=== PATIENT | female | born 1960 | race American Indian/Alaskan Native ===

== ENCOUNTER 2021-04-29 19:48 | Inpatient (IN) | payer BC ==
--- NOTE | 2021-04-29 10:59 | Anesthesia Day of Surgery ---
Anesthesia Day of Surgery - Day of Surgery Patient Examined: Yes Patient H&P Reviewed: Yes Patient is NPO: Yes Beta Blockers: Yes
--- NOTE | 2021-04-29 11:01 | Anesthesia Consultation ---
Anesthesia Consult and Med Hx Date of service: 04/29/21 - Airway Anesthetic Teeth Evaluation: Chipped, Partials ROM Head & Neck: Adequate Mental/Hyoid Distance: Adequate Mallampati Class: Class II Intubation Access Assessment: Good - Pre-Operative Health Status ASA Pre-Surgery Classification: ASA3 Nerve Block: IS (GA if needed) - Pulmonary Hx Smoking: Yes Hx Respiratory Symptoms: No (+2FS) Hx Sleep Apnea: No - Cardiovascular System Hx Hypertension: Yes Hx Heart Murmur: Yes - Central Nervous System Hx Psychiatric Problems: Yes (Anxiety) - Gastrointestinal Hx Gastroesophageal Reflux Disease: No - Endocrine Hx Renal Disease: Yes (because of HTN) Hx End Stage Renal Disease: Yes (Not on HD yet) Hx Liver Disease: No Hx Non-Insulin Dependent Diabetes: No - Hematic Hx Anemia: Yes (IRON INFUSIONS) Hx Sickle Cell Disease: No - Other Systems Hx Alcohol Use: No Hx Substance Use: No Hx Cancer: No
[2021-04-29 11:50] LABS: Hematocrit 25.5 % (30.3-42.9); Hemoglobin 8.5 gm/dl (10.1-14.3); Mean Corpuscular HGB Conc 33 % (30-34); Mean Corpuscular Volume 91 fl (79-97); Platelet Count 184 K/mm3 (140-440); Red Cell Distribution Width 19.5 % (13.2-15.2)
[2021-04-29 11:55] LABS: Calcium 8.5 mg/dL (8.4-10.2)
--- NOTE | 2021-04-29 14:44 | Post Operative Note ---
Date of procedure: 04/29/21 Pre-op diagnosis: Stage V CKD Post-op diagnosis: same Procedure: Right arm brachiocephalic av fistula creation Anesthesia: GETA Surgeon: FILOMENA MCDUFFIE Estimated blood loss: other (25 ml) Pathology: none Condition: stable Disposition: PACU
--- NOTE | 2021-04-29 14:45 | Short Stay Summary ---
Short Stay Documentation Date of service: 04/29/21 - History H&P: obtained from office Past Medical History: diabetes, ESRD - Allergies and Medications Current Medications: Allergies No Known Allergies Allergy (Verified 04/26/21 11:49) Home Medications Medication Instructions Recorded Confirmed Last Taken Type ALPRAZolam [Xanax TAB] 1 mg PO PRN PRN 04/26/21 04/26/21 Unknown History Amlodipine Besylate [Norvasc] 10 mg PO DAILY 04/26/21 04/29/21 04/29/21 09:00 History Hydralazine HCl 50 mg PO TID 04/26/21 04/29/21 04/29/21 09:00 History Nebivolol HCl [Bystolic] 20 mg PO DAILY 04/26/21 04/29/21 04/29/21 09:00 History Torsemide [Demadex] 100 mg PO QDAY 04/26/21 04/29/21 04/28/21 09:00 History Zolpidem (Nf) [Ambien (Nf)] 10 mg PO QHS 04/26/21 04/29/21 04/27/21 20:00 History allopurinoL [Zyloprim] 100 mg PO QDAY 04/26/21 04/29/21 04/28/21 09:00 History calcitrioL [Rocaltrol] 0.25 mcg PO DAILY 04/26/21 04/29/21 04/26/21 09:00 History Active Medications Fentanyl (Fentanyl 100 Mcg/2 Ml Inj) 100 mcg IV ONCE NR Stop: 04/29/21 23:59 Hydromorphone HCl (Hydromorphone 1 Mg/1 Ml Inj) 0.25 mg IV Q10MIN PRN PRN Reason: Pain, Moderate (4-6) Stop: 04/29/21 23:59 Hydromorphone HCl (Hydromorphone 1 Mg/1 Ml Inj) 0.5 mg IV Q10MIN PRN PRN Reason: Pain , Severe (7-10) Stop: 04/29/21 23:59 Sodium Chloride (Nacl 0.9% 1000 Ml) 1,000 mls @ 42 mls/hr IV DIRECT LYLA Midazolam HCl (Midazolam 2 Mg/2 Ml Inj) 2 mg IV PREOP NR Stop: 04/29/21 23:59 Ondansetron HCl (Ondansetron 4 Mg/2 Ml Inj) 4 mg IV ONCE PRN PRN Reason: Nausea And Vomiting Stop: 04/29/21 23:59 - Physical exam General appearance: no acute distress Lungs: Normal air movement Heart: Regular rate Extremities: no ischemia - Hospital course Hospital course: the patient was taken to the operating room and had a right arm av fistula c reation. please refer to the operative note concerning details of the procedure. the patient tolerated the procedure well and was discharged home in stable condition. - Disposition Condition at discharge: Stable Disposition: DC-01 TO HOME OR SELFCARE Short Stay Discharge Plan Follow up with: JOSE STARKEY MD [Primary Care Provider] - 7 Days
--- NOTE | 2021-04-29 16:16 | Post Anesthesia Evaluation ---
- Post Anesthesia Evaluation Patient Participated: Yes Airway Patent: Yes Stable Respiratory Function: Yes Nausea/Vomiting: No Temp > 96.8F: Yes Pain Manageable: Yes Adequeate Hydration: Yes Anesthesia Complications: No Block Receding Appropriately: Yes Patient on Ventilator: No Other Comments: Pt misrepresented her health history preoperatively and overstated her activity tolerance.
--- NOTE | 2021-04-29 17:16 | XRay Report ---
CHEST 1 VIEW 04/29/2021 5:01 PM INDICATION / CLINICAL INFORMATION: POST OP. HYPOXIA. COMPARISON: None available. FINDINGS: SUPPORT DEVICES: None. HEART / MEDIASTINUM: Cardiomegaly LUNGS / PLEURA: Diffuse bilateral pulmonary opacities and edema with right effusion No pneumothorax. Signer Name: Mele Rodriguez MD Signed: 04/29/2021 5:12 PM Workstation Name: [id number]
--- NOTE | 2021-04-29 17:31 | Operative Report ---
DATE OF SURGERY: 04/29/2021 STAFF SURGEON: Dr. Xu Stout. PREOPERATIVE DIAGNOSIS: Stage V chronic kidney disease. POSTOPERATIVE DIAGNOSIS: Stage V chronic kidney disease. PROCEDURE PERFORMED: Right arm brachiocephalic AV fistula creation. COMPLICATIONS: None. ESTIMATED BLOOD LOSS: 25 mL ANESTHESIA: General. INDICATIONS FOR PROCEDURE: This is a 61-year-old female with stage V chronic kidney disease, in need of upper extremity accesses. The patient was found to have a marginal cephalic vein in the upper arm by bedside ultrasound, found to be suitable for potential for AV fistula creation. The patient was explained the risks, benefits and alternative procedure, expressed understanding and wished to proceed. DESCRIPTION OF PROCEDURE: The appropriate consent was obtained. The patient was brought back to the operating room and placed on the operating table in supine position with the right arm extended. The patient was given appropriate medication for general anesthesia, had LMA placed without difficulty. The right arm was prepped and draped in sterile fashion with ChloraPrep. Appropriate preoperative antibiotics were administered and appropriate timeout was performed indicating the correct patient, procedure, and site of procedure. We then began the operation by making a transverse incision just below the antecubital fossa. This was carried through subcutaneous tissue with combination of blunt dissection and electrocautery. Dissection was continued until the cephalic vein was identified, which was found to be suitable for a fistula creation. This mobilized for appropriate distance both proximally and distally. The branches of the cephalic vein were taken down with silk suture and transected. We then continued our dissection medially through the bicep aponeurosis, which allowed us to expose the brachial artery, which was found to be suitable for arterial inflow, mobilized for appropriate distance both proximally and distally. The patient was given 5000 units of unfractionated heparin. With appropriate timeout elapsed, vascular clamps were placed on the brachial artery, both proximally and distally. The cephalic vein was transected in the distal aspect of the incision, flushed with heparinized saline and spatulated. A longitudinal arteriotomy was made on the brachial artery and extended with Guzman scissors. Then end-to-side anastomosis was performed with a running 6-0 Prolene suture. Once complete, flow was established through the fistula had a nice palpable thrill. We then looked to obtain hemostasis along the suture line, was obtained with hemostatic agents. Once we were satisfied with hemostasis, we then proceeded to close the wound by approximating the deep subcutaneous layer with interrupted 3-0 PDS and then the skin was approximated with a running 4-0 Monocryl. Appropriate Dermabond dressing was placed. The patient tolerated the procedure well, emerged from the general anesthesia, had LMA removed and was sent to recovery in stable condition. All the sponge, instrument and needle counts were correct at completion of the operation. TID: [id number] RECEIPT: [id number] VCN/NOO
[~2021-04-29 19:48] MED LIST: ALBUTEROL 2.5 MG/3 ML NEBU IH ONE; ALPRAZolam 1 MG TAB PO PRN; BUPIVACAINE/PF (0.5%) 5 MG/1 ML 30 ML VIAL INFILTRATI ONE; GELATIN SPONGE SIZE 100 TP ONE; HEPARIN 10,000 UNITS/10 ML VIAL ONE; HEPARIN 2,000 UNIT in SODIUM CHLORIDE 0.9% 500 ML 500 ML IR ONE; HYDROmorphone 1 MG/1 ML INJ IV PRN; LIDOCAINE (1%) 10 MG/1 ML VIAL 20 ML MDV ONE; LIDOCAINE MPF (2%) 20 MG/1 ML VIAL 5 ML ONE; MIDAZOLAM 2 MG/2 ML INJ IV NR; NEBIVOLOL HCL 20 MG PO SCH; ONDANSETRON 4 MG/2 ML INJ IV PRN; PHENYLEPHRINE 10 MG/1 ML INJ SDV ONE; PHENYLEPHRINE/NS 1,000 MCG/10 ML SYRINGE (OR USE) IV ONE; PROTAMINE SULFATE 50 MG/5 ML INJ ONE; SODIUM CHLORIDE 0.9% 100 ML ONE; SODIUM CHLORIDE 0.9% 1000 ML 1,000 ML IV SCH; SODIUM CHLORIDE 0.9% 1000 ML 1,000 ML ONE; SODIUM CHLORIDE 0.9% 500 ML 500 ML ONE; SODIUM CHLORIDE 0.9% IRR 1,000 ML BOTTLE IR ONE; THROMBIN (RECOMBINANT) 5,000 UNIT VIAL TP ONE; ceFAZolin/STERILE WATER 2 GM/20 ML SYRINGE IV NR; ceFAZolin/Water 2 GM/20 ML 2 GM/20 ML SYRINGE IV ONE; fentaNYL 100 MCG/2 ML INJ IV NR; flumazeniL 0.5 MG/5 ML INJ IV ONE; oxyCODONE /ACETAMINOPHEN 5-325MG TAB PO PRN; propofoL 200 MG/20 ML VIAL IV ONE
[2021-04-29] MEDS ORDERED: TORSEMIDE 100 MG TAB PO SCH (20:00)
[2021-04-29] MEDS ORDERED: amLODIPine 5 MG TAB PO SCH (20:00)
[2021-04-29] MEDS ORDERED: NON-FORMULARY EACH (Hydralazine Hcl [Hydralazine Hcl] 50 MG Tablet) PO SCH (20:00)
[2021-04-29] MEDS: hydrALAZINE 25 MG TAB PO SCH (21:09)
[2021-04-29] MEDS ORDERED: FAMOTIDINE 10 MG TAB PO SCH (22:00)
[2021-04-29] MEDS ORDERED: NALOXONE 0.4 MG/1 ML INJ ONE (23:31)
[2021-04-29] MEDS ORDERED: NALOXONE 0.4 MG/1 ML INJ IV PRN (23:55)
--- NOTE | 2021-04-30 00:03 | Event Note ---
Date: 04/30/21 I was asked by the hospitalist, Dr. Angel, to come up to room 460 and intubate the patient. It appears that this patient was here for a brachiocephalic fistula creation and the patient's nurse says that she just arrived from the PACU. I do not know what the events were leading up to the patient's respiratory distress. When I arrived to the room respiratory therapy was at bedside attempting to intubate. There appears to be a lot of gastric secretions that the patient has in the oropharynx. I got to the head of the bed to intubate the patient. RT was assisting with suction. I used a glide scope with a MAC 4 blade and was able to visualize the vocal cords. I placed a 7.5 endotracheal tube through the vocal cords to about 24 cm at the lips. The bulb was inflated with about 7 cc of air. There was good color change capnography, bilateral breath sounds heard. The patient's oxygen saturation went up from 85% to 97%. At this point I left the room to return to the emergency department and Dr. Angel will continue with the rest of the patient's evaluation and transfer to the ICU.
--- NOTE | 2021-04-30 00:06 | Event Note ---
Date: 04/30/21 Code med was called. Patient was found unresponsive and not breathing. 027 around 57 and BP 78-80/50. Patient get Percocet and fentanyl. Patient was given 5 Narcan with improvement of O2 sat but patient was still not breathing. Patient was vomiting food material. Patient was intubated by the ER physician to protect airway. O2 sat is 96% BP 117/68. Patient is transferred to the ICU. Critical care is consulted. Case discussed with family
[2021-04-30] MEDS ORDERED: SODIUM CHLORIDE 0.9% 500 ML IVPB IV PRN (00:53)
[2021-04-30] MEDS ORDERED: LIP THERAPY VASELINE TP PRN (00:53)
[2021-04-30] MEDS ORDERED: MINERAL OIL/PETROLATUM, WHITE OPHTH OINT 3.5 GM OU PRN (00:53)
[2021-04-30] MEDS ORDERED: DOPamine/D5W 800 MG/250 ML 800 MG/250 ML BAG IV SCH (01:00)
[2021-04-30] MEDS ORDERED: PIPERACIL/TAZOBACTA 4.5/NS 100 4.5 GM/100 ML VIAL IV SCH (01:00)
[2021-04-30] MEDS ORDERED: MIDAZOLAM 100 MG in SODIUM CHLORIDE 0.9% 80 ML IV SCH (01:00)
--- NOTE | 2021-04-30 01:02 | XRay Report ---
XR chest 1V ap INDICATION / CLINICAL INFORMATION: ett placement. COMPARISON: 04/29/2021 FINDINGS: Right lung base is incompletely imaged. SUPPORT DEVICES: Endotracheal tube projects in the midtrachea. HEART /PULMONARY VASCULATURE: Unchanged. LUNGS / PLEURA: Lung parenchyma is not significantly changed. No pneumothorax. IMPRESSION: Satisfactory position of endotracheal tube. Otherwise stable appearance of the chest. Signer Name: Leon Foster MD Signed: 04/30/2021 12:57 AM Workstation Name: [id number]
[2021-04-30] MEDS: MIDAZOLAM 2 MG/2 ML INJ IV PRN ×2 (01:27→01:40)
[2021-04-30] MEDS: PIPERACIL-TAZO 2.25 GM/50 ML 2.25 GM/50 ML BAG IV SCH ×3 (03:36→19:11)
[2021-04-30 04:54] LABS: Hematocrit 27.9 % (30.3-42.9); Hemoglobin 8.9 gm/dl (10.1-14.3); Mean Corpuscular HGB Conc 32 % (30-34); Mean Corpuscular Volume 90 fl (79-97); Platelet Count 183 K/mm3 (140-440); Red Blood Count 3.09 M/mm3 (3.65-5.03); Red Cell Distribution Width 19.2 % (13.2-15.2)
[2021-04-30 05:15] LABS: Albumin 3.6 g/dL (3.9-5)
[2021-04-30 05:49] LABS: Anisocytosis 1+; Hypochromasia 1+; Platelet Estimate Consistent w Auto; Total Cells Counted 100
[2021-04-30] MEDS: hydrALAZINE 25 MG TAB PO SCH (05:51)
[2021-04-30] MEDS ORDERED: TORSEMIDE 100 MG TAB PO SCH (06:00)
--- NOTE | 2021-04-30 06:45 | History and Physical Report ---
History of Present Illness Date of examination: 04/29/21 Date of admission: 04/29/21 19:50 Chief complaint: Shortness of breath after surgery--Right arm brachiocephalic av fistula creation History of present illness: 61-year-old female with history of end-stage renal disease not on dialysis and hypertension was having some mild respiratory distress after surgery--Right arm brachiocephalic av fistula creation. Patient was in volume overload with pulmonary congestion. Was asked by anesthesia to admit the patient for postop observation. Patient being admitted for possible Vas-Cath insertion and hemodialysis in a.m. Patient mildly short of breath. No orthopnea. Patient being admitted for 23-hour observation and possible Vas-Cath insertion and emergent hemodialysis tomorrow. Patient being admitted to the floor. Past History Past Medical History: diabetes, ESRD, hypertension Past Surgical History: Other (Right arm AV fistula) Social history: lives with family, full code Family history: hypertension Medications and Allergies Allergies Allergy/AdvReac Type Severity Reaction Status Date / Time No Known Allergies Allergy Verified 04/26/21 11:49 Home Medications Medication Instructions Recorded Confirmed Last Taken Type ALPRAZolam [Xanax TAB] 1 mg PO PRN PRN 04/26/21 04/26/21 Unknown History Amlodipine Besylate [Norvasc] 10 mg PO DAILY 04/26/21 04/29/21 04/29/21 09:00 History Hydralazine HCl 50 mg PO TID 04/26/21 04/29/21 04/29/21 09:00 History Nebivolol HCl [Bystolic] 20 mg PO DAILY 04/26/21 04/29/21 04/29/21 09:00 History Torsemide [Demadex] 100 mg PO QDAY 04/26/21 04/29/21 04/28/21 09:00 History Zolpidem (Nf) [Ambien (Nf)] 10 mg PO QHS 04/26/21 04/29/21 04/27/21 20:00 History allopurinoL [Zyloprim] 100 mg PO QDAY 04/26/21 04/29/21 04/28/21 09:00 History calcitrioL [Rocaltrol] 0.25 mcg PO DAILY 04/26/21 04/29/21 04/26/21 09:00 History oxyCODONE /ACETAMINOPHEN [Percocet 1 tab PO Q6HR PRN #20 tablet 04/29/21 Unknown Rx 5/325 mg] Active Meds: Active Medications Acetaminophen (Acetaminophen 325 Mg Tab) 650 mg PO Q4H PRN PRN Reason: Pain MILD(1-3)/Fever >100.5/KLEIN Alprazolam (Alprazolam 1 Mg Tab) 1 mg PO Q12H PRN PRN Reason: Anxiety Last Admin: 04/29/21 20:34 Dose: 1 mg Documented by: Amlodipine Besylate (Amlodipine 10 Mg Tab) 10 mg PO DAILY [facility] Calcitriol (Calcitriol 0.25 Mcg Cap) 0.25 mcg PO DAILY [facility] Famotidine (Famotidine 10 Mg Tab) 10 mg PO BID LYLA Last Admin: 04/29/21 21:09 Dose: 10 mg Documented by: Famotidine (Famotidine 20 Mg/2 Ml Inj) 20 mg IV DAILY [facility] Heparin Sodium (Porcine) (Heparin 5,000 Unit/1 Ml Vial) 5,000 unit SUB-Q Q12HR [facility] Hydralazine HCl (Hydralazine 25 Mg Tab) 50 mg PO Q8HR [facility] Last Admin: 04/30/21 05:51 Dose: Not Given Documented by: Hydromorphone HCl (Hydromorphone 1 Mg/1 Ml Inj) 0.5 mg IV Q3H PRN PRN Reason: Pain , Severe (7-10) Hydrophilic Ointment (Lip Therapy Vaseline) 1 applic TP Q2HR PRN PRN Reason: Dry Lips Sodium Chloride (Nacl 0.9% 1000 Ml) 1,000 mls @ 42 mls/hr IV DIRECT LYLA Last Admin: 04/29/21 12:00 Dose: 42 mls/hr Documented by: Piperacillin Sod/Tazobactam Sod (Zosyn/Ns 2.25 Gm/50ml) 2.25 gm in 50 mls @ 100 mls/hr IV Q8H [facility]; Protocol Last Admin: 04/30/21 03:36 Dose: 100 mls/hr Documented by: Midazolam HCl 100 mg/ Sodium (Chloride) 100 mls @ 2 mls/hr IV TITR [facility]; Protocol Last Titration: 04/30/21 03:23 Dose: 0 mg/hr, 0 mls/hr Documented by: Dopamine HCl/Dextrose (Intropin Drip 800 Mg/D5w 250 Ml) 800 mg in 250 mls @ 33.169 mls/hr IV TITR [facility]; Protocol Last Titration: 04/30/21 06:34 Dose: 5 mcg/kg/min, 8.292 mls/hr Documented by: Propofol (Diprivan 10 Mg/Ml) 1,000 mg in 100 mls @ 2.654 mls/hr IV TITR [facility]; Protocol Last Titration: 04/30/21 03:12 Dose: 10 mcg/kg/min, 5.307 mls/hr Documented by: Metoprolol Succinate (Metoprolol Succinate Xl 100 Mg Tab) 100 mg PO QDAY [facility] Midazolam HCl (Midazolam 2 Mg/2 Ml Inj) 2 mg IV Q10MIN PRN PRN Reason: Sedation Last Admin: 04/30/21 01:40 Dose: 2 mg Documented by: Multi-Ingred Cream/Lotion/Oil/Oint (Mineral Oil/Petrolatum, White Ophth Oint 3.5 Gm) 1 applic OU Q4HR PRN PRN Reason: Dry Eye(s) Naloxone HCl (Naloxone 0.4 Mg/1 Ml Inj) 0.1 mg IV Q2MIN PRN PRN Reason: Res Rate </= 8 or 02 SAT < 92% Ondansetron HCl (Ondansetron 4 Mg/2 Ml Inj) 4 mg IV Q8H PRN PRN Reason: Nausea And Vomiting Oxycodone/Acetaminophen (Oxycodone /Acetaminophen 5-325mg Tab) 1 tab PO Q6H PRN PRN Reason: Pain, Moderate (4-6) Senna/Docusate Sodium (Sennosides/Docusate Sodium 8.6/50 Mg Tab) 1 tab FEEDTUBE BID [facility] Sodium Chloride (Sodium Chloride 0.9% 10 Ml Flush Syringe) 10 ml IV BID [facility] Last Admin: 04/29/21 21:55 Dose: 10 ml Documented by: Sodium Chloride (Sodium Chloride 0.9% 10 Ml Flush Syringe) 10 ml IV PRN PRN PRN Reason: LINE FLUSH Sodium Chloride (Sodium Chloride 0.9% 500 Ml Ivpb) 5 ml IV DIRECT PRN PRN Reason: ARTERIAL ASSISTANT DEAN Torsemide (Torsemide 100 Mg Tab) 100 mg PO DAILY@0600 [facility] Last Admin: 04/30/21 05:51 Dose: Not Given Documented by: Review of Systems All systems: negative Cardiovascular: shortness of breath Respiratory: shortness of breath Exam - Constitutional Vitals: Temp Pulse Resp BP Pulse Ox 97.6 F 67 20 84/42 97 04/30/21 04:00 04/30/21 06:15 04/30/21 06:00 04/30/21 06:15 04/30/21 06:15 General appearance: Present: no acute distress, well-nourished - EENT Eyes: Present: PERRL ENT: hearing intact, clear oral mucosa - Neck Neck: Present: supple, normal ROM - Respiratory Respiratory effort: normal Respiratory: bilateral: CTA - Cardiovascular Heart rate: 78 Rhythm: regular Heart Sounds: Present: S1 & S2. Absent: rub, click - Extremities Extremities: pulses symmetrical, No edema Peripheral Pulses: within normal limits - Abdominal General gastrointestinal: Present: soft, non-tender, non-distended, normal bowel sounds Female genitourinary: Present: normal - Integumentary Integumentary: Present: clear, warm, dry - Musculoskeletal Musculoskeletal: gait normal, strength equal bilaterally - Psychiatric Psychiatric: appropriate mood/affect, intact judgment & insight - Neurologic Neurologic: CNII-XII intact, moves all extremities - Allied Health Allied health notes reviewed: nursing, case management Results - Labs CBC & Chem 7: 04/30/21 04:23 04/30/21 04:23 Labs: Laboratory Last Values WBC 15.0 K/mm3 (4.5-11.0) H 04/30/21 04:23 RBC 3.09 M/mm3 (3.65-5.03) L 04/30/21 04:23 Hgb 8.9 gm/dl (10.1-14.3) L 04/30/21 04:23 Hct 27.9 % (30.3-42.9) L 04/30/21 04:23 MCV 90 fl (79-97) 04/30/21 04:23 MCH 29 pg (28-32) 04/30/21 04:23 MCHC 32 % (30-34) 04/30/21 04:23 RDW 19.2 % (13.2-15.2) H 04/30/21 04:23 Plt Count 183 K/mm3 (140-440) 04/30/21 04:23 Add Manual Diff Complete 04/30/21 04:23 Total Counted 100 04/30/21 04:23 Seg Neutrophils % Saw Boss 04/30/21 04:23 Seg Neuts % (Manual) 96.0 % (40.0-70.0) H 04/30/21 04:23 Lymphocytes % (Manual) 3.0 % (13.4-35.0) L 04/30/21 04:23 Monocytes % (Manual) 1.0 % (0.0-7.3) 04/30/21 04:23 Nucleated RBC % Not Reportable 04/30/21 04:23 Seg Neutrophils # Man 14.4 K/mm3 (1.8-7.7) H 04/30/21 04:23 Band Neutrophils # 0.0 K/mm3 04/30/21 04:23 Lymphocytes # (Manual) 0.5 K/mm3 (1.2-5.4) L 04/30/21 04:23 Abs React Lymphs (Man) 0.0 K/mm3 04/30/21 04:23 Monocytes # (Manual) 0.2 K/mm3 (0.0-0.8) 04/30/21 04:23 Eosinophils # (Manual) 0.0 K/mm3 (0.0-0.4) 04/30/21 04:23 Basophils # (Manual) 0.0 K/mm3 (0.0-0.1) 04/30/21 04:23 Metamyelocytes # 0.0 K/mm3 04/30/21 04:23 Myelocytes # 0.0 K/mm3 04/30/21 04:23 Promyelocytes # 0.0 K/mm3 04/30/21 04:23 Blast Cells # 0.0 K/mm3 04/30/21 04:23 WBC Morphology Not Reportable 04/30/21 04:23 Hypersegmented Neuts Not Reportable 04/30/21 04:23 Hyposegmented Neuts Not Reportable 04/30/21 04:23 Hypogranular Neuts Not Reportable 04/30/21 04:23 Smudge Cells Not Reportable 04/30/21 04:23 Toxic Granulation Not Reportable 04/30/21 04:23 Toxic Vacuolation Not Reportable 04/30/21 04:23 Dohle Bodies Not Reportable 04/30/21 04:23 Pelger-Huet Anomaly Not Reportable 04/30/21 04:23 Vik Rods Not Reportable 04/30/21 04:23 Platelet Estimate Consistent w auto 04/30/21 04:23 Clumped Platelets Not Reportable 04/30/21 04:23 Plt Clumps, EDTA Not Reportable 04/30/21 04:23 Large Platelets Not Reportable 04/30/21 04:23 Giant Platelets Not Reportable 04/30/21 04:23 Platelet Satelliting Not Reportable 04/30/21 04:23 Plt Morphology Comment Not Reportable 04/30/21 04:23 RBC Morphology Not Reportable 04/30/21 04:23 Dimorphic RBCs Not Reportable 04/30/21 04:23 Polychromasia Not Reportable 04/30/21 04:23 Hypochromasia 1+ 04/30/21 04:23 Poikilocytosis Not Reportable 04/30/21 04:23 Anisocytosis 1+ 04/30/21 04:23 Microcytosis Not Reportable 04/30/21 04:23 Macrocytosis Not Reportable 04/30/21 04:23 Spherocytes Not Reportable 04/30/21 04:23 Pappenheimer Bodies Not Reportable 04/30/21 04:23 Sickle Cells Not Reportable 04/30/21 04:23 Target Cells Not Reportable 04/30/21 04:23 Tear Drop Cells Not Reportable 04/30/21 04:23 Ovalocytes Not Reportable 04/30/21 04:23 Helmet Cells Not Reportable 04/30/21 04:23 Cast[place] Bodies Not Reportable 04/30/21 04:23 [place] Rings Not Reportable 04/30/21 04:23 [place] Cells Not Reportable 04/30/21 04:23 Bite Cells Not Reportable 04/30/21 04:23 Crenated Cell Not Reportable 04/30/21 04:23 Elliptocytes Not Reportable 04/30/21 04:23 Acanthocytes (Spur) Not Reportable 04/30/21 04:23 Rouleaux Not Reportable 04/30/21 04:23 Hemoglobin C Crystals Not Reportable 04/30/21 04:23 Schistocytes Not Reportable 04/30/21 04:23 Malaria parasites Not Reportable 04/30/21 04:23 [place] Bodies Not Reportable 04/30/21 04:23 Hem Pathologist Commnt No 04/30/21 04:23 ABG pH 7.208 (7.320-7.450) L 04/30/21 03:29 POC ABG pCO2 52.9 mmHg (32.0-48.0) H 04/30/21 03:29 POC ABG pO2 58.6 mmHg (83-108) L 04/30/21 03:29 POC ABG HCO3 20.6 04/30/21 03:29 ABG O2 Saturation 87.2 (0-100) 04/30/21 03:29 POC ABG Base Excess -7.1 04/30/21 03:29 ABG Hemoglobin 8.8 (12.0-17.5) L 04/30/21 03:29 ABG Oxyhemoglobin 85.9 (94-98) L 04/30/21 03:29 ABG Methemoglobin 0.3 (0.0-1.5) 04/30/21 03:29 ABG Sodium 140.1 mmol/L (136.0-145.0) 04/30/21 03:29 ABG Potassium 4.1 mmol/L (3.40-4.50) 04/30/21 03:29 ABG Chloride 108.0 mmol/L (98-107) H 04/30/21 03:29 ABG Glucose 138 mg/dL (65-95) H 04/30/21 03:29 Carboxyhemoglobin 1.2 (0.5-1.5) 04/30/21 03:29 FiO2 % 40.0 04/30/21 03:29 Sodium 145 mmol/L (137-145) 04/30/21 04:23 Potassium 4.6 mmol/L (3.6-5.0) 04/30/21 04:23 Chloride 105.5 mmol/L (98-107) 04/30/21 04:23 Carbon Dioxide 20 mmol/L (22-30) L 04/30/21 04:23 Anion Gap 24 mmol/L 04/30/21 04:23 BUN 90 mg/dL (7-17) H 04/30/21 04:23 Creatinine 9.5 mg/dL (0.6-1.2) H 04/30/21 04:23 Estimated GFR 5 ml/min 04/30/21 04:23 BUN/Creatinine Ratio 9 % 04/30/21 04:23 Glucose 145 mg/dL (65-100) H 04/30/21 04:23 POC Glucose 161 mg/dL (70-105) H 04/30/21 00:22 Hemoglobin A1c < 4.0 % (4-6) L 04/30/21 04:23 Calcium 8.0 mg/dL (8.4-10.2) L 04/30/21 04:23 Total Bilirubin 0.30 mg/dL (0.1-1.2) 04/30/21 04:23 AST 30 units/L (5-40) 04/30/21 04:23 ALT 26 units/L (7-56) 04/30/21 04:23 Alkaline Phosphatase 122 units/L (35-129) 04/30/21 04:23 Total Protein 6.7 g/dL (6.3-8.2) 04/30/21 04:23 Albumin 3.6 g/dL (3.9-5) L 04/30/21 04:23 Albumin/Globulin Ratio 1.2 % 04/30/21 04:23 Arterial Blood Glucose 138 mg/dL (65-95) H 04/30/21 03:29 Arterial Blood Ionized Calcium 4.2 mg/dL (4.6-5.3) L 04/30/21 03:29 Short CBC 04/29/21 04/30/21 Range/Units 11:00 04:23 WBC 7.1 15.0 H (4.5-11.0) K/mm3 Hgb 8.5 L 8.9 L (10.1-14.3) gm/dl Hct 25.5 L 27.9 L (30.3-42.9) % Plt Count 184 183 (140-440) K/mm3 BMP 04/29/21 04/30/21 11:00 04:23 Sodium 144 145 Potassium 3.9 4.6 Chloride 106.6 105.5 Carbon Dioxide 24 20 L BUN 81 H 90 H Creatinine 8.5 H 9.5 H Glucose 75 145 H Calcium 8.5 8.0 L Liver Function 04/30/21 Range/Units 04:23 Total Bilirubin 0.30 (0.1-1.2) mg/dL AST 30 (5-40) units/L ALT 26 (7-56) units/L Alkaline Phosphatase 122 (35-129) units/L Albumin 3.6 L (3.9-5) g/dL Ramos/IV: Voiding Method External Female Catheter Assessment and Plan Advance Directives: Yes (Full code) VTE prophylaxis?: Chemical Plan of care discussed with patient/family: Yes - Patient Problems (1) Volume overload Current Visit: Yes Status: Acute Plan to address problem: Patient in volume overload mild respiratory distress patient was stable before the surgery no shortness of breath before surgery postop developed shortness of breath and was asked to admit by the anesthesiologist. On evaluation patient in pulmonary vascular congestion May need emergent hemodialysis may need emergent Vas-Cath insertion and followed by hemodialysis (2) End-stage renal disease needing dialysis Current Visit: Yes Status: Chronic Plan to address problem: Not on hemodialysis till now needs hemodialysis in a.m. (3) Hypertension Current Visit: Yes Status: Chronic Qualifiers: Hypertension type: primary hypertension Qualified Code(s): I10 - Essential (primary) hypertension Plan to address problem: Continue antihypertensives (4) T2DM (type 2 diabetes mellitus) Current Visit: Yes Status: Chronic Qualifiers: Diabetes mellitus vessel scrapper insulin use: unspecified group home insulin use status Plan to address problem: Check hemoglobin A1c coverage for now (5) S/P arteriovenous (AV) fistula creation Current Visit: Yes Status: Acute Plan to address problem: consulted (6) DVT prophylaxis Current Visit: Yes Status: Acute Plan to address problem: On heparin and GI prophylaxis
--- NOTE | 2021-04-30 09:45 | Consultation ---
History of Present Illness - Reason for Consult chronic renal failure - History of Present Illness very pleasant 61-year-old -[place] female with past medical history of chronic kidney disease stage V in the setting of hypertension, well known to our office as she is seen by my colleague Dr. Bradford, who initially presented for a planned right brachiocephalic AV fistula creation. Postoperative course unfortunately was complicated by worsening respiratory distress and concerns for possible aspiration and patient had to be intubated emergently last night. She remains intubated at this time but she is awake she is alert and she is following commands. They have started CPAP trials this morning. Chest x-ray postoperatively initially was concerning for fluid overload. She did have a bladder scan done with about 600 cc of urine noted status post straight cath. She does not have a Ramos in at this time. She is on a low dose of dopamine as pressor support. She remains in the ICU. No other acute events overnight. She had the right upper extremity brachiocephalic AV fistula created yesterday with vascular surgery. Past History Past Medical History: diabetes, ESRD, hypertension Past Surgical History: Other (Right arm AV fistula) Social history: lives with family, full code Family history: hypertension Medications and Allergies Allergies Allergy/AdvReac Type Severity Reaction Status Date / Time No Known Allergies Allergy Verified 04/26/21 11:49 Home Medications Medication Instructions Recorded Confirmed Last Taken Type ALPRAZolam [Xanax TAB] 1 mg PO PRN PRN 04/26/21 04/26/21 Unknown History Amlodipine Besylate [Norvasc] 10 mg PO DAILY 04/26/21 04/29/21 04/29/21 09:00 History Hydralazine HCl 50 mg PO TID 04/26/21 04/29/21 04/29/21 09:00 History Nebivolol HCl [Bystolic] 20 mg PO DAILY 04/26/21 04/29/21 04/29/21 09:00 History Torsemide [Demadex] 100 mg PO QDAY 04/26/21 04/29/21 04/28/21 09:00 History Zolpidem (Nf) [Ambien (Nf)] 10 mg PO QHS 04/26/21 04/29/21 04/27/21 20:00 History allopurinoL [Zyloprim] 100 mg PO QDAY 04/26/21 04/29/21 04/28/21 09:00 History calcitrioL [Rocaltrol] 0.25 mcg PO DAILY 04/26/21 04/29/21 04/26/21 09:00 History oxyCODONE /ACETAMINOPHEN [Percocet 1 tab PO Q6HR PRN #20 tablet 04/29/21 Unknown Rx 5/325 mg] Active Meds: Active Medications Acetaminophen (Acetaminophen 325 Mg Tab) 650 mg PO Q4H PRN PRN Reason: Pain MILD(1-3)/Fever >100.5/KLEIN Alprazolam (Alprazolam 1 Mg Tab) 1 mg PO Q12H PRN PRN Reason: Anxiety Last Admin: 04/29/21 20:34 Dose: 1 mg Documented by: Calcitriol (Calcitriol 0.25 Mcg Cap) 0.25 mcg PO DAILY [facility] Famotidine (Famotidine 20 Mg/2 Ml Inj) 20 mg IV DAILY [facility] Furosemide (Furosemide 40 Mg/4 Ml Inj) 60 mg IV 0600,1800 [facility] Heparin Sodium (Porcine) (Heparin 5,000 Unit/1 Ml Vial) 5,000 unit SUB-Q Q12HR [facility] Hydromorphone HCl (Hydromorphone 1 Mg/1 Ml Inj) 0.5 mg IV Q3H PRN PRN Reason: Pain , Severe (7-10) Hydrophilic Ointment (Lip Therapy Vaseline) 1 applic TP Q2HR PRN PRN Reason: Dry Lips Sodium Chloride (Nacl 0.9% 1000 Ml) 1,000 mls @ 42 mls/hr IV DIRECT [facility] Last Admin: 04/29/21 12:00 Dose: 42 mls/hr Documented by: Piperacillin Sod/Tazobactam Sod (Zosyn/Ns 2.25 Gm/50ml) 2.25 gm in 50 mls @ 100 mls/hr IV Q8H [facility]; Protocol Last Admin: 04/30/21 03:36 Dose: 100 mls/hr Documented by: Midazolam HCl 100 mg/ Sodium (Chloride) 100 mls @ 2 mls/hr IV TITR [facility]; Protocol Last Titration: 04/30/21 03:23 Dose: 0 mg/hr, 0 mls/hr Documented by: Dopamine HCl/Dextrose (Intropin Drip 800 Mg/D5w 250 Ml) 800 mg in 250 mls @ 33.169 mls/hr IV TITR [facility]; Protocol Last Titration: 04/30/21 09:40 Dose: 2 mcg/kg/min, 3.317 mls/hr Documented by: Propofol (Diprivan 10 Mg/Ml) 1,000 mg in 100 mls @ 2.654 mls/hr IV TITR [facility]; Protocol Last Titration: 04/30/21 08:45 Dose: 0 mcg/kg/min, 0 mls/hr Documented by: Midazolam HCl (Midazolam 2 Mg/2 Ml Inj) 2 mg IV Q10MIN PRN PRN Reason: Sedation Last Admin: 04/30/21 01:40 Dose: 2 mg Documented by: Multi-Ingred Cream/Lotion/Oil/Oint (Mineral Oil/Petrolatum, White Ophth Oint 3.5 Gm) 1 applic OU Q4HR PRN PRN Reason: Dry Eye(s) Naloxone HCl (Naloxone 0.4 Mg/1 Ml Inj) 0.1 mg IV Q2MIN PRN PRN Reason: Res Rate </= 8 or 02 SAT < 92% Ondansetron HCl (Ondansetron 4 Mg/2 Ml Inj) 4 mg IV Q8H PRN PRN Reason: Nausea And Vomiting Oxycodone/Acetaminophen (Oxycodone /Acetaminophen 5-325mg Tab) 1 tab PO Q6H PRN PRN Reason: Pain, Moderate (4-6) Senna/Docusate Sodium (Sennosides/Docusate Sodium 8.6/50 Mg Tab) 1 tab FEEDTUBE BID [facility] Sodium Chloride (Sodium Chloride 0.9% 10 Ml Flush Syringe) 10 ml IV BID [facility] Last Admin: 04/29/21 21:55 Dose: 10 ml Documented by: Sodium Chloride (Sodium Chloride 0.9% 10 Ml Flush Syringe) 10 ml IV PRN PRN PRN Reason: LINE FLUSH Sodium Chloride (Sodium Chloride 0.9% 500 Ml Ivpb) 5 ml IV DIRECT PRN 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 Torsemide (Torsemide 100 Mg Tab) 100 mg PO DAILY@0600 [facility] Last Admin: 04/30/21 05:51 Dose: Not Given Documented by: Review of Systems ROS unobtainable: due to endotracheal tube Exam - Vital Signs Vital signs: Vital Signs Temp Pulse Resp BP Pulse Ox 99.4 F 74 24 138/79 92 04/29/21 10:35 04/29/21 10:35 04/29/21 10:35 04/29/21 10:35 04/29/21 10:35 - General Appearance General appearance: well-developed, intubated EENT: ATNC Neck: Present: neck supple Respiratory: Decreased Breath Sounds Heart: regular Gastrointestinal: Present: normal Integumentary: no rash Neurologic: no focal deficit Musculoskeletal: Present: deferred Psychiatric: cooperative Results - Lab Results 04/30/21 04:23 04/30/21 04:23 Most recent lab results ABG pH 7.208 (7.320-7.450) L 04/30/21 03:29 ABG O2 Saturation 87.2 (0-100) 04/30/21 03:29 Calcium 8.0 mg/dL (8.4-10.2) L 04/30/21 04:23 Assessment and Plan - Patient Problems (1) Acute respiratory failure with hypoxia Current Visit: Yes Status: Acute Plan to address problem: vent management per primary/ICU team. Will aggressively diurese at this time and have started patient on Lasix 60 mg IV twice a day which we will titrate up as appropriate. No acute indication for renal replacement therapy at this time. Will however monitor closely over the next 24-48 hours. (2) Volume overload Current Visit: Yes Status: Acute Plan to address problem: Will start patient on Lasix 60 mg IV twice a day and titrate appropriately. She is undergoing CPAP trials today and I am hopeful that she will be able to be extubated soon. Further vent management per pulmonary/ICU team recommendations. There is also question of possible aspiration pneumonia in the setting of vomiting yesterday. Please ensure that antibiotics are dosed appropriately for her decreased renal function. (3) Chronic kidney disease, stage V Current Visit: Yes Status: Chronic Plan to address problem: patient has had a successful arteriovenous fistula creation. Unfortunately it was complicated by respiratory distress requiring intubation in the setting of possible aspiration pneumonia and fluid overload. From a renal standpoint she does not have any acute indications for initiating renal replacement therapy. We will aggressively diurese with Lasix 60 mg IV twice a day and closely monitor her output. I do think she would benefit from Ramos placement in order for adequate measurement of intake and output. Discussed this at length with primary team. We will be monitoring her very closely over the weekend. No other acute electrolyte issues at this time. (4) S/P arteriovenous (AV) fistula creation Current Visit: Yes Status: Acute Plan to address problem: further recommendations and outpatient follow-up with vascular surgery. (5) Hypertension Current Visit: Yes Status: Chronic Qualifiers: Hypertension type: primary hypertension Qualified Code(s): I10 - Essential (primary) hypertension Plan to address problem: her current hemodynamics are indicating hypotension requiring pressor support and she is on a low dose of dopamine. please titrate to maintain her mean arterial pressures above 65 mmHg. We want to avoid significant issues withhypotension as we have just created this new AV fistula.
[2021-04-30] MEDS ORDERED: FAMOTIDINE 20 MG/2 ML INJ IV SCH (10:00)
[2021-04-30] MEDS ORDERED: amLODIPine 10 MG TAB PO SCH (10:00)
[2021-04-30] MEDS ORDERED: METOPROLOL SUCCINATE XL 100 MG TAB PO SCH (10:00)
[2021-04-30] MEDS: FUROSEMIDE 40 MG/4 ML INJ IV SCH ×2 (10:08→17:44)
[2021-04-30] MEDS: HEPARIN 5,000 UNIT/1 ML VIAL SUB-Q SCH ×2 (10:09→21:31)
[2021-04-30] MEDS: FAMOTIDINE 20 MG/2 ML INJ IV SCH (10:09)
[2021-04-30] MEDS: CALCITRIOL 0.25 MCG CAP PO SCH (10:10)
[2021-04-30] MEDS: SENNOSIDES/DOCUSATE SODIUM 8.6/50 MG TAB FEEDTUBE SCH ×2 (10:10→21:31)
[2021-04-30] MEDS ORDERED: DEXTROSE 50% IN WATER (25GM) 50 ML SYRINGE IV ONE (11:27)
--- NOTE | 2021-04-30 11:56 | Consultation ---
History of Present Illness Consult date: 04/30/21 Requesting physician: DIANA PERES Reason for consult: hypoxemia History of present illness: 61 y/o female with ESRD needing HD, who had a fistula created yesterday was admitted to the ICU overnight secondary to minimal responsiveness on the floor and hypoxemia. Patient required intubation but then was put on sedation. This has been turned off. The events of last night are not totally clear but patient spent a significant amount of time in PACU where she got several doses of flumazenil. ON the floor she then got several doses of narcan but was still very minimally responsive so she was electively intubated. No blood gasses drawn prior to intubation. PCO2 was 89 on initial ABG and pH of 7.0 Mixed meta bolic and respiratory acidosis that has improved this am from a pulm standpoint but still acidotic from metabolic reasons. She is awake but lethargic to obtunded on the vent. Remainder is negative. Past History Past Medical History: diabetes, ESRD, hypertension Past Surgical History: Other (Right arm AV fistula) Social history: lives with family, full code Family history: hypertension Medications and Allergies Allergies Allergy/AdvReac Type Severity Reaction Status Date / Time No Known Allergies Allergy Verified 04/26/21 11:49 Home Medications Medication Instructions Recorded Confirmed Last Taken Type ALPRAZolam [Xanax TAB] 1 mg PO PRN PRN 04/26/21 04/26/21 Unknown History Amlodipine Besylate [Norvasc] 10 mg PO DAILY 04/26/21 04/29/21 04/29/21 09:00 History Hydralazine HCl 50 mg PO TID 04/26/21 04/29/21 04/29/21 09:00 History Nebivolol HCl [Bystolic] 20 mg PO DAILY 04/26/21 04/29/21 04/29/21 09:00 History Torsemide [Demadex] 100 mg PO QDAY 04/26/21 04/29/21 04/28/21 09:00 History Zolpidem (Nf) [Ambien (Nf)] 10 mg PO QHS 04/26/21 04/29/21 04/27/21 20:00 History allopurinoL [Zyloprim] 100 mg PO QDAY 04/26/21 04/29/21 04/28/21 09:00 History calcitrioL [Rocaltrol] 0.25 mcg PO DAILY 04/26/21 04/29/21 04/26/21 09:00 History oxyCODONE /ACETAMINOPHEN [Percocet 1 tab PO Q6HR PRN #20 tablet 04/29/21 Unknown Rx 5/325 mg] Active Meds: Active Medications Acetaminophen (Acetaminophen 325 Mg Tab) 650 mg PO Q4H PRN PRN Reason: Pain MILD(1-3)/Fever >100.5/KLEIN Alprazolam (Alprazolam 1 Mg Tab) 1 mg PO Q12H PRN PRN Reason: Anxiety Last Admin: 04/29/21 20:34 Dose: 1 mg Documented by: Calcitriol (Calcitriol 0.25 Mcg Cap) 0.25 mcg PO DAILY [facility] Last Admin: 04/30/21 10:10 Dose: Not Given Documented by: Famotidine (Famotidine 20 Mg/2 Ml Inj) 20 mg IV DAILY [facility] Last Admin: 04/30/21 10:09 Dose: 20 mg Documented by: Furosemide (Furosemide 40 Mg/4 Ml Inj) 60 mg IV 0600,1800 [facility] Last Admin: 04/30/21 10:08 Dose: 60 mg Documented by: Heparin Sodium (Porcine) (Heparin 5,000 Unit/1 Ml Vial) 5,000 unit SUB-Q Q12HR [facility] Last Admin: 04/30/21 10:09 Dose: 5,000 unit Documented by: Hydromorphone HCl (Hydromorphone 1 Mg/1 Ml Inj) 0.5 mg IV Q3H PRN PRN Reason: Pain , Severe (7-10) Hydrophilic Ointment (Lip Therapy Vaseline) 1 applic TP Q2HR PRN PRN Reason: Dry Lips Sodium Chloride (Nacl 0.9% 1000 Ml) 1,000 mls @ 42 mls/hr IV DIRECT [facility] Last Admin: 04/29/21 12:00 Dose: 42 mls/hr Documented by: Piperacillin Sod/Tazobactam Sod (Zosyn/Ns 2.25 Gm/50ml) 2.25 gm in 50 mls @ 100 mls/hr IV Q8H [facility]; Protocol Last Admin: 04/30/21 10:09 Dose: 100 mls/hr Documented by: Midazolam HCl 100 mg/ Sodium (Chloride) 100 mls @ 2 mls/hr IV TITR [facility]; Protocol Last Titration: 04/30/21 03:23 Dose: 0 mg/hr, 0 mls/hr Documented by: Dopamine HCl/Dextrose (Intropin Drip 800 Mg/D5w 250 Ml) 800 mg in 250 mls @ 33.169 mls/hr IV TITR [facility]; Protocol Last Titration: 04/30/21 11:30 Dose: 0 mcg/kg/min, 0 mls/hr Documented by: Propofol (Diprivan 10 Mg/Ml) 1,000 mg in 100 mls @ 2.654 mls/hr IV TITR [facility]; Protocol Last Titration: 04/30/21 08:45 Dose: 0 mcg/kg/min, 0 mls/hr Documented by: Midazolam HCl (Midazolam 2 Mg/2 Ml Inj) 2 mg IV Q10MIN PRN PRN Reason: Sedation Last Admin: 04/30/21 01:40 Dose: 2 mg Documented by: Multi-Ingred Cream/Lotion/Oil/Oint (Mineral Oil/Petrolatum, White Ophth Oint 3.5 Gm) 1 applic OU Q4HR PRN PRN Reason: Dry Eye(s) Naloxone HCl (Naloxone 0.4 Mg/1 Ml Inj) 0.1 mg IV Q2MIN PRN PRN Reason: Res Rate </= 8 or 02 SAT < 92% Ondansetron HCl (Ondansetron 4 Mg/2 Ml Inj) 4 mg IV Q8H PRN PRN Reason: Nausea And Vomiting Oxycodone/Acetaminophen (Oxycodone /Acetaminophen 5-325mg Tab) 1 tab PO Q6H PRN PRN Reason: Pain, Moderate (4-6) Senna/Docusate Sodium (Sennosides/Docusate Sodium 8.6/50 Mg Tab) 1 tab FEEDTUBE BID [facility] Last Admin: 04/30/21 10:10 Dose: Not Given Documented by: Sodium Chloride (Sodium Chloride 0.9% 10 Ml Flush Syringe) 10 ml IV BID [facility] Last Admin: 04/30/21 10:09 Dose: 10 ml Documented by: Sodium Chloride (Sodium Chloride 0.9% 10 Ml Flush Syringe) 10 ml IV PRN PRN PRN Reason: LINE FLUSH Sodium Chloride (Sodium Chloride 0.9% 500 Ml Ivpb) 5 ml IV DIRECT 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 Torsemide (Torsemide 100 Mg Tab) 100 mg PO DAILY@0600 [facility] Last Admin: 04/30/21 05:51 Dose: Not Given Documented by: Review of Systems ROS unobtainable: due to endotracheal tube, due to mental status Physical Examination Vital signs: Vital Signs Temp Pulse Resp BP Pulse Ox 99.4 F 74 24 138/79 92 04/29/21 10:35 04/29/21 10:35 04/29/21 10:35 04/29/21 10:35 04/29/21 10:35 General appearance: no acute distress, alert (but very drowsy) Eyes: non-icteric ENT: other (orally intubated) Neck: supple Effort: normal Ascultation: Bilateral: diminished breath sounds, rales Percussion: Bilateral: not dull Cardiovascular: regular rate and rhythm Gastrointestinal: normoactive bowel sounds, soft Extremities: no edema Musculoskeletal: no deformities Results - Laboratory Findings CBC and BMP: 04/30/21 04:23 04/30/21 04:23 ABG ABG pH 7.208 (7.320-7.450) L 04/30/21 03:29 POC ABG pCO2 52.9 mmHg (32.0-48.0) H 04/30/21 03:29 POC ABG pO2 58.6 mmHg (83-108) L 04/30/21 03:29 POC ABG HCO3 20.6 04/30/21 03:29 ABG O2 Saturation 87.2 (0-100) 04/30/21 03:29 Abnormal lab findings: Abnormal Labs 04/29/21 04/29/21 04/29/21 11:00 11:00 18:25 WBC RBC 2.80 L Hgb 8.5 L Hct 25.5 L RDW 19.5 H Seg Neuts % (Manual) Lymphocytes % (Manual) Seg Neutrophils # Man Lymphocytes # (Manual) ABG pH POC ABG pCO2 POC ABG pO2 ABG Hemoglobin ABG Oxyhemoglobin ABG Potassium ABG Chloride ABG Glucose Carbon Dioxide BUN 81 H Creatinine 8.5 H Glucose POC Glucose 109 H Hemoglobin A1c Calcium Albumin Arterial Blood Glucose Arterial Blood Ionized Calcium 04/29/21 04/30/21 04/30/21 23:20 00:22 00:53 WBC RBC Hgb Hct RDW Seg Neuts % (Manual) Lymphocytes % (Manual) Seg Neutrophils # Man Lymphocytes # (Manual) ABG pH 7.047 L POC ABG pCO2 89.0 H POC ABG pO2 442.0 H ABG Hemoglobin 9.2 L ABG Oxyhemoglobin 98.3 H ABG Potassium 4.6 H ABG Chloride 109.0 H ABG Glucose 164 H Carbon Dioxide BUN Creatinine Glucose POC Glucose 180 H 161 H Hemoglobin A1c Calcium Albumin Arterial Blood Glucose 164 H Arterial Blood Ionized Calcium 4.3 L 04/30/21 04/30/21 04/30/21 03:29 04:23 04:23 WBC 15.0 H RBC 3.09 L Hgb 8.9 L Hct 27.9 L RDW 19.2 H Seg Neuts % (Manual) 96.0 H Lymphocytes % (Manual) 3.0 L Seg Neutrophils # Man 14.4 H Lymphocytes # (Manual) 0.5 L ABG pH 7.208 L POC ABG pCO2 52.9 H POC ABG pO2 58.6 L ABG Hemoglobin 8.8 L ABG Oxyhemoglobin 85.9 L ABG Potassium ABG Chloride 108.0 H ABG Glucose 138 H Carbon Dioxide 20 L BUN 90 H Creatinine 9.5 H Glucose 145 H POC Glucose Hemoglobin A1c Calcium 8.0 L Albumin 3.6 L Arterial Blood Glucose 138 H Arterial Blood Ionized Calcium 4.2 L 04/30/21 04/30/21 04:23 11:26 WBC RBC Hgb Hct RDW Seg Neuts % (Manual) Lymphocytes % (Manual) Seg Neutrophils # Man Lymphocytes # (Manual) ABG pH POC ABG pCO2 POC ABG pO2 ABG Hemoglobin ABG Oxyhemoglobin ABG Potassium ABG Chloride ABG Glucose Carbon Dioxide BUN Creatinine Glucose POC Glucose 52 L Hemoglobin A1c < 4.0 L Calcium Albumin Arterial Blood Glucose Arterial Blood Ionized Calcium - Diagnostic Findings Chest x-ray: image reviewed (pulmonary edema) Assessment and Plan 61 y/o female with ESRD now progressing to requiring HD, admitted with hypercapnic respiratory failure, possibly iatrogenic from surgery meds. 1. Renal-no HD today per nephro, will try high dose IV lasix BID. Rmaos for strict I/O 2. 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 Not quite ready for extubation yet based on mental state but is tolerating PSV well. Repeat ABG and CXR in am. 3. GI-hold on feeds for possible extubation tomorrow. Feed tomorrow if not e xtubated. 4. SCD's and H2 patricia Will continue to follow CCT 31 minutes.
--- NOTE | 2021-04-30 12:24 | Progress Note ---
<VINEET NG - Last Filed: 04/30/21 17:40> Assessment and Plan Assessment and plan: This is a 41-year-old female with HTN, heart murmur, anxiety, ESRD and anemia with acute hypoxic respiratory failure Neuro: h/o anxiety -reorientation as needed Cardio: Hypotension -noted to be hypotensive overnight with bradycardia -dopamine gtt, titrated off at 1100 -BP monitoring per protocol h/o HTN -Hold home antihtn meds at this time h/o ?heart murmur -not ausculated on PE -f/u with PCP Resp: Acute hypoxic respiratory failure -Overnight patient was noted to be hypoxic and was intubated on 04/30 -04/29 CXR shows diffuse bilateral pulmonary opacities with pulmonary edema and right effusion -VAP bundle -Wean high ventilation as tolerated -SPO2 monitoring -CCM consulted, appreciate recommendations -Daily SBT trials, CXR and ABGs -Extubated 04/30 FEN/GI ESRD -Nephrology consulted, appreciate recommendations -Patient was initially at hospital for AV fistula creation -Patient will be started on Lasix 60 mg IV twice daily per nephrology -Hold off placement of Vas-Cath per nephrology Metabolic acidosis -Trend BMP -Nephrology is on board Hypoglycemia -Hypoglycemic protocol -Accu-Cheks every 6hr while n.p.o. -Completed documentation about history of DM, 04/30 hemoglobin A1c less than 4 Urinary retention -Patient was bladder scanned and straight cathed for approximately 500 mL urine -Ramos catheter placed 04/30 accurate intake and output Heme H/O anemia -Per documentation patient has had iron infusions in the past -Presenting H/H 8.5/25.5 -Trend CBC -Transfuse to hemoglobin less than 7 Leukocytosis -WBC 15 -Trend CBC -ABX therapy Skin NAD -Turn every 2 per protocol Lines: Ramos (04/30), PIV GI/DVT prophylaxis: Heparin subcu, SCDs to bilateral lower extremities while in bed, PPI Disposition: ICU Full code The high probability of a clinically significant, sudden or life threatening deterioration of the [] system(s) required my full and direct attention, intervention and personal management. The aggregate critical care time was [45] minutes. This time is in addition to time spent performing reported procedures but includes the following: [x] Data Review and interpretation [x] Patient assessment and monitoring of vital signs [x] Documentation [x] Medication orders and management History Interval history: This is a 61-year-old female with HTN, heart murmur, anxiety, ESRD and anemia who presented to [facility] for a right arm brachiocephalic AV fistula creation on 04/29 however postop patient was noted to have pulmonary edema on CXR and was admitted for observation. Overnight patient was noted to be hypotensive, bradycardic and we decreased respirations and was given Narcan with no improvement in the patient was intubated for airway protection by ED staff. There was possible aspiration noted during the time of administration. Patient was transferred to ICU and CCM, nephrology were consulted. Past surgical history right arm AV fistula creation Social history: ?Smoker Per anesthesia documentation 04/30: Overnight patient was noted to be bradycardic, hypotensive and have altered mental status and the patient was emergently intubated. Patient had a bladder scan with 500 cc of urine received after straight cath. Patient was started on dopamine however this is being actively weaned off. Patient is a CPAP trial. Patient extubated around 1300. Hypotension noted, restarted dopamine gtt at low dose Hospitalist Physical - Constitutional Vitals: Temp Pulse Resp BP Pulse Ox 98.2 F 66 20 99/51 98 04/30/21 11:00 04/30/21 12:00 04/30/21 12:00 04/30/21 12:00 04/30/21 12:00 General appearance: Present: no acute distress, well-nourished - EENT Eyes: Present: PERRL, EOM intact ENT: clear oral mucosa, dentition normal - Neck Neck: Present: normal ROM - Respiratory Respiratory effort: normal Respiratory: left: wheezing, bilateral: diminished - Cardiovascular Rhythm: regular Heart Sounds: Present: S1 & S2. Absent: systolic murmur, diastolic murmur - Extremities Extremities: no ischemia, pulses intact, pulses symmetrical, normal temperature, normal color, Full ROM Peripheral Pulses: within normal limits - Abdominal General gastrointestinal: soft, non-tender, non-distended, normal bowel sounds - Integumentary Integumentary: Present: clear, warm, dry - Psychiatric Psychiatric: appropriate mood/affect, cooperative - Neurologic Neurologic: CNII-XII intact, no focal deficits, moves all extremities - Allied Health Allied health notes reviewed: nursing, RT, social work Results - Labs CBC & Chem 7: 04/30/21 04:23 04/30/21 04:23 Labs: Laboratory Last Values WBC 15.0 K/mm3 (4.5-11.0) H 04/30/21 04:23 RBC 3.09 M/mm3 (3.65-5.03) L 04/30/21 04:23 Hgb 8.9 gm/dl (10.1-14.3) L 04/30/21 04:23 Hct 27.9 % (30.3-42.9) L 04/30/21 04:23 MCV 90 fl (79-97) 04/30/21 04:23 MCH 29 pg (28-32) 04/30/21 04:23 MCHC 32 % (30-34) 04/30/21 04:23 RDW 19.2 % (13.2-15.2) H 04/30/21 04:23 Plt Count 183 K/mm3 (140-440) 04/30/21 04:23 Add Manual Diff Complete 04/30/21 04:23 Total Counted 100 04/30/21 04:23 Seg Neutrophils % Dental Surgery Doctor 04/30/21 04:23 Seg Neuts % (Manual) 96.0 % (40.0-70.0) H 04/30/21 04:23 Lymphocytes % (Manual) 3.0 % (13.4-35.0) L 04/30/21 04:23 Monocytes % (Manual) 1.0 % (0.0-7.3) 04/30/21 04:23 Nucleated RBC % Not Reportable 04/30/21 04:23 Seg Neutrophils # Man 14.4 K/mm3 (1.8-7.7) H 04/30/21 04:23 Band Neutrophils # 0.0 K/mm3 04/30/21 04:23 Lymphocytes # (Manual) 0.5 K/mm3 (1.2-5.4) L 04/30/21 04:23 Abs React Lymphs (Man) 0.0 K/mm3 04/30/21 04:23 Monocytes # (Manual) 0.2 K/mm3 (0.0-0.8) 04/30/21 04:23 Eosinophils # (Manual) 0.0 K/mm3 (0.0-0.4) 04/30/21 04:23 Basophils # (Manual) 0.0 K/mm3 (0.0-0.1) 04/30/21 04:23 Metamyelocytes # 0.0 K/mm3 04/30/21 04:23 Myelocytes # 0.0 K/mm3 04/30/21 04:23 Promyelocytes # 0.0 K/mm3 04/30/21 04:23 Blast Cells # 0.0 K/mm3 04/30/21 04:23 WBC Morphology Not Reportable 04/30/21 04:23 Hypersegmented Neuts Not Reportable 04/30/21 04:23 Hyposegmented Neuts Not Reportable 04/30/21 04:23 Hypogranular Neuts Not Reportable 04/30/21 04:23 Smudge Cells Not Reportable 04/30/21 04:23 Toxic Granulation Not Reportable 04/30/21 04:23 Toxic Vacuolation Not Reportable 04/30/21 04:23 Dohle Bodies Not Reportable 04/30/21 04:23 Pelger-Huet Anomaly Not Reportable 04/30/21 04:23 Vik Rods Not Reportable 04/30/21 04:23 Platelet Estimate Consistent w auto 04/30/21 04:23 Clumped Platelets Not Reportable 04/30/21 04:23 Plt Clumps, EDTA Not Reportable 04/30/21 04:23 Large Platelets Not Reportable 04/30/21 04:23 Giant Platelets Not Reportable 04/30/21 04:23 Platelet Satelliting Not Reportable 04/30/21 04:23 Plt Morphology Comment Not Reportable 04/30/21 04:23 RBC Morphology Not Reportable 04/30/21 04:23 Dimorphic RBCs Not Reportable 04/30/21 04:23 Polychromasia Not Reportable 04/30/21 04:23 Hypochromasia 1+ 04/30/21 04:23 Poikilocytosis Not Reportable 04/30/21 04:23 Anisocytosis 1+ 04/30/21 04:23 Microcytosis Not Reportable 04/30/21 04:23 Macrocytosis Not Reportable 04/30/21 04:23 Spherocytes Not Reportable 04/30/21 04:23 Pappenheimer Bodies Not Reportable 04/30/21 04:23 Sickle Cells Not Reportable 04/30/21 04:23 Target Cells Not Reportable 04/30/21 04:23 Tear Drop Cells Not Reportable 04/30/21 04:23 Ovalocytes Not Reportable 04/30/21 04:23 Helmet Cells Not Reportable 04/30/21 04:23 Castrejon-Tintah Bodies Not Reportable 04/30/21 04:23 Batchelor Rings Not Reportable 04/30/21 04:23 Rosendo Cells Not Reportable 04/30/21 04:23 Bite Cells Not Reportable 04/30/21 04:23 Crenated Cell Not Reportable 04/30/21 04:23 Elliptocytes Not Reportable 04/30/21 04:23 Acanthocytes (Spur) Not Reportable 04/30/21 04:23 Rouleaux Not Reportable 04/30/21 04:23 Hemoglobin C Crystals Not Reportable 04/30/21 04:23 Schistocytes Not Reportable 04/30/21 04:23 Malaria parasites Not Reportable 04/30/21 04:23 Desmond Bodies Not Reportable 04/30/21 04:23 Hem Pathologist Commnt No 04/30/21 04:23 ABG pH 7.208 (7.320-7.450) L 04/30/21 03:29 POC ABG pCO2 52.9 mmHg (32.0-48.0) H 04/30/21 03:29 POC ABG pO2 58.6 mmHg (83-108) L 04/30/21 03:29 POC ABG HCO3 20.6 04/30/21 03:29 ABG O2 Saturation 87.2 (0-100) 04/30/21 03:29 POC ABG Base Excess -7.1 04/30/21 03:29 ABG Hemoglobin 8.8 (12.0-17.5) L 04/30/21 03:29 ABG Oxyhemoglobin 85.9 (94-98) L 04/30/21 03:29 ABG Methemoglobin 0.3 (0.0-1.5) 04/30/21 03:29 ABG Sodium 140.1 mmol/L (136.0-145.0) 04/30/21 03:29 ABG Potassium 4.1 mmol/L (3.40-4.50) 04/30/21 03:29 ABG Chloride 108.0 mmol/L (98-107) H 04/30/21 03:29 ABG Glucose 138 mg/dL (65-95) H 04/30/21 03:29 Carboxyhemoglobin 1.2 (0.5-1.5) 04/30/21 03:29 FiO2 % 40.0 04/30/21 03:29 Sodium 145 mmol/L (137-145) 04/30/21 04:23 Potassium 4.6 mmol/L (3.6-5.0) 04/30/21 04:23 Chloride 105.5 mmol/L (98-107) 04/30/21 04:23 Carbon Dioxide 20 mmol/L (22-30) L 04/30/21 04:23 Anion Gap 24 mmol/L 04/30/21 04:23 BUN 90 mg/dL (7-17) H 04/30/21 04:23 Creatinine 9.5 mg/dL (0.6-1.2) H 04/30/21 04:23 Estimated GFR 5 ml/min 04/30/21 04:23 BUN/Creatinine Ratio 9 % 04/30/21 04:23 Glucose 145 mg/dL (65-100) H 04/30/21 04:23 POC Glucose 52 mg/dL (70-105) L 04/30/21 11:26 Hemoglobin A1c < 4.0 % (4-6) L 04/30/21 04:23 Calcium 8.0 mg/dL (8.4-10.2) L 04/30/21 04:23 Total Bilirubin 0.30 mg/dL (0.1-1.2) 04/30/21 04:23 AST 30 units/L (5-40) 04/30/21 04:23 ALT 26 units/L (7-56) 04/30/21 04:23 Alkaline Phosphatase 122 units/L (35-129) 04/30/21 04:23 Total Protein 6.7 g/dL (6.3-8.2) 04/30/21 04:23 Albumin 3.6 g/dL (3.9-5) L 04/30/21 04:23 Albumin/Globulin Ratio 1.2 % 04/30/21 04:23 Arterial Blood Glucose 138 mg/dL (65-95) H 04/30/21 03:29 Arterial Blood Ionized Calcium 4.2 mg/dL (4.6-5.3) L 04/30/21 03:29 Ramos/IV: Voiding Method External Female Catheter Active Medications - Current Medications Current Medications: Generic Name Dose Route Start Last Admin Trade Name Freq PRN Reason Stop Dose Admin Acetaminophen 650 mg 04/29/21 19:12 Acetaminophen 325 Mg Tab PO Q4H PRN Pain MILD(1-3)/Fever >100.5/KLEIN Alprazolam 1 mg 04/29/21 19:10 04/29/21 20:34 Alprazolam 1 Mg Tab PO 1 mg Q12H PRN Administration Anxiety Calcitriol 0.25 mcg 04/30/21 10:00 04/30/21 10:10 Calcitriol 0.25 Mcg Cap PO Not Given DAILY LYLA Famotidine 20 mg 04/30/21 10:00 04/30/21 10:09 Famotidine 20 Mg/2 Ml Inj IV 20 mg DAILY LYLA Administration Furosemide 60 mg 04/30/21 09:00 04/30/21 10:08 Furosemide 40 Mg/4 Ml Inj IV 60 mg 0600,1800 LYLA Administration Heparin Sodium (Porcine) 5,000 unit 04/30/21 10:00 04/30/21 10:09 Heparin 5,000 Unit/1 Ml Vial SUB-Q 5,000 unit Q12HR LYLA Administration Hydromorphone HCl 0.5 mg 04/29/21 19:12 Hydromorphone 1 Mg/1 Ml Inj IV Q3H PRN Pain , Severe (7-10) Hydrophilic Ointment 1 applic 04/30/21 00:53 Lip Therapy Vaseline TP Q2HR PRN Dry Lips Sodium Chloride 1,000 mls @ 42 mls/hr 04/29/21 11:00 04/29/21 12:00 Nacl 0.9% 1000 Ml IV 42 mls/hr DIRECT LYLA Administration Piperacillin Sod/Tazobactam Sod 2.25 gm in 50 mls @ 100 mls/hr 04/30/21 01:00 04/30/21 10:09 Zosyn/Ns 2.25 Gm/50ml IV 100 mls/hr Q8H LYLA Administration Protocol Midazolam HCl 100 mg/ Sodium 100 mls @ 2 mls/hr 04/30/21 01:00 04/30/21 03:23 Chloride IV 0 mg/hr TITR LYLA 0 mls/hr Titration Protocol 2 MG/HR Dopamine HCl/Dextrose 800 mg in 250 mls @ 33.169 mls/hr 04/30/21 01:00 04/30/21 11:30 Intropin Drip 800 Mg/D5w 250 Ml IV 0 mcg/kg/min TITR LYLA 0 mls/hr Titration Protocol 20 MCG/KG/MIN Propofol 1,000 mg in 100 mls @ 2.654 mls/hr 04/30/21 03:00 04/30/21 08:45 Diprivan 10 Mg/Ml IV 0 mcg/kg/min TITR LYLA 0 mls/hr Titration Protocol 5 MCG/KG/MIN Midazolam HCl 2 mg 04/30/21 00:53 04/30/21 01:40 Midazolam 2 Mg/2 Ml Inj IV 2 mg Q10MIN PRN Administration Sedation Multi-Ingred Cream/Lotion/Oil/Oint 1 applic 04/30/21 00:53 Mineral Oil/Petrolatum, White Ophth Oint 3.5 Gm OU Q4HR PRN Dry Eye(s) Naloxone HCl 0.1 mg 04/29/21 23:55 Naloxone 0.4 Mg/1 Ml Inj IV Q2MIN PRN Res Rate </= 8 or 02 SAT < 92% Ondansetron HCl 4 mg 04/29/21 19:12 Ondansetron 4 Mg/2 Ml Inj IV Q8H PRN Nausea And Vomiting Oxycodone/Acetaminophen 1 tab 04/29/21 19:12 Oxycodone /Acetaminophen 5-325mg Tab PO Q6H PRN Pain, Moderate (4-6) Senna/Docusate Sodium 1 tab 04/30/21 10:00 04/30/21 10:10 Sennosides/Docusate Sodium 8.6/50 Mg Tab FEEDTUBE Not Given BID LYLA Sodium Chloride 10 ml 04/29/21 22:00 04/30/21 10:09 Sodium Chloride 0.9% 10 Ml Flush Syringe IV 10 ml BID LLYA Administration Sodium Chloride 10 ml 04/29/21 19:12 Sodium Chloride 0.9% 10 Ml Flush Syringe IV PRN PRN LINE FLUSH Sodium Chloride 5 ml 04/30/21 00:53 Sodium Chloride 0.9% 500 Ml Ivpb IV DIRECT PRN [employer]ITY ANALYST Torsemide 100 mg 04/30/21 06:00 04/30/21 05:51 Torsemide 100 Mg Tab PO Not Given DAILY@0600 [facility] Nutrition/Malnutrition Assess - Dietary Evaluation Nutrition/Malnutrition Findings: Nutrition Notes Start: 04/30/21 07:58 Freq: Status: Active Protocol: Document 04/30/21 07:58 ESTER (Rec: 04/30/21 08:04 ESTER [id number]) Nutrition Notes Need for Assessment generated from: MD 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 RN screen for skin risk. Pt on vent after vas-cath surgery for HD and has surgical wound. [place] score 16. Burn Absent Trauma Absent GI Symptoms None Current % PO Negligible Minimum of two criteria No physical signs of malnutrition #2 Nutrition Diagnosis Inadequate oral intake Etiology ARF As Evidenced by Signs and Symptoms pt on vent and unable to consume PO Is patient on ventilator? Yes Is Patient Ambulatory and/or Out of Bed No REE-([facility]-confined to bed) 1785.636 Kcal/Kg value to use for calculation 16 Approximate Energy Requirements Using 1415 kcal/Kg Calculation Used for Recommendations Kcal/kg Additional Notes Protein: (>2g/kg IBW) >120g Fluid: 1 ml/kcal or per MD Nutrition Intervention Change Diet Order: Start TF when medically able Nutrition Support: Recommend: Vital HP at 60 ml/hr Flush 50 ml q4h Kcal 1,440 Protein (gm) 126 Fluid (mL) 1,204 Goal #1 Start TF or extubate Anticipated Discharge Needs: Unable to determine at this time Follow-Up By: 05/04/21 Additional Comments FU for TF consult or extubation and diet advancement <WYATT RAYGOZA - Last Filed: 05/01/21 11:04> Assessment and Plan Assessment and plan: Agree with assessment and plan as outlined by nurse practitioner. Patient has been extubated, using the bathroom, making urine. Nephrology will hold off on dialysis, will diurese patient with 60 mg of Lasix twice daily. Continue oxygen supplementation and monitor oxygen saturations. Family at the bedside, all questions answered. Hospitalist Physical - Constitutional Vitals: Temp Pulse Resp BP Pulse Ox 97.8 F 73 22 149/65 90 05/01/21 07:34 05/01/21 10:00 05/01/21 10:00 05/01/21 10:00 05/01/21 10:00 Results - Labs CBC & Chem 7: 05/01/21 04:44 05/01/21 04:44 Labs: Laboratory Last Values WBC 9.1 K/mm3 (4.5-11.0) 05/01/21 04:44 RBC 2.55 M/mm3 (3.65-5.03) L 05/01/21 04:44 Hgb 7.7 gm/dl (10.1-14.3) L 05/01/21 04:44 Hct 23.2 % (30.3-42.9) L 05/01/21 04:44 MCV 91 fl (79-97) 05/01/21 04:44 MCH 30 pg (28-32) 05/01/21 04:44 MCHC 33 % (30-34) 05/01/21 04:44 RDW 19.4 % (13.2-15.2) H 05/01/21 04:44 Plt Count 148 K/mm3 (140-440) 05/01/21 04:44 Add Manual Diff Complete 04/30/21 04:23 Total Counted 100 04/30/21 04:23 Seg Neutrophils % Dental Surgery Doctor 04/30/21 04:23 Seg Neuts % (Manual) 96.0 % (40.0-70.0) H 04/30/21 04:23 Lymphocytes % (Manual) 3.0 % (13.4-35.0) L 04/30/21 04:23 Monocytes % (Manual) 1.0 % (0.0-7.3) 04/30/21 04:23 Nucleated RBC % Not Reportable 04/30/21 04:23 Seg Neutrophils # Man 14.4 K/mm3 (1.8-7.7) H 04/30/21 04:23 Band Neutrophils # 0.0 K/mm3 04/30/21 04:23 Lymphocytes # (Manual) 0.5 K/mm3 (1.2-5.4) L 04/30/21 04:23 Abs React Lymphs (Man) 0.0 K/mm3 04/30/21 04:23 Monocytes # (Manual) 0.2 K/mm3 (0.0-0.8) 04/30/21 04:23 Eosinophils # (Manual) 0.0 K/mm3 (0.0-0.4) 04/30/21 04:23 Basophils # (Manual) 0.0 K/mm3 (0.0-0.1) 04/30/21 04:23 Metamyelocytes # 0.0 K/mm3 04/30/21 04:23 Myelocytes # 0.0 K/mm3 04/30/21 04:23 Promyelocytes # 0.0 K/mm3 04/30/21 04:23 Blast Cells # 0.0 K/mm3 04/30/21 04:23 WBC Morphology Not Reportable 04/30/21 04:23 Hypersegmented Neuts Not Reportable 04/30/21 04:23 Hyposegmented Neuts Not Reportable 04/30/21 04:23 Hypogranular Neuts Not Reportable 04/30/21 04:23 Smudge Cells Not Reportable 04/30/21 04:23 Toxic Granulation Not Reportable 04/30/21 04:23 Toxic Vacuolation Not Reportable 04/30/21 04:23 Dohle Bodies Not Reportable 04/30/21 04:23 Pelger-Huet Anomaly Not Reportable 04/30/21 04:23 Vik Rods Not Reportable 04/30/21 04:23 Platelet Estimate Consistent w auto 04/30/21 04:23 Clumped Platelets Not Reportable 04/30/21 04:23 Plt Clumps, EDTA Not Reportable 04/30/21 04:23 Large Platelets Not Reportable 04/30/21 04:23 Giant Platelets Not Reportable 04/30/21 04:23 Platelet Satelliting Not Reportable 04/30/21 04:23 Plt Morphology Comment Not Reportable 04/30/21 04:23 RBC Morphology Not Reportable 04/30/21 04:23 Dimorphic RBCs Not Reportable 04/30/21 04:23 Polychromasia Not Reportable 04/30/21 04:23 Hypochromasia 1+ 04/30/21 04:23 Poikilocytosis Not Reportable 04/30/21 04:23 Anisocytosis 1+ 04/30/21 04:23 Microcytosis Not Reportable 04/30/21 04:23 Macrocytosis Not Reportable 04/30/21 04:23 Spherocytes Not Reportable 04/30/21 04:23 Pappenheimer Bodies Not Reportable 04/30/21 04:23 Sickle Cells Not Reportable 04/30/21 04:23 Target Cells Not Reportable 04/30/21 04:23 Tear Drop Cells Not Reportable 04/30/21 04:23 Ovalocytes Not Reportable 04/30/21 04:23 Helmet Cells Not Reportable 04/30/21 04:23 Castrejon-Tintah Bodies Not Reportable 04/30/21 04:23 Batchelor Rings Not Reportable 04/30/21 04:23 Gwynn Cells Not Reportable 04/30/21 04:23 Bite Cells Not Reportable 04/30/21 04:23 Crenated Cell Not Reportable 04/30/21 04:23 Elliptocytes Not Reportable 04/30/21 04:23 Acanthocytes (Spur) Not Reportable 04/30/21 04:23 Rouleaux Not Reportable 04/30/21 04:23 Hemoglobin C Crystals Not Reportable 04/30/21 04:23 Schistocytes Not Reportable 04/30/21 04:23 Malaria parasites Not Reportable 04/30/21 04:23 Desmond Bodies Not Reportable 04/30/21 04:23 Hem Pathologist Commnt No 04/30/21 04:23 ABG pH 7.254 (7.320-7.450) L 05/01/21 10:11 POC ABG pCO2 47.1 mmHg (32.0-48.0) 05/01/21 10:11 POC ABG pO2 54.7 mmHg (83-108) L 05/01/21 10:11 POC ABG HCO3 20.4 05/01/21 10:11 ABG O2 Saturation 84.6 (0-100) 05/01/21 10:11 POC ABG Base Excess -6.4 05/01/21 10:11 ABG Hemoglobin 7.5 (12.0-17.5) L 05/01/21 10:11 ABG Oxyhemoglobin 82.9 (94-98) L 05/01/21 10:11 ABG Methemoglobin 0.3 (0.0-1.5) 05/01/21 10:11 ABG Sodium 138.2 mmol/L (136.0-145.0) 05/01/21 10:11 ABG Potassium 3.9 mmol/L (3.40-4.50) 05/01/21 10:11 ABG Chloride 108.0 mmol/L (98-107) H 05/01/21 10:11 ABG Glucose 122 mg/dL (65-95) H 05/01/21 10:11 Carboxyhemoglobin 1.7 (0.5-1.5) H 05/01/21 10:11 FiO2 % 32.0 05/01/21 10:11 Sodium 146 mmol/L (137-145) H 05/01/21 04:44 Potassium 4.3 mmol/L (3.6-5.0) 05/01/21 04:44 Chloride 103.4 mmol/L (98-107) 05/01/21 04:44 Carbon Dioxide 25 mmol/L (22-30) 05/01/21 04:44 Anion Gap 22 mmol/L 05/01/21 04:44 BUN 93 mg/dL (7-17) H 05/01/21 04:44 Creatinine 10.0 mg/dL (0.6-1.2) H 05/01/21 04:44 Estimated GFR 5 ml/min 05/01/21 04:44 BUN/Creatinine Ratio 9 % 05/01/21 04:44 Glucose 82 mg/dL (65-100) 05/01/21 04:44 POC Glucose 92 mg/dL (70-105) 05/01/21 05:09 Hemoglobin A1c < 4.0 % (4-6) L 04/30/21 04:23 Calcium 8.3 mg/dL (8.4-10.2) L 05/01/21 04:44 Total Bilirubin 0.30 mg/dL (0.1-1.2) 04/30/21 04:23 AST 30 units/L (5-40) 04/30/21 04:23 ALT 26 units/L (7-56) 04/30/21 04:23 Alkaline Phosphatase 122 units/L (35-129) 04/30/21 04:23 Total Protein 6.7 g/dL (6.3-8.2) 04/30/21 04:23 Albumin 3.6 g/dL (3.9-5) L 04/30/21 04:23 Albumin/Globulin Ratio 1.2 % 04/30/21 04:23 Arterial Blood Glucose 122 mg/dL (65-95) H 05/01/21 10:11 Arterial Blood Ionized Calcium 4.1 mg/dL (4.6-5.3) L 05/01/21 10:11 Microbiology: Microbiology 04/30/21 Unknown Tracheal Aspirate Sputum Culture - Preliminary Ramos/IV: Voiding Method Indwelling Catheter Active Medications - Current Medications Current Medications: Generic Name Dose Route Start Last Admin Trade Name Freq PRN Reason Stop Dose Admin Acetaminophen 650 mg 04/29/21 19:12 05/01/21 07:37 Acetaminophen 325 Mg Tab PO 650 mg Q4H PRN Administration Pain MILD(1-3)/Fever >100.5/KLEIN Calcitriol 0.25 mcg 04/30/21 10:00 05/01/21 09:36 Calcitriol 0.25 Mcg Cap PO 0.25 mcg DAILY LYLA Administration Famotidine 20 mg 04/30/21 10:00 05/01/21 09:37 Famotidine 20 Mg/2 Ml Inj IV 20 mg DAILY LYLA Administration Furosemide 60 mg 04/30/21 09:00 05/01/21 09:37 Furosemide 40 Mg/4 Ml Inj IV 60 mg 0600,1800 LYLA Administration Heparin Sodium (Porcine) 5,000 unit 04/30/21 10:00 04/30/21 21:31 Heparin 5,000 Unit/1 Ml Vial SUB-Q 5,000 unit Q12HR LYLA Administration Hydrophilic Ointment 1 applic 04/30/21 00:53 Lip Therapy Vaseline TP Q2HR PRN Dry Lips Piperacillin Sod/Tazobactam Sod 2.25 gm in 50 mls @ 100 mls/hr 04/30/21 01:00 05/01/21 09:42 Zosyn/Ns 2.25 Gm/50ml IV 100 mls/hr Q8H LYLA Administration Protocol Dopamine HCl/Dextrose 800 mg in 250 mls @ 33.169 mls/hr 04/30/21 01:00 04/30/21 19:18 Intropin Drip 800 Mg/D5w 250 Ml IV 0 mcg/kg/min TITR LYLA 0 mls/hr Titration Protocol 20 MCG/KG/MIN Propofol 1,000 mg in 100 mls @ 2.654 mls/hr 04/30/21 03:00 04/30/21 14:52 Diprivan 10 Mg/Ml IV 0 mcg/kg/min TITR LYLA 0 mls/hr Titration Protocol 5 MCG/KG/MIN Norepinephrine 4 mg in 250 mls @ 7.5 mls/hr 04/30/21 19:00 05/01/21 10:54 Levophed Drip 4 Mg/Ns 250 Ml IV 0 mcg/min TITR LYLA 0 mls/hr Titration Protocol 2 MCG/MIN Midodrine 10 mg 05/01/21 09:16 05/01/21 09:42 Midodrine 5 Mg Tab PO 10 mg TID@0800,1200,1600 LYLA Administration Multi-Ingred Cream/Lotion/Oil/Oint 1 applic 04/30/21 00:53 Mineral Oil/Petrolatum, White Ophth Oint 3.5 Gm OU Q4HR PRN Dry Eye(s) Naloxone HCl 0.1 mg 04/29/21 23:55 Naloxone 0.4 Mg/1 Ml Inj IV Q2MIN PRN Res Rate </= 8 or 02 SAT < 92% Ondansetron HCl 4 mg 04/29/21 19:12 Ondansetron 4 Mg/2 Ml Inj IV Q8H PRN Nausea And Vomiting Oxycodone/Acetaminophen 1 tab 04/29/21 19:12 Oxycodone /Acetaminophen 5-325mg Tab PO Q6H PRN Pain, Moderate (4-6) Senna/Docusate Sodium 1 tab 04/30/21 10:00 05/01/21 09:37 Sennosides/Docusate Sodium 8.6/50 Mg Tab FEEDTUBE 1 tab BID LYLA Administration Sodium Chloride 10 ml 04/29/21 22:00 04/30/21 21:31 Sodium Chloride 0.9% 10 Ml Flush Syringe IV 10 ml BID LYLA Administration Sodium Chloride 10 ml 04/29/21 19:12 04/30/21 19:40 Sodium Chloride 0.9% 10 Ml Flush Syringe IV 10 ml PRN PRN Administration LINE FLUSH Sodium Chloride 5 ml 04/30/21 00:53 Sodium Chloride 0.9% 500 Ml Ivpb IV DIRECT PRN [employer] Nutrition/Malnutrition Assess - Dietary Evaluation Nutrition/Malnutrition Findings: Nutrition Notes Start: 04/30/21 07:58 Freq: Status: Active Protocol: Document 04/30/21 07:58 ESTER (Rec: 04/30/21 08:04 [id number]) Nutrition Notes Need for Assessment generated from: MD 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 RN screen for skin risk. Pt on vent after vas-cath surgery for HD and has surgical wound. [place] score 16. Burn Absent Trauma Absent GI Symptoms None Current % PO Negligible Minimum of two criteria No physical signs of malnutrition #2 Nutrition Diagnosis Inadequate oral intake Etiology ARF As Evidenced by Signs and Symptoms pt on vent and unable to consume PO Is patient on ventilator? Yes Is Patient Ambulatory and/or Out of Bed No REE-([facility]-confined to bed) 1785.636 Kcal/Kg value to use for calculation 16 Approximate Energy Requirements Using 1415 kcal/Kg Calculation Used for Recommendations Kcal/kg Additional Notes Protein: (>2g/kg IBW) >120g Fluid: 1 ml/kcal or per MD Nutrition Intervention Change Diet Order: Start TF when medically able Nutrition Support: Recommend: Vital HP at 60 ml/hr Flush 50 ml q4h Kcal 1,440 Protein (gm) 126 Fluid (mL) 1,204 Goal #1 Start TF or extubate Anticipated Discharge Needs: Unable to determine at this time Follow-Up By: 05/04/21 Additional Comments FU for TF consult or extubation and diet advancement
[2021-04-30] MEDS ORDERED: SODIUM CHLORIDE 0.9% 1000 ML IV SOLN ONE (14:49)
[2021-04-30] MEDS ORDERED: LIDOCAINE VISCOUS 2% 15 ML ORAL LIQD ONE (14:49)
--- NOTE | 2021-04-30 18:24 | Event Note ---
<VINEET NG - Last Filed: 04/30/21 18:42> Date: 04/30/21 Patient noted to be hypotensive with maps in the 50s-60s , dopamine gtt restarted. Remained hypotensive with maps in the upper 50s-60s, levophed gtt started after speaking with Dr. Hastings who stated that we can give IVF if patient remains hypotensive despite levophed until hypotension resolves. Dr. Caldera at bedside and talked with Darling. patel placed by nursing staff 643 pm <WYATT CALDERA - Last Filed: 05/01/21 10:58> Agree with plan as outlined above. Maps are increasing, continue patient on Levophed, assess in the morning.
[2021-04-30] MEDS: NORepinephrine/NS 4 MG-250 ML 4 MG/250 ML BAG IV SCH (18:30)
[2021-04-30] MEDS ORDERED: SODIUM CHLORIDE 0.9% 250ML 250 ML IV ONE (18:55)
[2021-04-30] MEDS ORDERED: SODIUM BICARB 8.4% 50 MEQ/50 ML SYRINGE IV ONE (20:27)
[2021-05-01] MEDS: PIPERACIL-TAZO 2.25 GM/50 ML 2.25 GM/50 ML BAG IV SCH ×2 (02:19→09:42)
[2021-05-01 05:29] LABS: Hematocrit 23.2 % (30.3-42.9); Hemoglobin 7.7 gm/dl (10.1-14.3); Mean Corpuscular HGB Conc 33 % (30-34); Mean Corpuscular Volume 91 fl (79-97); Platelet Count 148 K/mm3 (140-440); Red Blood Count 2.55 M/mm3 (3.65-5.03); Red Cell Distribution Width 19.4 % (13.2-15.2)
[2021-05-01 05:50] LABS: Calcium 8.3 mg/dL (8.4-10.2)
[2021-05-01] MEDS: ACETAMINOPHEN 325 MG TAB PO PRN (07:37)
[2021-05-01] MEDS: NORepinephrine/NS 4 MG-250 ML 4 MG/250 ML BAG IV SCH (07:38)
--- NOTE | 2021-05-01 09:17 | XRay Report ---
CHEST 1 VIEW INDICATION / CLINICAL INFORMATION: hypoxia. FINDINGS: SUPPORT DEVICES: Interval removal of endotracheal tube. HEART / MEDIASTINUM: The cardiomediastinal silhouette has not significantly changed in the interim. LUNGS / PLEURA: Small pleural effusions and trace interstitial edema persists. Signer Name: Frankie Ring MD Signed: 05/01/2021 9:12 AM Workstation Name: [id number]
[2021-05-01] MEDS: CALCITRIOL 0.25 MCG CAP PO SCH (09:36)
[2021-05-01] MEDS: SENNOSIDES/DOCUSATE SODIUM 8.6/50 MG TAB FEEDTUBE SCH ×2 (09:37→21:27)
[2021-05-01] MEDS: FAMOTIDINE 20 MG/2 ML INJ IV SCH (09:37)
[2021-05-01] MEDS: FUROSEMIDE 40 MG/4 ML INJ IV SCH ×2 (09:37→17:38)
[2021-05-01] MEDS: MIDODRINE 5 MG TAB PO SCH ×3 (09:42→17:38)
--- NOTE | 2021-05-01 10:04 | Progress Note ---
Assessment and Plan 61 y/o female with ESRD now progressing to requiring HD, admitted with hypercapnic respiratory failure, possibly iatrogenic from surgery meds. 05/01/21: Will start on Midodrine 10 TID today. Wean Levophed to OFF. Patient wants to sit in chair and have no objections to this. CXR appears to be more consistent with pulmonary edema. Would continue lasix therapy despite need for vasopressor at this time. Will order Incentive spirometry to bedside. Continue ICU monitoring until BP stablizes. 1. Renal-no HD today per nephro, will try high dose IV lasix BID. Ramos for strict I/O 2. 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 Not quite ready for extubation y et based on mental state but is tolerating PSV well. Repeat ABG and CXR in am. 3. GI-hold on feeds for possible extubation tomorrow. Feed tomorrow if not extubated. 4. SCD's and H2 patricia Will continue to follow CCT 31 minutes. Subjective Date of service: 05/01/21 Interval history: patient woke up later in the afternoon on yesterday. Extubated successfully but BP's were low, good mentation. Started on levophed which has made her pressure better. I gave some bicarb yesterday afternoon as well. Objective Vital Signs - 12hr 04/30/21 04/30/21 04/30/21 22:15 22:30 22:45 Temperature Pulse Rate 70 65 67 Pulse Rate [ From Monitor] Respiratory 13 12 13 Rate Blood Pressure 103/49 107/38 117/40 O2 Sat by Pulse 93 92 95 Oximetry 04/30/21 04/30/21 04/30/21 23:00 23:15 23:30 Temperature Pulse Rate 68 70 70 Pulse Rate [ From Monitor] Respiratory 15 14 13 Rate Blood Pressure 108/41 107/45 100/41 O2 Sat by Pulse 93 93 92 Oximetry 04/30/21 04/30/21 05/01/21 23:45 23:52 00:00 Temperature 99 F Pulse Rate 71 68 Pulse Rate [ From Monitor] Respiratory 16 13 Rate Blood Pressure 117/54 114/51 O2 Sat by Pulse 93 92 Oximetry 05/01/21 05/01/21 05/01/21 00:05 00:16 00:30 Temperature Pulse Rate 68 68 71 Pulse Rate [ 70 From Monitor] Respiratory 20 14 13 Rate Blood Pressure 93/32 102/43 O2 Sat by Pulse 94 92 92 Oximetry 05/01/21 05/01/21 05/01/21 00:45 01:00 01:15 Temperature Pulse Rate 75 69 72 Pulse Rate [ From Monitor] Respiratory 13 14 14 Rate Blood Pressure 105/51 102/39 105/45 O2 Sat by Pulse 93 94 94 Oximetry 05/01/21 05/01/21 05/01/21 01:30 01:46 02:00 Temperature Pulse Rate 69 74 70 Pulse Rate [ 70 From Monitor] Respiratory 16 17 14 Rate Blood Pressure 107/53 107/53 108/52 O2 Sat by Pulse 94 79 L Oximetry 05/01/21 05/01/21 05/01/21 02:16 02:30 02:46 Temperature Pulse Rate 71 68 68 Pulse Rate [ From Monitor] Respiratory 22 20 13 Rate Blood Pressure 120/45 122/52 107/44 O2 Sat by Pulse 93 93 93 Oximetry 05/01/21 05/01/21 05/01/21 03:00 03:15 03:29 Temperature 99.2 F Pulse Rate 70 69 Pulse Rate [ From Monitor] Respiratory 12 21 Rate Blood Pressure 107/43 122/51 O2 Sat by Pulse 94 93 Oximetry 05/01/21 05/01/21 05/01/21 03:30 03:45 04:00 Temperature Pulse Rate 69 69 68 Pulse Rate [ From Monitor] Respiratory 20 20 17 Rate Blood Pressure 118/57 118/42 120/46 O2 Sat by Pulse 95 95 95 Oximetry 05/01/21 05/01/21 05/01/21 04:15 04:30 04:46 Temperature Pulse Rate 69 71 71 Pulse Rate [ From Monitor] Respiratory 28 H 13 20 Rate Blood Pressure 117/48 128/53 139/72 O2 Sat by Pulse 93 95 93 Oximetry 05/01/21 05/01/21 05/01/21 05:00 05:15 05:30 Temperature Pulse Rate 69 70 70 Pulse Rate [ From Monitor] Respiratory 14 14 15 Rate Blood Pressure 121/53 126/60 130/61 O2 Sat by Pulse 93 93 93 Oximetry 05/01/21 05/01/21 05/01/21 05:45 06:00 06:15 Temperature Pulse Rate 72 73 69 Pulse Rate [ From Monitor] Respiratory 16 13 14 Rate Blood Pressure 128/58 128/52 110/42 O2 Sat by Pulse 94 95 94 Oximetry 05/01/21 05/01/21 05/01/21 06:30 06:45 07:00 Temperature Pulse Rate 71 71 71 Pulse Rate [ From Monitor] Respiratory 15 13 15 Rate Blood Pressure 116/48 115/63 110/56 O2 Sat by Pulse 93 92 95 Oximetry 05/01/21 05/01/21 05/01/21 07:15 07:30 07:34 Temperature 97.8 F Pulse Rate 74 75 Pulse Rate [ From Monitor] Respiratory 22 17 Rate Blood Pressure 115/66 117/63 O2 Sat by Pulse 93 92 Oximetry 05/01/21 05/01/21 05/01/21 07:37 07:46 08:00 Temperature Pulse Rate 72 73 Pulse Rate [ From Monitor] Respiratory 18 20 18 Rate Blood Pressure 135/57 135/57 O2 Sat by Pulse 92 92 Oximetry 05/01/21 05/01/21 05/01/21 08:05 08:16 08:30 Temperature Pulse Rate 73 71 Pulse Rate [ From Monitor] Respiratory 17 16 Rate Blood Pressure 132/55 133/56 O2 Sat by Pulse 97 89 93 Oximetry 05/01/21 05/01/21 05/01/21 08:45 09:00 09:15 Temperature Pulse Rate 69 70 74 Pulse Rate [ From Monitor] Respiratory 16 15 24 Rate Blood Pressure 118/49 124/55 138/60 O2 Sat by Pulse 92 93 91 Oximetry 05/01/21 05/01/21 09:30 09:46 Temperature Pulse Rate 73 71 Pulse Rate [ From Monitor] Respiratory 17 15 Rate Blood Pressure 138/60 133/56 O2 Sat by Pulse 90 93 Oximetry Constitutional: no acute distress, alert (but very drowsy) Eyes: non-icteric ENT: other (orally intubated) Neck: supple Effort: normal Ascultation: Bilateral: diminished breath sounds, rales Percussion: Bilateral: not dull Cardiovascular: regular rate and rhythm Gastrointestinal: normoactive bowel sounds, soft Extremities: no edema CBC and BMP: 05/01/21 04:44 05/01/21 04:44 ABG, PT/INR, D-dimer: ABG ABG pH 7.256 (7.320-7.450) L 04/30/21 03:29 POC ABG pCO2 49.4 mmHg (32.0-48.0) H 04/30/21 03:29 POC ABG pO2 58.6 mmHg (83-108) L 04/30/21 03:29 POC ABG HCO3 21.5 04/30/21 03:29 ABG O2 Saturation 94.2 (0-100) 04/30/21 03:29 Abnormal lab findings: Abnormal Labs 04/29/21 04/29/21 04/29/21 11:00 11:00 18:25 WBC RBC 2.80 L Hgb 8.5 L Hct 25.5 L RDW 19.5 H Seg Neuts % (Manual) Lymphocytes % (Manual) Seg Neutrophils # Man Lymphocytes # (Manual) ABG pH POC ABG pCO2 POC ABG pO2 ABG Hemoglobin ABG Oxyhemoglobin ABG Potassium ABG Chloride ABG Glucose Sodium Carbon Dioxide BUN 81 H Creatinine 8.5 H Glucose POC Glucose 109 H Hemoglobin A1c Calcium Albumin Arterial Blood Glucose Arterial Blood Ionized Calcium 04/29/21 04/30/21 04/30/21 23:20 00:22 00:53 WBC RBC Hgb Hct RDW Seg Neuts % (Manual) Lymphocytes % (Manual) Seg Neutrophils # Man Lymphocytes # (Manual) ABG pH 7.047 L POC ABG pCO2 89.0 H POC ABG pO2 442.0 H ABG Hemoglobin 9.2 L ABG Oxyhemoglobin 98.3 H ABG Potassium 4.6 H ABG Chloride 109.0 H ABG Glucose 164 H Sodium Carbon Dioxide BUN Creatinine Glucose POC Glucose 180 H 161 H Hemoglobin A1c Calcium Albumin Arterial Blood Glucose 164 H Arterial Blood Ionized Calcium 4.3 L 04/30/21 04/30/21 04/30/21 03:29 04:23 04:23 WBC 15.0 H RBC 3.09 L Hgb 8.9 L Hct 27.9 L RDW 19.2 H Seg Neuts % (Manual) 96.0 H Lymphocytes % (Manual) 3.0 L Seg Neutrophils # Man 14.4 H Lymphocytes # (Manual) 0.5 L ABG pH 7.256 L POC ABG pCO2 49.4 H POC ABG pO2 58.6 L ABG Hemoglobin 8.6 L ABG Oxyhemoglobin 93.0 L ABG Potassium ABG Chloride 109.0 H ABG Glucose 122 H Sodium Carbon Dioxide 20 L BUN 90 H Creatinine 9.5 H Glucose 145 H POC Glucose Hemoglobin A1c Calcium 8.0 L Albumin 3.6 L Arterial Blood Glucose 122 H Arterial Blood Ionized Calcium 4.1 L 04/30/21 04/30/21 04/30/21 04:23 11:26 17:20 WBC RBC Hgb Hct RDW Seg Neuts % (Manual) Lymphocytes % (Manual) Seg Neutrophils # Man Lymphocytes # (Manual) ABG pH POC ABG pCO2 POC ABG pO2 ABG Hemoglobin ABG Oxyhemoglobin ABG Potassium ABG Chloride ABG Glucose Sodium Carbon Dioxide BUN Creatinine Glucose POC Glucose 52 L 127 H Hemoglobin A1c < 4.0 L Calcium Albumin Arterial Blood Glucose Arterial Blood Ionized Calcium 05/01/21 05/01/21 04:44 04:44 WBC RBC 2.55 L Hgb 7.7 L Hct 23.2 L RDW 19.4 H Seg Neuts % (Manual) Lymphocytes % (Manual) Seg Neutrophils # Man Lymphocytes # (Manual) ABG pH POC ABG pCO2 POC ABG pO2 ABG Hemoglobin ABG Oxyhemoglobin ABG Potassium ABG Chloride ABG Glucose Sodium 146 H Carbon Dioxide BUN 93 H Creatinine 10.0 H Glucose POC Glucose Hemoglobin A1c Calcium 8.3 L Albumin Arterial Blood Glucose Arterial Blood Ionized Calcium
[2021-05-01] MEDS: HEPARIN 5,000 UNIT/1 ML VIAL SUB-Q SCH ×2 (10:55→21:26)
--- NOTE | 2021-05-01 12:17 | Progress Note ---
<VINEET NG - Last Filed: 05/01/21 13:06> Assessment and Plan Assessment and plan: This is a 41-year-old female with HTN, heart murmur, anxiety, ESRD, current tobacco abuse, and anemia with acute hypoxic respiratory failure Neuro: h/o anxiety -reorientation as needed -Patient states she uses PRN anxiety medications Cardio: Hypotension -noted to be hypotensive overnight with bradycardia -s/p dopamine and levophed gtt -Midodrine PO TID, wean as tolerated -BP monitoring per protocol h/o HTN -Hold home antihtn meds at this time h/o heart murmur, confirmed by patient -not auscultated on PE -f/u with PCP Resp: Acute hypoxic respiratory failure -Overnight patient was noted to be hypoxic and was intubated on 04/30, extubated 04/30 -04/29 CXR shows diffuse bilateral pulmonary opacities with pulmonary edema and right effusion -Pulmanory hygenie -SPO2 monitoring -CCM consulted, appreciate recommendations Nicotine abuse -Smoking cessation counseling -States she is "cutting down on smoking" FEN/GI ESRD -Nephrology consulted, appreciate recommendations -Patient was initially at hospital for AV fistula creation -Lasix 60 mg IV twice daily per nephrology -Hold off placement of Vas-Cath per nephrology -Renally dose medications -Strict intake and output -Daily weights -Avoid nephrotoxic medication Metabolic acidosis -Trend BMP -Nephrology is on board Hypoglycemia -Hypoglycemic protocol -Accu-Cheks every 6hr while n.p.o. -04/30 hemoglobin A1c less than 4 Urinary retention -Patient was bladder scanned and straight cathed for approximately 500 mL urine -Ramos catheter placed 04/30 accurate intake and output Heme H/O anemia -Per documentation patient has had iron infusions in the past -Presenting H/H 8.5/25.5 -Trend CBC -Transfuse to hemoglobin less than 7 Leukocytosis, resolved -WBC 15m 05/01 WBC 9 -Trend CBC -dc ABX therapy Skin NAD -Turn every 2 per protocol Lines: Ramos (04/30), PIV GI/DVT prophylaxis: Heparin subcu, SCDs to bilateral lower extremities while in bed, PPI Disposition: ICU Full code The high probability of a clinically significant, sudden or life threatening deterioration of the [] system(s) required my full and direct attention, intervention and personal management. The aggregate critical care time was [45] minutes. This time is in addition to time spent performing reported procedures but includes the following: [x] Data Review and interpretation [x] Patient assessment and monitoring of vital signs [x] Documentation [x] Medication orders and management History Interval history: This is a 61-year-old female with HTN, heart murmur, anxiety, ESRD and anemia who presented to [facility] for a right arm brachiocephalic AV fistula creation on 04/29 however postop patient was noted to have pulmonary edema on CXR and was admitted for observation. Overnight patient was noted to be hypotensive, bradycardic and we decreased respirations and was given Narcan with no improvement in the patient was intubated for airway protection by ED staff. There was possible aspiration noted during the time of administration. Patient was transferred to ICU and CCM, nephrology were consulted. Past surgical history right arm AV fistula creation Social history: ?Smoker Per anesthesia documentation 04/30: Overnight patient was noted to be bradycardic, hypotensive and have altered mental status and the patient was emergently intubated. Patient had a bladder scan with 500 cc of urine received after straight cath. Patient was started on dopamine however this is being actively weaned off. Patient is a CPAP trial. Patient extubated around 1300. Hypotension noted, restarted dopamine gtt at low dose then started on levophed gtt. 05/01: Overnight she remained on the levophed, per RN if weaned to 2mcg from 4 mcg then thrill/bruit was lost from AVF. This morning we started the pt on midodrine and weaned levo off. Ramos remains. CXR shows pulm edema Hospitalist Physical - Constitutional Vitals: Temp Pulse Resp BP Pulse Ox 97.8 F 69 13 120/57 99 05/01/21 07:34 05/01/21 11:00 05/01/21 11:00 05/01/21 11:00 05/01/21 11:00 General appearance: Present: no acute distress, well-nourished, obese - EENT Eyes: Present: PERRL, EOM intact ENT: hearing intact, clear oral mucosa, dentition normal - Neck Neck: Present: normal ROM - Respiratory Respiratory effort: normal Respiratory: bilateral: diminished - Cardiovascular Rhythm: regular Heart Sounds: Present: S1 & S2. Absent: systolic murmur, diastolic murmur - Extremities Extremities: no ischemia, pulses intact, pulses symmetrical, No edema, normal temperature, normal color, Full ROM Peripheral Pulses: within normal limits - Abdominal General gastrointestinal: soft, non-tender, non-distended, normal bowel sounds - Integumentary Integumentary: Present: warm, dry - Psychiatric Psychiatric: cooperative - Neurologic Neurologic: CNII-XII intact, no focal deficits, moves all extremities - Allied Health Allied health notes reviewed: nursing, RT Results - Labs CBC & Chem 7: 05/01/21 04:44 05/01/21 04:44 Labs: Laboratory Last Values WBC 9.1 K/mm3 (4.5-11.0) 05/01/21 04:44 RBC 2.55 M/mm3 (3.65-5.03) L 05/01/21 04:44 Hgb 7.7 gm/dl (10.1-14.3) L 05/01/21 04:44 Hct 23.2 % (30.3-42.9) L 05/01/21 04:44 MCV 91 fl (79-97) 05/01/21 04:44 MCH 30 pg (28-32) 05/01/21 04:44 MCHC 33 % (30-34) 05/01/21 04:44 RDW 19.4 % (13.2-15.2) H 05/01/21 04:44 Plt Count 148 K/mm3 (140-440) 05/01/21 04:44 Add Manual Diff Complete 04/30/21 04:23 Total Counted 100 04/30/21 04:23 Seg Neutrophils % Pack Changer 04/30/21 04:23 Seg Neuts % (Manual) 96.0 % (40.0-70.0) H 04/30/21 04:23 Lymphocytes % (Manual) 3.0 % (13.4-35.0) L 04/30/21 04:23 Monocytes % (Manual) 1.0 % (0.0-7.3) 04/30/21 04:23 Nucleated RBC % Not Reportable 04/30/21 04:23 Seg Neutrophils # Man 14.4 K/mm3 (1.8-7.7) H 04/30/21 04:23 Band Neutrophils # 0.0 K/mm3 04/30/21 04:23 Lymphocytes # (Manual) 0.5 K/mm3 (1.2-5.4) L 04/30/21 04:23 Abs React Lymphs (Man) 0.0 K/mm3 04/30/21 04:23 Monocytes # (Manual) 0.2 K/mm3 (0.0-0.8) 04/30/21 04:23 Eosinophils # (Manual) 0.0 K/mm3 (0.0-0.4) 04/30/21 04:23 Basophils # (Manual) 0.0 K/mm3 (0.0-0.1) 04/30/21 04:23 Metamyelocytes # 0.0 K/mm3 04/30/21 04:23 Myelocytes # 0.0 K/mm3 04/30/21 04:23 Promyelocytes # 0.0 K/mm3 04/30/21 04:23 Blast Cells # 0.0 K/mm3 04/30/21 04:23 WBC Morphology Not Reportable 04/30/21 04:23 Hypersegmented Neuts Not Reportable 04/30/21 04:23 Hyposegmented Neuts Not Reportable 04/30/21 04:23 Hypogranular Neuts Not Reportable 04/30/21 04:23 Smudge Cells Not Reportable 04/30/21 04:23 Toxic Granulation Not Reportable 04/30/21 04:23 Toxic Vacuolation Not Reportable 04/30/21 04:23 Dohle Bodies Not Reportable 04/30/21 04:23 Pelger-Huet Anomaly Not Reportable 04/30/21 04:23 Vik Rods Not Reportable 04/30/21 04:23 Platelet Estimate Consistent w auto 04/30/21 04:23 Clumped Platelets Not Reportable 04/30/21 04:23 Plt Clumps, EDTA Not Reportable 04/30/21 04:23 Large Platelets Not Reportable 04/30/21 04:23 Giant Platelets Not Reportable 04/30/21 04:23 Platelet Satelliting Not Reportable 04/30/21 04:23 Plt Morphology Comment Not Reportable 04/30/21 04:23 RBC Morphology Not Reportable 04/30/21 04:23 Dimorphic RBCs Not Reportable 04/30/21 04:23 Polychromasia Not Reportable 04/30/21 04:23 Hypochromasia 1+ 04/30/21 04:23 Poikilocytosis Not Reportable 04/30/21 04:23 Anisocytosis 1+ 04/30/21 04:23 Microcytosis Not Reportable 04/30/21 04:23 Macrocytosis Not Reportable 04/30/21 04:23 Spherocytes Not Reportable 04/30/21 04:23 Pappenheimer Bodies Not Reportable 04/30/21 04:23 Sickle Cells Not Reportable 04/30/21 04:23 Target Cells Not Reportable 04/30/21 04:23 Tear Drop Cells Not Reportable 04/30/21 04:23 Ovalocytes Not Reportable 04/30/21 04:23 Helmet Cells Not Reportable 04/30/21 04:23 Castrejon-Pence Bodies Not Reportable 04/30/21 04:23 [place] Rings Not Reportable 04/30/21 04:23 Rosendo Cells Not Reportable 04/30/21 04:23 Bite Cells Not Reportable 04/30/21 04:23 Crenated Cell Not Reportable 04/30/21 04:23 Elliptocytes Not Reportable 04/30/21 04:23 Acanthocytes (Spur) Not Reportable 04/30/21 04:23 Rouleaux Not Reportable 04/30/21 04:23 Hemoglobin C Crystals Not Reportable 04/30/21 04:23 Schistocytes Not Reportable 04/30/21 04:23 Malaria parasites Not Reportable 04/30/21 04:23 Desmond Bodies Not Reportable 04/30/21 04:23 Hem Pathologist Commnt No 04/30/21 04:23 ABG pH 7.254 (7.320-7.450) L 05/01/21 10:11 POC ABG pCO2 47.1 mmHg (32.0-48.0) 05/01/21 10:11 POC ABG pO2 54.7 mmHg (83-108) L 05/01/21 10:11 POC ABG HCO3 20.4 05/01/21 10:11 ABG O2 Saturation 84.6 (0-100) 05/01/21 10:11 POC ABG Base Excess -6.4 05/01/21 10:11 ABG Hemoglobin 7.5 (12.0-17.5) L 05/01/21 10:11 ABG Oxyhemoglobin 82.9 (94-98) L 05/01/21 10:11 ABG Methemoglobin 0.3 (0.0-1.5) 05/01/21 10:11 ABG Sodium 138.2 mmol/L (136.0-145.0) 05/01/21 10:11 ABG Potassium 3.9 mmol/L (3.40-4.50) 05/01/21 10:11 ABG Chloride 108.0 mmol/L (98-107) H 05/01/21 10:11 ABG Glucose 122 mg/dL (65-95) H 05/01/21 10:11 Carboxyhemoglobin 1.7 (0.5-1.5) H 05/01/21 10:11 FiO2 % 32.0 05/01/21 10:11 Sodium 146 mmol/L (137-145) H 05/01/21 04:44 Potassium 4.3 mmol/L (3.6-5.0) 05/01/21 04:44 Chloride 103.4 mmol/L (98-107) 05/01/21 04:44 Carbon Dioxide 25 mmol/L (22-30) 05/01/21 04:44 Anion Gap 22 mmol/L 05/01/21 04:44 BUN 93 mg/dL (7-17) H 05/01/21 04:44 Creatinine 10.0 mg/dL (0.6-1.2) H 05/01/21 04:44 Estimated GFR 5 ml/min 05/01/21 04:44 BUN/Creatinine Ratio 9 % 05/01/21 04:44 Glucose 82 mg/dL (65-100) 05/01/21 04:44 POC Glucose 91 mg/dL (70-105) 05/01/21 11:41 Hemoglobin A1c < 4.0 % (4-6) L 04/30/21 04:23 Calcium 8.3 mg/dL (8.4-10.2) L 05/01/21 04:44 Total Bilirubin 0.30 mg/dL (0.1-1.2) 04/30/21 04:23 AST 30 units/L (5-40) 04/30/21 04:23 ALT 26 units/L (7-56) 04/30/21 04:23 Alkaline Phosphatase 122 units/L (35-129) 04/30/21 04:23 Total Protein 6.7 g/dL (6.3-8.2) 04/30/21 04:23 Albumin 3.6 g/dL (3.9-5) L 04/30/21 04:23 Albumin/Globulin Ratio 1.2 % 04/30/21 04:23 Arterial Blood Glucose 122 mg/dL (65-95) H 05/01/21 10:11 Arterial Blood Ionized Calcium 4.1 mg/dL (4.6-5.3) L 05/01/21 10:11 Microbiology: Microbiology 04/30/21 Unknown Tracheal Aspirate Sputum Culture - Preliminary Ramos/IV: Voiding Method Indwelling Catheter Active Medications - Current Medications Current Medications: Generic Name Dose Route Start Last Admin Trade Name Freq PRN Reason Stop Dose Admin Acetaminophen 650 mg 04/29/21 19:12 05/01/21 07:37 Acetaminophen 325 Mg Tab PO 650 mg Q4H PRN Administration Pain MILD(1-3)/Fever >100.5/KLEIN Calcitriol 0.25 mcg 04/30/21 10:00 05/01/21 09:36 Calcitriol 0.25 Mcg Cap PO 0.25 mcg DAILY LYLA Administration Famotidine 20 mg 04/30/21 10:00 05/01/21 09:37 Famotidine 20 Mg/2 Ml Inj IV 20 mg DAILY LYLA Administration Furosemide 60 mg 04/30/21 09:00 05/01/21 09:37 Furosemide 40 Mg/4 Ml Inj IV 60 mg 0600,1800 LYLA Administration Heparin Sodium (Porcine) 5,000 unit 04/30/21 10:00 05/01/21 10:55 Heparin 5,000 Unit/1 Ml Vial SUB-Q 5,000 unit Q12HR LYLA Administration Hydrophilic Ointment 1 applic 04/30/21 00:53 Lip Therapy Vaseline TP Q2HR PRN Dry Lips Piperacillin Sod/Tazobactam Sod 2.25 gm in 50 mls @ 100 mls/hr 04/30/21 01:00 05/01/21 09:42 Zosyn/Ns 2.25 Gm/50ml IV 100 mls/hr Q8H LYLA Administration Protocol Dopamine HCl/Dextrose 800 mg in 250 mls @ 33.169 mls/hr 04/30/21 01:00 04/30/21 19:18 Intropin Drip 800 Mg/D5w 250 Ml IV 0 mcg/kg/min TITR LYLA 0 mls/hr Titration Protocol 20 MCG/KG/MIN Propofol 1,000 mg in 100 mls @ 2.654 mls/hr 04/30/21 03:00 04/30/21 14:52 Diprivan 10 Mg/Ml IV 0 mcg/kg/min TITR LYLA 0 mls/hr Titration Protocol 5 MCG/KG/MIN Norepinephrine 4 mg in 250 mls @ 7.5 mls/hr 04/30/21 19:00 05/01/21 10:54 Levophed Drip 4 Mg/Ns 250 Ml IV 0 mcg/min TITR LYLA 0 mls/hr Titration Protocol 2 MCG/MIN Midodrine 10 mg 05/01/21 09:16 05/01/21 09:42 Midodrine 5 Mg Tab PO 10 mg TID@0800,1200,1600 LYLA Administration Multi-Ingred Cream/Lotion/Oil/Oint 1 applic 04/30/21 00:53 Mineral Oil/Petrolatum, White Ophth Oint 3.5 Gm OU Q4HR PRN Dry Eye(s) Naloxone HCl 0.1 mg 04/29/21 23:55 Naloxone 0.4 Mg/1 Ml Inj IV Q2MIN PRN Res Rate </= 8 or 02 SAT < 92% Ondansetron HCl 4 mg 04/29/21 19:12 Ondansetron 4 Mg/2 Ml Inj IV Q8H PRN Nausea And Vomiting Oxycodone/Acetaminophen 1 tab 04/29/21 19:12 Oxycodone /Acetaminophen 5-325mg Tab PO Q6H PRN Pain, Moderate (4-6) Senna/Docusate Sodium 1 tab 04/30/21 10:00 05/01/21 09:37 Sennosides/Docusate Sodium 8.6/50 Mg Tab FEEDTUBE 1 tab BID LYLA Administration Sodium Chloride 10 ml 04/29/21 22:00 05/01/21 10:55 Sodium Chloride 0.9% 10 Ml Flush Syringe IV 10 ml BID LYLA Administration Sodium Chloride 10 ml 04/29/21 19:12 04/30/21 19:40 Sodium Chloride 0.9% 10 Ml Flush Syringe IV 10 ml PRN PRN Administration LINE FLUSH Sodium Chloride 5 ml 04/30/21 00:53 Sodium Chloride 0.9% 500 Ml 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 Nutrition/Malnutrition Assess - Dietary Evaluation Nutrition/Malnutrition Findings: Nutrition Notes Start: 04/30/21 07:58 Freq: Status: Active Protocol: Document 04/30/21 07:58 ESTER (Rec: 04/30/21 08:04 [email or web address]) Nutrition Notes Need for 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 RN screen for skin risk. Pt on vent after vas-cath surgery for HD and has surgical wound. Francisco score 16. Burn Absent Trauma Absent GI Symptoms None Current % PO Negligible Minimum of two criteria No physical signs of malnutrition #2 Nutrition Diagnosis Inadequate oral intake Etiology ARF As Evidenced by Signs and Symptoms pt on vent and unable to consume PO Is patient on ventilator? Yes Is Patient Ambulatory and/or Out of Bed No REE-([facility]-confined to bed) 1785.636 Kcal/Kg value to use for calculation 16 Approximate Energy Requirements Using 1415 kcal/Kg Calculation Used for Recommendations Kcal/kg Additional Notes Protein: (>2g/kg IBW) >120g Fluid: 1 ml/kcal or per MD Nutrition Intervention Change Diet Order: Start TF when medically able Nutrition Support: Recommend: Vital HP at 60 ml/hr Flush 50 ml q4h Kcal 1,440 Protein (gm) 126 Fluid (mL) 1,204 Goal #1 Start TF or extubate Anticipated Discharge Needs: Unable to determine at this time Follow-Up By: 05/04/21 Additional Comments FU for TF consult or extubation and diet advancement <WYATT RAYGOZA - Last Filed: 05/02/21 11:47> Assessment and Plan Assessment and plan: Agree with assessment and plan as outlined by nurse practitioner as above, I personally examined the patient, blood pressure remains stable on low-dose Levophed, will attempt to wean today. Patient will be started on midodrine. Patient sounds less congested and has improved. Continue Lasix diuresis. Hospitalist Physical - Constitutional Vitals: Temp Pulse Resp BP Pulse Ox 98.8 F 69 14 120/58 96 05/02/21 03:27 05/02/21 11:30 05/02/21 11:30 05/02/21 11:30 05/02/21 11:30 Results - Labs CBC & Chem 7: 05/01/21 04:44 05/01/21 04:44 Labs: Laboratory Last Values WBC 9.1 K/mm3 (4.5-11.0) 05/01/21 04:44 RBC 2.55 M/mm3 (3.65-5.03) L 05/01/21 04:44 Hgb 7.7 gm/dl (10.1-14.3) L 05/01/21 04:44 Hct 23.2 % (30.3-42.9) L 05/01/21 04:44 MCV 91 fl (79-97) 05/01/21 04:44 MCH 30 pg (28-32) 05/01/21 04:44 MCHC 33 % (30-34) 05/01/21 04:44 RDW 19.4 % (13.2-15.2) H 05/01/21 04:44 Plt Count 148 K/mm3 (140-440) 05/01/21 04:44 Add Manual Diff Complete 04/30/21 04:23 Total Counted 100 04/30/21 04:23 Seg Neutrophils % Pack Changer 04/30/21 04:23 Seg Neuts % (Manual) 96.0 % (40.0-70.0) H 04/30/21 04:23 Lymphocytes % (Manual) 3.0 % (13.4-35.0) L 04/30/21 04:23 Monocytes % (Manual) 1.0 % (0.0-7.3) 04/30/21 04:23 Nucleated RBC % Not Reportable 04/30/21 04:23 Seg Neutrophils # Man 14.4 K/mm3 (1.8-7.7) H 04/30/21 04:23 Band Neutrophils # 0.0 K/mm3 04/30/21 04:23 Lymphocytes # (Manual) 0.5 K/mm3 (1.2-5.4) L 04/30/21 04:23 Abs React Lymphs (Man) 0.0 K/mm3 04/30/21 04:23 Monocytes # (Manual) 0.2 K/mm3 (0.0-0.8) 04/30/21 04:23 Eosinophils # (Manual) 0.0 K/mm3 (0.0-0.4) 04/30/21 04:23 Basophils # (Manual) 0.0 K/mm3 (0.0-0.1) 04/30/21 04:23 Metamyelocytes # 0.0 K/mm3 04/30/21 04:23 Myelocytes # 0.0 K/mm3 04/30/21 04:23 Promyelocytes # 0.0 K/mm3 04/30/21 04:23 Blast Cells # 0.0 K/mm3 04/30/21 04:23 WBC Morphology Not Reportable 04/30/21 04:23 Hypersegmented Neuts Not Reportable 04/30/21 04:23 Hyposegmented Neuts Not Reportable 04/30/21 04:23 Hypogranular Neuts Not Reportable 04/30/21 04:23 Smudge Cells Not Reportable 04/30/21 04:23 Toxic Granulation Not Reportable 04/30/21 04:23 Toxic Vacuolation Not Reportable 04/30/21 04:23 Dohle Bodies Not Reportable 04/30/21 04:23 Pelger-Huet Anomaly Not Reportable 04/30/21 04:23 Vik Rods Not Reportable 04/30/21 04:23 Platelet Estimate Consistent w auto 04/30/21 04:23 Clumped Platelets Not Reportable 04/30/21 04:23 Plt Clumps, EDTA Not Reportable 04/30/21 04:23 Large Platelets Not Reportable 04/30/21 04:23 Giant Platelets Not Reportable 04/30/21 04:23 Platelet Satelliting Not Reportable 04/30/21 04:23 Plt Morphology Comment Not Reportable 04/30/21 04:23 RBC Morphology Not Reportable 04/30/21 04:23 Dimorphic RBCs Not Reportable 04/30/21 04:23 Polychromasia Not Reportable 04/30/21 04:23 Hypochromasia 1+ 04/30/21 04:23 Poikilocytosis Not Reportable 04/30/21 04:23 Anisocytosis 1+ 04/30/21 04:23 Microcytosis Not Reportable 04/30/21 04:23 Macrocytosis Not Reportable 04/30/21 04:23 Spherocytes Not Reportable 04/30/21 04:23 Pappenheimer Bodies Not Reportable 04/30/21 04:23 Sickle Cells Not Reportable 04/30/21 04:23 Target Cells Not Reportable 04/30/21 04:23 Tear Drop Cells Not Reportable 04/30/21 04:23 Ovalocytes Not Reportable 04/30/21 04:23 Helmet Cells Not Reportable 04/30/21 04:23 Castrejon-Pence Bodies Not Reportable 04/30/21 04:23 [place] Rings Not Reportable 04/30/21 04:23 Vera Cells Not Reportable 04/30/21 04:23 Bite Cells Not Reportable 04/30/21 04:23 Crenated Cell Not Reportable 04/30/21 04:23 Elliptocytes Not Reportable 04/30/21 04:23 Acanthocytes (Spur) Not Reportable 04/30/21 04:23 Rouleaux Not Reportable 04/30/21 04:23 Hemoglobin C Crystals Not Reportable 04/30/21 04:23 Schistocytes Not Reportable 04/30/21 04:23 Malaria parasites Not Reportable 04/30/21 04:23 Desmond Bodies Not Reportable 04/30/21 04:23 Hem Pathologist Commnt No 04/30/21 04:23 ABG pH 7.254 (7.320-7.450) L 05/01/21 10:11 POC ABG pCO2 47.1 mmHg (32.0-48.0) 05/01/21 10:11 POC ABG pO2 54.7 mmHg (83-108) L 05/01/21 10:11 POC ABG HCO3 20.4 05/01/21 10:11 ABG O2 Saturation 84.6 (0-100) 05/01/21 10:11 POC ABG Base Excess -6.4 05/01/21 10:11 ABG Hemoglobin 7.5 (12.0-17.5) L 05/01/21 10:11 ABG Oxyhemoglobin 82.9 (94-98) L 05/01/21 10:11 ABG Methemoglobin 0.3 (0.0-1.5) 05/01/21 10:11 ABG Sodium 138.2 mmol/L (136.0-145.0) 05/01/21 10:11 ABG Potassium 3.9 mmol/L (3.40-4.50) 05/01/21 10:11 ABG Chloride 108.0 mmol/L (98-107) H 05/01/21 10:11 ABG Glucose 122 mg/dL (65-95) H 05/01/21 10:11 Carboxyhemoglobin 1.7 (0.5-1.5) H 05/01/21 10:11 FiO2 % 32.0 05/01/21 10:11 Sodium 146 mmol/L (137-145) H 05/01/21 04:44 Potassium 4.3 mmol/L (3.6-5.0) 05/01/21 04:44 Chloride 103.4 mmol/L (98-107) 05/01/21 04:44 Carbon Dioxide 25 mmol/L (22-30) 05/01/21 04:44 Anion Gap 22 mmol/L 05/01/21 04:44 BUN 93 mg/dL (7-17) H 05/01/21 04:44 Creatinine 10.0 mg/dL (0.6-1.2) H 05/01/21 04:44 Estimated GFR 5 ml/min 05/01/21 04:44 BUN/Creatinine Ratio 9 % 05/01/21 04:44 Glucose 82 mg/dL (65-100) 05/01/21 04:44 POC Glucose 94 mg/dL (70-105) 05/02/21 05:29 Hemoglobin A1c < 4.0 % (4-6) L 04/30/21 04:23 Calcium 8.3 mg/dL (8.4-10.2) L 05/01/21 04:44 Total Bilirubin 0.30 mg/dL (0.1-1.2) 04/30/21 04:23 AST 30 units/L (5-40) 04/30/21 04:23 ALT 26 units/L (7-56) 04/30/21 04:23 Alkaline Phosphatase 122 units/L (35-129) 04/30/21 04:23 Total Protein 6.7 g/dL (6.3-8.2) 04/30/21 04:23 Albumin 3.6 g/dL (3.9-5) L 04/30/21 04:23 Albumin/Globulin Ratio 1.2 % 04/30/21 04:23 Arterial Blood Glucose 122 mg/dL (65-95) H 05/01/21 10:11 Arterial Blood Ionized Calcium 4.1 mg/dL (4.6-5.3) L 05/01/21 10:11 Microbiology: Microbiology 04/30/21 Unknown Tracheal Aspirate Sputum Culture - Preliminary Ramos/IV: Voiding Method Indwelling Catheter Active Medications - Current Medications Current Medications: Generic Name Dose Route Start Last Admin Trade Name Freq PRN Reason Stop Dose Admin Acetaminophen 650 mg 04/29/21 19:12 05/01/21 07:37 Acetaminophen 325 Mg Tab PO 650 mg Q4H PRN Administration Pain MILD(1-3)/Fever >100.5/KLEIN Calcitriol 0.25 mcg 04/30/21 10:00 05/02/21 09:06 Calcitriol 0.25 Mcg Cap PO 0.25 mcg DAILY LYLA Administration Famotidine 20 mg 04/30/21 10:00 05/02/21 09:05 Famotidine 20 Mg/2 Ml Inj IV 20 mg DAILY LYLA Administration Furosemide 60 mg 04/30/21 09:00 05/02/21 06:36 Furosemide 40 Mg/4 Ml Inj IV 60 mg 0600,1800 LYLA Administration Heparin Sodium (Porcine) 5,000 unit 04/30/21 10:00 05/02/21 09:06 Heparin 5,000 Unit/1 Ml Vial SUB-Q 5,000 unit Q12HR LYLA Administration Hydrophilic Ointment 1 applic 04/30/21 00:53 Lip Therapy Vaseline TP Q2HR PRN Dry Lips Dopamine HCl/Dextrose 800 mg in 250 mls @ 33.169 mls/hr 04/30/21 01:00 04/30/21 19:18 Intropin Drip 800 Mg/D5w 250 Ml IV 0 mcg/kg/min TITR LYLA 0 mls/hr Titration Protocol 20 MCG/KG/MIN Propofol 1,000 mg in 100 mls @ 2.654 mls/hr 04/30/21 03:00 04/30/21 14:52 Diprivan 10 Mg/Ml IV 0 mcg/kg/min TITR LYLA 0 mls/hr Titration Protocol 5 MCG/KG/MIN Norepinephrine 4 mg in 250 mls @ 7.5 mls/hr 04/30/21 19:00 05/01/21 10:54 Levophed Drip 4 Mg/Ns 250 Ml IV 0 mcg/min TITR LYLA 0 mls/hr Titration Protocol 2 MCG/MIN Midodrine 10 mg 05/01/21 09:16 05/02/21 11:44 Midodrine 5 Mg Tab PO 10 mg TID@0800,1200,1600 LYLA Administration Multi-Ingred Cream/Lotion/Oil/Oint 1 applic 04/30/21 00:53 Mineral Oil/Petrolatum, White Ophth Oint 3.5 Gm OU Q4HR PRN Dry Eye(s) Naloxone HCl 0.1 mg 04/29/21 23:55 Naloxone 0.4 Mg/1 Ml Inj IV Q2MIN PRN Res Rate </= 8 or 02 SAT < 92% Ondansetron HCl 4 mg 04/29/21 19:12 Ondansetron 4 Mg/2 Ml Inj IV Q8H PRN Nausea And Vomiting Oxycodone/Acetaminophen 1 tab 04/29/21 19:12 Oxycodone /Acetaminophen 5-325mg Tab PO Q6H PRN Pain, Moderate (4-6) Senna/Docusate Sodium 1 tab 04/30/21 10:00 05/02/21 09:07 Sennosides/Docusate Sodium 8.6/50 Mg Tab FEEDTUBE Not Given BID LYLA Sodium Chloride 10 ml 04/29/21 22:00 05/02/21 09:07 Sodium Chloride 0.9% 10 Ml Flush Syringe IV 10 ml BID LYLA Administration Sodium Chloride 10 ml 04/29/21 19:12 04/30/21 19:40 Sodium Chloride 0.9% 10 Ml Flush Syringe IV 10 ml PRN PRN Administration LINE FLUSH Sodium Chloride 5 ml 04/30/21 00:53 Sodium Chloride 0.9% 500 Ml 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 Nutrition/Malnutrition Assess - Dietary Evaluation Nutrition/Malnutrition Findings: Nutrition Notes Start: 04/30/21 07:58 Freq: Status: Active Protocol: Document 04/30/21 07:58 ESTER (Rec: 04/30/21 08:04 ESTER [id number]) Nutrition Notes Need for 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 RN screen for skin risk. Pt on vent after vas-cath surgery for HD and has surgical wound. Francisco score 16. Burn Absent Trauma Absent GI Symptoms None Current % PO Negligible Minimum of two criteria No physical signs of malnutrition #2 Nutrition Diagnosis Inadequate oral intake Etiology ARF As Evidenced by Signs and Symptoms pt on vent and unable to consume PO Is patient on ventilator? Yes Is Patient Ambulatory and/or Out of Bed No REE-([facility]-confined to bed) [phone] Kcal/Kg value to use for calculation 16 Approximate Energy Requirements Using 1415 kcal/Kg Calculation Used for Recommendations Kcal/kg Additional Notes Protein: (>2g/kg IBW) >120g Fluid: 1 ml/kcal or per MD Nutrition Intervention Change Diet Order: Start TF when medically able Nutrition Support: Recommend: Vital HP at 60 ml/hr Flush 50 ml q4h Kcal 1,440 Protein (gm) 126 Fluid (mL) 1,204 Goal #1 Start TF or extubate Anticipated Discharge Needs: Unable to determine at this time Follow-Up By: 05/04/21 Additional Comments FU for TF consult or extubation and diet advancement
--- NOTE | 2021-05-01 15:11 | Progress Note ---
Assessment and Plan - Patient Problems (1) S/P arteriovenous (AV) fistula creation Current Visit: Yes Status: Acute Plan to address problem: Good thrill and bruit over AV fistula. Continue collections (2) Chronic kidney disease, stage V Current Visit: Yes Plan to address problem: Suspect baseline chronic kidney disease presumably secondary to diabetic kidney disease versus hypertensive nephrosclerosis. Kidney function is stable. Hopefully patient responds to IV diuretics and renal indices stay stable so we can hold off on starting dialysis now. Will be great to be able to wait till AV fistula is mature and avoid tunneled dialysis catheter and its complications. I discussed with the patient and Son at bedside (3) End-stage renal disease needing dialysis Current Visit: Yes Status: Chronic (4) Benign hypertension with chronic kidney disease, stage V Current Visit: Yes Status: Acute Plan to address problem: Follow-up blood pressure on current medications. (5) Type 2 diabetes mellitus with diabetic nephropathy Current Visit: Yes Status: Acute Plan to address problem: Blood sugar management by primary attending (6) Volume overload Current Visit: Yes Status: Acute Plan to address problem: Continue IV Lasix. Hopefully patient continues to respond with brisk diuresis Subjective Date of service: 05/01/21 Principal diagnosis: End-stage renal disease Interval history: Patient seen lying in bed. She has no complaints. Her Son is at the bedside. Objective - Exam Narrative Exam: Middle-aged -[place] female lying in bed in no acute distress HEENT: NCAT, pink oral mucous membrane Neck: Supple, no venous distention CVS: S1S2 RRR with no murmur, rub or gallop Chest: Clear to auscultation Abdomen: Protuberant, soft, nontender, no organomegaly, bowel sounds are present Extremities: No edema Neuro: Awake, alert no focal deficits - Vital Signs Vital signs: Vital Signs - 12hr 05/01/21 05/01/21 05/01/21 03:15 03:29 03:30 Temperature 99.2 F Pulse Rate 69 69 Pulse Rate [ From Monitor] Respiratory 21 20 Rate Blood Pressure 122/51 118/57 O2 Sat by Pulse 93 95 Oximetry 05/01/21 05/01/21 05/01/21 03:45 04:00 04:15 Temperature Pulse Rate 69 68 69 Pulse Rate [ From Monitor] Respiratory 20 17 28 H Rate Blood Pressure 118/42 120/46 117/48 O2 Sat by Pulse 95 95 93 Oximetry 05/01/21 05/01/21 05/01/21 04:30 04:46 05:00 Temperature Pulse Rate 71 71 69 Pulse Rate [ From Monitor] Respiratory 13 20 14 Rate Blood Pressure 128/53 139/72 121/53 O2 Sat by Pulse 95 93 93 Oximetry 05/01/21 05/01/21 05/01/21 05:15 05:30 05:45 Temperature Pulse Rate 70 70 72 Pulse Rate [ From Monitor] Respiratory 14 15 16 Rate Blood Pressure 126/60 130/61 128/58 O2 Sat by Pulse 93 93 94 Oximetry 05/01/21 05/01/21 05/01/21 06:00 06:15 06:30 Temperature Pulse Rate 73 69 71 Pulse Rate [ From Monitor] Respiratory 13 14 15 Rate Blood Pressure 128/52 110/42 116/48 O2 Sat by Pulse 95 94 93 Oximetry 05/01/21 05/01/21 05/01/21 06:45 07:00 07:15 Temperature Pulse Rate 71 71 74 Pulse Rate [ From Monitor] Respiratory 13 15 22 Rate Blood Pressure 115/63 110/56 115/66 O2 Sat by Pulse 92 95 93 Oximetry 05/01/21 05/01/21 05/01/21 07:30 07:34 07:37 Temperature 97.8 F Pulse Rate 75 Pulse Rate [ From Monitor] Respiratory 17 18 Rate Blood Pressure 117/63 O2 Sat by Pulse 92 Oximetry 05/01/21 05/01/21 05/01/21 07:46 08:00 08:05 Temperature Pulse Rate 72 73 Pulse Rate [ 73 From Monitor] Respiratory 20 18 Rate Blood Pressure 135/57 135/57 O2 Sat by Pulse 92 92 97 Oximetry 05/01/21 05/01/21 05/01/21 08:16 08:30 08:45 Temperature Pulse Rate 73 71 69 Pulse Rate [ From Monitor] Respiratory 17 16 16 Rate Blood Pressure 132/55 133/56 118/49 O2 Sat by Pulse 89 93 92 Oximetry 05/01/21 05/01/21 05/01/21 09:00 09:15 09:30 Temperature Pulse Rate 70 74 73 Pulse Rate [ From Monitor] Respiratory 15 24 17 Rate Blood Pressure 124/55 138/60 138/60 O2 Sat by Pulse 93 91 90 Oximetry 05/01/21 05/01/21 05/01/21 09:46 10:00 10:16 Temperature Pulse Rate 71 73 71 Pulse Rate [ From Monitor] Respiratory 15 22 18 Rate Blood Pressure 133/56 149/65 124/60 O2 Sat by Pulse 93 90 90 Oximetry 05/01/21 05/01/21 05/01/21 10:30 10:35 10:46 Temperature Pulse Rate 68 72 Pulse Rate [ From Monitor] Respiratory 14 17 Rate Blood Pressure 117/55 122/60 O2 Sat by Pulse 91 94 91 Oximetry 05/01/21 05/01/21 05/01/21 11:00 11:15 11:30 Temperature Pulse Rate 69 67 71 Pulse Rate [ From Monitor] Respiratory 13 14 18 Rate Blood Pressure 120/57 113/49 111/43 O2 Sat by Pulse 99 99 97 Oximetry 05/01/21 05/01/21 05/01/21 11:46 12:00 12:16 Temperature 97.8 F Pulse Rate 71 73 71 Pulse Rate [ 71 From Monitor] Respiratory 12 25 H 15 Rate Blood Pressure 141/75 141/75 124/69 O2 Sat by Pulse 89 98 91 Oximetry 05/01/21 05/01/21 05/01/21 12:30 12:45 13:00 Temperature Pulse Rate 70 72 73 Pulse Rate [ From Monitor] Respiratory 20 20 20 Rate Blood Pressure 109/62 120/61 124/52 O2 Sat by Pulse 98 81 L 90 Oximetry - Lab 05/01/21 04:44 05/01/21 04:44 Most recent lab results ABG pH 7.254 (7.320-7.450) L 05/01/21 10:11 ABG O2 Saturation 84.6 (0-100) 05/01/21 10:11 Calcium 8.3 mg/dL (8.4-10.2) L 05/01/21 04:44 Medications & Allergies - Medications Allergies/Adverse Reactions: Allergies No Known Allergies Allergy (Verified 04/26/21 11:49) Home Medications: Home Medications Medication Instructions Recorded Confirmed Last Taken Type ALPRAZolam [Xanax TAB] 1 mg PO PRN PRN 04/26/21 04/26/21 Unknown History Amlodipine Besylate [Norvasc] 10 mg PO DAILY 04/26/21 04/29/21 04/29/21 09:00 History Hydralazine HCl 50 mg PO TID 04/26/21 04/29/2121 09:00 History Nebivolol HCl [Bystolic] 20 mg PO DAILY 04/26/21 04/29/21 04/29/21 09:00 History Torsemide [Demadex] 100 mg PO QDAY 04/26/21 04/29/21 04/28/21 09:00 History Zolpidem (Nf) [Ambien (Nf)] 10 mg PO QHS 04/26/21 04/29/21 04/27/21 20:00 History allopurinoL [Zyloprim] 100 mg PO QDAY 04/26/21 04/29/21 04/28/21 09:00 History calcitrioL [Rocaltrol] 0.25 mcg PO DAILY 04/26/21 04/29/21 04/26/21 09:00 History oxyCODONE /ACETAMINOPHEN [Percocet 1 tab PO Q6HR PRN #20 tablet 04/29/21 Unknown Rx 5/325 mg] Active Medications: Generic Name Dose Route Start Last Admin Trade Name Freq PRN Reason Stop Dose Admin Acetaminophen 650 mg 04/29/21 19:12 05/01/21 07:37 Acetaminophen 325 Mg Tab PO 650 mg Q4H PRN Administration Pain MILD(1-3)/Fever >100.5/KLEIN Calcitriol 0.25 mcg 04/30/21 10:00 05/01/21 09:36 Calcitriol 0.25 Mcg Cap PO 0.25 mcg DAILY LYLA Administration Famotidine 20 mg 04/30/21 10:00 05/01/21 09:37 Famotidine 20 Mg/2 Ml Inj IV 20 mg DAILY LYLA Administration Furosemide 60 mg 04/30/21 09:00 05/01/21 09:37 Furosemide 40 Mg/4 Ml Inj IV 60 mg 0600,1800 LYLA Administration Heparin Sodium (Porcine) 5,000 unit 04/30/21 10:00 05/01/21 10:55 Heparin 5,000 Unit/1 Ml Vial SUB-Q 5,000 unit Q12HR LYLA Administration Hydrophilic Ointment 1 applic 04/30/21 00:53 Lip Therapy Vaseline TP Q2HR PRN Dry Lips Dopamine HCl/Dextrose 800 mg in 250 mls @ 33.169 mls/hr 04/30/21 01:00 19:18 Intropin Drip 800 Mg/D5w 250 Ml IV 0 mcg/kg/min TITR LYLA 0 mls/hr Titration Protocol 20 MCG/KG/MIN Propofol 1,000 mg in 100 mls @ 2.654 mls/hr 04/30/21 03:00 04/30/21 14:52 Diprivan 10 Mg/Ml IV 0 mcg/kg/min TITR LYLA 0 mls/hr Titration Protocol 5 MCG/KG/MIN Norepinephrine 4 mg in 250 mls @ 7.5 mls/hr 04/30/21 19:00 05/01/21 10:54 Levophed Drip 4 Mg/Ns 250 Ml IV 0 mcg/min TITR LYLA 0 mls/hr Titration Protocol 2 MCG/MIN Midodrine 10 mg 05/01/21 09:16 05/01/21 13:46 Midodrine 5 Mg Tab PO 10 mg TID@0800,1200,1600 LYLA Administration Multi-Ingred Cream/Lotion/Oil/Oint 1 applic 04/30/21 00:53 Mineral Oil/Petrolatum, White Ophth Oint 3.5 Gm OU Q4HR PRN Dry Eye(s) Naloxone HCl 0.1 mg 04/29/21 23:55 Naloxone 0.4 Mg/1 Ml Inj IV Q2MIN PRN Res Rate </= 8 or 02 SAT < 92% Ondansetron HCl 4 mg 04/29/21 19:12 Ondansetron 4 Mg/2 Ml Inj IV Q8H PRN Nausea And Vomiting Oxycodone/Acetaminophen 1 tab 04/29/21 19:12 Oxycodone /Acetaminophen 5-325mg Tab PO Q6H PRN Pain, Moderate (4-6) Senna/Docusate Sodium 1 tab 04/30/21 10:00 05/01/21 09:37 Sennosides/Docusate Sodium 8.6/50 Mg Tab FEEDTUBE 1 tab BID LYLA Administration Sodium Chloride 10 ml 04/29/21 22:00 05/01/21 10:55 Sodium Chloride 0.9% 10 Ml Flush Syringe IV 10 ml BID LYLA Administration Sodium Chloride 10 ml 04/29/21 19:12 04/30/21 19:40 Sodium Chloride 0.9% 10 Ml Flush Syringe IV 10 ml PRN PRN Administration LINE FLUSH Sodium Chloride 5 ml 04/30/21 00:53 Sodium Chloride 0.9% 500 Ml Ivpb IV DIRECT PRN ARTERIAL HARD CANDY BATCH MIXER
[2021-05-02] MEDS ORDERED: HALOPERIDOL LACTATE 5 MG/1 ML INJ IM ONE (04:43)
[2021-05-02] MEDS: FUROSEMIDE 40 MG/4 ML INJ IV SCH ×2 (06:36→18:47)
[2021-05-02] MEDS: MIDODRINE 5 MG TAB PO SCH ×3 (08:35→17:30)
[2021-05-02] MEDS: FAMOTIDINE 20 MG/2 ML INJ IV SCH (09:05)
[2021-05-02] MEDS: HEPARIN 5,000 UNIT/1 ML VIAL SUB-Q SCH ×2 (09:06→21:36)
[2021-05-02] MEDS: CALCITRIOL 0.25 MCG CAP PO SCH (09:06)
[2021-05-02] MEDS: SENNOSIDES/DOCUSATE SODIUM 8.6/50 MG TAB FEEDTUBE SCH ×2 (09:07→21:38)
--- NOTE | 2021-05-02 10:28 | Progress Note ---
Assessment and Plan 61 y/o female with ESRD now progressing to requiring HD, admitted with hypercapnic respiratory failure, possibly iatrogenic from surgery meds. 05/02/21: Continue TID Midodrine. Lasix therapy per renal. Wean FiO2 for sats>88%. No objection to transfer out of unit. 05/01/21: Will start on Midodrine 10 TID today. Wean Levophed to OFF. Patient wants to sit in chair and have no objections to this. CXR appears to be more consistent with pulmonary edema. Would continue lasix therapy despite need for vasopressor at this time. Will order Incentive spirometry to bedside. Continue ICU monitoring until BP stablizes. 1. Renal-no HD today per nephro, will try high dose IV lasix BID. Ramos for strict I/O 2. Pulm- respiratory mechanical artist are good and volume removal will be very beneficial as she has significant secretions. Not quite ready for extubation yet based on mental state but is tolerating PSV well. Repeat ABG and CXR in am. 3. GI-hold on feeds for possible extubation tomorrow. Feed tomorrow if not extubated. 4. SCD's and H2 patricia Will continue to follow CCT 31 minutes. Subjective Date of service: 05/02/21 Principal diagnosis: End-stage renal disease Interval history: BP better with midodrine. Off all pressors for several hours now. Asleep now with oxygen on and good sats. Objective Vital Signs - 12hr 05/01/21 05/01/21 05/01/21 22:30 22:46 23:00 Temperature Pulse Rate 76 74 77 Pulse Rate [ From Monitor] Respiratory 18 17 20 Rate Blood Pressure 127/52 127/52 114/50 O2 Sat by Pulse 91 97 96 Oximetry 05/01/21 05/01/21 05/01/21 23:15 23:30 23:41 Temperature Pulse Rate 75 70 68 Pulse Rate [ From Monitor] Respiratory 21 26 H 24 Rate Blood Pressure 139/64 139/64 134/56 O2 Sat by Pulse 99 96 98 Oximetry 05/01/21 05/01/21 05/01/21 23:45 23:54 23:56 Temperature 98.6 F Pulse Rate 68 70 Pulse Rate [ From Monitor] Respiratory 24 22 Rate Blood Pressure 120/51 120/51 O2 Sat by Pulse 97 36 L Oximetry 05/02/21 05/02/21 05/02/21 00:00 00:15 00:30 Temperature Pulse Rate 71 69 64 Pulse Rate [ 65 From Monitor] Respiratory 20 15 25 H Rate Blood Pressure 132/57 127/50 131/50 O2 Sat by Pulse 94 97 96 Oximetry 05/02/21 05/02/21 05/02/21 00:45 01:00 01:15 Temperature Pulse Rate 72 69 68 Pulse Rate [ From Monitor] Respiratory 27 H 20 19 Rate Blood Pressure 141/61 135/55 131/51 O2 Sat by Pulse 95 95 96 Oximetry 05/02/21 05/02/21 05/02/21 01:30 01:46 02:00 Temperature Pulse Rate 66 80 74 Pulse Rate [ From Monitor] Respiratory 23 17 29 H Rate Blood Pressure 123/49 105/44 135/60 O2 Sat by Pulse 95 82 L Oximetry 05/02/21 05/02/21 05/02/21 02:16 02:30 02:45 Temperature Pulse Rate 66 67 73 Pulse Rate [ From Monitor] Respiratory 19 19 14 Rate Blood Pressure 120/41 120/49 128/54 O2 Sat by Pulse 96 97 96 Oximetry 05/02/21 05/02/21 05/02/21 02:51 03:00 03:15 Temperature Pulse Rate 71 73 Pulse Rate [ From Monitor] Respiratory 13 16 Rate Blood Pressure 129/51 133/60 O2 Sat by Pulse 99 97 95 Oximetry 05/02/21 05/02/21 05/02/21 03:27 03:30 03:45 Temperature 98.8 F Pulse Rate 70 72 Pulse Rate [ From Monitor] Respiratory 15 15 Rate Blood Pressure 119/47 115/45 O2 Sat by Pulse 97 95 Oximetry 05/02/21 05/02/21 05/02/21 04:00 04:15 04:30 Temperature Pulse Rate 77 75 68 Pulse Rate [ 77 From Monitor] Respiratory 18 24 18 Rate Blood Pressure 115/45 122/54 131/53 O2 Sat by Pulse 87 91 94 Oximetry 05/02/21 05/02/21 05/02/21 04:45 05:00 05:16 Temperature Pulse Rate 68 68 70 Pulse Rate [ From Monitor] Respiratory 17 21 10 L Rate Blood Pressure 126/51 138/52 142/59 O2 Sat by Pulse 96 96 96 Oximetry 05/02/21 05/02/21 05/02/21 05:30 05:46 06:00 Temperature Pulse Rate 72 70 69 Pulse Rate [ From Monitor] Respiratory 22 16 15 Rate Blood Pressure 147/50 158/50 158/50 O2 Sat by Pulse 96 96 98 Oximetry 05/02/21 05/02/21 05/02/21 06:16 06:30 06:46 Temperature Pulse Rate 73 74 75 Pulse Rate [ From Monitor] Respiratory 13 16 15 Rate Blood Pressure 127/40 127/40 75/48 O2 Sat by Pulse 97 93 92 Oximetry 05/02/21 05/02/21 05/02/21 07:00 07:15 07:30 Temperature Pulse Rate 77 70 67 Pulse Rate [ From Monitor] Respiratory 16 21 19 Rate Blood Pressure 66/42 100/49 102/45 O2 Sat by Pulse 93 96 97 Oximetry 05/02/21 05/02/21 05/02/21 07:45 08:00 08:15 Temperature Pulse Rate 66 91 H 82 Pulse Rate [ 73 From Monitor] Respiratory 14 19 24 Rate Blood Pressure 96/39 100/49 102/48 O2 Sat by Pulse 96 97 94 Oximetry 05/02/21 05/02/21 05/02/21 08:30 08:45 09:00 Temperature Pulse Rate 71 68 72 Pulse Rate [ From Monitor] Respiratory 15 16 12 Rate Blood Pressure 109/45 113/43 114/46 O2 Sat by Pulse 100 94 94 Oximetry 05/02/21 05/02/21 09:16 09:30 Temperature Pulse Rate 70 69 Pulse Rate [ From Monitor] Respiratory 18 14 Rate Blood Pressure 129/57 123/52 O2 Sat by Pulse Oximetry Constitutional: no acute distress, alert (but very drowsy) Eyes: non-icteric ENT: other (orally intubated) Neck: supple Effort: normal Ascultation: Bilateral: diminished breath sounds, rales Percussion: Bilateral: not dull Cardiovascular: regular rate and rhythm Gastrointestinal: normoactive bowel sounds, soft Extremities: no edema CBC and BMP: 05/01/21 04:44 05/01/21 04:44 ABG, PT/INR, D-dimer: ABG ABG pH 7.254 (7.320-7.450) L 05/01/21 10:11 POC ABG pCO2 47.1 mmHg (32.0-48.0) 05/01/21 10:11 POC ABG pO2 54.7 mmHg (83-108) L 05/01/21 10:11 POC ABG HCO3 20.4 05/01/21 10:11 ABG O2 Saturation 84.6 (0-100) 05/01/21 10:11 Abnormal lab findings: Abnormal Labs 04/29/21 04/29/21 04/29/21 11:00 11:00 18:25 WBC RBC 2.80 L Hgb 8.5 L Hct 25.5 L RDW 19.5 H Seg Neuts % (Manual) Lymphocytes % (Manual) Seg Neutrophils # Man Lymphocytes # (Manual) ABG pH POC ABG pCO2 POC ABG pO2 ABG Hemoglobin ABG Oxyhemoglobin ABG Potassium ABG Chloride ABG Glucose Carboxyhemoglobin Sodium Carbon Dioxide BUN 81 H Creatinine 8.5 H Glucose POC Glucose 109 H Hemoglobin A1c Calcium Albumin Arterial Blood Glucose Arterial Blood Ionized Calcium 04/29/21 04/30/21 04/30/21 23:20 00:22 00:53 WBC RBC Hgb Hct RDW Seg Neuts % (Manual) Lymphocytes % (Manual) Seg Neutrophils # Man Lymphocytes # (Manual) ABG pH 7.047 L POC ABG pCO2 89.0 H POC ABG pO2 442.0 H ABG Hemoglobin 9.2 L ABG Oxyhemoglobin 98.3 H ABG Potassium 4.6 H ABG Chloride 109.0 H ABG Glucose 164 H Carboxyhemoglobin Sodium Carbon Dioxide BUN Creatinine Glucose POC Glucose 180 H 161 H Hemoglobin A1c Calcium Albumin Arterial Blood Glucose 164 H Arterial Blood Ionized Calcium 4.3 L 04/30/21 04/30/21 04/30/21 03:29 04:23 04:23 WBC 15.0 H RBC 3.09 L Hgb 8.9 L Hct 27.9 L RDW 19.2 H Seg Neuts % (Manual) 96.0 H Lymphocytes % (Manual) 3.0 L Seg Neutrophils # Man 14.4 H Lymphocytes # (Manual) 0.5 L ABG pH 7.256 L POC ABG pCO2 49.4 H POC ABG pO2 58.6 L ABG Hemoglobin 8.6 L ABG Oxyhemoglobin 93.0 L ABG Potassium ABG Chloride 109.0 H ABG Glucose 122 H Carboxyhemoglobin Sodium Carbon Dioxide 20 L BUN 90 H Creatinine 9.5 H Glucose 145 H POC Glucose Hemoglobin A1c Calcium 8.0 L Albumin 3.6 L Arterial Blood Glucose 122 H Arterial Blood Ionized Calcium 4.1 L 04/30/21 04/30/21 04/30/21 04:23 11:26 17:20 WBC RBC Hgb Hct RDW Seg Neuts % (Manual) Lymphocytes % (Manual) Seg Neutrophils # Man Lymphocytes # (Manual) ABG pH POC ABG pCO2 POC ABG pO2 ABG Hemoglobin ABG Oxyhemoglobin ABG Potassium ABG Chloride ABG Glucose Carboxyhemoglobin Sodium Carbon Dioxide BUN Creatinine Glucose POC Glucose 52 L 127 H Hemoglobin A1c < 4.0 L Calcium Albumin Arterial Blood Glucose Arterial Blood Ionized Calcium 05/01/21 05/01/21 05/01/21 04:44 04:44 10:11 WBC RBC 2.55 L Hgb 7.7 L Hct 23.2 L RDW 19.4 H Seg Neuts % (Manual) Lymphocytes % (Manual) Seg Neutrophils # Man Lymphocytes # (Manual) ABG pH 7.254 L POC ABG pCO2 POC ABG pO2 54.7 L ABG Hemoglobin 7.5 L ABG Oxyhemoglobin 82.9 L ABG Potassium ABG Chloride 108.0 H ABG Glucose 122 H Carboxyhemoglobin 1.7 H Sodium 146 H Carbon Dioxide BUN 93 H Creatinine 10.0 H Glucose POC Glucose Hemoglobin A1c Calcium 8.3 L Albumin Arterial Blood Glucose 122 H Arterial Blood Ionized Calcium 4.1 L 05/01/21 18:00 WBC RBC Hgb Hct RDW Seg Neuts % (Manual) Lymphocytes % (Manual) Seg Neutrophils # Man Lymphocytes # (Manual) ABG pH POC ABG pCO2 POC ABG pO2 ABG Hemoglobin ABG Oxyhemoglobin ABG Potassium ABG Chloride ABG Glucose Carboxyhemoglobin Sodium Carbon Dioxide BUN Creatinine Glucose POC Glucose 125 H Hemoglobin A1c Calcium Albumin Arterial Blood Glucose Arterial Blood Ionized Calcium
--- NOTE | 2021-05-02 11:45 | Progress Note ---
<STEVENoaVINEETNica - Last Filed: 05/02/21 11:39> Assessment and Plan Assessment and plan: This is a 41-year-old female with HTN, heart murmur, anxiety, ESRD, current tobacco abuse, and anemia with acute hypoxic respiratory failure Neuro: h/o anxiety -reorientation as needed -Patient states she uses PRN anxiety medications Cardio: Hypotension, resolved -noted to be hypotensive overnight with bradycardia -s/p dopamine and levophed gtt -Midodrine PO TID, wean as tolerated -BP monitoring per protocol 05/01 echocardiogram shows moderate concentric LVH, LVEF 55 to 60%, posterior leaflet calcified with 1 cm mass noted, calcified nodule versus old vegetation, LA and RA mildly dilated, mild h/o HTN -Hold home antihtn meds at this time h/o heart murmur, confirmed by patient -not auscultated on PE -f/u with PCP Resp: Acute hypoxic respiratory failure -Overnight patient was noted to be hypoxic and was intubated on 04/30, extubated 04/30 -04/29 CXR shows diffuse bilateral pulmonary opacities with pulmonary edema and right effusion -Pulmonary hygiene -SPO2 monitoring -CCM consulted, appreciate recommendations Nicotine abuse -Smoking cessation counseling -States she is "cutting down on smoking" FEN/GI ESRD -Nephrology consulted, appreciate recommendations -Patient was initially at hospital for AV fistula creation -Lasix 60 mg IV twice daily per nephrology -Hold off placement of temp Vas-Cath per nephrology -Renally dose medications -Strict intake and output -Daily weights -Avoid nephrotoxic medication Metabolic acidosis -Trend BMP -Nephrology is on board Hypoglycemia -Hypoglycemic protocol -Accu-Cheks every 6hr while n.p.o. -04/30 hemoglobin A1c less than 4 Urinary retention -Patient was bladder scanned and straight cathed for approximately 500 mL urine -Ramos catheter placed 04/30 accurate intake and output Heme H/O anemia -Per documentation patient has had iron infusions in the past -Presenting H/H 8.5/25.5 -Trend CBC -Transfuse to hemoglobin less than 7 Skin NAD -Turn every 2 per protocol Lines: Ramos (04/30), PIV GI/DVT prophylaxis: Heparin subcu, SCDs to bilateral lower extremities while in bed, PPI Disposition: Transfer to floor Full code The high probability of a clinically significant, sudden or life threatening deterioration of the [cardio/pulm] system(s) required my full and direct attention, intervention and personal management. The aggregate critical care time was [35] minutes. This time is in addition to time spent performing reported procedures but includes the following: [x] Data Review and interpretation [x] Patient assessment and monitoring of vital signs [x] Documentation [x] Medication orders and management History Interval history: This is a 61-year-old female with HTN, heart murmur, anxiety, current tobacco abuse, ESRD and anemia who presented to [facility] for a right arm brachiocephalic AV fistula creation on 04/29 however postop patient was noted to have pulmonary edema on CXR and was admitted for observation. Overnight patient was noted to be hypotensive, bradycardic and we decreased respirations and was given Narcan wit h no improvement in the patient was intubated for airway protection by ED staff. There was possible aspiration noted during the time of administration. Patient was transferred to ICU and CCM, nephrology were consulted. Past surgical history right arm AV fistula creation Social history: Smoker 04/30: Overnight patient was noted to be bradycardic, hypotensive and have altered mental status and the patient was emergently intubated. Patient had a bladder scan with 500 cc of urine received after straight cath. Patient was started on dopamine however this is being actively weaned off. Patient is a CPAP trial. Patient extubated around 1300. Hypotension noted, restarted dopamine gtt at low dose then started on levophed gtt. 05/01: Overnight she remained on the levophed, per RN if weaned to 2mcg from 4 mcg then thrill/bruit was lost from AVF. This morning we started the pt on midodrine and weaned levo off. Ramos remains. CXR shows pulm edema 05/02: Overnight the patient was given Haldol wiht transient resultant hypotension which has resolved. BP has remained stable. Stable for transfer to the floor. Hospitalist Physical - Constitutional Vitals: Temp Pulse Resp BP Pulse Ox 98.8 F 69 14 123/52 94 05/02/21 03:27 05/02/21 09:30 05/02/21 09:30 05/02/21 09:30 05/02/21 09:00 General appearance: Present: no acute distress, well-nourished, obese - EENT Eyes: Present: PERRL, EOM intact ENT: hearing intact, clear oral mucosa, dentition normal - Neck Neck: Present: normal ROM - Respiratory Respiratory effort: normal Respiratory: bilateral: diminished (crackles) - Cardiovascular Rhythm: regular Heart Sounds: Present: S1 & S2. Absent: systolic murmur, diastolic murmur - Extremities Extremities: no ischemia, pulses intact, pulses symmetrical, normal temperature, normal color, Full ROM Peripheral Pulses: within normal limits - Abdominal General gastrointestinal: soft, non-tender, non-distended, normal bowel sounds - Integumentary Integumentary: Present: warm, dry - Psychiatric Psychiatric: appropriate mood/affect, cooperative - Neurologic Neurologic: CNII-XII intact, no focal deficits, moves all extremities - Allied Health Allied health notes reviewed: nursing, RT Results - Labs CBC & Chem 7: 05/01/21 04:44 05/01/21 04:44 Labs: Laboratory Last Values WBC 9.1 K/mm3 (4.5-11.0) 05/01/21 04:44 RBC 2.55 M/mm3 (3.65-5.03) L 05/01/21 04:44 Hgb 7.7 gm/dl (10.1-14.3) L 05/01/21 04:44 Hct 23.2 % (30.3-42.9) L 05/01/21 04:44 MCV 91 fl (79-97) 05/01/21 04:44 MCH 30 pg (28-32) 05/01/21 04:44 MCHC 33 % (30-34) 05/01/21 04:44 RDW 19.4 % (13.2-15.2) H 05/01/21 04:44 Plt Count 148 K/mm3 (140-440) 05/01/21 04:44 Add Manual Diff Complete 04/30/21 04:23 Total Counted 100 04/30/21 04:23 Seg Neutrophils % Rail Flaw Detector Operator 04/30/21 04:23 Seg Neuts % (Manual) 96.0 % (40.0-70.0) H 04/30/21 04:23 Lymphocytes % (Manual) 3.0 % (13.4-35.0) L 04/30/21 04:23 Monocytes % (Manual) 1.0 % (0.0-7.3) 04/30/21 04:23 Nucleated RBC % Not Reportable 04/30/21 04:23 Seg Neutrophils # Man 14.4 K/mm3 (1.8-7.7) H 04/30/21 04:23 Band Neutrophils # 0.0 K/mm3 04/30/21 04:23 Lymphocytes # (Manual) 0.5 K/mm3 (1.2-5.4) L 04/30/21 04:23 Abs React Lymphs (Man) 0.0 K/mm3 04/30/21 04:23 Monocytes # (Manual) 0.2 K/mm3 (0.0-0.8) 04/30/21 04:23 Eosinophils # (Manual) 0.0 K/mm3 (0.0-0.4) 04/30/21 04:23 Basophils # (Manual) 0.0 K/mm3 (0.0-0.1) 04/30/21 04:23 Metamyelocytes # 0.0 K/mm3 04/30/21 04:23 Myelocytes # 0.0 K/mm3 04/30/21 04:23 Promyelocytes # 0.0 K/mm3 04/30/21 04:23 Blast Cells # 0.0 K/mm3 04/30/21 04:23 WBC Morphology Not Reportable 04/30/21 04:23 Hypersegmented Neuts Not Reportable 04/30/21 04:23 Hyposegmented Neuts Not Reportable 04/30/21 04:23 Hypogranular Neuts Not Reportable 04/30/21 04:23 Smudge Cells Not Reportable 04/30/21 04:23 Toxic Granulation Not Reportable 04/30/21 04:23 Toxic Vacuolation Not Reportable 04/30/21 04:23 Dohle Bodies Not Reportable 04/30/21 04:23 Pelger-Huet Anomaly Not Reportable 04/30/21 04:23 Vik Rods Not Reportable 04/30/21 04:23 Platelet Estimate Consistent w auto 04/30/21 04:23 Clumped Platelets Not Reportable 04/30/21 04:23 Plt Clumps, EDTA Not Reportable 04/30/21 04:23 Large Platelets Not Reportable 04/30/21 04:23 Giant Platelets Not Reportable 04/30/21 04:23 Platelet Satelliting Not Reportable 04/30/21 04:23 Plt Morphology Comment Not Reportable 04/30/21 04:23 RBC Morphology Not Reportable 04/30/21 04:23 Dimorphic RBCs Not Reportable 04/30/21 04:23 Polychromasia Not Reportable 04/30/21 04:23 Hypochromasia 1+ 04/30/21 04:23 Poikilocytosis Not Reportable 04/30/21 04:23 Anisocytosis 1+ 04/30/21 04:23 Microcytosis Not Reportable 04/30/21 04:23 Macrocytosis Not Reportable 04/30/21 04:23 Spherocytes Not Reportable 04/30/21 04:23 Pappenheimer Bodies Not Reportable 04/30/21 04:23 Sickle Cells Not Reportable 04/30/21 04:23 Target Cells Not Reportable 04/30/21 04:23 Tear Drop Cells Not Reportable 04/30/21 04:23 Ovalocytes Not Reportable 04/30/21 04:23 Helmet Cells Not Reportable 04/30/21 04:23 Castrejon-Scott Bodies Not Reportable 04/30/21 04:23 [place] Rings Not Reportable 04/30/21 04:23 Rosendo Cells Not Reportable 04/30/21 04:23 Bite Cells Not Reportable 04/30/21 04:23 Crenated Cell Not Reportable 04/30/21 04:23 Elliptocytes Not Reportable 04/30/21 04:23 Acanthocytes (Spur) Not Reportable 04/30/21 04:23 Rouleaux Not Reportable 04/30/21 04:23 Hemoglobin C Crystals Not Reportable 04/30/21 04:23 Schistocytes Not Reportable 04/30/21 04:23 Malaria parasites Not Reportable 04/30/21 04:23 Desmond Bodies Not Reportable 04/30/21 04:23 Hem Pathologist Commnt No 04/30/21 04:23 ABG pH 7.254 (7.320-7.450) L 05/01/21 10:11 POC ABG pCO2 47.1 mmHg (32.0-48.0) 05/01/21 10:11 POC ABG pO2 54.7 mmHg (83-108) L 05/01/21 10:11 POC ABG HCO3 20.4 05/01/21 10:11 ABG O2 Saturation 84.6 (0-100) 05/01/21 10:11 POC ABG Base Excess -6.4 05/01/21 10:11 ABG Hemoglobin 7.5 (12.0-17.5) L 05/01/21 10:11 ABG Oxyhemoglobin 82.9 (94-98) L 05/01/21 10:11 ABG Methemoglobin 0.3 (0.0-1.5) 05/01/21 10:11 ABG Sodium 138.2 mmol/L (136.0-145.0) 05/01/21 10:11 ABG Potassium 3.9 mmol/L (3.40-4.50) 05/01/21 10:11 ABG Chloride 108.0 mmol/L (98-107) H 05/01/21 10:11 ABG Glucose 122 mg/dL (65-95) H 05/01/21 10:11 Carboxyhemoglobin 1.7 (0.5-1.5) H 05/01/21 10:11 FiO2 % 32.0 05/01/21 10:11 Sodium 146 mmol/L (137-145) H 05/01/21 04:44 Potassium 4.3 mmol/L (3.6-5.0) 05/01/21 04:44 Chloride 103.4 mmol/L (98-107) 05/01/21 04:44 Carbon Dioxide 25 mmol/L (22-30) 05/01/21 04:44 Anion Gap 22 mmol/L 05/01/21 04:44 BUN 93 mg/dL (7-17) H 05/01/21 04:44 Creatinine 10.0 mg/dL (0.6-1.2) H 05/01/21 04:44 Estimated GFR 5 ml/min 05/01/21 04:44 BUN/Creatinine Ratio 9 % 05/01/21 04:44 Glucose 82 mg/dL (65-100) 05/01/21 04:44 POC Glucose 94 mg/dL (70-105) 05/02/21 05:29 Hemoglobin A1c < 4.0 % (4-6) L 04/30/21 04:23 Calcium 8.3 mg/dL (8.4-10.2) L 05/01/21 04:44 Total Bilirubin 0.30 mg/dL (0.1-1.2) 04/30/21 04:23 AST 30 units/L (5-40) 04/30/21 04:23 ALT 26 units/L (7-56) 04/30/21 04:23 Alkaline Phosphatase 122 units/L (35-129) 04/30/21 04:23 Total Protein 6.7 g/dL (6.3-8.2) 04/30/21 04:23 Albumin 3.6 g/dL (3.9-5) L 04/30/21 04:23 Albumin/Globulin Ratio 1.2 % 04/30/21 04:23 Arterial Blood Glucose 122 mg/dL (65-95) H 05/01/21 10:11 Arterial Blood Ionized Calcium 4.1 mg/dL (4.6-5.3) L 05/01/21 10:11 Microbiology: Microbiology 04/30/21 Unknown Tracheal Aspirate Sputum Culture - Preliminary Ramos/IV: Voiding Method Indwelling Catheter Active Medications - Current Medications Current Medications: Generic Name Dose Route Start Last Admin Trade Name Freq PRN Reason Stop Dose Admin Acetaminophen 650 mg 04/29/21 19:12 05/01/21 07:37 Acetaminophen 325 Mg Tab PO 650 mg Q4H PRN Administration Pain MILD(1-3)/Fever >100.5/KLEIN Calcitriol 0.25 mcg 04/30/21 10:00 05/02/21 09:06 Calcitriol 0.25 Mcg Cap PO 0.25 mcg DAILY LYLA Administration Famotidine 20 mg 04/30/21 10:00 05/02/21 09:05 Famotidine 20 Mg/2 Ml Inj IV 20 mg DAILY LYLA Administration Furosemide 60 mg 04/30/21 09:00 05/02/21 06:36 Furosemide 40 Mg/4 Ml Inj IV 60 mg 0600,1800 LYLA Administration Heparin Sodium (Porcine) 5,000 unit 04/30/21 10:00 05/02/21 09:06 Heparin 5,000 Unit/1 Ml Vial SUB-Q 5,000 unit Q12HR LYLA Administration Hydrophilic Ointment 1 applic 04/30/21 00:53 Lip Therapy Vaseline TP Q2HR PRN Dry Lips Dopamine HCl/Dextrose 800 mg in 250 mls @ 33.169 mls/hr 04/30/21 01:00 04/30/21 19:18 Intropin Drip 800 Mg/D5w 250 Ml IV 0 mcg/kg/min TITR LYLA 0 mls/hr Titration Protocol 20 MCG/KG/MIN Propofol 1,000 mg in 100 mls @ 2.654 mls/hr 04/30/21 03:00 04/30/21 14:52 Diprivan 10 Mg/Ml IV 0 mcg/kg/min TITR LYLA 0 mls/hr Titration Protocol 5 MCG/KG/MIN Norepinephrine 4 mg in 250 mls @ 7.5 mls/hr 04/30/21 19:00 05/01/21 10:54 Levophed Drip 4 Mg/Ns 250 Ml IV 0 mcg/min TITR LYLA 0 mls/hr Titration Protocol 2 MCG/MIN Midodrine 10 mg 05/01/21 09:16 05/02/21 08:35 Midodrine 5 Mg Tab PO 10 mg TID@0800,1200,1600 YLLA Administration Multi-Ingred Cream/Lotion/Oil/Oint 1 applic 04/30/21 00:53 Mineral Oil/Petrolatum, White Ophth Oint 3.5 Gm OU Q4HR PRN Dry Eye(s) Naloxone HCl 0.1 mg 04/29/21 23:55 Naloxone 0.4 Mg/1 Ml Inj IV Q2MIN PRN Res Rate </= 8 or 02 SAT < 92% Ondansetron HCl 4 mg 04/29/21 19:12 Ondansetron 4 Mg/2 Ml Inj IV Q8H PRN Nausea And Vomiting Oxycodone/Acetaminophen 1 tab 04/29/21 19:12 Oxycodone /Acetaminophen 5-325mg Tab PO Q6H PRN Pain, Moderate (4-6) Senna/Docusate Sodium 1 tab 04/30/21 10:00 05/02/21 09:07 Sennosides/Docusate Sodium 8.6/50 Mg Tab FEEDTUBE Not Given BID LYLA Sodium Chloride 10 ml 04/29/21 22:00 05/02/21 09:07 Sodium Chloride 0.9% 10 Ml Flush Syringe IV 10 ml BID LYLA Administration Sodium Chloride 10 ml 04/29/21 19:12 04/30/21 19:40 Sodium Chloride 0.9% 10 Ml Flush Syringe IV 10 ml PRN PRN Administration LINE FLUSH Sodium Chloride 5 ml 04/30/21 00:53 Sodium Chloride 0.9% 500 Ml Ivpb IV DIRECT PRN ARTERIAL ELEVATOR ERECTOR Nutrition/Malnutrition Assess - Dietary Evaluation Nutrition/Malnutrition Findings: Nutrition Notes Start: 04/30/21 07:58 Freq: Status: Active Protocol: Document 04/30/21 07:58 ESTER (Rec: 04/30/21 08:04 [email or web address]) Nutrition Notes Need for Assessment generated from: MD Order,electroencephalograph technologist Initial or Follow up Assessment Current Diagnosis CKD (stage V CKD),Diabetes, Hypertension Other Pertinent Diagnosis volume overload Current Diet No diet Labs/Tests BUN 90 Cr 9.5 BG 145 Pertinent Medications Dopamine Versed Propofol Height 5 ft 6.5 in Weight 88.451 kg Thor Body Weight (kg) 60.22 BMI 30.9 Weight Status Obese Subjective/Other Information MD order to eval intakes. RN screen for skin risk. Pt on vent after vas-cath surgery for HD and has surgical wound. Francisco score 16. Burn Absent Trauma Absent GI Symptoms None Current % PO Negligible Minimum of two criteria No physical signs of malnutrition #2 Nutrition Diagnosis Inadequate oral intake Etiology ARF As Evidenced by Signs and Symptoms pt on vent and unable to consume PO Is patient on ventilator? Yes Is Patient Ambulatory and/or Out of Bed No REE-([facility]-confined to bed) 1785.636 Kcal/Kg value to use for calculation 16 Approximate Energy Requirements Using 1415 kcal/Kg Calculation Used for Recommendations Kcal/kg Additional Notes Protein: (>2g/kg IBW) >120g Fluid: 1 ml/kcal or per MD Nutrition Intervention Change Diet Order: Start TF when medically able Nutrition Support: Recommend: Vital HP at 60 ml/hr Flush 50 ml q4h Kcal 1,440 Protein (gm) 126 Fluid (mL) 1,204 Goal #1 Start TF or extubate Anticipated Discharge Needs: Unable to determine at this time Follow-Up By: 05/04/21 Additional Comments FU for TF consult or extubation and diet advancement <WYATT RAYGOZA - Last Filed: 05/02/21 14:15> Assessment and Plan Assessment and plan: Agree with assessment and plan as outlined by nurse practitioner as above. I personally examined the patient, she is improved with her breathing, less congestion. Blood pressure is holding with midodrine. Updated family, transferred to the floor. Continue diuresing with furosemide. Hospitalist Physical - Constitutional Vitals: Temp Pulse Resp BP Pulse Ox 98.6 F 64 15 125/54 91 05/02/21 12:00 05/02/21 13:00 05/02/21 13:00 05/02/21 13:00 05/02/21 13:00 Results - Labs CBC & Chem 7: 05/01/21 04:44 05/01/21 04:44 Labs: Laboratory Last Values WBC 9.1 K/mm3 (4.5-11.0) 05/01/21 04:44 RBC 2.55 M/mm3 (3.65-5.03) L 05/01/21 04:44 Hgb 7.7 gm/dl (10.1-14.3) L 05/01/21 04:44 Hct 23.2 % (30.3-42.9) L 05/01/21 04:44 MCV 91 fl (79-97) 05/01/21 04:44 MCH 30 pg (28-32) 05/01/21 04:44 MCHC 33 % (30-34) 05/01/21 04:44 RDW 19.4 % (13.2-15.2) H 05/01/21 04:44 Plt Count 148 K/mm3 (140-440) 05/01/21 04:44 Add Manual Diff Complete 04/30/21 04:23 Total Counted 100 04/30/21 04:23 Seg Neutrophils % Rail Flaw Detector Operator 04/30/21 04:23 Seg Neuts % (Manual) 96.0 % (40.0-70.0) H 04/30/21 04:23 Lymphocytes % (Manual) 3.0 % (13.4-35.0) L 04/30/21 04:23 Monocytes % (Manual) 1.0 % (0.0-7.3) 04/30/21 04:23 Nucleated RBC % Not Reportable 04/30/21 04:23 Seg Neutrophils # Man 14.4 K/mm3 (1.8-7.7) H 04/30/21 04:23 Band Neutrophils # 0.0 K/mm3 04/30/21 04:23 Lymphocytes # (Manual) 0.5 K/mm3 (1.2-5.4) L 04/30/21 04:23 Abs React Lymphs (Man) 0.0 K/mm3 04/30/21 04:23 Monocytes # (Manual) 0.2 K/mm3 (0.0-0.8) 04/30/21 04:23 Eosinophils # (Manual) 0.0 K/mm3 (0.0-0.4) 04/30/21 04:23 Basophils # (Manual) 0.0 K/mm3 (0.0-0.1) 04/30/21 04:23 Metamyelocytes # 0.0 K/mm3 04/30/21 04:23 Myelocytes # 0.0 K/mm3 04/30/21 04:23 Promyelocytes # 0.0 K/mm3 04/30/21 04:23 Blast Cells # 0.0 K/mm3 04/30/21 04:23 WBC Morphology Not Reportable 04/30/21 04:23 Hypersegmented Neuts Not Reportable 04/30/21 04:23 Hyposegmented Neuts Not Reportable 04/30/21 04:23 Hypogranular Neuts Not Reportable 04/30/21 04:23 Smudge Cells Not Reportable 04/30/21 04:23 Toxic Granulation Not Reportable 04/30/21 04:23 Toxic Vacuolation Not Reportable 04/30/21 04:23 Dohle Bodies Not Reportable 04/30/21 04:23 Pelger-Huet Anomaly Not Reportable 04/30/21 04:23 Vik Rods Not Reportable 04/30/21 04:23 Platelet Estimate Consistent w auto 04/30/21 04:23 Clumped Platelets Not Reportable 04/30/21 04:23 Plt Clumps, EDTA Not Reportable 04/30/21 04:23 Large Platelets Not Reportable 04/30/21 04:23 Giant Platelets Not Reportable 04/30/21 04:23 Platelet Satelliting Not Reportable 04/30/21 04:23 Plt Morphology Comment Not Reportable 04/30/21 04:23 RBC Morphology Not Reportable 04/30/21 04:23 Dimorphic RBCs Not Reportable 04/30/21 04:23 Polychromasia Not Reportable 04/30/21 04:23 Hypochromasia 1+ 04/30/21 04:23 Poikilocytosis Not Reportable 04/30/21 04:23 Anisocytosis 1+ 04/30/21 04:23 Microcytosis Not Reportable 04/30/21 04:23 Macrocytosis Not Reportable 04/30/21 04:23 Spherocytes Not Reportable 04/30/21 04:23 Pappenheimer Bodies Not Reportable 04/30/21 04:23 Sickle Cells Not Reportable 04/30/21 04:23 Target Cells Not Reportable 04/30/21 04:23 Tear Drop Cells Not Reportable 04/30/21 04:23 Ovalocytes Not Reportable 04/30/21 04:23 Helmet Cells Not Reportable 04/30/21 04:23 Castrejon-Scott Bodies Not Reportable 04/30/21 04:23 Mick[place] Rings Not Reportable 04/30/21 04:23 Rosendo Cells Not Reportable 04/30/21 04:23 Bite Cells Not Reportable 04/30/21 04:23 Crenated Cell Not Reportable 04/30/21 04:23 Elliptocytes Not Reportable 04/30/21 04:23 Acanthocytes (Spur) Not Reportable 04/30/21 04:23 Rouleaux Not Reportable 04/30/21 04:23 Hemoglobin C Crystals Not Reportable 04/30/21 04:23 Schistocytes Not Reportable 04/30/21 04:23 Malaria parasites Not Reportable 04/30/21 04:23 Desmond Bodies Not Reportable 04/30/21 04:23 Hem Pathologist Commnt No 04/30/21 04:23 ABG pH 7.254 (7.320-7.450) L 05/01/21 10:11 POC ABG pCO2 47.1 mmHg (32.0-48.0) 05/01/21 10:11 POC ABG pO2 54.7 mmHg (83-108) L 05/01/21 10:11 POC ABG HCO3 20.4 05/01/21 10:11 ABG O2 Saturation 84.6 (0-100) 05/01/21 10:11 POC ABG Base Excess -6.4 05/01/21 10:11 ABG Hemoglobin 7.5 (12.0-17.5) L 05/01/21 10:11 ABG Oxyhemoglobin 82.9 (94-98) L 05/01/21 10:11 ABG Methemoglobin 0.3 (0.0-1.5) 05/01/21 10:11 ABG Sodium 138.2 mmol/L (136.0-145.0) 05/01/21 10:11 ABG Potassium 3.9 mmol/L (3.40-4.50) 05/01/21 10:11 ABG Chloride 108.0 mmol/L (98-107) H 05/01/21 10:11 ABG Glucose 122 mg/dL (65-95) H 05/01/21 10:11 Carboxyhemoglobin 1.7 (0.5-1.5) H 05/01/21 10:11 FiO2 % 32.0 05/01/21 10:11 Sodium 146 mmol/L (137-145) H 05/01/21 04:44 Potassium 4.3 mmol/L (3.6-5.0) 05/01/21 04:44 Chloride 103.4 mmol/L (98-107) 05/01/21 04:44 Carbon Dioxide 25 mmol/L (22-30) 05/01/21 04:44 Anion Gap 22 mmol/L 05/01/21 04:44 BUN 93 mg/dL (7-17) H 05/01/21 04:44 Creatinine 10.0 mg/dL (0.6-1.2) H 05/01/21 04:44 Estimated GFR 5 ml/min 05/01/21 04:44 BUN/Creatinine Ratio 9 % 05/01/21 04:44 Glucose 82 mg/dL (65-100) 05/01/21 04:44 POC Glucose 120 mg/dL (70-105) H 05/02/21 13:17 Hemoglobin A1c < 4.0 % (4-6) L 04/30/21 04:23 Calcium 8.3 mg/dL (8.4-10.2) L 05/01/21 04:44 Total Bilirubin 0.30 mg/dL (0.1-1.2) 04/30/21 04:23 AST 30 units/L (5-40) 04/30/21 04:23 ALT 26 units/L (7-56) 04/30/21 04:23 Alkaline Phosphatase 122 units/L (35-129) 04/30/21 04:23 Total Protein 6.7 g/dL (6.3-8.2) 04/30/21 04:23 Albumin 3.6 g/dL (3.9-5) L 04/30/21 04:23 Albumin/Globulin Ratio 1.2 % 04/30/21 04:23 Arterial Blood Glucose 122 mg/dL (65-95) H 05/01/21 10:11 Arterial Blood Ionized Calcium 4.1 mg/dL (4.6-5.3) L 05/01/21 10:11 Microbiology: Microbiology 04/30/21 Unknown Tracheal Aspirate Sputum Culture - Preliminary Ramos/IV: Voiding Method Indwelling Catheter Active Medications - Current Medications Current Medications: Generic Name Dose Route Start Last Admin Trade Name Freq PRN Reason Stop Dose Admin Acetaminophen 650 mg 04/29/21 19:12 05/01/21 07:37 Acetaminophen 325 Mg Tab PO 650 mg Q4H PRN Administration Pain MILD(1-3)/Fever >100.5/KLEIN Calcitriol 0.25 mcg 04/30/21 10:00 05/02/21 09:06 Calcitriol 0.25 Mcg Cap PO 0.25 mcg DAILY LYLA Administration Famotidine 20 mg 04/30/21 10:00 05/02/21 09:05 Famotidine 20 Mg/2 Ml Inj IV 20 mg DAILY LYLA Administration Furosemide 60 mg 04/30/21 09:00 05/02/21 06:36 Furosemide 40 Mg/4 Ml Inj IV 60 mg 0600,1800 LYLA Administration Heparin Sodium (Porcine) 5,000 unit 04/30/21 10:00 05/02/21 09:06 Heparin 5,000 Unit/1 Ml Vial SUB-Q 5,000 unit Q12HR LYLA Administration Hydrophilic Ointment 1 applic 04/30/21 00:53 Lip Therapy Vaseline TP Q2HR PRN Dry Lips Dopamine HCl/Dextrose 800 mg in 250 mls @ 33.169 mls/hr 04/30/21 01:00 04/30/21 19:18 Intropin Drip 800 Mg/D5w 250 Ml IV 0 mcg/kg/min TITR LYLA 0 mls/hr Titration Protocol 20 MCG/KG/MIN Propofol 1,000 mg in 100 mls @ 2.654 mls/hr 04/30/21 03:00 04/30/21 14:52 Diprivan 10 Mg/Ml IV 0 mcg/kg/min TITR LYLA 0 mls/hr Titration Protocol 5 MCG/KG/MIN Norepinephrine 4 mg in 250 mls @ 7.5 mls/hr 04/30/21 19:00 05/01/21 10:54 Levophed Drip 4 Mg/Ns 250 Ml IV 0 mcg/min TITR LYLA 0 mls/hr Titration Protocol 2 MCG/MIN Midodrine 10 mg 05/01/21 09:16 05/02/21 11:44 Midodrine 5 Mg Tab PO 10 mg TID@0800,1200,1600 LYLA Administration Multi-Ingred Cream/Lotion/Oil/Oint 1 applic 04/30/21 00:53 Mineral Oil/Petrolatum, White Ophth Oint 3.5 Gm OU Q4HR PRN Dry Eye(s) Naloxone HCl 0.1 mg 04/29/21 23:55 Naloxone 0.4 Mg/1 Ml Inj IV Q2MIN PRN Res Rate </= 8 or 02 SAT < 92% Ondansetron HCl 4 mg 04/29/21 19:12 Ondansetron 4 Mg/2 Ml Inj IV Q8H PRN Nausea And Vomiting Oxycodone/Acetaminophen 1 tab 04/29/21 19:12 Oxycodone /Acetaminophen 5-325mg Tab PO Q6H PRN Pain, Moderate (4-6) Senna/Docusate Sodium 1 tab 04/30/21 10:00 05/02/21 09:07 Sennosides/Docusate Sodium 8.6/50 Mg Tab FEEDTUBE Not Given BID LYLA Sodium Chloride 10 ml 04/29/21 22:00 05/02/21 09:07 Sodium Chloride 0.9% 10 Ml Flush Syringe IV 10 ml BID LYLA Administration Sodium Chloride 10 ml 04/29/21 19:12 04/30/21 19:40 Sodium Chloride 0.9% 10 Ml Flush Syringe IV 10 ml PRN PRN Administration LINE FLUSH Sodium Chloride 5 ml 04/30/21 00:53 Sodium Chloride 0.9% 500 Ml Ivpb IV DIRECT PRN ARTERIAL ELEVATOR ERECTOR Nutrition/Malnutrition Assess - Dietary Evaluation Nutrition/Malnutrition Findings: Nutrition Notes Start: 04/30/21 07:58 Freq: Status: Active Protocol: Document 04/30/21 07:58 ESTER (Rec: 04/30/21 08:04 ESTER [id number]) Nutrition Notes Need for Assessment generated from: MD Order,electroencephalograph technologist Initial or Follow up Assessment Current Diagnosis CKD (stage V CKD),Diabetes, Hypertension Other Pertinent Diagnosis volume overload Current Diet No diet Labs/Tests BUN 90 Cr 9.5 BG 145 Pertinent Medications Dopamine Versed Propofol Height 5 ft 6.5 in Weight 88.451 kg Thor Body Weight (kg) 60.22 BMI 30.9 Weight Status Obese Subjective/Other Information MD order to eval intakes. RN screen for skin risk. Pt on vent after vas-cath surgery for HD and has surgical wound. Francisco score 16. Burn Absent Trauma Absent GI Symptoms None Current % PO Negligible Minimum of two criteria No physical signs of malnutrition #2 Nutrition Diagnosis Inadequate oral intake Etiology ARF As Evidenced by Signs and Symptoms pt on vent and unable to consume PO Is patient on ventilator? Yes Is Patient Ambulatory and/or Out of Bed No REE-([place] [facility]-confined to bed) 1785.636 Kcal/Kg value to use for calculation 16 Approximate Energy Requirements Using 1415 kcal/Kg Calculation Used for Recommendations Kcal/kg Additional Notes Protein: (>2g/kg IBW) >120g Fluid: 1 ml/kcal or per MD Nutrition Intervention Change Diet Order: Start TF when medically able Nutrition Support: Recommend: Vital HP at 60 ml/hr Flush 50 ml q4h Kcal 1,440 Protein (gm) 126 Fluid (mL) 1,204 Goal #1 Start TF or extubate Anticipated Discharge Needs: Unable to determine at this time Follow-Up By: 05/04/21 Additional Comments FU for TF consult or extubation and diet advancement
--- NOTE | 2021-05-02 15:11 | Progress Note ---
Assessment and Plan - Patient Problems (1) S/P arteriovenous (AV) fistula creation Current Visit: Yes Status: Acute Plan to address problem: Good thrill and bruit over AV fistula. Continue monitoring (2) Chronic kidney disease, stage V Current Visit: Yes Plan to address problem: Suspect baseline chronic kidney disease presumably secondary to diabetic kidney disease versus hypertensive nephrosclerosis. Kidney function is stable. Hopefully patient responds to IV diuretics and renal indices stay stable so we can hold off on starting dialysis now. Will be great to be able to wait till AV fistula is mature and avoid tunneled dialysis catheter and its complications. I discussed with the patient and family member at bedside. Follow-up renal indices in the morning and reevaluate volume status (3) Benign hypertension with chronic kidney disease, stage V Current Visit: Yes Status: Acute Plan to address problem: Follow-up blood pressure on current medications. (4) Type 2 diabetes mellitus with diabetic nephropathy Current Visit: Yes Status: Acute Plan to address problem: Blood sugar management by primary attending (5) Volume overload Current Visit: Yes Status: Acute Plan to address problem: Continue IV Lasix. May need to initiate dialysis through permacath if not better in the morning. Discussed with the patient and family member at the bedside. She was upset but expressed understanding Subjective Date of service: 05/02/21 Principal diagnosis: End-stage renal disease Interval history: Patient seen lying in bed. She has no complaints. Her family friend is at the bedside. Still appears to be dyspneic at rest. Objective - Exam Narrative Exam: Middle-aged -Maltese female lying in bed in no acute distress HEENT: NCAT, pink oral mucous membrane Neck: Supple, no venous distention CVS: S1S2 RRR with no murmur, rub or gallop Chest: Faint rhonchi with diminished breath sounds Abdomen: Protuberant, soft, nontender, no organomegaly, bowel sounds are present Extremities: Mild edema which is resolving Neuro: Awake, alert no focal deficits - Vital Signs Vital signs: Vital Signs - 12hr 05/02/21 05/02/21 05/02/21 03:15 03:27 03:30 Temperature 98.8 F Pulse Rate 73 70 Pulse Rate [ From Monitor] Respiratory 16 15 Rate Blood Pressure 133/60 119/47 O2 Sat by Pulse 95 97 Oximetry 05/02/21 05/02/21 05/02/21 03:45 04:00 04:15 Temperature Pulse Rate 72 77 75 Pulse Rate [ 77 From Monitor] Respiratory 15 18 24 Rate Blood Pressure 115/45 115/45 122/54 O2 Sat by Pulse 95 87 91 Oximetry 05/02/21 05/02/21 05/02/21 04:30 04:45 05:00 Temperature Pulse Rate 68 68 68 Pulse Rate [ From Monitor] Respiratory 18 17 21 Rate Blood Pressure 131/53 126/51 138/52 O2 Sat by Pulse 94 96 96 Oximetry 05/02/21 05/02/21 05/02/21 05:16 05:30 05:46 Temperature Pulse Rate 70 72 70 Pulse Rate [ From Monitor] Respiratory 10 L 22 16 Rate Blood Pressure 142/59 147/50 158/50 O2 Sat by Pulse 96 96 96 Oximetry 05/02/21 05/02/21 05/02/21 06:00 06:16 06:30 Temperature Pulse Rate 69 73 74 Pulse Rate [ From Monitor] Respiratory 15 13 16 Rate Blood Pressure 158/50 127/40 127/40 O2 Sat by Pulse 98 97 93 Oximetry 05/02/21 05/02/21 05/02/21 06:46 07:00 07:15 Temperature Pulse Rate 75 77 70 Pulse Rate [ From Monitor] Respiratory 15 16 21 Rate Blood Pressure 75/48 66/42 100/49 O2 Sat by Pulse 92 93 96 Oximetry 05/02/21 05/02/21 05/02/21 07:30 07:45 08:00 Temperature 98.2 F Pulse Rate 67 66 91 H Pulse Rate [ 73 From Monitor] Respiratory 19 14 19 Rate Blood Pressure 102/45 96/39 100/49 O2 Sat by Pulse 97 96 97 Oximetry 05/02/21 05/02/21 05/02/21 08:15 08:30 08:45 Temperature Pulse Rate 82 71 68 Pulse Rate [ From Monitor] Respiratory 24 15 16 Rate Blood Pressure 102/48 109/45 113/43 O2 Sat by Pulse 94 100 94 Oximetry 05/02/21 05/02/21 05/02/21 09:00 09:16 09:30 Temperature Pulse Rate 72 70 69 Pulse Rate [ From Monitor] Respiratory 12 18 14 Rate Blood Pressure 114/46 129/57 123/52 O2 Sat by Pulse 94 Oximetry 05/02/21 05/02/21 05/02/21 09:46 10:00 10:15 Temperature Pulse Rate 68 67 85 Pulse Rate [ From Monitor] Respiratory 15 12 13 Rate Blood Pressure 125/57 130/62 113/51 O2 Sat by Pulse 96 99 99 Oximetry 05/02/21 05/02/21 05/02/21 10:30 10:46 11:00 Temperature Pulse Rate 64 71 68 Pulse Rate [ From Monitor] Respiratory 15 13 14 Rate Blood Pressure 113/51 118/53 118/53 O2 Sat by Pulse 99 98 98 Oximetry 05/02/21 05/02/21 05/02/21 11:15 11:30 11:45 Temperature Pulse Rate 67 69 72 Pulse Rate [ From Monitor] Respiratory 13 14 18 Rate Blood Pressure 117/52 120/58 129/59 O2 Sat by Pulse 95 96 95 Oximetry 05/02/21 05/02/21 05/02/21 12:00 12:16 12:30 Temperature 98.6 F Pulse Rate 74 72 69 Pulse Rate [ 72 From Monitor] Respiratory 13 27 H 14 Rate Blood Pressure 117/52 128/63 123/51 O2 Sat by Pulse 92 94 96 Oximetry 05/02/21 05/02/21 12:45 13:00 Temperature Pulse Rate 66 64 Pulse Rate [ From Monitor] Respiratory 13 15 Rate Blood Pressure 125/54 125/54 O2 Sat by Pulse 96 91 Oximetry - Lab 05/01/21 04:44 05/01/21 04:44 Most recent lab results ABG pH 7.254 (7.320-7.450) L 05/01/21 10:11 ABG O2 Saturation 84.6 (0-100) 05/01/21 10:11 Calcium 8.3 mg/dL (8.4-10.2) L 05/01/21 04:44 Medications & Allergies - Medications Allergies/Adverse Reactions: Allergies No Known Allergies Allergy (Verified 04/26/21 11:49) Home Medications: Home Medications Medication Instructions Recorded Confirmed Last Taken Type RX: ALPRAZolam [Xanax TAB] 1 mg PO PRN PRN 04/26/21 04/26/21 Unknown History RX: Amlodipine Besylate [Norvasc] 10 mg PO DAILY 04/26/21 04/29/21 04/29/21 09:00 History RX: Hydralazine HCl 50 mg PO TID 04/26/21 04/29/21 04/29/21 09:00 History RX: Nebivolol HCl [Bystolic] 20 mg PO DAILY 04/26/21 04/29/21 04/29/21 09:00 History RX: Torsemide [Demadex] 100 mg PO QDAY 04/26/21 04/29/21 04/28/21 09:00 History RX: Zolpidem (Nf) [Ambien (Nf)] 10 mg PO QHS 04/26/21 04/29/21 04/27/21 20:00 History RX: allopurinoL [Zyloprim] 100 mg PO QDAY 04/26/21 04/29/21 04/28/21 09:00 History RX: calcitrioL [Rocaltrol] 0.25 mcg PO DAILY 04/26/21 04/29/21 04/26/21 09:00 History RX: oxyCODONE /ACETAMINOPHEN 1 tab PO Q6HR PRN #20 tablet 04/29/21 Unknown Rx [Percocet 5/325 mg] Active Medications: Generic Name Dose Route Start Last Admin Trade Name Kaleq PRN Reason Stop Dose Admin Acetaminophen 650 mg 04/29/21 19:12 05/01/21 07:37 Acetaminophen 325 Mg Tab PO 650 mg Q4H PRN Administration Pain MILD(1-3)/Fever >100.5/KLEIN Calcitriol 0.25 mcg 04/30/21 10:00 05/02/21 09:06 Calcitriol 0.25 Mcg Cap PO 0.25 mcg DAILY LYLA Administration Famotidine 20 mg 04/30/21 10:00 05/02/21 09:05 Famotidine 20 Mg/2 Ml Inj IV 20 mg DAILY LYLA Administration Furosemide 80 mg 05/02/21 18:00 Furosemide 40 Mg/4 Ml Inj IV 0600,1800 LYLA Heparin Sodium (Porcine) 5,000 unit 04/30/21 10:00 05/02/21 09:06 Heparin 5,000 Unit/1 Ml Vial SUB-Q 5,000 unit Q12HR LYLA Administration Hydrophilic Ointment 1 applic 04/30/21 00:53 Lip Therapy Vaseline TP Q2HR PRN Dry Lips Dopamine HCl/Dextrose 800 mg in 250 mls @ 33.169 mls/hr 04/30/21 01:00 04/30/21 19:18 Intropin Drip 800 Mg/D5w 250 Ml IV 0 mcg/kg/min TITR LYLA 0 mls/hr Titration Protocol 20 MCG/KG/MIN Propofol 1,000 mg in 100 mls @ 2.654 mls/hr 04/30/21 03:00 04/30/21 14:52 Diprivan 10 Mg/Ml IV 0 mcg/kg/min TITR LYLA 0 mls/hr Titration Protocol 5 MCG/KG/MIN Norepinephrine 4 mg in 250 mls @ 7.5 mls/hr 04/30/21 19:00 05/01/21 10:54 Levophed Drip 4 Mg/Ns 250 Ml IV 0 mcg/min TITR LYLA 0 mls/hr Titration Protocol 2 MCG/MIN Midodrine 10 mg 05/01/21 09:16 05/02/21 11:44 Midodrine 5 Mg Tab PO 10 mg TID@0800,1200,1600 LYLA Administration Multi-Ingred Cream/Lotion/Oil/Oint 1 applic 04/30/21 00:53 Mineral Oil/Petrolatum, White Ophth Oint 3.5 Gm OU Q4HR PRN Dry Eye(s) Naloxone HCl 0.1 mg 04/29/21 23:55 Naloxone 0.4 Mg/1 Ml Inj IV Q2MIN PRN Res Rate </= 8 or 02 SAT < 92% Ondansetron HCl 4 mg 04/29/21 19:12 Ondansetron 4 Mg/2 Ml Inj IV Q8H PRN Nausea And Vomiting Oxycodone/Acetaminophen 1 tab 04/29/21 19:12 Oxycodone /Acetaminophen 5-325mg Tab PO Q6H PRN Pain, Moderate (4-6) Senna/Docusate Sodium 1 tab 04/30/21 10:00 05/02/21 09:07 Sennosides/Docusate Sodium 8.6/50 Mg Tab FEEDTUBE Not Given BID LYLA Sodium Chloride 10 ml 04/29/21 22:00 05/02/21 09:07 Sodium Chloride 0.9% 10 Ml Flush Syringe IV 10 ml BID LYLA Administration Sodium Chloride 10 ml 04/29/21 19:12 04/30/21 19:40 Sodium Chloride 0.9% 10 Ml Flush Syringe IV 10 ml PRN PRN Administration LINE FLUSH Sodium Chloride 5 ml 04/30/21 00:53 Sodium Chloride 0.9% 500 Ml 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
[2021-05-02 15:38] LABS: Hematocrit 22.2 % (30.3-42.9); Hemoglobin 7.4 gm/dl (10.1-14.3); Mean Corpuscular HGB Conc 33 % (30-34); Mean Corpuscular Volume 90 fl (79-97); Platelet Count 133 K/mm3 (140-440); Red Blood Count 2.46 M/mm3 (3.65-5.03); Red Cell Distribution Width 19.1 % (13.2-15.2)
[2021-05-02 15:47] LABS: Calcium 7.8 mg/dL (8.4-10.2)
[2021-05-02] MEDS ORDERED: FUROSEMIDE 40 MG TAB PO SCH (18:00)
[2021-05-02] MEDS: ALBUTEROL 2.5 MG/3 ML NEBU IH SCH (19:55)
[2021-05-03] MEDS: ALBUTEROL 2.5 MG/3 ML NEBU IH SCH ×4 (02:09→20:44)
[2021-05-03 05:42] LABS: Hematocrit 22.2 % (30.3-42.9); Hemoglobin 7.3 gm/dl (10.1-14.3); Mean Corpuscular HGB Conc 33 % (30-34); Mean Corpuscular Volume 91 fl (79-97); Platelet Count 133 K/mm3 (140-440); Red Blood Count 2.43 M/mm3 (3.65-5.03); Red Cell Distribution Width 19.6 % (13.2-15.2)
[2021-05-03 06:03] LABS: Calcium 7.9 mg/dL (8.4-10.2)
[2021-05-03] MEDS: FUROSEMIDE 40 MG/4 ML INJ IV SCH ×2 (06:08→17:15)
[2021-05-03] MEDS: MIDODRINE 5 MG TAB PO SCH ×3 (08:46→15:05)
[2021-05-03] MEDS: FAMOTIDINE 20 MG/2 ML INJ IV SCH (09:01)
[2021-05-03] MEDS: HEPARIN 5,000 UNIT/1 ML VIAL SUB-Q SCH ×2 (09:01→23:49)
[2021-05-03] MEDS: SENNOSIDES/DOCUSATE SODIUM 8.6/50 MG TAB FEEDTUBE SCH ×2 (09:01→23:49)
[2021-05-03] MEDS: CALCITRIOL 0.25 MCG CAP PO SCH (09:01)
[2021-05-03] MEDS ORDERED: TUBERCULIN PPD 5 TUB UNIT/0.1 ML INJ ID NR (09:30)
[2021-05-03] MEDS ORDERED: SODIUM CHLORIDE 0.9% 100 ML IV PRN (09:30)
--- NOTE | 2021-05-03 09:36 | Progress Note ---
Assessment and Plan 61 y/o female with ESRD now progressing to requiring HD, admitted with hypercapnic respiratory failure, possibly iatrogenic from surgery meds. 05/03/21: Continue to wean FiO2 as tolerated. HD per renal if and when needed. Vascular would place vascath now that patient is out of ICU. Will continue to follow. 05/02/21: Continue TID Midodrine. Lasix therapy per renal. Wean FiO2 for sats>88%. No objection to transfer out of unit. 05/01/21: Will start on Midodrine 10 TID today. Wean Levophed to OFF. Patient wants to sit in chair and have no objections to this. CXR appears to be more consistent with pulmonary edema. Would continue lasix therapy despite need for vasopressor at this time. Will order Incentive spirometry to bedside. Continue ICU monitoring until BP stablizes. 1. Renal-no HD today per nephro, will try high dose IV lasix BID. Ramos for strict I/O 2. 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 Not quite ready for extubation yet based on mental state but is tolerating PSV well. Repeat ABG and CXR in am. 3. GI-hold on feeds for possible extubation tomorrow. Feed tomorrow if not extubated. 4. SCD's and H2 patricia Will continue to follow CCT 31 minutes. Subjective Date of service: 05/03/21 Principal diagnosis: End-stage renal disease Interval history: no acute events. Successful transfer to floor. BP stable. Down to 5 liters NC with good sats. Objective Vital Signs - 12hr 05/02/21 05/02/21 05/03/21 22:00 23:17 02:12 Temperature 98.7 F Pulse Rate 74 Pulse Rate [ 76 Anterior Bilateral Throughout] Pulse Rate [ 75 From Monitor] Respiratory 15 18 Rate Respiratory 16 Rate [Anterior Bilateral Throughout] Blood Pressure 143/65 O2 Sat by Pulse 93 Oximetry 05/03/21 05/03/21 05/03/21 02:13 03:41 07:28 Temperature 98.2 F 97.8 F Pulse Rate 79 73 Pulse Rate [ Anterior Bilateral Throughout] Pulse Rate [ From Monitor] Respiratory 20 19 Rate Respiratory Rate [Anterior Bilateral Throughout] Blood Pressure 122/44 125/59 O2 Sat by Pulse 94 90 91 Oximetry 05/03/21 05/03/21 05/03/21 07:36 07:37 08:06 Temperature Pulse Rate 80 Pulse Rate [ 74 Anterior Bilateral Throughout] Pulse Rate [ From Monitor] Respiratory 35 H Rate Respiratory 19 Rate [Anterior Bilateral Throughout] Blood Pressure O2 Sat by Pulse 94 Oximetry Constitutional: no acute distress, alert (but very drowsy) Eyes: non-icteric ENT: other (orally intubated) Neck: supple Effort: normal Ascultation: Bilateral: diminished breath sounds, rales Percussion: Bilateral: not dull Cardiovascular: regular rate and rhythm Gastrointestinal: normoactive bowel sounds, soft Extremities: no edema CBC and BMP: 05/03/21 04:28 05/03/21 04:28 ABG, PT/INR, D-dimer: ABG ABG pH 7.254 (7.320-7.450) L 05/01/21 10:11 POC ABG pCO2 47.1 mmHg (32.0-48.0) 05/01/21 10:11 POC ABG pO2 54.7 mmHg (83-108) L 05/01/21 10:11 POC ABG HCO3 20.4 05/01/21 10:11 ABG O2 Saturation 84.6 (0-100) 05/01/21 10:11 Abnormal lab findings: Abnormal Labs 04/29/21 04/29/21 04/29/21 11:00 11:00 18:25 WBC RBC 2.80 L Hgb 8.5 L Hct 25.5 L RDW 19.5 H Plt Count Seg Neuts % (Manual) Lymphocytes % (Manual) Seg Neutrophils # Man Lymphocytes # (Manual) ABG pH POC ABG pCO2 POC ABG pO2 ABG Hemoglobin ABG Oxyhemoglobin ABG Potassium ABG Chloride ABG Glucose Carboxyhemoglobin Sodium Carbon Dioxide BUN 81 H Creatinine 8.5 H Glucose POC Glucose 109 H Hemoglobin A1c Calcium Albumin Arterial Blood Glucose Arterial Blood Ionized Calcium 04/29/21 04/30/21 04/30/21 23:20 00:22 00:53 WBC RBC Hgb Hct RDW Plt Count Seg Neuts % (Manual) Lymphocytes % (Manual) Seg Neutrophils # Man Lymphocytes # (Manual) ABG pH 7.047 L POC ABG pCO2 89.0 H POC ABG pO2 442.0 H ABG Hemoglobin 9.2 L ABG Oxyhemoglobin 98.3 H ABG Potassium 4.6 H ABG Chloride 109.0 H ABG Glucose 164 H Carboxyhemoglobin Sodium Carbon Dioxide BUN Creatinine Glucose POC Glucose 180 H 161 H Hemoglobin A1c Calcium Albumin Arterial Blood Glucose 164 H Arterial Blood Ionized Calcium 4.3 L 04/30/21 04/30/21 04/30/21 03:29 04:23 04:23 WBC 15.0 H RBC 3.09 L Hgb 8.9 L Hct 27.9 L RDW 19.2 H Plt Count Seg Neuts % (Manual) 96.0 H Lymphocytes % (Manual) 3.0 L Seg Neutrophils # Man 14.4 H Lymphocytes # (Manual) 0.5 L ABG pH 7.256 L POC ABG pCO2 49.4 H POC ABG pO2 58.6 L ABG Hemoglobin 8.6 L ABG Oxyhemoglobin 93.0 L ABG Potassium ABG Chloride 109.0 H ABG Glucose 122 H Carboxyhemoglobin Sodium Carbon Dioxide 20 L BUN 90 H Creatinine 9.5 H Glucose 145 H POC Glucose Hemoglobin A1c Calcium 8.0 L Albumin 3.6 L Arterial Blood Glucose 122 H Arterial Blood Ionized Calcium 4.1 L 04/30/21 04/30/21 04/30/21 04:23 11:26 17:20 WBC RBC Hgb Hct RDW Plt Count Seg Neuts % (Manual) Lymphocytes % (Manual) Seg Neutrophils # Man Lymphocytes # (Manual) ABG pH POC ABG pCO2 POC ABG pO2 ABG Hemoglobin ABG Oxyhemoglobin ABG Potassium ABG Chloride ABG Glucose Carboxyhemoglobin Sodium Carbon Dioxide BUN Creatinine Glucose POC Glucose 52 L 127 H Hemoglobin A1c < 4.0 L Calcium Albumin Arterial Blood Glucose Arterial Blood Ionized Calcium 05/01/21 05/01/21 05/01/21 04:44 04:44 10:11 WBC RBC 2.55 L Hgb 7.7 L Hct 23.2 L RDW 19.4 H Plt Count Seg Neuts % (Manual) Lymphocytes % (Manual) Seg Neutrophils # Man Lymphocytes # (Manual) ABG pH 7.254 L POC ABG pCO2 POC ABG pO2 54.7 L ABG Hemoglobin 7.5 L ABG Oxyhemoglobin 82.9 L ABG Potassium ABG Chloride 108.0 H ABG Glucose 122 H Carboxyhemoglobin 1.7 H Sodium 146 H Carbon Dioxide BUN 93 H Creatinine 10.0 H Glucose POC Glucose Hemoglobin A1c Calcium 8.3 L Albumin Arterial Blood Glucose 122 H Arterial Blood Ionized Calcium 4.1 L 05/01/21 05/02/21 05/02/21 18:00 13:17 14:55 WBC RBC Hgb Hct RDW Plt Count Seg Neuts % (Manual) Lymphocytes % (Manual) Seg Neutrophils # Man Lymphocytes # (Manual) ABG pH POC ABG pCO2 POC ABG pO2 ABG Hemoglobin ABG Oxyhemoglobin ABG Potassium ABG Chloride ABG Glucose Carboxyhemoglobin Sodium Carbon Dioxide 19 L BUN 99 H Creatinine 11.2 H Glucose POC Glucose 125 H 120 H Hemoglobin A1c Calcium 7.8 L Albumin Arterial Blood Glucose Arterial Blood Ionized Calcium 05/02/21 05/03/21 05/03/21 14:55 04:28 04:28 WBC RBC 2.46 L 2.43 L Hgb 7.4 L 7.3 L Hct 22.2 L 22.2 L RDW 19.1 H 19.6 H Plt Count 133 L 133 L Seg Neuts % (Manual) Lymphocytes % (Manual) Seg Neutrophils # Man Lymphocytes # (Manual) ABG pH POC ABG pCO2 POC ABG pO2 ABG Hemoglobin ABG Oxyhemoglobin ABG Potassium ABG Chloride ABG Glucose Carboxyhemoglobin Sodium 146 H Carbon Dioxide 20 L BUN 107 H Creatinine 12.1 H Glucose POC Glucose Hemoglobin A1c Calcium 7.9 L Albumin Arterial Blood Glucose Arterial Blood Ionized Calcium
[2021-05-03] MEDS ORDERED: HEPARIN 10,000 UNIT/1 ML VIAL IV PRN (10:00)
--- NOTE | 2021-05-03 10:16 | Progress Note ---
Assessment and Plan - Patient Problems (1) Chronic kidney disease, stage V Current Visit: Yes Plan to address problem: Suspect baseline chronic kidney disease presumably secondary to diabetic kidney disease versus hypertensive nephrosclerosis. Kidney function is stable. Unfort unately, patient's renal indices significantly worse with BUN 100. Still has evidence of volume overload with Mild dyspnea at rest. Will need to initiate dialysis for solute clearance of fluid removal. Discussed benefits and risks the patient. She agrees to proceed with the treatment. Consult vascular for permacath placement. We will arrange outpatient dialysis at [facility]. (2) Volume overload Current Visit: Yes Status: Acute Plan to address problem: Continue IV Lasix. We need to initiate dialysis through permacath. Discussed with the patient at the bedside. She was upset but expressed understanding (3) S/P arteriovenous (AV) fistula creation Current Visit: Yes Status: Acute Plan to address problem: Good thrill and bruit over AV fistula. Continue monitoring (4) Benign hypertension with chronic kidney disease, stage V Current Visit: Yes Status: Acute Plan to address problem: Follow-up blood pressure on current medications. (5) Type 2 diabetes mellitus with diabetic nephropathy Current Visit: Yes Status: Acute Plan to address problem: Blood sugar management by primary attending Subjective Date of service: 05/03/21 Principal diagnosis: End-stage renal disease Interval history: Patient seen lying in bed. She has no complaints. No family at the bedside. She states she feels better today. She is still on oxygen. Still appears to be Mildly dyspneic at rest. Objective - Exam Narrative Exam: Middle-aged -[place] female lying in bed in no acute distress HEENT: NCAT, Neck: Supple, no venous distention CVS: S1S2 RRR with no murmur, rub or gallop Chest: Faint rhonchi with diminished breath sounds Lower zones bilaterally Abdomen: Protuberant, soft, nontender, no organomegaly, bowel sounds are present Extremities: Mild edema Genitourinary deferred Skin warm and dry Neuro: Awake, alert no focal deficits - Vital Signs Vital signs: Vital Signs - 12hr 05/02/21 05/03/21 05/03/21 23:17 02:12 02:13 Temperature 98.7 F Pulse Rate 74 Pulse Rate [ 76 Anterior Bilateral Throughout] Respiratory 18 Rate Respiratory 16 Rate [Anterior Bilateral Throughout] Blood Pressure 143/65 O2 Sat by Pulse 93 94 Oximetry 07/19/21 07/19/21 07/19/21 03:41 07:28 07:36 Temperature 98.2 F 97.8 F Pulse Rate 79 73 Pulse Rate [ 74 Anterior Bilateral Throughout] Respiratory 20 19 Rate Respiratory 19 Rate [Anterior Bilateral Throughout] Blood Pressure 122/44 125/59 O2 Sat by Pulse 90 91 Oximetry 05/03/21 05/03/21 07:37 08:06 Temperature Pulse Rate 80 Pulse Rate [ Anterior Bilateral Throughout] Respiratory 35 H Rate Respiratory Rate [Anterior Bilateral Throughout] Blood Pressure O2 Sat by Pulse 94 Oximetry - Lab 05/03/21 04:28 05/03/21 04:28 Most recent lab results ABG pH 7.254 (7.320-7.450) L 05/01/21 10:11 ABG O2 Saturation 84.6 (0-100) 05/01/21 10:11 Calcium 7.9 mg/dL (8.4-10.2) L 05/03/21 04:28 Medications & Allergies - Medications Allergies/Adverse Reactions: Allergies No Known Allergies Allergy (Verified 04/26/21 11:49) Home Medications: Home Medications Medication Instructions Recorded Confirmed Last Taken Type ALPRAZolam [Xanax TAB] 1 mg PO PRN PRN 04/26/21 04/26/21 Unknown History Amlodipine Besylate [Norvasc] 10 mg PO DAILY 04/26/21 04/29/21 04/29/21 09:00 History Hydralazine HCl 50 mg PO TID 04/26/21 04/29/21 04/29/21 09:00 History Nebivolol HCl [Bystolic] 20 mg PO DAILY 04/26/21 04/29/21 04/29/21 09:00 History Torsemide [Demadex] 100 mg PO QDAY 04/26/21 04/29/21 04/28/21 09:00 History Zolpidem (Nf) [Ambien (Nf)] 10 mg PO QHS 04/26/21 04/29/21 04/27/21 20:00 History allopurinoL [Zyloprim] 100 mg PO QDAY 04/26/21 04/29/21 04/28/21 09:00 History calcitrioL [Rocaltrol] 0.25 mcg PO DAILY 04/26/21 04/29/21 04/26/21 09:00 History oxyCODONE /ACETAMINOPHEN [Percocet 1 tab PO Q6HR PRN #20 tablet 04/29/21 Unknown Rx 5/325 mg] Active Medications: Generic Name Dose Route Start Last Admin Trade Name Freq PRN Reason Stop Dose Admin Acetaminophen 650 mg 04/29/21 19:12 05/01/21 07:37 Acetaminophen 325 Mg Tab PO 650 mg Q4H PRN Administration Pain MILD(1-3)/Fever >100.5/KLEIN Albuterol 2.5 mg 05/02/21 20:00 05/03/21 07:36 Albuterol 2.5 Mg/3 Ml Nebu IH 2.5 mg Q6HRT LYLA Administration Calcitriol 0.25 mcg 04/30/21 10:00 05/03/21 09:01 Calcitriol 0.25 Mcg Cap PO 0.25 mcg DAILY LYLA Administration Famotidine 20 mg 04/30/21 10:00 05/03/21 09:01 Famotidine 20 Mg/2 Ml Inj IV 20 mg DAILY LYLA Administration Furosemide 80 mg 05/02/21 18:00 05/03/21 06:08 Furosemide 40 Mg/4 Ml Inj IV 80 mg 0600,1800 LYLA Administration Heparin Sodium (Porcine) 5,000 unit 04/30/21 10:00 05/03/21 09:01 Heparin 5,000 Unit/1 Ml Vial SUB-Q 5,000 unit Q12HR LYLA Administration Heparin Sodium (Porcine) 5,000 unit 05/03/21 10:00 Heparin 10,000 Unit/1 Ml Vial IV CARLTON PRN hemodialysis Hydrophilic Ointment 1 applic 04/30/21 00:53 Lip Therapy Vaseline TP Q2HR PRN Dry Lips Sodium Chloride 100 mls @ 999 mls/hr 05/03/21 09:30 Nacl 0.9% IV [place] PRN Hypotension Midodrine 10 mg 05/01/21 09:16 05/03/21 08:46 Midodrine 5 Mg Tab PO 10 mg TID@0800,1200,1600 LYLA Administration Naloxone HCl 0.1 mg 04/29/21 23:55 Naloxone 0.4 Mg/1 Ml Inj IV Q2MIN PRN Res Rate </= 8 or 02 SAT < 92% Ondansetron HCl 4 mg 04/29/21 19:12 Ondansetron 4 Mg/2 Ml Inj IV Q8H PRN Nausea And Vomiting Oxycodone/Acetaminophen 1 tab 04/29/21 19:12 Oxycodone /Acetaminophen 5-325mg Tab PO Q6H PRN Pain, Moderate (4-6) Senna/Docusate Sodium 1 tab 04/30/21 10:00 05/03/21 09:01 Sennosides/Docusate Sodium 8.6/50 Mg Tab FEEDTUBE 1 tab BID LYLA Administration Sodium Chloride 10 ml 04/29/21 22:00 05/03/21 09:02 Sodium Chloride 0.9% 10 Ml Flush Syringe IV 10 ml BID LYLA Administration Sodium Chloride 10 ml 04/29/21 19:12 04/30/21 19:40 Sodium Chloride 0.9% 10 Ml Flush Syringe IV 10 ml PRN PRN Administration LINE FLUSH Tuberculin PPD 5 unit 05/03/21 09:30 Tuberculin Ppd 5 Tub Unit/0.1 Ml Inj ID 05/03/21 12:00 ONCE NR
--- NOTE | 2021-05-03 12:13 | Progress Note ---
Assessment and Plan Assessment and plan: This is a 41-year-old female with HTN, heart murmur, anxiety, ESRD, current tobacco abuse, and anemia with acute hypoxic respiratory failure ESRD -Nephrology consulted, appreciate recommendations -Patient was initially at hospital for AV fistula creation -Lasix 60 mg IV twice daily per nephrology -Spoke with nephrology, will determine if patient needs a permacath at this time to start dialysis -Renally dose medications -Strict intake and output -Daily weights -Avoid nephrotoxic medication Hypotension, resolved -noted to be hypotensive overnight with bradycardia -s/p dopamine and levophed gtt -Midodrine PO TID, wean as tolerated -BP monitoring per protocol 05/01 echocardiogram shows moderate concentric LVH, LVEF 55 to 60%, posterior leaflet calcified with 1 cm mass noted, calcified nodule versus old vegetation, LA and RA mildly dilated, mild h/o HTN -Hold home hypertensive medications meds at this time, patient is on midodrine and has intermittently low blood pressures h/o heart murmur, confirmed by patient -not auscultated on PE -f/u with PCP Acute hypoxic respiratory failure -patient was noted to be hypoxic and was intubated on 04/30, extubated 04/30 -04/29 CXR shows diffuse bilateral pulmonary opacities with pulmonary edema and right effusion -Pulmonary hygiene -SPO2 monitoring -CCM consulted, appreciate recommendations Nicotine abuse -Smoking cessation counseling -States she is "cutting down on smoking" Metabolic acidosis -Trend BMP -Nephrology is on board Hypoglycemia -Hypoglycemic protocol -Accu-Cheks every 6hr while n.p.o. -04/30 hemoglobin A1c less than 4 Urinary retention -Patient was bladder scanned and straight cathed for approximately 500 mL urine -Ramos catheter placed 04/30 accurate intake and output H/O anemia -Per documentation patient has had iron infusions in the past -Presenting H/H 8.5/25.5 -Trend CBC -Transfuse to hemoglobin less than 7 h/o anxiety -reorientation as needed -Patient states she uses PRN anxiety medications GI/DVT prophylaxis: Heparin subcu, SCDs to bilateral lower extremities while in bed, PPI Disposition: Continue diuresis, nephrology to determine volume status and if patient needs a permacath placed to start dialysis. AV fistula is not mature so cannot be used at this time. Full code History Interval history: 04/30: Overnight patient was noted to be bradycardic, hypotensive and have altered mental status and the patient was emergently intubated. Patient had a bladder scan with 500 cc of urine received after straight cath. Patient was started on dopamine however this is being actively weaned off. Patient is a CPAP trial. Patient extubated around 1300. Hypotension noted, restarted dopamine gtt at low dose then started on levophed gtt. 05/01: Overnight she remained on the levophed, per RN if weaned to 2mcg from 4 mcg then thrill/bruit was lost from AVF. This morning we started the pt on midodrine and weaned levo off. Ramos remains. CXR shows pulm edema 05/02: Overnight the patient was given Haldol with transient resultant hypotension which has resolved. BP has remained stable. Stable for transfer to the floor. 05/03/2021: Patient seen this morning, signs somewhat fluid overloaded in her lungs without cough. She continues on diuresis, does not want to get a permacath but I spoke to her that it is probably the best thing for her at this time. Urine output is intermittently low. Patient has high risk for being readmitted to the hospital for fluid overload without starting dialysis. Hospitalist Physical - Physical exam Narrative exam: General appearance: no acute distress, well-nourished EENT: PERRL, EOM intact, hearing intact, clear oral mucosa Neck: Present: supple, normal ROM Respiratory: Bilateral wheezing and minimal crackles heard in lung caputo, no rales, on nasal cannula oxygen Cardiovascular: Regular rate/rhythm, Normal S1 & S2. No gallop, rub AV fistula in right arm, immature Extremities: no ischemia, No edema, normal temperature, normal color, Full ROM Abdominal: soft, no tenderness, non-distended, normal bowel sounds Integumentary: Present: clear, warm, dry no wounds, no erythema noted Psychiatric: appropriate mood/affect, intact judgment & insight Neurologic: CNII-XII intact, moves all extremities, no sensory or motor abnormalities - Constitutional Vitals: Temp Pulse Resp BP Pulse Ox 97.8 F 71 16 125/59 96 05/03/21 07:28 05/03/21 10:00 05/03/21 10:00 05/03/21 07:28 05/03/21 10:00 Results - Labs CBC & Chem 7: 05/03/21 04:28 05/03/21 04:28 Labs: Laboratory Last Values WBC 9.9 K/mm3 (4.5-11.0) 05/03/21 04:28 RBC 2.43 M/mm3 (3.65-5.03) L 05/03/21 04:28 Hgb 7.3 gm/dl (10.1-14.3) L 05/03/21 04:28 Hct 22.2 % (30.3-42.9) L 05/03/21 04:28 MCV 91 fl (79-97) 05/03/21 04:28 MCH 30 pg (28-32) 05/03/21 04:28 MCHC 33 % (30-34) 05/03/21 04:28 RDW 19.6 % (13.2-15.2) H 05/03/21 04:28 Plt Count 133 K/mm3 (140-440) L 05/03/21 04:28 Add Manual Diff Complete 04/30/21 04:23 Total Counted 100 04/30/21 04:23 Seg Neutrophils % Banquet Chef 04/30/21 04:23 Seg Neuts % (Manual) 96.0 % (40.0-70.0) H 04/30/21 04:23 Lymphocytes % (Manual) 3.0 % (13.4-35.0) L 04/30/21 04:23 Monocytes % (Manual) 1.0 % (0.0-7.3) 04/30/21 04:23 Nucleated RBC % Not Reportable 04/30/21 04:23 Seg Neutrophils # Man 14.4 K/mm3 (1.8-7.7) H 04/30/21 04:23 Band Neutrophils # 0.0 K/mm3 04/30/21 04:23 Lymphocytes # (Manual) 0.5 K/mm3 (1.2-5.4) L 04/30/21 04:23 Abs React Lymphs (Man) 0.0 K/mm3 04/30/21 04:23 Monocytes # (Manual) 0.2 K/mm3 (0.0-0.8) 04/30/21 04:23 Eosinophils # (Manual) 0.0 K/mm3 (0.0-0.4) 04/30/21 04:23 Basophils # (Manual) 0.0 K/mm3 (0.0-0.1) 04/30/21 04:23 Metamyelocytes # 0.0 K/mm3 04/30/21 04:23 Myelocytes # 0.0 K/mm3 04/30/21 04:23 Promyelocytes # 0.0 K/mm3 04/30/21 04:23 Blast Cells # 0.0 K/mm3 04/30/21 04:23 WBC Morphology Not Reportable 04/30/21 04:23 Hypersegmented Neuts Not Reportable 04/30/21 04:23 Hyposegmented Neuts Not Reportable 04/30/21 04:23 Hypogranular Neuts Not Reportable 04/30/21 04:23 Smudge Cells Not Reportable 04/30/21 04:23 Toxic Granulation Not Reportable 04/30/21 04:23 Toxic Vacuolation Not Reportable 04/30/21 04:23 Dohle Bodies Not Reportable 04/30/21 04:23 Pelger-Huet Anomaly Not Reportable 04/30/21 04:23 Vik Rods Not Reportable 04/30/21 04:23 Platelet Estimate Consistent w auto 04/30/21 04:23 Clumped Platelets Not Reportable 04/30/21 04:23 Plt Clumps, EDTA Not Reportable 04/30/21 04:23 Large Platelets Not Reportable 04/30/21 04:23 Giant Platelets Not Reportable 04/30/21 04:23 Platelet Satelliting Not Reportable 04/30/21 04:23 Plt Morphology Comment Not Reportable 04/30/21 04:23 RBC Morphology Not Reportable 04/30/21 04:23 Dimorphic RBCs Not Reportable 04/30/21 04:23 Polychromasia Not Reportable 04/30/21 04:23 Hypochromasia 1+ 04/30/21 04:23 Poikilocytosis Not Reportable 04/30/21 04:23 Anisocytosis 1+ 04/30/21 04:23 Microcytosis Not Reportable 04/30/21 04:23 Macrocytosis Not Reportable 04/30/21 04:23 Spherocytes Not Reportable 04/30/21 04:23 Pappenheimer Bodies Not Reportable 04/30/21 04:23 Sickle Cells Not Reportable 04/30/21 04:23 Target Cells Not Reportable 04/30/21 04:23 Tear Drop Cells Not Reportable 04/30/21 04:23 Ovalocytes Not Reportable 04/30/21 04:23 Helmet Cells Not Reportable 04/30/21 04:23 [place] Bodies Not Reportable 04/30/21 04:23 [place] Rings Not Reportable 04/30/21 04:23 [place] Cells Not Reportable 04/30/21 04:23 Bite Cells Not Reportable 04/30/21 04:23 Crenated Cell Not Reportable 04/30/21 04:23 Elliptocytes Not Reportable 04/30/21 04:23 Acanthocytes (Spur) Not Reportable 04/30/21 04:23 Rouleaux Not Reportable 04/30/21 04:23 Hemoglobin C Crystals Not Reportable 04/30/21 04:23 Schistocytes Not Reportable 04/30/21 04:23 Malaria parasites Not Reportable 04/30/21 04:23 [place] Bodies Not Reportable 04/30/21 04:23 Hem Pathologist Commnt No 04/30/21 04:23 ABG pH 7.254 (7.320-7.450) L 05/01/21 10:11 POC ABG pCO2 47.1 mmHg (32.0-48.0) 05/01/21 10:11 POC ABG pO2 54.7 mmHg (83-108) L 05/01/21 10:11 POC ABG HCO3 20.4 05/01/21 10:11 ABG O2 Saturation 84.6 (0-100) 05/01/21 10:11 POC ABG Base Excess -6.4 05/01/21 10:11 ABG Hemoglobin 7.5 (12.0-17.5) L 05/01/21 10:11 ABG Oxyhemoglobin 82.9 (94-98) L 05/01/21 10:11 ABG Methemoglobin 0.3 (0.0-1.5) 05/01/21 10:11 ABG Sodium 138.2 mmol/L (136.0-145.0) 05/01/21 10:11 ABG Potassium 3.9 mmol/L (3.40-4.50) 05/01/21 10:11 ABG Chloride 108.0 mmol/L (98-107) H 05/01/21 10:11 ABG Glucose 122 mg/dL (65-95) H 05/01/21 10:11 Carboxyhemoglobin 1.7 (0.5-1.5) H 05/01/21 10:11 FiO2 % 32.0 05/01/21 10:11 Sodium 146 mmol/L (137-145) H 05/03/21 04:28 Potassium 4.1 mmol/L (3.6-5.0) 05/03/21 04:28 Chloride 105.1 mmol/L (98-107) 05/03/21 04:28 Carbon Dioxide 20 mmol/L (22-30) L 05/03/21 04:28 Anion Gap 25 mmol/L 05/03/21 04:28 BUN 107 mg/dL (7-17) H 05/03/21 04:28 Creatinine 12.1 mg/dL (0.6-1.2) H 05/03/21 04:28 Estimated GFR 4 ml/min 05/03/21 04:28 BUN/Creatinine Ratio 9 % 05/03/21 04:28 Glucose 78 mg/dL (65-100) 05/03/21 04:28 POC Glucose 103 mg/dL (70-105) 05/03/21 11:14 Hemoglobin A1c < 4.0 % (4-6) L 04/30/21 04:23 Calcium 7.9 mg/dL (8.4-10.2) L 05/03/21 04:28 Total Bilirubin 0.30 mg/dL (0.1-1.2) 04/30/21 04:23 AST 30 units/L (5-40) 04/30/21 04:23 ALT 26 units/L (7-56) 04/30/21 04:23 Alkaline Phosphatase 122 units/L (35-129) 04/30/21 04:23 Total Protein 6.7 g/dL (6.3-8.2) 04/30/21 04:23 Albumin 3.6 g/dL (3.9-5) L 04/30/21 04:23 Albumin/Globulin Ratio 1.2 % 04/30/21 04:23 Arterial Blood Glucose 122 mg/dL (65-95) H 05/01/21 10:11 Arterial Blood Ionized Calcium 4.1 mg/dL (4.6-5.3) L 05/01/21 10:11 Microbiology: Microbiology 04/30/21 Unknown Tracheal Aspirate Sputum Culture - Preliminary Ramos/IV: Voiding Method Indwelling Catheter Active Medications - Current Medications Current Medications: Generic Name Dose Route Start Last Admin Trade Name Freq PRN Reason Stop Dose Admin Acetaminophen 650 mg 04/29/21 19:12 05/01/21 07:37 Acetaminophen 325 Mg Tab PO 650 mg Q4H PRN Administration Pain MILD(1-3)/Fever >100.5/KLEIN Albuterol 2.5 mg 05/02/21 20:00 05/03/21 07:36 Albuterol 2.5 Mg/3 Ml Nebu IH 2.5 mg Q6HRT LYLA Administration Calcitriol 0.25 mcg 04/30/21 10:00 05/03/21 09:01 Calcitriol 0.25 Mcg Cap PO 0.25 mcg DAILY LYLA Administration Famotidine 20 mg 04/30/21 10:00 05/03/21 09:01 Famotidine 20 Mg/2 Ml Inj IV 20 mg DAILY LYLA Administration Furosemide 80 mg 05/02/21 18:00 05/03/21 06:08 Furosemide 40 Mg/4 Ml Inj IV 80 mg 0600,1800 LYLA Administration Heparin Sodium (Porcine) 5,000 unit 04/30/21 10:00 05/03/21 09:01 Heparin 5,000 Unit/1 Ml Vial SUB-Q 5,000 unit Q12HR LYLA Administration Heparin Sodium (Porcine) 5,000 unit 05/03/21 10:00 Heparin 10,000 Unit/1 Ml Vial IV CARLTON PRN hemodialysis Hydrophilic Ointment 1 applic 04/30/21 00:53 Lip Therapy Vaseline TP Q2HR PRN Dry Lips Sodium Chloride 100 mls @ 999 mls/hr 05/03/21 09:30 Nacl 0.9% IV [place] PRN Hypotension Midodrine 10 mg 05/01/21 09:16 05/03/21 08:46 Midodrine 5 Mg Tab PO 10 mg TID@0800,1200,1600 LYLA Administration Naloxone HCl 0.1 mg 04/29/21 23:55 Naloxone 0.4 Mg/1 Ml Inj IV Q2MIN PRN Res Rate </= 8 or 02 SAT < 92% Ondansetron HCl 4 mg 04/29/21 19:12 Ondansetron 4 Mg/2 Ml Inj IV Q8H PRN Nausea And Vomiting Oxycodone/Acetaminophen 1 tab 04/29/21 19:12 Oxycodone /Acetaminophen 5-325mg Tab PO Q6H PRN Pain, Moderate (4-6) Senna/Docusate Sodium 1 tab 04/30/21 10:00 05/03/21 09:01 Sennosides/Docusate Sodium 8.6/50 Mg Tab FEEDTUBE 1 tab BID LYLA Administration Sodium Chloride 10 ml 04/29/21 22:00 05/03/21 09:02 Sodium Chloride 0.9% 10 Ml Flush Syringe IV 10 ml BID LYLA Administration Sodium Chloride 10 ml 04/29/21 19:12 04/30/21 19:40 Sodium Chloride 0.9% 10 Ml Flush Syringe IV 10 ml PRN PRN Administration LINE FLUSH Nutrition/Malnutrition Assess - Dietary Evaluation Nutrition/Malnutrition Findings: Nutrition Notes Start: 04/30/21 07:58 Freq: Status: Active Protocol: Document 04/30/21 07:58 ESTER (Rec: 04/30/21 08:04 ESTER [id number]) Nutrition Notes Need for Assessment generated from: MD Order,cooler tender Initial or Follow up Assessment Current Diagnosis CKD (stage V CKD),Diabetes, Hypertension Other Pertinent Diagnosis volume overload Current Diet No diet Labs/Tests BUN 90 Cr 9.5 BG 145 Pertinent Medications Dopamine Versed Propofol Height 5 ft 6.5 in Weight 88.451 kg [place] Body Weight (kg) 60.22 BMI 30.9 Weight Status Obese Subjective/Other Information MD order to eval intakes. RN screen for skin risk. Pt on vent after vas-cath surgery for HD and has surgical wound. Francisco score 16. Burn Absent Trauma Absent GI Symptoms None Current % PO Negligible Minimum of two criteria No physical signs of malnutrition #2 Nutrition Diagnosis Inadequate oral intake Etiology ARF As Evidenced by Signs and Symptoms pt on vent and unable to consume PO Is patient on ventilator? Yes Is Patient Ambulatory and/or Out of Bed No REE-([facility]-confined to bed) 1785.636 Kcal/Kg value to use for calculation 16 Approximate Energy Requirements Using 1415 kcal/Kg Calculation Used for Recommendations Kcal/kg Additional Notes Protein: (>2g/kg IBW) >120g Fluid: 1 ml/kcal or per MD Nutrition Intervention Change Diet Order: Start TF when medically able Nutrition Support: Recommend: Vital HP at 60 ml/hr Flush 50 ml q4h Kcal 1,440 Protein (gm) 126 Fluid (mL) 1,204 Goal #1 Start TF or extubate Anticipated Discharge Needs: Unable to determine at this time Follow-Up By: 05/04/21 Additional Comments FU for TF consult or extubation and diet advancement
[2021-05-03 14:38] LABS: Hepatitis B Surface Antigen Non-Reactive (Negative); Hepatitis C Virus Antibody Non-Reactive (NonReactive)
[2021-05-04] MEDS: ALBUTEROL 2.5 MG/3 ML NEBU IH SCH ×4 (02:14→20:38)
[2021-05-04] MEDS: oxyCODONE /ACETAMINOPHEN 5-325MG TAB PO PRN ×2 (03:26→22:15)
[2021-05-04] MEDS ORDERED: MORPHINE 2 MG/1 ML INJ IV ONE (04:09)
[2021-05-04 05:26] LABS: Hematocrit 23.4 % (30.3-42.9); Hemoglobin 7.9 gm/dl (10.1-14.3); Mean Corpuscular HGB Conc 34 % (30-34); Mean Corpuscular Volume 90 fl (79-97); Platelet Count 138 K/mm3 (140-440); Red Cell Distribution Width 19.3 % (13.2-15.2)
[2021-05-04] MEDS: FUROSEMIDE 40 MG/4 ML INJ IV SCH ×2 (05:33→18:33)
[2021-05-04 05:45] LABS: Calcium 8.5 mg/dL (8.4-10.2)
[2021-05-04] MEDS ORDERED: HEPARIN/NS 5000 UNIT/500ML 500 ML IR ONE (07:09)
[2021-05-04] MEDS ORDERED: SODIUM CHLORIDE 0.9% 250ML 250 ML ONE (07:10)
[2021-05-04] MEDS ORDERED: LIDOCAINE 1%/EPINEPHRINE 1:100,000 VIAL (20 ML) INFILTRATI ONE (07:11)
[2021-05-04] MEDS: MIDAZOLAM 2 MG/2 ML INJ ONE ×2 (08:20→08:31)
[2021-05-04] MEDS: fentaNYL 100 MCG/2 ML INJ ONE ×3 (08:20→08:31)
[2021-05-04] MEDS: HEPARIN 10,000 UNITS/10 ML VIAL ONE ×2 (08:41→08:42)
--- NOTE | 2021-05-04 08:50 | Progress Note ---
Assessment and Plan 61 y/o female with ESRD now progressing to requiring HD, admitted with hypercapnic respiratory failure, possibly iatrogenic from surgery meds. 05/04/21: continue to wean FiO2 as tolerated. Patient will need walk test prior to discharge. Pulm status improving. Will continue to follow. 05/03/21: Continue to wean FiO2 as tolerated. HD per renal if and when needed. Vascular would place vascath now that patient is out of ICU. Will continue to follow. 05/02/21: Continue TID Midodrine. Lasix therapy per renal. Wean FiO2 for sats> 88%. No objection to transfer out of unit. 05/01/21: Will start on Midodrine 10 TID today. Wean Levophed to OFF. Patient wants to sit in chair and have no objections to this. CXR appears to be more consistent with pulmonary edema. Would continue lasix therapy despite need for vasopressor at this time. Will order Incentive spirometry to bedside. Continue ICU monitoring until BP stablizes. 1. Renal-no HD today per nephro, will try high dose IV lasix BID. Ramos for strict I/O 2. 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 Not quite ready for extubation yet based on mental state but is tolerating PSV well. Repeat ABG and CXR in am. 3. GI-hold on feeds for possible extubation tomorrow. Feed tomorrow if not ext ubated. 4. SCD's and H2 patricia Will continue to follow CCT 31 minutes. Subjective Date of service: 05/04/21 Principal diagnosis: End-stage renal disease Interval history: No acute events. Down to 5 liters now. Objective Vital Signs - 12hr 05/03/21 05/03/21 05/03/21 22:00 23:05 23:06 Temperature 98.8 F Pulse Rate 78 Pulse Rate [ Anterior Bilateral Throughout] Respiratory 18 18 Rate Respiratory Rate [Anterior Bilateral Throughout] Blood Pressure 185/83 O2 Sat by Pulse 96 88 95 Oximetry 05/04/21 05/04/21 05/04/21 02:00 02:15 03:23 Temperature 98.2 F Pulse Rate 85 Pulse Rate [ 81 Anterior Bilateral Throughout] Respiratory 22 Rate Respiratory 16 Rate [Anterior Bilateral Throughout] Blood Pressure 180/77 O2 Sat by Pulse 97 87 Oximetry 05/04/21 03:25 Temperature Pulse Rate Pulse Rate [ Anterior Bilateral Throughout] Respiratory Rate Respiratory Rate [Anterior Bilateral Throughout] Blood Pressure O2 Sat by Pulse 93 Oximetry Constitutional: no acute distress, alert (but very drowsy) Eyes: non-icteric ENT: other (orally intubated) Neck: supple Effort: normal Ascultation: Bilateral: diminished breath sounds, rales Percussion: Bilateral: not dull Cardiovascular: regular rate and rhythm Gastrointestinal: normoactive bowel sounds, soft Extremities: no edema CBC and BMP: 05/04/21 04:25 05/04/21 04:25 ABG, PT/INR, D-dimer: ABG ABG pH 7.254 (7.320-7.450) L 05/01/21 10:11 POC ABG pCO2 47.1 mmHg (32.0-48.0) 05/01/21 10:11 POC ABG pO2 54.7 mmHg (83-108) L 05/01/21 10:11 POC ABG HCO3 20.4 05/01/21 10:11 ABG O2 Saturation 84.6 (0-100) 05/01/21 10:11 Abnormal lab findings: Abnormal Labs 04/29/21 04/29/21 04/29/21 11:00 11:00 18:25 WBC RBC 2.80 L Hgb 8.5 L Hct 25.5 L RDW 19.5 H Plt Count Seg Neuts % (Manual) Lymphocytes % (Manual) Seg Neutrophils # Man Lymphocytes # (Manual) ABG pH POC ABG pCO2 POC ABG pO2 ABG Hemoglobin ABG Oxyhemoglobin ABG Potassium ABG Chloride ABG Glucose Carboxyhemoglobin Sodium Carbon Dioxide BUN 81 H Creatinine 8.5 H Glucose POC Glucose 109 H Hemoglobin A1c Calcium Albumin Arterial Blood Glucose Arterial Blood Ionized Calcium 04/29/21 04/30/21 04/30/21 23:20 00:22 00:53 WBC RBC Hgb Hct RDW Plt Count Seg Neuts % (Manual) Lymphocytes % (Manual) Seg Neutrophils # Man Lymphocytes # (Manual) ABG pH 7.047 L POC ABG pCO2 89.0 H POC ABG pO2 442.0 H ABG Hemoglobin 9.2 L ABG Oxyhemoglobin 98.3 H ABG Potassium 4.6 H ABG Chloride 109.0 H ABG Glucose 164 H Carboxyhemoglobin Sodium Carbon Dioxide BUN Creatinine Glucose POC Glucose 180 H 161 H Hemoglobin A1c Calcium Albumin Arterial Blood Glucose 164 H Arterial Blood Ionized Calcium 4.3 L 04/30/21 04/30/21 04/30/21 03:29 04:23 04:23 WBC 15.0 H RBC 3.09 L Hgb 8.9 L Hct 27.9 L RDW 19.2 H Plt Count Seg Neuts % (Manual) 96.0 H Lymphocytes % (Manual) 3.0 L Seg Neutrophils # Man 14.4 H Lymphocytes # (Manual) 0.5 L ABG pH 7.256 L POC ABG pCO2 49.4 H POC ABG pO2 58.6 L ABG Hemoglobin 8.6 L ABG Oxyhemoglobin 93.0 L ABG Potassium ABG Chloride 109.0 H ABG Glucose 122 H Carboxyhemoglobin Sodium Carbon Dioxide 20 L BUN 90 H Creatinine 9.5 H Glucose 145 H POC Glucose Hemoglobin A1c Calcium 8.0 L Albumin 3.6 L Arterial Blood Glucose 122 H Arterial Blood Ionized Calcium 4.1 L 04/30/21 04/30/21 04/30/21 04:23 11:26 17:20 WBC RBC Hgb Hct RDW Plt Count Seg Neuts % (Manual) Lymphocytes % (Manual) Seg Neutrophils # Man Lymphocytes # (Manual) ABG pH POC ABG pCO2 POC ABG pO2 ABG Hemoglobin ABG Oxyhemoglobin ABG Potassium ABG Chloride ABG Glucose Carboxyhemoglobin Sodium Carbon Dioxide BUN Creatinine Glucose POC Glucose 52 L 127 H Hemoglobin A1c < 4.0 L Calcium Albumin Arterial Blood Glucose Arterial Blood Ionized Calcium 05/01/21 05/01/21 05/01/21 04:44 04:44 10:11 WBC RBC 2.55 L Hgb 7.7 L Hct 23.2 L RDW 19.4 H Plt Count Seg Neuts % (Manual) Lymphocytes % (Manual) Seg Neutrophils # Man Lymphocytes # (Manual) ABG pH 7.254 L POC ABG pCO2 POC ABG pO2 54.7 L ABG Hemoglobin 7.5 L ABG Oxyhemoglobin 82.9 L ABG Potassium ABG Chloride 108.0 H ABG Glucose 122 H Carboxyhemoglobin 1.7 H Sodium 146 H Carbon Dioxide BUN 93 H Creatinine 10.0 H Glucose POC Glucose Hemoglobin A1c Calcium 8.3 L Albumin Arterial Blood Glucose 122 H Arterial Blood Ionized Calcium 4.1 L 07/05/02/21 05/02/21 18:00 13:17 14:55 WBC RBC Hgb Hct RDW Plt Count Seg Neuts % (Manual) Lymphocytes % (Manual) Seg Neutrophils # Man Lymphocytes # (Manual) ABG pH POC ABG pCO2 POC ABG pO2 ABG Hemoglobin ABG Oxyhemoglobin ABG Potassium ABG Chloride ABG Glucose Carboxyhemoglobin Sodium Carbon Dioxide 19 L BUN 99 H Creatinine 11.2 H Glucose POC Glucose 125 H 120 H Hemoglobin A1c Calcium 7.8 L Albumin Arterial Blood Glucose Arterial Blood Ionized Calcium 05/02/21 05/03/21 05/03/21 14:55 04:28 04:28 WBC RBC 2.46 L 2.43 L Hgb 7.4 L 7.3 L Hct 22.2 L 22.2 L RDW 19.1 H 19.6 H Plt Count 133 L 133 L Seg Neuts % (Manual) Lymphocytes % (Manual) Seg Neutrophils # Man Lymphocytes # (Manual) ABG pH POC ABG pCO2 POC ABG pO2 ABG Hemoglobin ABG Oxyhemoglobin ABG Potassium ABG Chloride ABG Glucose Carboxyhemoglobin Sodium 146 H Carbon Dioxide 20 L BUN 107 H Creatinine 12.1 H Glucose POC Glucose Hemoglobin A1c Calcium 7.9 L Albumin Arterial Blood Glucose Arterial Blood Ionized Calcium 05/04/21 05/04/21 04:25 04:25 WBC RBC 2.60 L Hgb 7.9 L Hct 23.4 L RDW 19.3 H Plt Count 138 L Seg Neuts % (Manual) Lymphocytes % (Manual) Seg Neutrophils # Man Lymphocytes # (Manual) ABG pH POC ABG pCO2 POC ABG pO2 ABG Hemoglobin ABG Oxyhemoglobin ABG Potassium ABG Chloride ABG Glucose Carboxyhemoglobin Sodium Carbon Dioxide 17 L BUN 108 H Creatinine 12.7 H Glucose POC Glucose Hemoglobin A1c Calcium Albumin Arterial Blood Glucose Arterial Blood Ionized Calcium
--- NOTE | 2021-05-04 08:55 | Post Operative Note ---
Date of procedure: 05/04/21 Pre-op diagnosis: ESRD Post-op diagnosis: same Procedure: Right IJ Permcath Insertion Anesthesia: MAC, local Surgeon: FILOMENA MCDUFFIE Estimated blood loss: none Pathology: none Condition: stable Disposition: PACU
--- NOTE | 2021-05-04 09:33 | Operative Report ---
DATE OF SURGERY: 05/04/2021 STAFF SURGEON: Xu Stout MD PREOPERATIVE DIAGNOSIS: End-stage renal disease. POSTOPERATIVE DIAGNOSIS: End-stage renal disease. PROCEDURE PERFORMED: Right IJ PermCath insertion. COMPLICATIONS: None. ESTIMATED BLOOD LOSS: Less than 10 mL ANESTHESIA: Local MAC. INDICATIONS FOR PROCEDURE: This is a 61-year-old female who recently underwent AV fistula creation in the right arm. However, postoperatively, the patient had a persistent altered mental status and increasing respiratory requirements, it was felt that the patient was progressing to end-stage renal disease and required initiation of dialysis access. Therefore, vascular consultation was obtained for PermCath insertion. The patient was explained the risks, benefits and alternative procedure, expressed understanding and wished to proceed. DESCRIPTION OF PROCEDURE: After appropriate consent was obtained, the patient was brought to the coreroom foundry laborer and placed on the table in supine position. The right neck and chest were prepped and draped in sterile fashion with ChloraPrep. Appropriate timeout was performed indicating correct patient, procedure, and site of procedure. We then began the intervention by obtaining percutaneous access of the right internal jugular vein using micropuncture technique, we obtained access, needle was exchanged for micropuncture sheath using Seldinger technique. A stiff J wire was then placed into the inferior vena cava. Stab incision was made on the anterior chest wall below the clavicle, we then proceeded to make a subcutaneous tunnel bringing through a 23 cm straight PermCath. Access site was then sterilely dilated appropriately. Then, the sheath and dilator was placed over the wire into the SVC. Dilator and wire were removed. The catheter was placed through the peel-away sheath with the tip of the catheter at the SVC right atrial junction. Both lumens santosh blood appropriately, were flushed with heparinized saline. Appropriate amount of heparin was placed in each port. We then closed the access site with a deep subcutaneous layer with a 3-0 Vicryl and the skin was approximated with a 3-0 nylon, catheter exit site was sutured in place with a 3-0 nylon. Appropriate dressing was placed. The patient tolerated the procedure well, emerged from the conscious sedation, was sent to recovery in stable condition. TID: [id number] RECEIPT: [id number] VCN/[id number]
--- NOTE | 2021-05-04 10:00 | Progress Note ---
Assessment and Plan Assessment and plan: ESRD Chronic hypotension. History of hypertension Acute hypoxic respiratory failure Urinary retention. Anemia. Anxiety disorder 04/30: Overnight patient was noted to be bradycardic, hypotensive and have altered mental status and the patient was emergently intubated. Patient had a bladder scan with 500 cc of urine received after straight cath. Patient was started on dopamine however this is being actively weaned off. Patient is a CPAP trial. Patient extubated around 1300. Hypotension noted, restarted dopamine gtt at low dose then started on levophed gtt. 05/01: Overnight she remained on the levophed, per RN if weaned to 2mcg from 4 mcg then thrill/bruit was lost from AVF. This morning we started the pt on midodrine and weaned levo off. Ramos remains. CXR shows pulm edema 05/02: Overnight the patient was given Haldol with transient resultant hypotension which has resolved. BP has remained stable. Stable for transfer to the floor. 05/03/2021: Patient seen this morning, signs somewhat fluid overloaded in her lungs without cough. She continues on diuresis, does not want to get a per macadom but I spoke to her that it is probably the best thing for her at this time. Urine output is intermittently low. Patient has high risk for being readmitted to the hospital for fluid overload without starting dialysis. 05/04. Patient is s/p right IJ PermCath insertion today. Patient still r equiring high flow nasal cannula of 5 L/min and satting 97%. Continue to wean FiO2 as tolerated. Patient will need walk test prior to discharge. With regards to kidney function, nephrology suspects baseline chronic kidney disease, stage V presumably secondary to diabetic kidney disease versus hypertensive nephrosclerosis. We will arrange outpatient dialysis at [facility]. Case management consultation for outpatient hemodialysis. Patient appears to be actually hypertensive this morning after undergoing procedure of Vas-Cath placement. Patient noted to be hypertensive in hemodialysis. We will resume her home medication of hydralazine 50 mg every 8 hours. Also, add Procardia 60 mg twice daily. Discontinue midodrine History Interval history: No new issues overnight. Patient seen in the Interpretative [facility]cer during Vas-Cath procedure. Hospitalist Physical - Constitutional Vitals: Temp Pulse Resp BP Pulse Ox 97.9 F 85 20 179/86 100 05/04/21 09:30 05/04/21 09:34 05/04/21 09:30 05/04/21 09:34 05/04/21 09:30 General appearance: Present: no acute distress, well-nourished, obese - EENT Eyes: Present: PERRL, EOM intact ENT: hearing intact, clear oral mucosa, dentition normal - Neck Neck: Present: supple, normal ROM - Respiratory Respiratory effort: normal Respiratory: bilateral: CTA - Cardiovascular Rhythm: regular Heart Sounds: Present: S1 & S2. Absent: gallop, rub - Extremities Extremities: no ischemia, No edema, Full ROM - Abdominal General gastrointestinal: soft, non-tender, non-distended, normal bowel sounds - Integumentary Integumentary: Present: clear, warm, dry - Neurologic Neurologic: CNII-XII intact, moves all extremities Results - Labs CBC & Chem 7: 05/04/21 04:25 05/04/21 04:25 Labs: Laboratory Last Values WBC 10.7 K/mm3 (4.5-11.0) 05/04/21 04:25 RBC 2.60 M/mm3 (3.65-5.03) L 05/04/21 04:25 Hgb 7.9 gm/dl (10.1-14.3) L 05/04/21 04:25 Hct 23.4 % (30.3-42.9) L 05/04/21 04:25 MCV 90 fl (79-97) 05/04/21 04:25 MCH 30 pg (28-32) 05/04/21 04:25 MCHC 34 % (30-34) 05/04/21 04:25 RDW 19.3 % (13.2-15.2) H 05/04/21 04:25 Plt Count 138 K/mm3 (140-440) L 05/04/21 04:25 Add Manual Diff Complete 04/30/21 04:23 Total Counted 100 04/30/21 04:23 Seg Neutrophils % Lightning Rod Erector 04/30/21 04:23 Seg Neuts % (Manual) 96.0 % (40.0-70.0) H 04/30/21 04:23 Lymphocytes % (Manual) 3.0 % (13.4-35.0) L 04/30/21 04:23 Monocytes % (Manual) 1.0 % (0.0-7.3) 04/30/21 04:23 Nucleated RBC % Not Reportable 04/30/21 04:23 Seg Neutrophils # Man 14.4 K/mm3 (1.8-7.7) H 04/30/21 04:23 Band Neutrophils # 0.0 K/mm3 04/30/21 04:23 Lymphocytes # (Manual) 0.5 K/mm3 (1.2-5.4) L 04/30/21 04:23 Abs React Lymphs (Man) 0.0 K/mm3 04/30/21 04:23 Monocytes # (Manual) 0.2 K/mm3 (0.0-0.8) 04/30/21 04:23 Eosinophils # (Manual) 0.0 K/mm3 (0.0-0.4) 04/30/21 04:23 Basophils # (Manual) 0.0 K/mm3 (0.0-0.1) 04/30/21 04:23 Metamyelocytes # 0.0 K/mm3 04/30/21 04:23 Myelocytes # 0.0 K/mm3 04/30/21 04:23 Promyelocytes # 0.0 K/mm3 04/30/21 04:23 Blast Cells # 0.0 K/mm3 04/30/21 04:23 WBC Morphology Not Reportable 04/30/21 04:23 Hypersegmented Neuts Not Reportable 04/30/21 04:23 Hyposegmented Neuts Not Reportable 04/30/21 04:23 Hypogranular Neuts Not Reportable 04/30/21 04:23 Smudge Cells Not Reportable 04/30/21 04:23 Toxic Granulation Not Reportable 04/30/21 04:23 Toxic Vacuolation Not Reportable 04/30/21 04:23 Dohle Bodies Not Reportable 04/30/21 04:23 Pelger-Huet Anomaly Not Reportable 04/30/21 04:23 Vik Rods Not Reportable 04/30/21 04:23 Platelet Estimate Consistent w auto 04/30/21 04:23 Clumped Platelets Not Reportable 04/30/21 04:23 Plt Clumps, EDTA Not Reportable 04/30/21 04:23 Large Platelets Not Reportable 04/30/21 04:23 Giant Platelets Not Reportable 04/30/21 04:23 Platelet Satelliting Not Reportable 04/30/21 04:23 Plt Morphology Comment Not Reportable 04/30/21 04:23 RBC Morphology Not Reportable 04/30/21 04:23 Dimorphic RBCs Not Reportable 04/30/21 04:23 Polychromasia Not Reportable 04/30/21 04:23 Hypochromasia 1+ 04/30/21 04:23 Poikilocytosis Not Reportable 04/30/21 04:23 Anisocytosis 1+ 04/30/21 04:23 Microcytosis Not Reportable 04/30/21 04:23 Macrocytosis Not Reportable 04/30/21 04:23 Spherocytes Not Reportable 04/30/21 04:23 Pappenheimer Bodies Not Reportable 04/30/21 04:23 Sickle Cells Not Reportable 04/30/21 04:23 Target Cells Not Reportable 04/30/21 04:23 Tear Drop Cells Not Reportable 04/30/21 04:23 Ovalocytes Not Reportable 04/30/21 04:23 Helmet Cells Not Reportable 04/30/21 04:23 Castrejon-Lavonia Bodies Not Reportable 04/30/21 04:23 [place]han Rings Not Reportable 04/30/21 04:23 Rosendo Cells Not Reportable 04/30/21 04:23 Bite Cells Not Reportable 04/30/21 04:23 Crenated Cell Not Reportable 04/30/21 04:23 Elliptocytes Not Reportable 04/30/21 04:23 Acanthocytes (Spur) Not Reportable 04/30/21 04:23 Rouleaux Not Reportable 04/30/21 04:23 Hemoglobin C Crystals Not Reportable 04/30/21 04:23 Schistocytes Not Reportable 04/30/21 04:23 Malaria parasites Not Reportable 04/30/21 04:23 Desmond Bodies Not Reportable 04/30/21 04:23 Hem Pathologist Commnt No 04/30/21 04:23 ABG pH 7.254 (7.320-7.450) L 05/01/21 10:11 POC ABG pCO2 47.1 mmHg (32.0-48.0) 05/01/21 10:11 POC ABG pO2 54.7 mmHg (83-108) L 05/01/21 10:11 POC ABG HCO3 20.4 05/01/21 10:11 ABG O2 Saturation 84.6 (0-100) 05/01/21 10:11 POC ABG Base Excess -6.4 05/01/21 10:11 ABG Hemoglobin 7.5 (12.0-17.5) L 05/01/21 10:11 ABG Oxyhemoglobin 82.9 (94-98) L 05/01/21 10:11 ABG Methemoglobin 0.3 (0.0-1.5) 05/01/21 10:11 ABG Sodium 138.2 mmol/L (136.0-145.0) 05/01/21 10:11 ABG Potassium 3.9 mmol/L (3.40-4.50) 05/01/21 10:11 ABG Chloride 108.0 mmol/L (98-107) H 05/01/21 10:11 ABG Glucose 122 mg/dL (65-95) H 05/01/21 10:11 Carboxyhemoglobin 1.7 (0.5-1.5) H 05/01/21 10:11 FiO2 % 32.0 05/01/21 10:11 Sodium 143 mmol/L (137-145) 05/04/21 04:25 Potassium 4.0 mmol/L (3.6-5.0) 05/04/21 04:25 Chloride 102.1 mmol/L (98-107) 05/04/21 04:25 Carbon Dioxide 17 mmol/L (22-30) L 05/04/21 04:25 Anion Gap 28 mmol/L 05/04/21 04:25 BUN 108 mg/dL (7-17) H 05/04/21 04:25 Creatinine 12.7 mg/dL (0.6-1.2) H 05/04/21 04:25 Estimated GFR 4 ml/min 05/04/21 04:25 BUN/Creatinine Ratio 9 % 05/04/21 04:25 Glucose 89 mg/dL (65-100) 05/04/21 04:25 POC Glucose 105 mg/dL (70-105) 05/04/21 07:42 Hemoglobin A1c < 4.0 % (4-6) L 04/30/21 04:23 Calcium 8.5 mg/dL (8.4-10.2) 05/04/21 04:25 Total Bilirubin 0.30 mg/dL (0.1-1.2) 04/30/21 04:23 AST 30 units/L (5-40) 04/30/21 04:23 ALT 26 units/L (7-56) 04/30/21 04:23 Alkaline Phosphatase 122 units/L (35-129) 04/30/21 04:23 Total Protein 6.7 g/dL (6.3-8.2) 04/30/21 04:23 Albumin 3.6 g/dL (3.9-5) L 04/30/21 04:23 Albumin/Globulin Ratio 1.2 % 04/30/21 04:23 Arterial Blood Glucose 122 mg/dL (65-95) H 05/01/21 10:11 Arterial Blood Ionized Calcium 4.1 mg/dL (4.6-5.3) L 05/01/21 10:11 Hepatitis A IgM Ab Non-reactive (NonReactive) 05/03/21 13:41 Hep Bs Antigen Non-reactive (Negative) 05/03/21 13:41 Hep B Core IgM Ab Non-reactive (NonReactive) 05/03/21 13:41 Hepatitis C Antibody Non-reactive (NonReactive) 05/03/21 13:41 Microbiology: Microbiology 04/30/21 Unknown Tracheal Aspirate Sputum Culture - Preliminary Ramos/IV: Voiding Method Indwelling Catheter Active Medications - Current Medications Current Medications: Generic Name Dose Route Start Last Admin Trade Name Freq PRN Reason Stop Dose Admin Acetaminophen 650 mg 04/29/21 19:12 05/01/21 07:37 Acetaminophen 325 Mg Tab PO 650 mg Q4H PRN Administration Pain MILD(1-3)/Fever >100.5/KLEIN Albuterol 2.5 mg 05/02/21 20:00 05/04/21 02:14 Albuterol 2.5 Mg/3 Ml Nebu IH 2.5 mg Q6HRT LYLA Administration Calcitriol 0.25 mcg 04/30/21 10:00 05/03/21 09:01 Calcitriol 0.25 Mcg Cap PO 0.25 mcg DAILY LYLA Administration Famotidine 20 mg 05/04/21 10:00 Famotidine 20 Mg Tab PO DAILY LYLA Furosemide 80 mg 05/02/21 18:00 05/04/21 05:33 Furosemide 40 Mg/4 Ml Inj IV 80 mg 0600,1800 LYLA Administration Heparin Sodium (Porcine) 5,000 unit 04/30/21 10:00 05/03/21 23:49 Heparin 5,000 Unit/1 Ml Vial SUB-Q 5,000 unit Q12HR LYLA Administration Heparin Sodium (Porcine) 5,000 unit 05/03/21 10:00 Heparin 10,000 Unit/1 Ml Vial IV CARLTON PRN hemodialysis Hydrophilic Ointment 1 applic 04/30/21 00:53 Lip Therapy Vaseline TP Q2HR PRN Dry Lips Sodium Chloride 100 mls @ 999 mls/hr 05/03/21 09:30 Nacl 0.9% IV CARLTON PRN Hypotension Midodrine 10 mg 05/01/21 09:16 05/03/21 15:05 Midodrine 5 Mg Tab PO 10 mg TID@0800,1200,1600 LYLA Administration Naloxone HCl 0.1 mg 04/29/21 23:55 Naloxone 0.4 Mg/1 Ml Inj IV Q2MIN PRN Res Rate </= 8 or 02 SAT < 92% Ondansetron HCl 4 mg 04/29/21 19:12 Ondansetron 4 Mg/2 Ml Inj IV Q8H PRN Nausea And Vomiting Oxycodone/Acetaminophen 1 tab 04/29/21 19:12 05/04/21 03:26 Oxycodone /Acetaminophen 5-325mg Tab PO 1 tab Q6H PRN Administration Pain, Moderate (4-6) Senna/Docusate Sodium 1 tab 04/30/21 10:00 05/03/21 23:49 Sennosides/Docusate Sodium 8.6/50 Mg Tab FEEDTUBE 1 tab BID LYLA Administration Sodium Chloride 10 ml 04/29/21 22:00 05/03/21 23:49 Sodium Chloride 0.9% 10 Ml Flush Syringe IV 10 ml BID LYLA Administration Sodium Chloride 10 ml 04/29/21 19:12 04/30/21 19:40 Sodium Chloride 0.9% 10 Ml Flush Syringe IV 10 ml PRN PRN Administration LINE FLUSH Nutrition/Malnutrition Assess - Dietary Evaluation Nutrition/Malnutrition Findings: Nutrition Notes Start: 04/30/21 07:58 Freq: Status: Active Protocol: Document 04/30/21 07:58 ESTER (Rec: 04/30/21 08:04 ESTER [email or web address]) Nutrition Notes Need for Assessment generated from: MD Order,section gang Initial or Follow up Assessment Current Diagnosis CKD (stage V CKD),Diabetes, Hypertension Other Pertinent Diagnosis volume overload Current Diet No diet Labs/Tests BUN 90 Cr 9.5 BG 145 Pertinent Medications Dopamine Versed Propofol Height 5 ft 6.5 in Weight 88.451 kg [place] Body Weight (kg) 60.22 BMI 30.9 Weight Status Obese Subjective/Other Information MD order to eval intakes. RN screen for skin risk. Pt on vent after vas-cath surgery for HD and has surgical wound. Francisco score 16. Burn Absent Trauma Absent GI Symptoms None Current % PO Negligible Minimum of two criteria No physical signs of malnutrition #2 Nutrition Diagnosis Inadequate oral intake Etiology ARF As Evidenced by Signs and Symptoms pt on vent and unable to consume PO Is patient on ventilator? Yes Is Patient Ambulatory and/or Out of Bed No REE-([facility]-confined to bed) 1785.636 Kcal/Kg value to use for calculation 16 Approximate Energy Requirements Using 1415 kcal/Kg Calculation Used for Recommendations Kcal/kg Additional Notes Protein: (>2g/kg IBW) >120g Fluid: 1 ml/kcal or per MD Nutrition Intervention Change Diet Order: Start TF when medically able Nutrition Support: Recommend: Vital HP at 60 ml/hr Flush 50 ml q4h Kcal 1,440 Protein (gm) 126 Fluid (mL) 1,204 Goal #1 Start TF or extubate Anticipated Discharge Needs: Unable to determine at this time Follow-Up By: 05/04/21 Additional Comments FU for TF consult or extubation and diet advancement
--- NOTE | 2021-05-04 11:16 | Progress Note ---
Assessment and Plan - Patient Problems (1) Chronic kidney disease, stage V Current Visit: Yes Plan to address problem: Suspect baseline chronic kidney disease presumably secondary to diabetic kidney disease versus hypertensive nephrosclerosis. Kidney function is stable. Unfort unately, patient's renal indices significantly worse with >BUN 100. Still has evidence of volume overload with Mild dyspnea at rest. Hemodialysis initiated for solute clearance of fluid removal. We will arrange outpatient dialysis at [facility]. (2) Volume overload Current Visit: Yes Status: Acute Plan to address problem: Continue IV Lasix. Tolerating hemodialysis so far. Attempt 1.5 L ult rafiltration. (3) S/P arteriovenous (AV) fistula creation Current Visit: Yes Status: Acute Plan to address problem: Good thrill and bruit over AV fistula. Continue monitoring (4) Benign hypertension with chronic kidney disease, stage V Current Visit: Yes Status: Acute Plan to address problem: Follow-up blood pressure on current medications. (5) Type 2 diabetes mellitus with diabetic nephropathy Current Visit: Yes Status: Acute Plan to address problem: Blood sugar management by primary attending Subjective Date of service: 05/04/21 Principal diagnosis: End-stage renal disease Interval history: Patient seen lying in bed on dialysis. She has no complaints. No family at the bedside. She had permacath placed this morning. Tolerating treatment so far. Still a bit drowsy. Still appears to be Mildly dyspneic at rest. Objective - Exam Narrative Exam: Middle-aged -[place] female lying in bed in no acute distress HEENT: NCAT, Neck: Supple, no venous distention CVS: S1S2 RRR with no murmur, rub or gallop Chest: Faint rhonchi with diminished breath sounds Lower zones bilaterally Abdomen: Protuberant, soft, nontender, no organomegaly, bowel sounds are present Extremities: Mild edema Genitourinary deferred Skin warm and dry Neuro: Awake, alert no focal deficits - Vital Signs Vital signs: Vital Signs - 12hr 05/04/21 05/04/21 05/04/21 02:00 02:15 03:23 Temperature 98.2 F Pulse Rate 85 Pulse Rate [ 81 Anterior Bilateral Throughout] Respiratory 22 Rate Respiratory 16 Rate [Anterior Bilateral Throughout] Blood Pressure 180/77 O2 Sat by Pulse 97 87 Oximetry O2 Sat by Pulse Oximetry [ Anterior Bilateral Throughout] 05/04/21 05/04/2121 03:25 08:00 09:30 Temperature 97.9 F Pulse Rate 87 89 Pulse Rate [ Anterior Bilateral Throughout] Respiratory 20 Rate Respiratory Rate [Anterior Bilateral Throughout] Blood Pressure 185/91 O2 Sat by Pulse 93 Oximetry O2 Sat by Pulse 100 Oximetry [ Anterior Bilateral Throughout] 05/04/21 05/04/21 05/04/21 09:34 09:45 10:00 Temperature Pulse Rate 85 82 82 Pulse Rate [ Anterior Bilateral Throughout] Respiratory Rate Respiratory Rate [Anterior Bilateral Throughout] Blood Pressure 179/86 171/85 174/89 O2 Sat by Pulse Oximetry O2 Sat by Pulse Oximetry [ Anterior Bilateral Throughout] 05/04/21 05/04/21 05/04/21 10:15 10:30 10:45 Temperature Pulse Rate 82 86 82 Pulse Rate [ Anterior Bilateral Throughout] Respiratory Rate Respiratory Rate [Anterior Bilateral Throughout] Blood Pressure 181/95 193/84 189/98 O2 Sat by Pulse Oximetry O2 Sat by Pulse Oximetry [ Anterior Bilateral Throughout] 05/04/21 11:00 Temperature Pulse Rate 80 Pulse Rate [ Anterior Bilateral Throughout] Respiratory Rate Respiratory Rate [Anterior Bilateral Throughout] Blood Pressure 191/95 O2 Sat by Pulse Oximetry O2 Sat by Pulse Oximetry [ Anterior Bilateral Throughout] - Lab 05/04/21 04:25 05/04/21 04:25 Most recent lab results ABG pH 7.254 (7.320-7.450) L 05/01/21 10:11 ABG O2 Saturation 84.6 (0-100) 05/01/21 10:11 Calcium 8.5 mg/dL (8.4-10.2) 05/04/21 04:25 Medications & Allergies - Medications Allergies/Adverse Reactions: Allergies No Known Allergies Allergy (Verified 04/26/21 11:49) Home Medications: Home Medications Medication Instructions Recorded Confirmed Last Taken Type ALPRAZolam [Xanax TAB] 1 mg PO PRN PRN 04/26/21 04/26/21 Unknown History Amlodipine Besylate [Norvasc] 10 mg PO DAILY 04/26/21 04/29/21 04/29/21 09:00 History Hydralazine HCl 50 mg PO TID 04/26/21 04/29/21 04/29/21 09:00 History Nebivolol HCl [Bystolic] 20 mg PO DAILY 07/10/0504/29/21 04/29/21 09:00 History Torsemide [Demadex] 100 mg PO QDAY 04/26/21 04/29/21 04/28/21 09:00 History Zolpidem (Nf) [Ambien (Nf)] 10 mg PO QHS 04/26/21 04/29/21 04/27/21 20:00 History allopurinoL [Zyloprim] 100 mg PO QDAY 04/26/21 04/29/21 04/28/21 09:00 History calcitrioL [Rocaltrol] 0.25 mcg PO DAILY 04/26/21 04/29/21 04/26/21 09:00 History oxyCODONE /ACETAMINOPHEN [Percocet 1 tab PO Q6HR PRN #20 tablet 04/29/21 Unknown Rx 5/325 mg] Active Medications: Generic Name Dose Route Start Last Admin Trade Name Freq PRN Reason Stop Dose Admin Acetaminophen 650 mg 04/29/21 19:12 05/01/21 07:37 Acetaminophen 325 Mg Tab PO 650 mg Q4H PRN Administration Pain MILD(1-3)/Fever >100.5/KLEIN Albuterol 2.5 mg 05/02/21 20:00 05/04/21 02:14 Albuterol 2.5 Mg/3 Ml Nebu IH 2.5 mg Q6HRT LYLA Administration Calcitriol 0.25 mcg 04/30/21 10:00 05/03/21 09:01 Calcitriol 0.25 Mcg Cap PO 0.25 mcg DAILY LYLA Administration Famotidine 20 mg 05/04/21 10:00 Famotidine 20 Mg Tab PO DAILY LYLA Furosemide 80 mg 05/02/21 18:00 05/04/21 05:33 Furosemide 40 Mg/4 Ml Inj IV 80 mg 0600,1800 LYLA Administration Heparin Sodium (Porcine) 5,000 unit 04/30/21 10:00 05/03/21 23:49 Heparin 5,000 Unit/1 Ml Vial SUB-Q 5,000 unit Q12HR LYLA Administration Heparin Sodium (Porcine) 5,000 unit 05/03/21 10:00 Heparin 10,000 Unit/1 Ml Vial IV CARLTON PRN hemodialysis Hydrophilic Ointment 1 applic 04/30/21 00:53 Lip Therapy Vaseline TP Q2HR PRN Dry Lips Sodium Chloride 100 mls @ 999 mls/hr 05/03/21 09:30 Nacl 0.9% IV CARLTON PRN Hypotension Midodrine 10 mg 05/01/21 09:16 05/03/21 15:05 Midodrine 5 Mg Tab PO 10 mg TID@0800,1200,1600 LYLA Administration Naloxone HCl 0.1 mg 04/29/21 23:55 Naloxone 0.4 Mg/1 Ml Inj IV Q2MIN PRN Res Rate </= 8 or 02 SAT < 92% Ondansetron HCl 4 mg 04/29/21 19:12 Ondansetron 4 Mg/2 Ml Inj IV Q8H PRN Nausea And Vomiting Oxycodone/Acetaminophen 1 tab 04/29/21 19:12 05/04/21 03:26 Oxycodone /Acetaminophen 5-325mg Tab PO 1 tab Q6H PRN Administration Pain, Moderate (4-6) Senna/Docusate Sodium 1 tab 04/30/21 10:00 05/03/21 23:49 Sennosides/Docusate Sodium 8.6/50 Mg Tab FEEDTUBE 1 tab BID LYLA Administration Sodium Chloride 10 ml 04/29/21 22:00 05/03/21 23:49 Sodium Chloride 0.9% 10 Ml Flush Syringe IV 10 ml BID LYLA Administration Sodium Chloride 10 ml 04/29/21 19:12 04/30/21 19:40 Sodium Chloride 0.9% 10 Ml Flush Syringe IV 10 ml PRN PRN Administration LINE FLUSH
[2021-05-04] MEDS: EPOETIN ALFA-EPBX 20,000 UNIT/1 ML VIAL IV PRN (11:20)
[2021-05-04] MEDS: FAMOTIDINE 20 MG TAB PO SCH (11:37)
[2021-05-04] MEDS: MIDODRINE 5 MG TAB PO SCH ×2 (11:37→11:38)
[2021-05-04] MEDS: HEPARIN 5,000 UNIT/1 ML VIAL SUB-Q SCH ×2 (11:37→22:16)
[2021-05-04] MEDS: SENNOSIDES/DOCUSATE SODIUM 8.6/50 MG TAB FEEDTUBE SCH ×2 (11:38→22:14)
[2021-05-04] MEDS: CALCITRIOL 0.25 MCG CAP PO SCH (11:38)
[2021-05-04] MEDS: hydrALAZINE 25 MG TAB PO SCH ×2 (13:16→22:13)
[2021-05-04] MEDS ORDERED: hydrALAZINE 20 MG/1 ML INJ IV PRN (14:56)
[2021-05-04] MEDS: NIFEdipine XL 60 MG TAB PO SCH ×2 (15:04→22:14)
[2021-05-05] MEDS: ALBUTEROL 2.5 MG/3 ML NEBU IH SCH ×4 (01:02→19:45)
[2021-05-05] MEDS: FUROSEMIDE 40 MG/4 ML INJ IV SCH (05:41)
[2021-05-05] MEDS: hydrALAZINE 25 MG TAB PO SCH ×3 (05:41→21:51)
--- NOTE | 2021-05-05 08:04 | Progress Note ---
Assessment and Plan Assessment and plan: ESRD Chronic hypotension. History of hypertension/accelerated hypertension Acute hypoxic respiratory failure Urinary retention. Anemia. Anxiety disorder 04/30: Overnight patient was noted to be bradycardic, hypotensive and have altered mental status and the patient was emergently intubated. Patient had a bladder scan with 500 cc of urine received after straight cath. Patient was started on dopamine however this is being actively weaned off. Patient is a CPAP trial. Patient extubated around 1300. Hypotension noted, restarted dopamine gtt at low dose then started on levophed gtt. 05/01: Overnight she remained on the levophed, per RN if weaned to 2mcg from 4 mcg then thrill/bruit was lost from AVF. This morning we started the pt on midodrine and weaned levo off. Ramos remains. CXR shows pulm edema 05/02: Overnight the patient was given Haldol with transient resultant hypotension which has resolved. BP has remained stable. Stable for transfer to the floor. 05/03/2021: Patient seen this morning, signs somewhat fluid overloaded in her lungs without cough. She continues on diuresis, does not want to get a permacath but I spoke to her that it is probably the best thing for her at this time. Urine output is intermittently low. Patient has high risk for being readmitted to the hospital for fluid overload without starting dialysis. 05/04. Patient is s/p right IJ PermCath insertion today. Patient still requiring high flow nasal cannula of 5 L/min and satting 97%. Continue to wean FiO2 as tolerated. Patient will need walk test prior to discharge. With regards to kidney function, nephrology suspects baseline chronic kidney disease, stage V presumably secondary to diabetic kidney disease versus hypertensive nephrosclerosis. We will arrange outpatient dialysis at [facility]. Case management consultation for outpatient hemodialysis. Patient appears to be actually hypertensive this morning after undergoing procedure of Vas-Cath placement. Patient noted to be hypertensive in hemodialysis. We will resume her home medication of hydralazine 50 mg every 8 hours. Also, add Procardia 60 mg twice daily. Discontinue midodrine 05/05. Patient is status post PermCath insertion and received hemodialysis yesterday without complications. Accelerated hypertension improved with initiation of antihypertensive of Procardia and hydralazine. Discontinued midodrine. Await arrangements by case management for outpatient hemodialysis. History Interval history: No new issues overnight. Hospitalist Physical - Constitutional Vitals: Temp Pulse Resp BP Pulse Ox 97.8 F 98 H 20 141/78 95 05/05/21 04:47 05/05/21 05:41 05/05/21 04:47 05/05/21 05:41 05/05/21 04:47 General appearance: Present: no acute distress, well-nourished, obese - EENT Eyes: Present: PERRL, EOM intact ENT: hearing intact, clear oral mucosa, dentition normal - Neck Neck: Present: supple, normal ROM - Respiratory Respiratory effort: normal Respiratory: bilateral: CTA - Cardiovascular Rhythm: regular Heart Sounds: Present: S1 & S2. Absent: gallop, rub - Extremities Extremities: no ischemia, No edema, Full ROM - Abdominal General gastrointestinal: soft, non-tender, non-distended, normal bowel sounds - Integumentary Integumentary: Present: clear, warm, dry - Neurologic Neurologic: CNII-XII intact, moves all extremities Results - Labs CBC & Chem 7: 05/04/21 04:25 05/04/21 04:25 Labs: Laboratory Last Values WBC 10.7 K/mm3 (4.5-11.0) 05/04/21 04:25 RBC 2.60 M/mm3 (3.65-5.03) L 05/04/21 04:25 Hgb 7.9 gm/dl (10.1-14.3) L 05/04/21 04:25 Hct 23.4 % (30.3-42.9) L 05/04/21 04:25 MCV 90 fl (79-97) 05/04/21 04:25 MCH 30 pg (28-32) 05/04/21 04:25 MCHC 34 % (30-34) 05/04/21 04:25 RDW 19.3 % (13.2-15.2) H 05/04/21 04:25 Plt Count 138 K/mm3 (140-440) L 05/04/21 04:25 Add Manual Diff Complete 04/30/21 04:23 Total Counted 100 04/30/21 04:23 Seg Neutrophils % Procurement Representative 04/30/21 04:23 Seg Neuts % (Manual) 96.0 % (40.0-70.0) H 04/30/21 04:23 Lymphocytes % (Manual) 3.0 % (13.4-35.0) L 04/30/21 04:23 Monocytes % (Manual) 1.0 % (0.0-7.3) 04/30/21 04:23 Nucleated RBC % Not Reportable 04/30/21 04:23 Seg Neutrophils # Man 14.4 K/mm3 (1.8-7.7) H 04/30/21 04:23 Band Neutrophils # 0.0 K/mm3 04/30/21 04:23 Lymphocytes # (Manual) 0.5 K/mm3 (1.2-5.4) L 04/30/21 04:23 Abs React Lymphs (Man) 0.0 K/mm3 04/30/21 04:23 Monocytes # (Manual) 0.2 K/mm3 (0.0-0.8) 04/30/21 04:23 Eosinophils # (Manual) 0.0 K/mm3 (0.0-0.4) 04/30/21 04:23 Basophils # (Manual) 0.0 K/mm3 (0.0-0.1) 04/30/21 04:23 Metamyelocytes # 0.0 K/mm3 04/30/21 04:23 Myelocytes # 0.0 K/mm3 04/30/21 04:23 Promyelocytes # 0.0 K/mm3 04/30/21 04:23 Blast Cells # 0.0 K/mm3 04/30/21 04:23 WBC Morphology Not Reportable 04/30/21 04:23 Hypersegmented Neuts Not Reportable 04/30/21 04:23 Hyposegmented Neuts Not Reportable 04/30/21 04:23 Hypogranular Neuts Not Reportable 04/30/21 04:23 Smudge Cells Not Reportable 04/30/21 04:23 Toxic Granulation Not Reportable 04/30/21 04:23 Toxic Vacuolation Not Reportable 04/30/21 04:23 Dohle Bodies Not Reportable 04/30/21 04:23 Pelger-Huet Anomaly Not Reportable 04/30/21 04:23 Vik Rods Not Reportable 04/30/21 04:23 Platelet Estimate Consistent w auto 04/30/21 04:23 Clumped Platelets Not Reportable 04/30/21 04:23 Plt Clumps, EDTA Not Reportable 04/30/21 04:23 Large Platelets Not Reportable 04/30/21 04:23 Giant Platelets Not Reportable 04/30/21 04:23 Platelet Satelliting Not Reportable 04/30/21 04:23 Plt Morphology Comment Not Reportable 04/30/21 04:23 RBC Morphology Not Reportable 04/30/21 04:23 Dimorphic RBCs Not Reportable 04/30/21 04:23 Polychromasia Not Reportable 04/30/21 04:23 Hypochromasia 1+ 04/30/21 04:23 Poikilocytosis Not Reportable 04/30/21 04:23 Anisocytosis 1+ 04/30/21 04:23 Microcytosis Not Reportable 04/30/21 04:23 Macrocytosis Not Reportable 04/30/21 04:23 Spherocytes Not Reportable 04/30/21 04:23 Pappenheimer Bodies Not Reportable 04/30/21 04:23 Sickle Cells Not Reportable 04/30/21 04:23 Target Cells Not Reportable 04/30/21 04:23 Tear Drop Cells Not Reportable 04/30/21 04:23 Ovalocytes Not Reportable 04/30/21 04:23 Helmet Cells Not Reportable 04/30/21 04:23 [place] Bodies Not Reportable 04/30/21 04:23 [place] Rings Not Reportable 04/30/21 04:23 [place] Cells Not Reportable 04/30/21 04:23 Bite Cells Not Reportable 04/30/21 04:23 Crenated Cell Not Reportable 04/30/21 04:23 Elliptocytes Not Reportable 04/30/21 04:23 Acanthocytes (Spur) Not Reportable 04/30/21 04:23 Rouleaux Not Reportable 04/30/21 04:23 Hemoglobin C Crystals Not Reportable 04/30/21 04:23 Schistocytes Not Reportable 04/30/21 04:23 Malaria parasites Not Reportable 04/30/21 04:23 [place] Bodies Not Reportable 04/30/21 04:23 Hem Pathologist Commnt No 04/30/21 04:23 ABG pH 7.254 (7.320-7.450) L 05/01/21 10:11 POC ABG pCO2 47.1 mmHg (32.0-48.0) 05/01/21 10:11 POC ABG pO2 54.7 mmHg (83-108) L 05/01/21 10:11 POC ABG HCO3 20.4 05/01/21 10:11 ABG O2 Saturation 84.6 (0-100) 05/01/21 10:11 POC ABG Base Excess -6.4 05/01/21 10:11 ABG Hemoglobin 7.5 (12.0-17.5) L 05/01/21 10:11 ABG Oxyhemoglobin 82.9 (94-98) L 05/01/21 10:11 ABG Methemoglobin 0.3 (0.0-1.5) 05/01/21 10:11 ABG Sodium 138.2 mmol/L (136.0-145.0) 05/01/21 10:11 ABG Potassium 3.9 mmol/L (3.40-4.50) 05/01/21 10:11 ABG Chloride 108.0 mmol/L (98-107) H 05/01/21 10:11 ABG Glucose 122 mg/dL (65-95) H 05/01/21 10:11 Carboxyhemoglobin 1.7 (0.5-1.5) H 05/01/21 10:11 FiO2 % 32.0 05/01/21 10:11 Sodium 143 mmol/L (137-145) 05/04/21 04:25 Potassium 4.0 mmol/L (3.6-5.0) 05/04/21 04:25 Chloride 102.1 mmol/L (98-107) 05/04/21 04:25 Carbon Dioxide 17 mmol/L (22-30) L 05/04/21 04:25 Anion Gap 28 mmol/L 05/04/21 04:25 BUN 108 mg/dL (7-17) H 05/04/21 04:25 Creatinine 12.7 mg/dL (0.6-1.2) H 05/04/21 04:25 Estimated GFR 4 ml/min 05/04/21 04:25 BUN/Creatinine Ratio 9 % 05/04/21 04:25 Glucose 89 mg/dL (65-100) 05/04/21 04:25 POC Glucose 105 mg/dL (70-105) 05/04/21 07:42 Hemoglobin A1c < 4.0 % (4-6) L 04/30/21 04:23 Calcium 8.5 mg/dL (8.4-10.2) 05/04/21 04:25 Total Bilirubin 0.30 mg/dL (0.1-1.2) 04/30/21 04:23 AST 30 units/L (5-40) 04/30/21 04:23 ALT 26 units/L (7-56) 04/30/21 04:23 Alkaline Phosphatase 122 units/L (35-129) 04/30/21 04:23 Total Protein 6.7 g/dL (6.3-8.2) 04/30/21 04:23 Albumin 3.6 g/dL (3.9-5) L 04/30/21 04:23 Albumin/Globulin Ratio 1.2 % 04/30/21 04:23 Arterial Blood Glucose 122 mg/dL (65-95) H 05/01/21 10:11 Arterial Blood Ionized Calcium 4.1 mg/dL (4.6-5.3) L 05/01/21 10:11 Hepatitis A IgM Ab Non-reactive (NonReactive) 05/03/21 13:41 Hep Bs Antigen Non-reactive (Negative) 05/03/21 13:41 Hep B Core IgM Ab Non-reactive (NonReactive) 05/03/21 13:41 Hepatitis C Antibody Non-reactive (NonReactive) 05/03/21 13:41 Ramos/IV: Voiding Method Indwelling Catheter Active Medications - Current Medications Current Medications: Generic Name Dose Route Start Last Admin Trade Name Freq PRN Reason Stop Dose Admin Acetaminophen 650 mg 04/29/21 19:12 05/01/21 07:37 Acetaminophen 325 Mg Tab PO 650 mg Q4H PRN Administration Pain MILD(1-3)/Fever >100.5/KLEIN Albuterol 2.5 mg 05/02/21 20:00 05/05/21 01:02 Albuterol 2.5 Mg/3 Ml Nebu IH 2.5 mg Q6HRT LYLA Administration Calcitriol 0.25 mcg 04/30/21 10:00 05/04/21 11:38 Calcitriol 0.25 Mcg Cap PO Not Given DAILY LYLA Famotidine 20 mg 05/04/21 10:00 05/04/21 11:37 Famotidine 20 Mg Tab PO Not Given DAILY LYLA Furosemide 80 mg 05/02/21 18:00 05/05/21 05:41 Furosemide 40 Mg/4 Ml Inj IV 80 mg 0600,1800 LYLA Administration Heparin Sodium (Porcine) 5,000 unit 04/30/21 10:00 05/04/21 22:16 Heparin 5,000 Unit/1 Ml Vial SUB-Q 5,000 unit Q12HR LYLA Administration Heparin Sodium (Porcine) 5,000 unit 05/03/21 10:00 Heparin 10,000 Unit/1 Ml Vial IV CARLTON PRN hemodialysis Hydralazine HCl 50 mg 05/04/21 14:00 05/05/21 05:41 Hydralazine 25 Mg Tab PO 50 mg Q8HR LYLA Administration Hydralazine HCl 20 mg 05/04/21 14:56 Hydralazine 20 Mg/1 Ml Inj IV Q6HR PRN Hypertension Hydrophilic Ointment 1 applic 04/30/21 00:53 Lip Therapy Vaseline TP Q2HR PRN Dry Lips Sodium Chloride 100 mls @ 999 mls/hr 05/03/21 09:30 Nacl 0.9% IV CARLTON PRN Hypotension Naloxone HCl 0.1 mg 04/29/21 23:55 Naloxone 0.4 Mg/1 Ml Inj IV Q2MIN PRN Res Rate </= 8 or 02 SAT < 92% Nifedipine 60 mg 05/04/21 15:15 05/04/21 22:14 Nifedipine Xl 60 Mg Tab PO 60 mg Q12HR LYLA Administration Ondansetron HCl 4 mg 04/29/21 19:12 Ondansetron 4 Mg/2 Ml Inj IV Q8H PRN Nausea And Vomiting Oxycodone/Acetaminophen 1 tab 04/29/21 19:12 05/04/21 22:15 Oxycodone /Acetaminophen 5-325mg Tab PO 1 tab Q6H PRN Administration Pain, Moderate (4-6) Senna/Docusate Sodium 1 tab 04/30/21 10:00 05/04/21 22:14 Sennosides/Docusate Sodium 8.6/50 Mg Tab FEEDTUBE Not Given BID LYLA Sodium Chloride 10 ml 04/29/21 22:00 05/04/21 22:15 Sodium Chloride 0.9% 10 Ml Flush Syringe IV 10 ml BID LYLA Administration Sodium Chloride 10 ml 04/29/21 19:12 07/16/21 19:40 Sodium Chloride 0.9% 10 Ml Flush Syringe IV 10 ml PRN PRN Administration LINE FLUSH Nutrition/Malnutrition Assess - Dietary Evaluation Nutrition/Malnutrition Findings: Nutrition Notes Start: 04/30/21 07:58 Freq: Status: Active Protocol: Document 05/04/21 14:52 CARMEL (Rec: 05/04/21 15:00 CHIDIBETSY [id number]) Nutrition Notes Initial or Follow up Reassessment Current Diagnosis CKD (stage V CKD),Hypertension Current Diet Regular Labs/Tests BUN 108 Cr 12.7 Pertinent Medications Lasix Height 5 ft 6.5 in Weight 90.8 kg [place] Body Weight (kg) 60.22 BMI 31.8 Weight change and time frame Wt change likely r/t fluid overload Weight Status Obese Subjective/Other Information No PO intakes documented. Pt s/p procedure today and is groggy. Her sister is at bedside. Pt consumed 75% of lunch today (her sister fed her). Pt with fair appetite recently; does not eat a lot. Burn Absent Trauma Absent #2 Nutrition Diagnosis Inadequate oral intake As Evidenced by Signs and Symptoms pt tolerating PO Diagnosis Progress(for reassessment Improved documentation) Is patient on ventilator? No Is Patient Ambulatory and/or Out of Bed No REE-([facility]-confined to bed) 1813.800 Kcal/Kg value to use for calculation 14 Approximate Energy Requirements Using 1271 kcal/Kg Calculation Used for Recommendations Kcal/kg Additional Notes Pro needs >1.2g/kg adjBW: >91g /day Fluid needs 1-1.5L/day Nutrition Intervention Change Diet Order: Change to low sodium diet Goal #1 PO intake to meet at least 75% energy and pro needs Anticipated Discharge Needs: Low sodium diet Follow-Up By: 05/07/21 Additional Comments F/U: intakes
--- NOTE | 2021-05-05 08:05 | Progress Note ---
Assessment and Plan 61 y/o female with ESRD now progressing to requiring HD, admitted with hypercapnic respiratory failure, possibly iatrogenic from surgery meds. 05/05/21: Wean FiO2 as tolerated. Follow up any new renal recs. Patient will need walk test prior to discharge to assess oxygen needs, if any. 05/04/21: continue to wean FiO2 as tolerated. Patient will need walk test prior to discharge. Pulm status improving. Will continue to follow. 05/03/21: Continue to wean FiO2 as tolerated. HD per renal if and when needed. Vascular would place vascath now that patient is out of ICU. Will continue to follow. 05/02/21: Continue TID Midodrine. Lasix therapy per renal. Wean FiO2 for sats>88%. No objection to transfer out of unit. 05/01/21: Will start on Midodrine 10 TID today. Wean Levophed to OFF. Patient wants to sit in chair and have no objections to this. CXR appears to be more consistent with pulmonary edema. Would continue lasix therapy despite need for vasopressor at this time. Will order Incentive spirometry to bedside. Continue ICU monitoring until BP stablizes. 1. Renal-no HD today per nephro, will try high dose IV lasix BID. Ramos for strict I/O 2. 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 Not quite ready for extubation yet based on mental state but is tolerating PSV well. Repeat ABG and CXR in am. 3. GI-hold on feeds for possible extubation tomorrow. Feed tomorrow if not extubated. 4. SCD's and H2 patricia Will continue to follow CCT 31 minutes. Subjective Date of service: 05/05/21 Principal diagnosis: End-stage renal disease Interval history: Down to 4 liters. No labs this am or not back yet. Objective Vital Signs - 12hr 05/04/21 05/04/21 05/04/21 20:38 22:00 22:13 Temperature Pulse Rate 84 Pulse Rate [ 68 Anterior Bilateral Throughout] Pulse Rate [ 84 From Monitor] Respiratory 20 Rate Respiratory 18 Rate [Anterior Bilateral Throughout] Blood Pressure 155/70 O2 Sat by Pulse 95 92 Oximetry 05/05/21 05/05/21 05/05/21 00:00 00:46 01:07 Temperature 98.2 F Pulse Rate 81 78 Pulse Rate [ 77 Anterior Bilateral Throughout] Pulse Rate [ From Monitor] Respiratory 20 Rate Respiratory 20 Rate [Anterior Bilateral Throughout] Blood Pressure 144/69 O2 Sat by Pulse 90 Oximetry 05/05/21 05/05/21 05/05/21 01:08 04:00 04:47 Temperature 97.8 F Pulse Rate 78 74 Pulse Rate [ Anterior Bilateral Throughout] Pulse Rate [ From Monitor] Respiratory 20 Rate Respiratory Rate [Anterior Bilateral Throughout] Blood Pressure 143/61 O2 Sat by Pulse 92 95 Oximetry 05/05/21 05:41 Temperature Pulse Rate 98 H Pulse Rate [ Anterior Bilateral Throughout] Pulse Rate [ From Monitor] Respiratory Rate Respiratory Rate [Anterior Bilateral Throughout] Blood Pressure 141/78 O2 Sat by Pulse Oximetry Constitutional: no acute distress, alert (but very drowsy) Eyes: non-icteric ENT: other (orally intubated) Neck: supple Effort: normal Ascultation: Bilateral: diminished breath sounds, rales Percussion: Bilateral: not dull Cardiovascular: regular rate and rhythm Gastrointestinal: normoactive bowel sounds, soft Extremities: no edema CBC and BMP: 05/04/21 04:25 05/04/21 04:25 ABG, PT/INR, D-dimer: ABG ABG pH 7.254 (7.320-7.450) L 05/01/21 10:11 POC ABG pCO2 47.1 mmHg (32.0-48.0) 05/01/21 10:11 POC ABG pO2 54.7 mmHg (83-108) L 05/01/21 10:11 POC ABG HCO3 20.4 05/01/21 10:11 ABG O2 Saturation 84.6 (0-100) 05/01/21 10:11 Abnormal lab findings: Abnormal Labs 04/29/21 04/29/21 04/29/21 11:00 11:00 18:25 WBC RBC 2.80 L Hgb 8.5 L Hct 25.5 L RDW 19.5 H Plt Count Seg Neuts % (Manual) Lymphocytes % (Manual) Seg Neutrophils # Man Lymphocytes # (Manual) ABG pH POC ABG pCO2 POC ABG pO2 ABG Hemoglobin ABG Oxyhemoglobin ABG Potassium ABG Chloride ABG Glucose Carboxyhemoglobin Sodium Carbon Dioxide BUN 81 H Creatinine 8.5 H Glucose POC Glucose 109 H Hemoglobin A1c Calcium Albumin Arterial Blood Glucose Arterial Blood Ionized Calcium 04/29/21 04/30/21 04/30/21 23:20 00:22 00:53 WBC RBC Hgb Hct RDW Plt Count Seg Neuts % (Manual) Lymphocytes % (Manual) Seg Neutrophils # Man Lymphocytes # (Manual) ABG pH 7.047 L POC ABG pCO2 89.0 H POC ABG pO2 442.0 H ABG Hemoglobin 9.2 L ABG Oxyhemoglobin 98.3 H ABG Potassium 4.6 H ABG Chloride 109.0 H ABG Glucose 164 H Carboxyhemoglobin Sodium Carbon Dioxide BUN Creatinine Glucose POC Glucose 180 H 161 H Hemoglobin A1c Calcium Albumin Arterial Blood Glucose 164 H Arterial Blood Ionized Calcium 4.3 L 04/30/21 04/30/21 04/30/21 03:29 04:23 04:23 WBC 15.0 H RBC 3.09 L Hgb 8.9 L Hct 27.9 L RDW 19.2 H Plt Count Seg Neuts % (Manual) 96.0 H Lymphocytes % (Manual) 3.0 L Seg Neutrophils # Man 14.4 H Lymphocytes # (Manual) 0.5 L ABG pH 7.256 L POC ABG pCO2 49.4 H POC ABG pO2 58.6 L ABG Hemoglobin 8.6 L ABG Oxyhemoglobin 93.0 L ABG Potassium ABG Chloride 109.0 H ABG Glucose 122 H Carboxyhemoglobin Sodium Carbon Dioxide 20 L BUN 90 H Creatinine 9.5 H Glucose 145 H POC Glucose Hemoglobin A1c Calcium 8.0 L Albumin 3.6 L Arterial Blood Glucose 122 H Arterial Blood Ionized Calcium 4.1 L 04/30/21 04/30/21 04/30/21 04:23 11:26 17:20 WBC RBC Hgb Hct RDW Plt Count Seg Neuts % (Manual) Lymphocytes % (Manual) Seg Neutrophils # Man Lymphocytes # (Manual) ABG pH POC ABG pCO2 POC ABG pO2 ABG Hemoglobin ABG Oxyhemoglobin ABG Potassium ABG Chloride ABG Glucose Carboxyhemoglobin Sodium Carbon Dioxide BUN Creatinine Glucose POC Glucose 52 L 127 H Hemoglobin A1c < 4.0 L Calcium Albumin Arterial Blood Glucose Arterial Blood Ionized Calcium 05/01/21 05/01/21 05/01/21 04:44 04:44 10:11 WBC RBC 2.55 L Hgb 7.7 L Hct 23.2 L RDW 19.4 H Plt Count Seg Neuts % (Manual) Lymphocytes % (Manual) Seg Neutrophils # Man Lymphocytes # (Manual) ABG pH 7.254 L POC ABG pCO2 POC ABG pO2 54.7 L ABG Hemoglobin 7.5 L ABG Oxyhemoglobin 82.9 L ABG Potassium ABG Chloride 108.0 H ABG Glucose 122 H Carboxyhemoglobin 1.7 H Sodium 146 H Carbon Dioxide BUN 93 H Creatinine 10.0 H Glucose POC Glucose Hemoglobin A1c Calcium 8.3 L Albumin Arterial Blood Glucose 122 H Arterial Blood Ionized Calcium 4.1 L 05/01/21 05/02/21 05/02/21 18:00 13:17 14:55 WBC RBC Hgb Hct RDW Plt Count Seg Neuts % (Manual) Lymphocytes % (Manual) Seg Neutrophils # Man Lymphocytes # (Manual) ABG pH POC ABG pCO2 POC ABG pO2 ABG Hemoglobin ABG Oxyhemoglobin ABG Potassium ABG Chloride ABG Glucose Carboxyhemoglobin Sodium Carbon Dioxide 19 L BUN 99 H Creatinine 11.2 H Glucose POC Glucose 125 H 120 H Hemoglobin A1c Calcium 7.8 L Albumin Arterial Blood Glucose Arterial Blood Ionized Calcium 05/02/21 05/03/21 05/03/21 14:55 04:28 04:28 WBC RBC 2.46 L 2.43 L Hgb 7.4 L 7.3 L Hct 22.2 L 22.2 L RDW 19.1 H 19.6 H Plt Count 133 L 133 L Seg Neuts % (Manual) Lymphocytes % (Manual) Seg Neutrophils # Man Lymphocytes # (Manual) ABG pH POC ABG pCO2 POC ABG pO2 ABG Hemoglobin ABG Oxyhemoglobin ABG Potassium ABG Chloride ABG Glucose Carboxyhemoglobin Sodium 146 H Carbon Dioxide 20 L BUN 107 H Creatinine 12.1 H Glucose POC Glucose Hemoglobin A1c Calcium 7.9 L Albumin Arterial Blood Glucose Arterial Blood Ionized Calcium 05/04/21 05/04/21 04:25 04:25 WBC RBC 2.60 L Hgb 7.9 L Hct 23.4 L RDW 19.3 H Plt Count 138 L Seg Neuts % (Manual) Lymphocytes % (Manual) Seg Neutrophils # Man Lymphocytes # (Manual) ABG pH POC ABG pCO2 POC ABG pO2 ABG Hemoglobin ABG Oxyhemoglobin ABG Potassium ABG Chloride ABG Glucose Carboxyhemoglobin Sodium Carbon Dioxide 17 L BUN 108 H Creatinine 12.7 H Glucose POC Glucose Hemoglobin A1c Calcium Albumin Arterial Blood Glucose Arterial Blood Ionized Calcium
[2021-05-05] MEDS: oxyCODONE /ACETAMINOPHEN 5-325MG TAB PO PRN ×2 (08:54→17:14)
[2021-05-05] MEDS: SENNOSIDES/DOCUSATE SODIUM 8.6/50 MG TAB FEEDTUBE SCH ×2 (09:22→21:50)
[2021-05-05] MEDS: CALCITRIOL 0.25 MCG CAP PO SCH (09:22)
[2021-05-05] MEDS: HEPARIN 5,000 UNIT/1 ML VIAL SUB-Q SCH ×2 (09:22→21:52)
[2021-05-05] MEDS: FAMOTIDINE 20 MG TAB PO SCH (09:22)
[2021-05-05] MEDS: NIFEdipine XL 60 MG TAB PO SCH ×2 (09:22→21:52)
--- NOTE | 2021-05-05 11:16 | Progress Note ---
Assessment and Plan - Patient Problems (1) Chronic kidney disease, stage V Current Visit: Yes Plan to address problem: Suspect baseline chronic kidney disease presumably secondary to diabetic kidney disease versus hypertensive nephrosclerosis. Kidney function is stable. Unfort unately, patient's renal indices significantly worse with >BUN 100 with volume overload with mild dyspnea at rest and so Hemodialysis initiated for solute clearance of fluid removal on 05/04. We will arrange outpatient dialysis at [facility]. Discussed permacath care with patient and her son at the bedside. Need to avoid tunneled dialysis catheter infections which could be potentially life-threatening or disabling. She will start exercising her arm once pain and swelling resolves from the AV fistula placement. Hopefully patient should be ready for discharge by Monday (2) Volume overload Current Visit: Yes Status: Acute Plan to address problem: Continue IV Lasix. Tolerating hemodialysis so far. Attempt 1.5 L ultrafiltration. (3) S/P arteriovenous (AV) fistula creation Current Visit: Yes Status: Acute Plan to address problem: Good thrill and bruit over AV fistula. Continue monitoring (4) Benign hypertension with chronic kidney disease, stage V Current Visit: Yes Status: Acute Plan to address problem: Follow-up blood pressure on current medications. (5) Type 2 diabetes mellitus with diabetic nephropathy Current Visit: Yes Status: Acute Plan to address problem: Blood sugar management by primary attending Subjective Date of service: 05/05/21 Principal diagnosis: End-stage renal disease Interval history: Patient seen sitting up in bed. She has no complaints. Son at the bedside. She tolerated dialysis yesterday. Feels much better today. Sounds and looks better also. Objective - Exam Narrative Exam: Middle-aged -Finnish female lying in bed in no acute distress HEENT: NCAT, Neck: Supple, no venous distention CVS: S1S2 RRR with no murmur, rub or gallop Chest: Faint rhonchi with diminished breath sounds and rales in lower zones bilaterally Abdomen: Protuberant, soft, nontender, no organomegaly, bowel sounds are present Extremities: Mild edema Genitourinary deferred Skin warm and dry Neuro: Awake, alert no focal deficits - Vital Signs Vital signs: Vital Signs - 12hr 05/05/21 05/05/21 05/05/21 00:00 00:46 01:07 Temperature 98.2 F Pulse Rate 81 78 Pulse Rate [ 77 Anterior Bilateral Throughout] Respiratory 20 Rate Respiratory 20 Rate [Anterior Bilateral Throughout] Blood Pressure 144/69 O2 Sat by Pulse 90 Oximetry 05/05/21 05/05/21 05/05/21 01:08 04:00 04:47 Temperature 97.8 F Pulse Rate 78 74 Pulse Rate [ Anterior Bilateral Throughout] Respiratory 20 Rate Respiratory Rate [Anterior Bilateral Throughout] Blood Pressure 143/61 O2 Sat by Pulse 92 95 Oximetry 05/05/21 05/05/21 05/05/21 05:41 07:22 08:18 Temperature 98.2 F Pulse Rate 98 H 74 Pulse Rate [ 80 Anterior Bilateral Throughout] Respiratory 16 Rate Respiratory 20 Rate [Anterior Bilateral Throughout] Blood Pressure 141/78 152/74 O2 Sat by Pulse 94 97 Oximetry - Lab 05/04/21 04:25 05/04/21 04:25 Most recent lab results ABG pH 7.254 (7.320-7.450) L 05/01/21 10:11 ABG O2 Saturation 84.6 (0-100) 05/01/21 10:11 Calcium 8.5 mg/dL (8.4-10.2) 05/04/21 04:25 Medications & Allergies - Medications Allergies/Adverse Reactions: Allergies No Known Allergies Allergy (Verified 04/26/21 11:49) Home Medications: Home Medications Medication Instructions Recorded Confirmed Last Taken Type ALPRAZolam [Xanax TAB] 1 mg PO PRN PRN 04/26/21 04/26/21 Unknown History Amlodipine Besylate [Norvasc] 10 mg PO DAILY 04/26/21 04/29/21 04/29/21 09:00 History Hydralazine HCl 50 mg PO TID 04/26/21 04/29/21 04/29/21 09:00 History Nebivolol HCl [Bystolic] 20 mg PO DAILY 04/26/21 04/29/21 04/29/21 09:00 History Torsemide [Demadex] 100 mg PO QDAY 04/26/21 04/29/21 04/28/21 09:00 History Zolpidem (Nf) [Ambien (Nf)] 10 mg PO QHS 04/26/21 04/29/21 04/27/21 20:00 History allopurinoL [Zyloprim] 100 mg PO QDAY 04/26/21 04/29/21 04/28/21 09:00 History calcitrioL [Rocaltrol] 0.25 mcg PO DAILY 04/26/21 04/29/21 04/26/21 09:00 History oxyCODONE /ACETAMINOPHEN [Percocet 1 tab PO Q6HR PRN #20 tablet 04/29/21 Unknown Rx 5/325 mg] Active Medications: Generic Name Dose Route Start Last Admin Trade Name Freq PRN Reason Stop Dose Admin Acetaminophen 650 mg 04/29/21 19:12 05/01/21 07:37 Acetaminophen 325 Mg Tab PO 650 mg Q4H PRN Administration Pain MILD(1-3)/Fever >100.5/KLEIN Albuterol 2.5 mg 05/02/21 20:00 05/05/21 08:18 Albuterol 2.5 Mg/3 Ml Nebu IH 2.5 mg Q6HRT LYLA Administration Calcitriol 0.25 mcg 04/30/21 10:00 05/05/21 09:22 Calcitriol 0.25 Mcg Cap PO 0.25 mcg DAILY LYLA Administration Famotidine 20 mg 05/04/21 10:00 05/05/21 09:22 Famotidine 20 Mg Tab PO 20 mg DAILY LYLA Administration Furosemide 80 mg 05/02/21 18:00 05/05/21 05:41 Furosemide 40 Mg/4 Ml Inj IV 80 mg 0600,1800 LYLA Administration Heparin Sodium (Porcine) 5,000 unit 04/30/21 10:00 05/05/21 09:22 Heparin 5,000 Unit/1 Ml Vial SUB-Q 5,000 unit Q12HR LYLA Administration Heparin Sodium (Porcine) 5,000 unit 05/03/21 10:00 Heparin 10,000 Unit/1 Ml Vial IV CARLTON PRN hemodialysis Hydralazine HCl 50 mg 05/04/21 14:00 05/05/21 05:41 Hydralazine 25 Mg Tab PO 50 mg Q8HR LYLA Administration Hydralazine HCl 20 mg 05/04/21 14:56 Hydralazine 20 Mg/1 Ml Inj IV Q6HR PRN Hypertension Hydrophilic Ointment 1 applic 04/30/21 00:53 Lip Therapy Vaseline TP Q2HR PRN Dry Lips Sodium Chloride 100 mls @ 999 mls/hr 05/03/21 09:30 Nacl 0.9% IV CARLTON PRN Hypotension Naloxone HCl 0.1 mg 04/29/21 23:55 Naloxone 0.4 Mg/1 Ml Inj IV Q2MIN PRN Res Rate </= 8 or 02 SAT < 92% Nifedipine 60 mg 05/04/21 15:15 05/05/21 09:22 Nifedipine Xl 60 Mg Tab PO 60 mg Q12HR LYLA Administration Ondansetron HCl 4 mg 04/29/21 19:12 Ondansetron 4 Mg/2 Ml Inj IV Q8H PRN Nausea And Vomiting Oxycodone/Acetaminophen 1 tab 04/29/21 19:12 05/05/21 08:54 Oxycodone /Acetaminophen 5-325mg Tab PO 1 tab Q6H PRN Administration Pain, Moderate (4-6) Senna/Docusate Sodium 1 tab 04/30/21 10:00 05/05/21 09:22 Sennosides/Docusate Sodium 8.6/50 Mg Tab FEEDTUBE 1 tab BID LYLA Administration Sodium Chloride 10 ml 04/29/21 22:00 05/05/21 09:25 Sodium Chloride 0.9% 10 Ml Flush Syringe IV 10 ml BID LYLA Administration Sodium Chloride 10 ml 04/29/21 19:12 04/30/21 19:40 Sodium Chloride 0.9% 10 Ml Flush Syringe IV 10 ml PRN PRN Administration LINE FLUSH
[2021-05-05] MEDS: FUROSEMIDE 40 MG TAB PO SCH (17:14)
[2021-05-06] MEDS: ALBUTEROL 2.5 MG/3 ML NEBU IH SCH ×4 (02:00→20:06)
[2021-05-06] MEDS ORDERED: ALBUTEROL 2.5 MG/3 ML NEBU IH PRN (04:58)
[2021-05-06] MEDS: hydrALAZINE 25 MG TAB PO SCH ×3 (05:54→22:45)
[2021-05-06] MEDS: FUROSEMIDE 40 MG TAB PO SCH ×2 (05:54→17:45)
[2021-05-06 06:10] LABS: Hematocrit 20.7 % (30.3-42.9); Hemoglobin 6.8 gm/dl (10.1-14.3); Mean Corpuscular HGB Conc 33 % (30-34); Mean Corpuscular Volume 88 fl (79-97); Platelet Count 134 K/mm3 (140-440); Red Blood Count 2.34 M/mm3 (3.65-5.03); Red Cell Distribution Width 18.7 % (13.2-15.2)
[2021-05-06 06:30] LABS: Calcium 8.4 mg/dL (8.4-10.2)
--- NOTE | 2021-05-06 08:18 | XRay Report ---
CHEST 1 VIEW INDICATION: volume overload. COMPARISON: 05/01/2021 FINDINGS: Support devices: A right IJ venous catheter has been inserted which terminates at the cavoatrial junc tion. Heart: Stable cardiomegaly. Lungs/Pleura: Mild pulmonary venous congestion and small right pleural effusion are identified. No co nvincing infiltrate. No pneumothorax. Additional findings: None. IMPRESSION: Mild CHF/volume overload. These findings appear slightly worse when comparing to 05/01/2021. Signer Name: Alex Wakefield Jr, MD Signed: 05/06/2021 8:14 AM Workstation Name: [id number]
--- NOTE | 2021-05-06 08:49 | Progress Note ---
Assessment and Plan - Patient Problems (1) Chronic kidney disease, stage V Current Visit: Yes Plan to address problem: Suspect baseline chronic kidney disease presumably secondary to diabetic kidney disease versus hypertensive nephrosclerosis. Kidney function is stable. Unfort unately, patient's renal indices significantly worse with >BUN 100 with volume overload with mild dyspnea at rest and so Hemodialysis initiated for solute clearance of fluid removal on 05/04. We will arrange outpatient dialysis at [facility]. Discussed permacath care with patient and her son at the bedside. Need to avoid tunneled dialysis catheter infections which could be potentially life-threatening or disabling. She will start exercising her arm once pain and swelling resolves from the AV fistula placement. Hopefully patient should be ready for discharge by Monday (2) Volume overload Current Visit: Yes Status: Acute Plan to address problem: Change to p.o. Lasix. Tolerating hemodialysis treatments so far. Attempt 1.5 L ultrafiltration again today. (3) S/P arteriovenous (AV) fistula creation Current Visit: Yes Status: Acute Plan to address problem: Good thrill and bruit over AV fistula. Continue monitoring (4) Benign hypertension with chronic kidney disease, stage V Current Visit: Yes Status: Acute Plan to address problem: Follow-up blood pressure on current medications. (5) Type 2 diabetes mellitus with diabetic nephropathy Current Visit: Yes Status: Acute Plan to address problem: Blood sugar management by primary attending Subjective Date of service: 05/07/21 Principal diagnosis: End-stage renal disease Interval history: Patient seen sitting up in bed. She has no complaints.She tolerated dialysis yesterday. Feels much better today. Objective - Exam Narrative Exam: Middle-aged -Gren[place] female lying in bed in no acute distress HEENT: NCAT, Neck: Supple, no venous distention CVS: S1S2 RRR with no murmur, rub or gallop Chest: Faint rhonchi with diminished breath sounds and rales in lower zones bilaterally Abdomen: Protuberant, soft, nontender, no organomegaly, bowel sounds are present Extremities: Mild edema Genitourinary deferred Skin warm and dry Neuro: Awake, alert no focal deficits - Vital Signs Vital signs: Vital Signs - 12hr 05/05/21 05/05/21 05/06/21 22:37 23:45 02:00 Temperature 98.3 F Pulse Rate 82 Pulse Rate [ 86 Anterior Bilateral Throughout] Respiratory 18 18 Rate Respiratory 20 Rate [Anterior Bilateral Throughout] Blood Pressure 140/63 O2 Sat by Pulse 94 Oximetry 05/06/21 05/06/21 05/06/21 04:13 04:56 08:22 Temperature 98.6 F 98.4 F Pulse Rate 82 83 Pulse Rate [ Anterior Bilateral Throughout] Respiratory 18 20 Rate Respiratory Rate [Anterior Bilateral Throughout] Blood Pressure 135/55 137/70 O2 Sat by Pulse 95 97 100 Oximetry - Lab 05/07/21 10:39 05/06/21 04:58 Most recent lab results ABG pH 7.254 (7.320-7.450) L 05/01/21 10:11 ABG O2 Saturation 84.6 (0-100) 05/01/21 10:11 Calcium 8.4 mg/dL (8.4-10.2) 05/06/21 04:58 Medications & Allergies - Medications Allergies/Adverse Reactions: Allergies No Known Allergies Allergy (Verified 04/26/21 11:49) Home Medications: Home Medications Medication Instructions Recorded Confirmed Last Taken Type Hydralazine HCl 50 mg PO TID 04/26/21 04/29/21 04/29/21 09:00 History Nebivolol HCl [Bystolic] 20 mg PO DAILY 04/26/21 04/29/21 04/29/21 09:00 History Torsemide [Demadex] 100 mg PO QDAY 04/26/21 04/29/21 04/28/21 09:00 History Zolpidem (Nf) [Ambien (Nf)] 10 mg PO QHS 04/26/21 04/29/21 04/27/21 20:00 History calcitrioL [Rocaltrol] 0.25 mcg PO DAILY 04/26/21 04/29/21 04/26/21 09:00 History oxyCODONE /ACETAMINOPHEN [Percocet 1 tab PO Q6HR PRN #20 tablet 04/29/21 Unknown Rx 5/325 mg] ALPRAZolam [Xanax TAB] 1 mg PO PRN PRN #10 05/07/21 Unknown Rx Epoetin Osmani-Epbx 20,000 [Retacrit] 20,000 unit IV CARLTON PRN vial 05/07/21 Unknown Rx Famotidine [Pepcid] 20 mg PO DAILY tablet 05/07/21 Unknown Rx Furosemide [Lasix TAB] 80 mg PO 0600,1800 #60 tablet 05/07/21 Unknown Rx NIFEdipine XL [Procardia Xl] 60 mg PO Q12HR #60 tablet 05/07/21 Unknown Rx allopurinoL [Zyloprim] 100 mg PO QDAY #30 05/07/21 Unknown Rx hydrALAZINE [Apresoline TAB] 50 mg PO Q8HR #90 tablet 05/07/21 Unknown Rx Active Medications: Generic Name Dose Route Start Last Admin Trade Name Freq PRN Reason Stop Dose Admin Acetaminophen 650 mg 04/29/21 19:12 05/01/21 07:37 Acetaminophen 325 Mg Tab PO 650 mg Q4H PRN Administration Pain MILD(1-3)/Fever >100.5/KLEIN Albuterol 2.5 mg 05/06/21 08:00 05/06/21 08:46 Albuterol 2.5 Mg/3 Ml Nebu IH 2.5 mg TIDRT LYLA Administration Albuterol 2.5 mg 05/06/21 04:58 Albuterol 2.5 Mg/3 Ml Nebu IH 05/06/21 23:59 PREOP PRN Shortness Of Breath Calcitriol 0.25 mcg 04/30/21 10:00 05/05/21 09:22 Calcitriol 0.25 Mcg Cap PO 0.25 mcg DAILY LYLA Administration Famotidine 20 mg 05/04/21 10:00 05/05/21 09:22 Famotidine 20 Mg Tab PO 20 mg DAILY LYLA Administration Furosemide 80 mg 05/05/21 18:00 05/06/21 05:54 Furosemide 40 Mg Tab PO 80 mg 0600,1800 LYLA Administration Heparin Sodium (Porcine) 5,000 unit 04/30/21 10:00 05/05/21 21:52 Heparin 5,000 Unit/1 Ml Vial SUB-Q 5,000 unit Q12HR LYLA Administration Heparin Sodium (Porcine) 5,000 unit 05/03/21 10:00 Heparin 10,000 Unit/1 Ml Vial IV CARLTON PRN hemodialysis Hydralazine HCl 50 mg 05/04/21 14:00 05/06/21 05:54 Hydralazine 25 Mg Tab PO 50 mg Q8HR LYLA Administration Hydralazine HCl 20 mg 05/04/21 14:56 Hydralazine 20 Mg/1 Ml Inj IV Q6HR PRN Hypertension Hydrophilic Ointment 1 applic 04/30/21 00:53 Lip Therapy Vaseline TP Q2HR PRN Dry Lips Sodium Chloride 100 mls @ 999 mls/hr 05/03/21 09:30 Nacl 0.9% IV CARLTON PRN Hypotension Naloxone HCl 0.1 mg 04/29/21 23:55 Naloxone 0.4 Mg/1 Ml Inj IV Q2MIN PRN Res Rate </= 8 or 02 SAT < 92% Nifedipine 60 mg 05/04/21 15:15 05/05/21 21:52 Nifedipine Xl 60 Mg Tab PO 60 mg Q12HR LYLA Administration Ondansetron HCl 4 mg 04/29/21 19:12 Ondansetron 4 Mg/2 Ml Inj IV Q8H PRN Nausea And Vomiting Oxycodone/Acetaminophen 1 tab 04/29/21 19:12 05/05/21 17:14 Oxycodone /Acetaminophen 5-325mg Tab PO 1 tab Q6H PRN Administration Pain, Moderate (4-6) Senna/Docusate Sodium 1 tab 04/30/21 10:00 05/05/21 21:50 Sennosides/Docusate Sodium 8.6/50 Mg Tab FEEDTUBE 1 tab BID LYLA Administration Sodium Chloride 10 ml 04/29/21 22:00 05/05/21 21:52 Sodium Chloride 0.9% 10 Ml Flush Syringe IV 10 ml BID LYLA Administration Sodium Chloride 10 ml 04/29/21 19:12 04/30/21 19:40 Sodium Chloride 0.9% 10 Ml Flush Syringe IV 10 ml PRN PRN Administration LINE FLUSH
[2021-05-06] MEDS: FAMOTIDINE 20 MG TAB PO SCH (09:07)
[2021-05-06] MEDS: SENNOSIDES/DOCUSATE SODIUM 8.6/50 MG TAB FEEDTUBE SCH ×2 (09:08→22:50)
[2021-05-06] MEDS: HEPARIN 5,000 UNIT/1 ML VIAL SUB-Q SCH ×2 (09:08→22:45)
[2021-05-06] MEDS: NIFEdipine XL 60 MG TAB PO SCH ×2 (09:08→22:45)
[2021-05-06] MEDS: CALCITRIOL 0.25 MCG CAP PO SCH (09:08)
--- NOTE | 2021-05-06 09:49 | Progress Note ---
Assessment and Plan 61 y/o female with ESRD now progressing to requiring HD, admitted with hypercapnic respiratory failure, possibly iatrogenic from surgery meds. 05/06/21: HD may help with oxygen requirement but would suggest walk test prior to discharge anyway, even if able to wean off. Wean for sats >88%. Will continue to follow. 05/05/21: Wean FiO2 as tolerated. Follow up any new renal recs. Patient will need walk test prior to discharge to assess oxygen needs, if any. 05/04/21: continue to wean FiO2 as tolerated. Patient will need walk test prior to discharge. Pulm status improving. Will continue to follow. 05/03/21: Continue to wean FiO2 as tolerated. HD per renal if and when needed. Vascular would place vascath now that patient is out of ICU. Will continue to follow. 05/02/21: Continue TID Midodrine. Lasix therapy per renal. Wean FiO2 for sats>88%. No objection to transfer out of unit. 05/01/21: Will start on Midodrine 10 TID today. Wean Levophed to OFF. Patient wants to sit in chair and have no objections to this. CXR appears to be more consistent with pulmonary edema. Would continue lasix therapy despite need for vasopressor at this time. Will order Incentive spirometry to bedside. Continue ICU monitoring until BP stablizes. 1. Renal-no HD today per nephro, will try high dose IV lasix BID. Ramos for s trict I/O 2. 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 Not quite ready for extubation yet based on mental state but is tolerating PSV well. Repeat ABG and CXR in am. 3. GI-hold on feeds for possible extubation tomorrow. Feed tomorrow if not extubated. 4. SCD's and H2 patricia Will continue to follow CCT 31 minutes. Subjective Date of service: 05/06/21 Principal diagnosis: End-stage renal disease Interval history: Stable on 3 liters. Had first HD session on yesterday. Numbers better today. Objective Vital Signs - 12hr 05/05/21 05/05/21 05/06/21 22:37 23:45 02:00 Temperature 98.3 F Pulse Rate 82 Pulse Rate [ 86 Anterior Bilateral Throughout] Respiratory 18 18 Rate Respiratory 20 Rate [Anterior Bilateral Throughout] Blood Pressure 140/63 O2 Sat by Pulse 94 Oximetry 05/06/21 05/06/21 05/06/21 04:13 04:56 08:22 Temperature 98.6 F 98.4 F Pulse Rate 82 83 Pulse Rate [ Anterior Bilateral Throughout] Respiratory 18 20 Rate Respiratory Rate [Anterior Bilateral Throughout] Blood Pressure 135/55 137/70 O2 Sat by Pulse 95 97 100 Oximetry Constitutional: no acute distress, alert (but very drowsy) Eyes: non-icteric ENT: other (orally intubated) Neck: supple Effort: normal Ascultation: Bilateral: diminished breath sounds, rales Percussion: Bilateral: not dull Cardiovascular: regular rate and rhythm Gastrointestinal: normoactive bowel sounds, soft Extremities: no edema CBC and BMP: 05/06/21 04:58 05/06/21 04:58 ABG, PT/INR, D-dimer: ABG ABG pH 7.254 (7.320-7.450) L 05/01/21 10:11 POC ABG pCO2 47.1 mmHg (32.0-48.0) 05/01/21 10:11 POC ABG pO2 54.7 mmHg (83-108) L 05/01/21 10:11 POC ABG HCO3 20.4 05/01/21 10:11 ABG O2 Saturation 84.6 (0-100) 05/01/21 10:11 Abnormal lab findings: Abnormal Labs 04/29/21 04/29/21 04/29/21 11:00 11:00 18:25 WBC RBC 2.80 L Hgb 8.5 L Hct 25.5 L RDW 19.5 H Plt Count Seg Neuts % (Manual) Lymphocytes % (Manual) Seg Neutrophils # Man Lymphocytes # (Manual) ABG pH POC ABG pCO2 POC ABG pO2 ABG Hemoglobin ABG Oxyhemoglobin ABG Potassium ABG Chloride ABG Glucose Carboxyhemoglobin Sodium Carbon Dioxide BUN 81 H Creatinine 8.5 H Glucose POC Glucose 109 H Hemoglobin A1c Calcium Albumin Arterial Blood Glucose Arterial Blood Ionized Calcium 04/29/21 04/30/21 04/30/21 23:20 00:22 00:53 WBC RBC Hgb Hct RDW Plt Count Seg Neuts % (Manual) Lymphocytes % (Manual) Seg Neutrophils # Man Lymphocytes # (Manual) ABG pH 7.047 L POC ABG pCO2 89.0 H POC ABG pO2 442.0 H ABG Hemoglobin 9.2 L ABG Oxyhemoglobin 98.3 H ABG Potassium 4.6 H ABG Chloride 109.0 H ABG Glucose 164 H Carboxyhemoglobin Sodium Carbon Dioxide BUN Creatinine Glucose POC Glucose 180 H 161 H Hemoglobin A1c Calcium Albumin Arterial Blood Glucose 164 H Arterial Blood Ionized Calcium 4.3 L 04/30/21 04/30/21 04/30/21 03:29 04:23 04:23 WBC 15.0 H RBC 3.09 L Hgb 8.9 L Hct 27.9 L RDW 19.2 H Plt Count Seg Neuts % (Manual) 96.0 H Lymphocytes % (Manual) 3.0 L Seg Neutrophils # Man 14.4 H Lymphocytes # (Manual) 0.5 L ABG pH 7.256 L POC ABG pCO2 49.4 H POC ABG pO2 58.6 L ABG Hemoglobin 8.6 L ABG Oxyhemoglobin 93.0 L ABG Potassium ABG Chloride 109.0 H ABG Glucose 122 H Carboxyhemoglobin Sodium Carbon Dioxide 20 L BUN 90 H Creatinine 9.5 H Glucose 145 H POC Glucose Hemoglobin A1c Calcium 8.0 L Albumin 3.6 L Arterial Blood Glucose 122 H Arterial Blood Ionized Calcium 4.1 L 04/30/21 04/30/21 04/30/21 04:23 11:26 17:20 WBC RBC Hgb Hct RDW Plt Count Seg Neuts % (Manual) Lymphocytes % (Manual) Seg Neutrophils # Man Lymphocytes # (Manual) ABG pH POC ABG pCO2 POC ABG pO2 ABG Hemoglobin ABG Oxyhemoglobin ABG Potassium ABG Chloride ABG Glucose Carboxyhemoglobin Sodium Carbon Dioxide BUN Creatinine Glucose POC Glucose 52 L 127 H Hemoglobin A1c < 4.0 L Calcium Albumin Arterial Blood Glucose Arterial Blood Ionized Calcium 05/01/21 05/01/21 05/01/21 04:44 04:44 10:11 WBC RBC 2.55 L Hgb 7.7 L Hct 23.2 L RDW 19.4 H Plt Count Seg Neuts % (Manual) Lymphocytes % (Manual) Seg Neutrophils # Man Lymphocytes # (Manual) ABG pH 7.254 L POC ABG pCO2 POC ABG pO2 54.7 L ABG Hemoglobin 7.5 L ABG Oxyhemoglobin 82.9 L ABG Potassium ABG Chloride 108.0 H ABG Glucose 122 H Carboxyhemoglobin 1.7 H Sodium 146 H Carbon Dioxide BUN 93 H Creatinine 10.0 H Glucose POC Glucose Hemoglobin A1c Calcium 8.3 L Albumin Arterial Blood Glucose 122 H Arterial Blood Ionized Calcium 4.1 L 05/01/21 05/02/21 05/02/21 18:00 13:17 14:55 WBC RBC Hgb Hct RDW Plt Count Seg Neuts % (Manual) Lymphocytes % (Manual) Seg Neutrophils # Man Lymphocytes # (Manual) ABG pH POC ABG pCO2 POC ABG pO2 ABG Hemoglobin ABG Oxyhemoglobin ABG Potassium ABG Chloride ABG Glucose Carboxyhemoglobin Sodium Carbon Dioxide 19 L BUN 99 H Creatinine 11.2 H Glucose POC Glucose 125 H 120 H Hemoglobin A1c Calcium 7.8 L Albumin Arterial Blood Glucose Arterial Blood Ionized Calcium 05/02/21 05/03/21 05/03/21 14:55 04:28 04:28 WBC RBC 2.46 L 2.43 L Hgb 7.4 L 7.3 L Hct 22.2 L 22.2 L RDW 19.1 H 19.6 H Plt Count 133 L 133 L Seg Neuts % (Manual) Lymphocytes % (Manual) Seg Neutrophils # Man Lymphocytes # (Manual) ABG pH POC ABG pCO2 POC ABG pO2 ABG Hemoglobin ABG Oxyhemoglobin ABG Potassium ABG Chloride ABG Glucose Carboxyhemoglobin Sodium 146 H Carbon Dioxide 20 L BUN 107 H Creatinine 12.1 H Glucose POC Glucose Hemoglobin A1c Calcium 7.9 L Albumin Arterial Blood Glucose Arterial Blood Ionized Calcium 05/04/21 05/04/21 05/06/21 04:25 04:25 04:58 WBC RBC 2.60 L 2.34 L Hgb 7.9 L 6.8 L Hct 23.4 L 20.7 L RDW 19.3 H 18.7 H Plt Count 138 L 134 L Seg Neuts % (Manual) Lymphocytes % (Manual) Seg Neutrophils # Man Lymphocytes # (Manual) ABG pH POC ABG pCO2 POC ABG pO2 ABG Hemoglobin ABG Oxyhemoglobin ABG Potassium ABG Chloride ABG Glucose Carboxyhemoglobin Sodium Carbon Dioxide 17 L BUN 108 H Creatinine 12.7 H Glucose POC Glucose Hemoglobin A1c Calcium Albumin Arterial Blood Glucose Arterial Blood Ionized Calcium 05/06/21 04:58 WBC RBC Hgb Hct RDW Plt Count Seg Neuts % (Manual) Lymphocytes % (Manual) Seg Neutrophils # Man Lymphocytes # (Manual) ABG pH POC ABG pCO2 POC ABG pO2 ABG Hemoglobin ABG Oxyhemoglobin ABG Potassium ABG Chloride ABG Glucose Carboxyhemoglobin Sodium Carbon Dioxide BUN 39 H Creatinine 6.1 H D Glucose POC Glucose Hemoglobin A1c Calcium Albumin Arterial Blood Glucose Arterial Blood Ionized Calcium
[2021-05-06] MEDS: ONDANSETRON 4 MG/2 ML INJ IV PRN ×2 (10:00→23:04)
--- NOTE | 2021-05-06 10:00 | Progress Note ---
Assessment and Plan Assessment and plan: ESRD Chronic hypotension. History of hypertension/accelerated hypertension Acute hypoxic respiratory failure Urinary retention. Anemia. Anxiety disorder 04/30: Overnight patient was noted to be bradycardic, hypotensive and have altered mental status and the patient was emergently intubated. Patient had a bladder scan with 500 cc of urine received after straight cath. Patient was started on dopamine however this is being actively weaned off. Patient is a CPAP trial. Patient extubated around 1300. Hypotension noted, restarted dopamine gtt at low dose then started on levophed gtt. 05/01: Overnight she remained on the levophed, per RN if weaned to 2mcg from 4 mcg then thrill/bruit was lost from AVF. This morning we started the pt on midodrine and weaned levo off. Ramos remains. CXR shows pulm edema 05/02: Overnight the patient was given Haldol with transient resultant hypotension which has resolved. BP has remained stable. Stable for transfer to the floor. 05/03/2021: Patient seen this morning, signs somewhat fluid overloaded in her lungs without cough. She continues on diuresis, does not want to get a permacath but I spoke to her that it is probably the best thing for her at this time. Urine output is intermittently low. Patient has high risk for being readmitted to the hospital for fluid overload without starting dialysis. 05/04. Patient is s/p right IJ PermCath insertion today. Patient still requiring high flow nasal cannula of 5 L/min and satting 97%. Continue to wean FiO2 as tolerated. Patient will need walk test prior to discharge. With regards to kidney function, nephrology suspects baseline chronic kidney disease, stage V presumably secondary to diabetic kidney disease versus hypertensive nephrosclerosis. We will arrange outpatient dialysis at [facility]. Case management consultation for outpatient hemodialysis. Patient appears to be actually hypertensive this morning after undergoing procedure of Vas-Cath placement. Patient noted to be hypertensive in hemodialysis. We will resume her home medication of hydralazine 50 mg every 8 hours. Also, add Procardia 60 mg twice daily. Discontinue midodrine 05/05. Patient is status post PermCath insertion and received hemodialysis yesterday without complications. Accelerated hypertension improved with initiation of antihypertensive of Procardia and hydralazine. Discontinued midodrine. Await arrangements by case management for outpatient hemodialysis. 05/06. Patient is to continue with daily hemodialysis per nephrology recommendations. Chest x-ray this a.m. reveals mild CHF/volume overload. Blood pressure has stabilized. Await for outpatient hemodialysis arrangements at [facility]. History Interval history: No new issues overnight. Hospitalist Physical - Constitutional Vitals: Temp Pulse Resp BP Pulse Ox 98.4 F 83 20 137/70 100 05/06/21 08:22 05/06/21 08:22 05/06/21 08:22 05/06/21 08:22 05/06/21 08:22 General appearance: Present: no acute distress, well-nourished, obese - EENT Eyes: Present: PERRL, EOM intact ENT: hearing intact, clear oral mucosa, dentition normal - Neck Neck: Present: supple, normal ROM - Respiratory Respiratory effort: normal Respiratory: bilateral: CTA - Cardiovascular Rhythm: regular Heart Sounds: Present: S1 & S2. Absent: gallop, rub - Extremities Extremities: no ischemia, No edema, Full ROM - Abdominal General gastrointestinal: soft, non-tender, non-distended, normal bowel sounds - Integumentary Integumentary: Present: clear, warm, dry - Neurologic Neurologic: CNII-XII intact, moves all extremities Results - Labs CBC & Chem 7: 05/06/21 04:58 05/06/21 04:58 Labs: Laboratory Last Values WBC 6.5 K/mm3 (4.5-11.0) 05/06/21 04:58 RBC 2.34 M/mm3 (3.65-5.03) L 05/06/21 04:58 Hgb 6.8 gm/dl (10.1-14.3) L 05/06/21 04:58 Hct 20.7 % (30.3-42.9) L 05/06/21 04:58 MCV 88 fl (79-97) 05/06/21 04:58 MCH 29 pg (28-32) 05/06/21 04:58 MCHC 33 % (30-34) 05/06/21 04:58 RDW 18.7 % (13.2-15.2) H 05/06/21 04:58 Plt Count 134 K/mm3 (140-440) L 05/06/21 04:58 Add Manual Diff Complete 04/30/21 04:23 Total Counted 100 04/30/21 04:23 Seg Neutrophils % Rad Tech 04/30/21 04:23 Seg Neuts % (Manual) 96.0 % (40.0-70.0) H 04/30/21 04:23 Lymphocytes % (Manual) 3.0 % (13.4-35.0) L 04/30/21 04:23 Monocytes % (Manual) 1.0 % (0.0-7.3) 04/30/21 04:23 Nucleated RBC % Not Reportable 04/30/21 04:23 Seg Neutrophils # Man 14.4 K/mm3 (1.8-7.7) H 04/30/21 04:23 Band Neutrophils # 0.0 K/mm3 04/30/21 04:23 Lymphocytes # (Manual) 0.5 K/mm3 (1.2-5.4) L 04/30/21 04:23 Abs React Lymphs (Man) 0.0 K/mm3 04/30/21 04:23 Monocytes # (Manual) 0.2 K/mm3 (0.0-0.8) 04/30/21 04:23 Eosinophils # (Manual) 0.0 K/mm3 (0.0-0.4) 04/30/21 04:23 Basophils # (Manual) 0.0 K/mm3 (0.0-0.1) 04/30/21 04:23 Metamyelocytes # 0.0 K/mm3 04/30/21 04:23 Myelocytes # 0.0 K/mm3 04/30/21 04:23 Promyelocytes # 0.0 K/mm3 04/30/21 04:23 Blast Cells # 0.0 K/mm3 04/30/21 04:23 WBC Morphology Not Reportable 04/30/21 04:23 Hypersegmented Neuts Not Reportable 04/30/21 04:23 Hyposegmented Neuts Not Reportable 04/30/21 04:23 Hypogranular Neuts Not Reportable 04/30/21 04:23 Smudge Cells Not Reportable 04/30/21 04:23 Toxic Granulation Not Reportable 04/30/21 04:23 Toxic Vacuolation Not Reportable 04/30/21 04:23 Dohle Bodies Not Reportable 04/30/21 04:23 Pelger-Huet Anomaly Not Reportable 04/30/21 04:23 Vik Rods Not Reportable 04/30/21 04:23 Platelet Estimate Consistent w auto 04/30/21 04:23 Clumped Platelets Not Reportable 04/30/21 04:23 Plt Clumps, EDTA Not Reportable 04/30/21 04:23 Large Platelets Not Reportable 04/30/21 04:23 Giant Platelets Not Reportable 04/30/21 04:23 Platelet Satelliting Not Reportable 04/30/21 04:23 Plt Morphology Comment Not Reportable 04/30/21 04:23 RBC Morphology Not Reportable 04/30/21 04:23 Dimorphic RBCs Not Reportable 04/30/21 04:23 Polychromasia Not Reportable 04/30/21 04:23 Hypochromasia 1+ 04/30/21 04:23 Poikilocytosis Not Reportable 04/30/21 04:23 Anisocytosis 1+ 04/30/21 04:23 Microcytosis Not Reportable 04/30/21 04:23 Macrocytosis Not Reportable 04/30/21 04:23 Spherocytes Not Reportable 04/30/21 04:23 Pappenheimer Bodies Not Reportable 04/30/21 04:23 Sickle Cells Not Reportable 04/30/21 04:23 Target Cells Not Reportable 04/30/21 04:23 Tear Drop Cells Not Reportable 04/30/21 04:23 Ovalocytes Not Reportable 04/30/21 04:23 Helmet Cells Not Reportable 04/30/21 04:23 [place] Bodies Not Reportable 04/30/21 04:23 [place] Rings Not Reportable 04/30/21 04:23 [place] Cells Not Reportable 04/30/21 04:23 Bite Cells Not Reportable 04/30/21 04:23 Crenated Cell Not Reportable 04/30/21 04:23 Elliptocytes Not Reportable 04/30/21 04:23 Acanthocytes (Spur) Not Reportable 04/30/21 04:23 Rouleaux Not Reportable 04/30/21 04:23 Hemoglobin C Crystals Not Reportable 04/30/21 04:23 Schistocytes Not Reportable 04/30/21 04:23 Malaria parasites Not Reportable 04/30/21 04:23 [place]mond Bodies Not Reportable 04/30/21 04:23 Hem Pathologist Commnt No 04/30/21 04:23 ABG pH 7.254 (7.320-7.450) L 05/01/21 10:11 POC ABG pCO2 47.1 mmHg (32.0-48.0) 05/01/21 10:11 POC ABG pO2 54.7 mmHg (83-108) L 05/01/21 10:11 POC ABG HCO3 20.4 05/01/21 10:11 ABG O2 Saturation 84.6 (0-100) 05/01/21 10:11 POC ABG Base Excess -6.4 05/01/21 10:11 ABG Hemoglobin 7.5 (12.0-17.5) L 05/01/21 10:11 ABG Oxyhemoglobin 82.9 (94-98) L 05/01/21 10:11 ABG Methemoglobin 0.3 (0.0-1.5) 05/01/21 10:11 ABG Sodium 138.2 mmol/L (136.0-145.0) 05/01/21 10:11 ABG Potassium 3.9 mmol/L (3.40-4.50) 05/01/21 10:11 ABG Chloride 108.0 mmol/L (98-107) H 05/01/21 10:11 ABG Glucose 122 mg/dL (65-95) H 05/01/21 10:11 Carboxyhemoglobin 1.7 (0.5-1.5) H 05/01/21 10:11 FiO2 % 32.0 05/01/21 10:11 Sodium 140 mmol/L (137-145) 05/06/21 04:58 Potassium 3.6 mmol/L (3.6-5.0) 05/06/21 04:58 Chloride 100.3 mmol/L (98-107) 05/06/21 04:58 Carbon Dioxide 24 mmol/L (22-30) D 05/06/21 04:58 Anion Gap 19 mmol/L 05/06/21 04:58 BUN 39 mg/dL (7-17) H 05/06/21 04:58 Creatinine 6.1 mg/dL (0.6-1.2) H D 05/06/21 04:58 Estimated GFR 9 ml/min 05/06/21 04:58 BUN/Creatinine Ratio 6 % 05/06/21 04:58 Glucose 81 mg/dL (65-100) 05/06/21 04:58 POC Glucose 105 mg/dL (70-105) 05/04/21 07:42 Hemoglobin A1c < 4.0 % (4-6) L 04/30/21 04:23 Calcium 8.4 mg/dL (8.4-10.2) 05/06/21 04:58 Total Bilirubin 0.30 mg/dL (0.1-1.2) 04/30/21 04:23 AST 30 units/L (5-40) 04/30/21 04:23 ALT 26 units/L (7-56) 04/30/21 04:23 Alkaline Phosphatase 122 units/L (35-129) 04/30/21 04:23 Total Protein 6.7 g/dL (6.3-8.2) 04/30/21 04:23 Albumin 3.6 g/dL (3.9-5) L 04/30/21 04:23 Albumin/Globulin Ratio 1.2 % 04/30/21 04:23 Arterial Blood Glucose 122 mg/dL (65-95) H 05/01/21 10:11 Arterial Blood Ionized Calcium 4.1 mg/dL (4.6-5.3) L 05/01/21 10:11 Coronavirus (PCR) Negative (Negative) 05/03/21 10:59 Hepatitis A IgM Ab Non-reactive (NonReactive) 05/03/21 13:41 Hep Bs Antigen Non-reactive (Negative) 05/03/21 13:41 Hep B Core IgM Ab Non-reactive (NonReactive) 05/03/21 13:41 Hepatitis C Antibody Non-reactive (NonReactive) 05/03/21 13:41 Ramos/IV: Voiding Method Indwelling Catheter Active Medications - Current Medications Current Medications: Generic Name Dose Route Start Last Admin Trade Name Freq PRN Reason Stop Dose Admin Acetaminophen 650 mg 04/29/21 19:12 05/01/21 07:37 Acetaminophen 325 Mg Tab PO 650 mg Q4H PRN Administration Pain MILD(1-3)/Fever >100.5/KLEIN Albuterol 2.5 mg 05/06/21 08:00 05/06/21 08:46 Albuterol 2.5 Mg/3 Ml Nebu IH 2.5 mg TIDRT LYLA Administration Albuterol 2.5 mg 05/06/21 04:58 Albuterol 2.5 Mg/3 Ml Nebu IH 05/06/21 23:59 PREOP PRN Shortness Of Breath Calcitriol 0.25 mcg 04/30/21 10:00 05/06/21 09:08 Calcitriol 0.25 Mcg Cap PO 0.25 mcg DAILY LYLA Administration Famotidine 20 mg 05/04/21 10:00 05/06/21 09:07 Famotidine 20 Mg Tab PO 20 mg DAILY LYLA Administration Furosemide 80 mg 05/05/21 18:00 05/06/21 05:54 Furosemide 40 Mg Tab PO 80 mg 0600,1800 LYLA Administration Heparin Sodium (Porcine) 5,000 unit 04/30/21 10:00 05/06/21 09:08 Heparin 5,000 Unit/1 Ml Vial SUB-Q 5,000 unit Q12HR LYLA Administration Heparin Sodium (Porcine) 5,000 unit 05/03/21 10:00 Heparin 10,000 Unit/1 Ml Vial IV CARLTON PRN hemodialysis Hydralazine HCl 50 mg 05/04/21 14:00 05/06/21 05:54 Hydralazine 25 Mg Tab PO 50 mg Q8HR LYLA Administration Hydralazine HCl 20 mg 05/04/21 14:56 Hydralazine 20 Mg/1 Ml Inj IV Q6HR PRN Hypertension Hydrophilic Ointment 1 applic 04/30/21 00:53 Lip Therapy Vaseline TP Q2HR PRN Dry Lips Sodium Chloride 100 mls @ 999 mls/hr 05/03/21 09:30 Nacl 0.9% IV CARLTON PRN Hypotension Naloxone HCl 0.1 mg 04/29/21 23:55 Naloxone 0.4 Mg/1 Ml Inj IV Q2MIN PRN Res Rate </= 8 or 02 SAT < 92% Nifedipine 60 mg 05/04/21 15:15 05/06/21 09:08 Nifedipine Xl 60 Mg Tab PO 60 mg Q12HR LYLA Administration Ondansetron HCl 4 mg 04/29/21 19:12 Ondansetron 4 Mg/2 Ml Inj IV Q8H PRN Nausea And Vomiting Oxycodone/Acetaminophen 1 tab 04/29/21 19:12 05/05/21 17:14 Oxycodone /Acetaminophen 5-325mg Tab PO 1 tab Q6H PRN Administration Pain, Moderate (4-6) Senna/Docusate Sodium 1 tab 04/30/21 10:00 05/06/21 09:08 Sennosides/Docusate Sodium 8.6/50 Mg Tab FEEDTUBE Not Given BID LYLA Sodium Chloride 10 ml 04/29/21 22:00 05/06/21 09:09 Sodium Chloride 0.9% 10 Ml Flush Syringe IV 10 ml BID LYLA Administration Sodium Chloride 10 ml 04/29/21 19:12 04/30/21 19:40 Sodium Chloride 0.9% 10 Ml Flush Syringe IV 10 ml PRN PRN Administration LINE FLUSH Nutrition/Malnutrition Assess - Dietary Evaluation Nutrition/Malnutrition Findings: Nutrition Notes Start: 04/30/21 07:58 Freq: Status: Active Protocol: Document 05/04/21 14:52 CARMEL (Rec: 05/04/21 15:00 CARMEL [id number]) Nutrition Notes Initial or Follow up Reassessment Current Diagnosis CKD (stage V CKD),Hypertension Current Diet Regular Labs/Tests BUN 108 Cr 12.7 Pertinent Medications Lasix Height 5 ft 6.5 in Weight 90.8 kg [place] Body Weight (kg) 60.22 BMI 31.8 Weight change and time frame Wt change likely r/t fluid overload Weight Status Obese Subjective/Other Information No PO intakes documented. Pt s/p procedure today and is groggy. Her sister is at bedside. Pt consumed 75% of lunch today (her sister fed her). Pt with fair appetite recently; does not eat a lot. Burn Absent Trauma Absent #2 Nutrition Diagnosis Inadequate oral intake As Evidenced by Signs and Symptoms pt tolerating PO Diagnosis Progress(for reassessment Improved documentation) Is patient on ventilator? No Is Patient Ambulatory and/or Out of Bed No REE-([facility]-confined to bed) 1813.800 Kcal/Kg value to use for calculation 14 Approximate Energy Requirements Using 1271 kcal/Kg Calculation Used for Recommendations Kcal/kg Additional Notes Pro needs >1.2g/kg adjBW: >91g /day Fluid needs 1-1.5L/day Nutrition Intervention Change Diet Order: Change to low sodium diet Goal #1 PO intake to meet at least 75% energy and pro needs Anticipated Discharge Needs: Low sodium diet Follow-Up By: 05/07/21 Additional Comments F/U: intakes
[2021-05-06] MEDS ORDERED: SODIUM CHLORIDE 0.9% 500 ML 500 ML IV SCH (12:00)
[2021-05-06] MEDS: EPOETIN ALFA-EPBX 20,000 UNIT/1 ML VIAL IV PRN (12:13)
[2021-05-06] MEDS: ACETAMINOPHEN 325 MG TAB PO PRN (18:13)
[2021-05-07] MEDS ORDERED: MELATONIN 5 MG TAB PO ONE (01:15)
[2021-05-07] MEDS: FUROSEMIDE 40 MG TAB PO SCH ×2 (06:11→18:43)
[2021-05-07] MEDS: hydrALAZINE 25 MG TAB PO SCH ×3 (06:11→21:33)
--- NOTE | 2021-05-07 07:42 | Discharge Summary ---
Providers - Providers Date of Admission: 04/29/21 19:50 Date of discharge: 05/07/21 Attending physician: XI KENYON 04/29/21 19:12 Consult to Physician [CONS] Routine Comment: Consulting Provider: SIVAKUMAR KEMP Physician Instructions: Reason For Exam: End-stage renal disease needing dialysis 04/30/21 00:07 Consult to Physician [CONS] Routine Comment: Consulting Provider: SB WATT Physician Instructions: Reason For Exam: Respiratory failure 04/30/21 00:53 Consult to Dietitian/Nutrition [CONS] Routine Physician Instructions: Reason For Exam: Reason for Consult: Evaluate nutritional intake 04/30/21 06:56 Consult to Physician [CONS] Routine Comment: Consulting Provider: FILOMENA MCDUFFIE Physician Instructions: Reason For Exam: S/p AV fistula and Vas-Cath insertion 05/03/21 10:17 Consult to Physician [CONS] Urgent Comment: Consulting Provider: FILOMENA MCDUFFIE Physician Instructions: Reason For Exam: Renal failure needs Permacath for dialysis 05/03/21 10:18 Consult to Case Management [CONS] Routine Services Needed at Discharge: Other Notified:: [place] Phone number called:: [phone] Was contact made?: Yes If yes, spoke with:: [phone] Comment:: Arrange outpatient dialysis at [facility] 05/05/21 10:15 Physical Therapy Evaluation and Treat [CONS] Routine Comment: Reason For Exam: deconditioning Primary care physician: JOSE STARKEY Hospitalization Reason for admission: vol overload Condition: Stable Hospital course: 61-year-old -[place] female with past medical history of chronic kidney disease stage V in the setting of hypertension, followed by Dr. Kemp (Nephrology), who initially presented for a planned right brachiocephalic AV fistula creation. Postoperative course unfortunately was complicated by worsening respiratory distress and concerns for possible aspiration and patient had to be intubated emergently. The patient was weaned with CPAP trials and eventually extubated. Chest x-ray postoperatively initially was concerning for fluid overload. She did have a bladder scan done with about 600 cc of urine n oted status post straight cath. The patient initially required low dose dopamine as pressor support. The patient was weaned off pressor support and later transferred to the floor. Hospital course: 04/30: Overnight patient was noted to be bradycardic, hypotensive and have altered mental status and the patient was emergently intubated. Patient had a bladder scan with 500 cc of urine received after straight cath. Patient was started on dopamine however this is being actively weaned off. Patient is a CPAP trial. Patient extubated around 1300. Hypotension noted, restarted dopamine gtt at low dose then started on levophed gtt. 05/01: Overnight she remained on the levophed, per RN if weaned to 2mcg from 4 mcg then thrill/bruit was lost from AVF. This morning we started the pt on midodrine and weaned levo off. Ramos remains. CXR shows pulm edema 05/02: Overnight the patient was given Haldol with transient resultant hypotension which has resolved. BP has remained stable. Stable for transfer to the floor. 05/03/2021: Patient seen this morning, signs somewhat fluid overloaded in her lungs without cough. She continues on diuresis, does not want to get a permacath but I spoke to her that it is probably the best thing for her at this time. Urine output is intermittently low. Patient has high risk for being readmitted to the hospital for fluid overload without starting dialysis. 05/04. Patient is s/p right IJ PermCath insertion today. Patient still requiring high flow nasal cannula of 5 L/min and satting 97%. Continue to wean FiO2 as tolerated. Patient will need walk test prior to discharge. With regards to kidney function, nephrology suspects baseline chronic kidney disease, stage V presumably secondary to diabetic kidney disease versus hypertensive nephrosclerosis. We will arrange outpatient dialysis at [facility]. Case management consultation for outpatient hemodialysis. Patient appears to be actually hypertensive this morning after undergoing procedure of Vas-Cath placement. Patient noted to be hypertensive in hemodialysis. We will resume her home medication of hydralazine 50 mg every 8 hours. Also, add Procardia 60 mg twice daily. Discontinue midodrine 05/05. Patient is status post PermCath insertion and received hemodialysis yesterday without complications. Accelerated hypertension improved with initiation of antihypertensive of Procardia and hydralazine. Discontinued midodrine. Await arrangements by case management for outpatient hemodialysis. 05/06. Patient is to continue with daily hemodialysis per nephrology recommendations. Chest x-ray this a.m. reveals mild CHF/volume overload. Blood pressure has stabilized. Await for outpatient hemodialysis arrangements at [facility] [place]. 05/07. The patient is to receive additional hemodialysis today and then will discharge with outpatient hemodialysis Monday. Dedicated discharge time 35 minutes. Disposition: DC-30 STILL A PATIENT Final Discharge Diagnosis (Prints w/discharge instructions): ESRD, accelerated hypertension, acute hypoxic respiratory failure, urinary retention, anemia, anxiety disorder Core Measure Documentation - Palliative Care Palliative Care/ Comfort Measures: Not Applicable - Core Measures Any of the following diagnoses?: none Exam - Constitutional Vitals: Temp Pulse Resp BP Pulse Ox 98.6 F 82 18 135/68 92 05/07/21 03:33 05/07/21 06:11 05/07/21 03:33 05/07/21 06:11 05/06/21 23:42 General appearance: Present: no acute distress, well-nourished - EENT Eyes: Present: PERRL ENT: hearing intact, clear oral mucosa - Neck Neck: Present: supple, normal ROM - Respiratory Respiratory effort: normal Respiratory: bilateral: CTA - Cardiovascular Heart Sounds: Present: S1 & S2. Absent: rub, click - Extremities Extremities: pulses symmetrical, No edema Peripheral Pulses: within normal limits - Abdominal General gastrointestinal: Present: soft, non-tender, non-distended, normal bowel sounds Female genitourinary: Present: normal - Integumentary Integumentary: Present: clear, warm, dry - Musculoskeletal Musculoskeletal: gait normal, strength equal bilaterally - Psychiatric Psychiatric: appropriate mood/affect, intact judgment & insight - Neurologic Neurologic: CNII-XII intact, moves all extremities Plan Activity: advance as tolerated Weight Bearing Status: Weight Bear as Tolerated Diet: renal Follow up with: SAV BARLOW MD [Staff Physician] - 7 Days JOSE STARKEY MD [Primary Care Provider] - 7 Days Forms: Outpatient Surgery DC Inst. Prescriptions: hydrALAZINE [Apresoline TAB] 50 mg PO Q8HR #90 tablet Furosemide [Lasix TAB] 80 mg PO 0600,1800 #60 tablet oxyCODONE /ACETAMINOPHEN [Percocet 5/325 mg] 1 tab PO Q6HR PRN #20 tablet PRN Reason: Pain, Moderate (4-6) NIFEdipine XL [Procardia Xl] 60 mg PO Q12HR #60 tablet ALPRAZolam [Xanax TAB] 1 mg PO PRN PRN #10 PRN Reason: Anxiety allopurinoL [Zyloprim] 100 mg PO QDAY #30
[2021-05-07] MEDS: ALBUTEROL 2.5 MG/3 ML NEBU IH SCH ×3 (08:58→20:04)
[2021-05-07] MEDS: CALCITRIOL 0.25 MCG CAP PO SCH (09:33)
[2021-05-07] MEDS: HEPARIN 5,000 UNIT/1 ML VIAL SUB-Q SCH ×2 (09:33→21:33)
[2021-05-07] MEDS: NIFEdipine XL 60 MG TAB PO SCH ×2 (09:33→21:33)
[2021-05-07] MEDS: FAMOTIDINE 20 MG TAB PO SCH (09:33)
[2021-05-07] MEDS: SENNOSIDES/DOCUSATE SODIUM 8.6/50 MG TAB FEEDTUBE SCH ×2 (09:34→21:34)
[2021-05-07] MEDS: oxyCODONE /ACETAMINOPHEN 5-325MG TAB PO PRN ×2 (10:06→18:45)
[2021-05-07 10:59] LABS: Hematocrit 23.1 % (30.3-42.9); Hemoglobin 7.7 gm/dl (10.1-14.3)
--- NOTE | 2021-05-07 11:40 | Progress Note ---
Assessment and Plan 61 y/o female with ESRD now progressing to requiring HD, admitted with hypercapnic respiratory failure, possibly iatrogenic from surgery meds. 05/07/21: No objection to discharge, but need to address oxygen requirement and need unless patient already has oxygen at home. No prior history of lung disease and no evidence here so no follow up with pulm is needed. Her primary can manage her oxygen therapy as it is related to volume overload, pulmonary edema and ESRD. Will sign off, call if questions. 05/06/21: HD may help with oxygen requirement but would suggest walk test prior to discharge anyway, even if able to wean off. Wean for sats >88%. Will continue to follow. 05/05/21: Wean FiO2 as tolerated. Follow up any new renal recs. Patient will need walk test prior to discharge to assess oxygen needs, if any. 05/04/21: continue to wean FiO2 as tolerated. Patient will need walk test prior to discharge. Pulm status improving. Will continue to follow. 05/03/21: Continue to wean FiO2 as tolerated. HD per renal if and when needed. Vascular would place vascath now that patient is out of ICU. Will continue to follow. 05/02/21: Continue TID Midodrine. Lasix therapy per renal. Wean FiO2 for sats>88%. No objection to transfer out of unit. 05/01/21: Will start on Midodrine 10 TID today. Wean Levophed to OFF. Patient wants to sit in chair and have no objections to this. CXR appears to be more consistent with pulmonary edema. Would continue lasix therapy despite need for vasopressor at this time. Will order Incentive spirometry to bedside. Continue ICU monitoring until BP stablizes. 1. Renal-no HD today per nephro, will try high dose IV lasix BID. Ramos for strict I/O 2. Pulm- respiratory cupola mechanic are good and volume removal will be very beneficial as she has significant secretions. Not quite ready for extubation yet based on mental state but is tolerating PSV well. Repeat ABG and CXR in am. 3. GI-hold on feeds for possible extubation tomorrow. Feed tomorrow if not extubated. 4. SCD's and H2 patricia Will continue to follow CCT 31 minutes. Subjective Date of service: 05/07/21 Principal diagnosis: End-stage renal disease Interval history: Patient down to 2 liters. Cannot find a walk test in the chart. Should be walked prior to discharge to assess need for oxygen. Objective Vital Signs - 12hr 05/06/21 05/07/21 05/07/21 23:42 03:33 06:11 Temperature 98.6 F 98.6 F Pulse Rate 90 82 Pulse Rate [ Anterior Bilateral Throughout] Pulse Rate [ From Monitor] Respiratory 18 18 Rate Respiratory Rate [Anterior Bilateral Throughout] Blood Pressure 136/66 135/63 135/68 O2 Sat by Pulse 92 Oximetry 05/07/21 05/07/21 05/07/21 07:50 08:08 08:27 Temperature 97.8 F Pulse Rate 73 78 Pulse Rate [ Anterior Bilateral Throughout] Pulse Rate [ 80 From Monitor] Respiratory 20 18 Rate Respiratory Rate [Anterior Bilateral Throughout] Blood Pressure 122/63 O2 Sat by Pulse 92 97 Oximetry 05/07/21 05/07/21 08:58 09:04 Temperature Pulse Rate Pulse Rate [ 78 Anterior Bilateral Throughout] Pulse Rate [ From Monitor] Respiratory Rate Respiratory 14 Rate [Anterior Bilateral Throughout] Blood Pressure O2 Sat by Pulse 94 Oximetry Constitutional: no acute distress, alert (but very drowsy) Eyes: non-icteric ENT: other (orally intubated) Neck: supple Effort: normal Ascultation: Bilateral: diminished breath sounds, rales Percussion: Bilateral: not dull Cardiovascular: regular rate and rhythm Gastrointestinal: normoactive bowel sounds, soft Extremities: no edema CBC and BMP: 05/07/21 10:39 05/06/21 04:58 ABG, PT/INR, D-dimer: ABG ABG pH 7.254 (7.320-7.450) L 05/01/21 10:11 POC ABG pCO2 47.1 mmHg (32.0-48.0) 05/01/21 10:11 POC ABG pO2 54.7 mmHg (83-108) L 05/01/21 10:11 POC ABG HCO3 20.4 05/01/21 10:11 ABG O2 Saturation 84.6 (0-100) 05/01/21 10:11 Abnormal lab findings: Abnormal Labs 04/29/21 04/29/21 04/29/21 11:00 11:00 18:25 WBC RBC 2.80 L Hgb 8.5 L Hct 25.5 L RDW 19.5 H Plt Count Seg Neuts % (Manual) Lymphocytes % (Manual) Seg Neutrophils # Man Lymphocytes # (Manual) ABG pH POC ABG pCO2 POC ABG pO2 ABG Hemoglobin ABG Oxyhemoglobin ABG Potassium ABG Chloride ABG Glucose Carboxyhemoglobin Sodium Carbon Dioxide BUN 81 H Creatinine 8.5 H Glucose POC Glucose 109 H Hemoglobin A1c Calcium Albumin Arterial Blood Glucose Arterial Blood Ionized Calcium Crossmatch 04/29/21 04/30/21 04/30/21 23:20 00:22 00:53 WBC RBC Hgb Hct RDW Plt Count Seg Neuts % (Manual) Lymphocytes % (Manual) Seg Neutrophils # Man Lymphocytes # (Manual) ABG pH 7.047 L POC ABG pCO2 89.0 H POC ABG pO2 442.0 H ABG Hemoglobin 9.2 L ABG Oxyhemoglobin 98.3 H ABG Potassium 4.6 H ABG Chloride 109.0 H ABG Glucose 164 H Carboxyhemoglobin Sodium Carbon Dioxide BUN Creatinine Glucose POC Glucose 180 H 161 H Hemoglobin A1c Calcium Albumin Arterial Blood Glucose 164 H Arterial Blood Ionized Calcium 4.3 L Crossmatch 04/30/21 04/30/21 04/30/21 03:29 04:23 04:23 WBC 15.0 H RBC 3.09 L Hgb 8.9 L Hct 27.9 L RDW 19.2 H Plt Count Seg Neuts % (Manual) 96.0 H Lymphocytes % (Manual) 3.0 L Seg Neutrophils # Man 14.4 H Lymphocytes # (Manual) 0.5 L ABG pH 7.256 L POC ABG pCO2 49.4 H POC ABG pO2 58.6 L ABG Hemoglobin 8.6 L ABG Oxyhemoglobin 93.0 L ABG Potassium ABG Chloride 109.0 H ABG Glucose 122 H Carboxyhemoglobin Sodium Carbon Dioxide 20 L BUN 90 H Creatinine 9.5 H Glucose 145 H POC Glucose Hemoglobin A1c Calcium 8.0 L Albumin 3.6 L Arterial Blood Glucose 122 H Arterial Blood Ionized Calcium 4.1 L Crossmatch 04/30/21 04/30/21 04/30/21 04:23 11:26 17:20 WBC RBC Hgb Hct RDW Plt Count Seg Neuts % (Manual) Lymphocytes % (Manual) Seg Neutrophils # Man Lymphocytes # (Manual) ABG pH POC ABG pCO2 POC ABG pO2 ABG Hemoglobin ABG Oxyhemoglobin ABG Potassium ABG Chloride ABG Glucose Carboxyhemoglobin Sodium Carbon Dioxide BUN Creatinine Glucose POC Glucose 52 L 127 H Hemoglobin A1c < 4.0 L Calcium Albumin Arterial Blood Glucose Arterial Blood Ionized Calcium Crossmatch 05/01/21 05/01/21 05/01/21 04:44 04:44 10:11 WBC RBC 2.55 L Hgb 7.7 L Hct 23.2 L RDW 19.4 H Plt Count Seg Neuts % (Manual) Lymphocytes % (Manual) Seg Neutrophils # Man Lymphocytes # (Manual) ABG pH 7.254 L POC ABG pCO2 POC ABG pO2 54.7 L ABG Hemoglobin 7.5 L ABG Oxyhemoglobin 82.9 L ABG Potassium ABG Chloride 108.0 H ABG Glucose 122 H Carboxyhemoglobin 1.7 H Sodium 146 H Carbon Dioxide BUN 93 H Creatinine 10.0 H Glucose POC Glucose Hemoglobin A1c Calcium 8.3 L Albumin Arterial Blood Glucose 122 H Arterial Blood Ionized Calcium 4.1 L Crossmatch 05/01/21 05/02/21 05/02/21 18:00 13:17 14:55 WBC RBC Hgb Hct RDW Plt Count Seg Neuts % (Manual) Lymphocytes % (Manual) Seg Neutrophils # Man Lymphocytes # (Manual) ABG pH POC ABG pCO2 POC ABG pO2 ABG Hemoglobin ABG Oxyhemoglobin ABG Potassium ABG Chloride ABG Glucose Carboxyhemoglobin Sodium Carbon Dioxide 19 L BUN 99 H Creatinine 11.2 H Glucose POC Glucose 125 H 120 H Hemoglobin A1c Calcium 7.8 L Albumin Arterial Blood Glucose Arterial Blood Ionized Calcium Crossmatch 05/02/21 05/03/21 05/03/21 14:55 04:28 04:28 WBC RBC 2.46 L 2.43 L Hgb 7.4 L 7.3 L Hct 22.2 L 22.2 L RDW 19.1 H 19.6 H Plt Count 133 L 133 L Seg Neuts % (Manual) Lymphocytes % (Manual) Seg Neutrophils # Man Lymphocytes # (Manual) ABG pH POC ABG pCO2 POC ABG pO2 ABG Hemoglobin ABG Oxyhemoglobin ABG Potassium ABG Chloride ABG Glucose Carboxyhemoglobin Sodium 146 H Carbon Dioxide 20 L BUN 107 H Creatinine 12.1 H Glucose POC Glucose Hemoglobin A1c Calcium 7.9 L Albumin Arterial Blood Glucose Arterial Blood Ionized Calcium Crossmatch 05/04/21 05/04/21 05/06/21 04:25 04:25 04:58 WBC RBC 2.60 L 2.34 L Hgb 7.9 L 6.8 L Hct 23.4 L 20.7 L RDW 19.3 H 18.7 H Plt Count 138 L 134 L Seg Neuts % (Manual) Lymphocytes % (Manual) Seg Neutrophils # Man Lymphocytes # (Manual) ABG pH POC ABG pCO2 POC ABG pO2 ABG Hemoglobin ABG Oxyhemoglobin ABG Potassium ABG Chloride ABG Glucose Carboxyhemoglobin Sodium Carbon Dioxide 17 L BUN 108 H Creatinine 12.7 H Glucose POC Glucose Hemoglobin A1c Calcium Albumin Arterial Blood Glucose Arterial Blood Ionized Calcium Crossmatch 05/06/21 05/06/21 05/07/21 04:58 14:33 10:39 WBC RBC Hgb 7.7 L Hct 23.1 L RDW Plt Count Seg Neuts % (Manual) Lymphocytes % (Manual) Seg Neutrophils # Man Lymphocytes # (Manual) ABG pH POC ABG pCO2 POC ABG pO2 ABG Hemoglobin ABG Oxyhemoglobin ABG Potassium ABG Chloride ABG Glucose Carboxyhemoglobin Sodium Carbon Dioxide BUN 39 H Creatinine 6.1 H D Glucose POC Glucose Hemoglobin A1c Calcium Albumin Arterial Blood Glucose Arterial Blood Ionized Calcium Crossmatch See Detail
--- NOTE | 2021-05-07 17:43 | Progress Note ---
Assessment and Plan - Patient Problems (1) Chronic kidney disease, stage V Current Visit: Yes Plan to address problem: Suspect baseline chronic kidney disease presumably secondary to diabetic kidney disease versus hypertensive nephrosclerosis. Kidney function is stable. Unfort unately, patient's renal indices significantly worse with >BUN 100 with volume overload with mild dyspnea at rest and so Hemodialysis initiated for solute clearance of fluid removal on 05/04. We have arranged outpatient dialysis at [facility] Johnathan Lawler to begin on Monday at 11 AM. She will start exercising her arm once pain and swelling resolves from the AV fistula placement. Okay to discharge after dialysis this afternoon from renal standpoint. (2) Volume overload Current Visit: Yes Status: Acute Plan to address problem: Change to p.o. Lasix. Tolerating hemodialysis treatments so far. Attempt 1.5 L ultrafiltration again today. (3) S/P arteriovenous (AV) fistula creation Current Visit: Yes Status: Acute Plan to address problem: Good thrill and bruit over AV fistula. Continue monitoring (4) Benign hypertension with chronic kidney disease, stage V Current Visit: Yes Status: Acute Plan to address problem: Follow-up blood pressure on current medications. (5) Type 2 diabetes mellitus with diabetic nephropathy Current Visit: Yes Status: Acute Plan to address problem: Blood sugar management by primary attending Subjective Date of service: 05/07/21 Principal diagnosis: End-stage renal disease Interval history: Patient seen sitting up in bed this morning. She has no complaints. She tolerated dialysis yesterday. Feels much better today. Eager to go home Objective - Exam Narrative Exam: Middle-aged -[place] female lying in bed in no acute distress HEENT: NCAT, Neck: Supple, no venous distention CVS: S1S2 RRR with no murmur, rub or gallop Chest: Clear anteriorly but mildly diminished in the lower zones Abdomen: Protuberant, soft, nontender, no organomegaly, bowel sounds are present Extremities: Mild edema Genitourinary deferred Skin warm and dry Neuro: Awake, alert no focal deficits - Vital Signs Vital signs: Vital Signs - 12hr 05/07/21 05/07/21 05/07/21 06:11 07:50 08:08 Temperature 97.8 F Pulse Rate 82 73 78 Pulse Rate [ Anterior Bilateral Throughout] Pulse Rate [ From Monitor] Respiratory 20 Rate Respiratory Rate [Anterior Bilateral Throughout] Blood Pressure 135/68 122/63 O2 Sat by Pulse 92 Oximetry 05/07/21 05/07/21 05/07/21 08:27 08:58 09:04 Temperature Pulse Rate Pulse Rate [ 78 Anterior Bilateral Throughout] Pulse Rate [ 80 From Monitor] Respiratory 18 Rate Respiratory 14 Rate [Anterior Bilateral Throughout] Blood Pressure O2 Sat by Pulse 97 94 Oximetry 05/07/21 05/07/21 05/07/21 11:41 13:57 14:07 Temperature 98.1 F Pulse Rate 84 84 Pulse Rate [ 78 Anterior Bilateral Throughout] Pulse Rate [ From Monitor] Respiratory 18 Rate Respiratory 15 Rate [Anterior Bilateral Throughout] Blood Pressure 117/51 114/52 O2 Sat by Pulse 79 L Oximetry 05/07/21 05/07/21 05/07/21 15:15 15:30 15:45 Temperature 98.7 F Pulse Rate 83 83 83 Pulse Rate [ Anterior Bilateral Throughout] Pulse Rate [ From Monitor] Respiratory 16 Rate Respiratory Rate [Anterior Bilateral Throughout] Blood Pressure 141/71 141/71 145/68 O2 Sat by Pulse Oximetry 05/07/21 05/07/21 05/07/21 16:00 16:15 16:30 Temperature Pulse Rate 79 85 80 Pulse Rate [ Anterior Bilateral Throughout] Pulse Rate [ From Monitor] Respiratory Rate Respiratory Rate [Anterior Bilateral Throughout] Blood Pressure 140/71 132/68 146/78 O2 Sat by Pulse Oximetry 05/07/21 05/07/21 05/07/21 16:45 17:00 17:15 Temperature Pulse Rate 79 77 81 Pulse Rate [ Anterior Bilateral Throughout] Pulse Rate [ From Monitor] Respiratory Rate Respiratory Rate [Anterior Bilateral Throughout] Blood Pressure 127/68 134/68 149/86 O2 Sat by Pulse Oximetry 05/07/21 17:30 Temperature Pulse Rate 82 Pulse Rate [ Anterior Bilateral Throughout] Pulse Rate [ From Monitor] Respiratory Rate Respiratory Rate [Anterior Bilateral Throughout] Blood Pressure 150/77 O2 Sat by Pulse Oximetry - Lab 05/07/21 10:39 05/06/21 04:58 Most recent lab results ABG pH 7.254 (7.320-7.450) L 05/01/21 10:11 ABG O2 Saturation 84.6 (0-100) 05/01/21 10:11 Calcium 8.4 mg/dL (8.4-10.2) 05/06/21 04:58 Medications & Allergies - Medications Allergies/Adverse Reactions: Allergies No Known Allergies Allergy (Verified 04/26/21 11:49) Home Medications: Home Medications Medication Instructions Recorded Confirmed Last Taken Type Hydralazine HCl 50 mg PO TID 04/26/21 04/29/21 04/29/21 09:00 History Nebivolol HCl [Bystolic] 20 mg PO DAILY 04/26/21 04/29/21 04/29/21 09:00 History Torsemide [Demadex] 100 mg PO QDAY 04/26/21 04/29/21 04/28/21 09:00 History Zolpidem (Nf) [Ambien (Nf)] 10 mg PO QHS 04/26/21 04/29/21 04/27/21 20:00 History calcitrioL [Rocaltrol] 0.25 mcg PO DAILY 04/26/21 04/29/21 04/26/21 09:00 History oxyCODONE /ACETAMINOPHEN [Percocet 1 tab PO Q6HR PRN #20 tablet 04/29/21 Unknown Rx 5/325 mg] ALPRAZolam [Xanax TAB] 1 mg PO PRN PRN #10 05/07/21 Unknown Rx Epoetin Osmani-Epbx 20,000 [Retacrit] 20,000 unit IV CARTLON PRN vial 05/07/21 Unknown Rx Famotidine [Pepcid] 20 mg PO DAILY tablet 05/07/21 Unknown Rx Furosemide [Lasix TAB] 80 mg PO 0600,1800 #60 tablet 05/07/21 Unknown Rx NIFEdipine XL [Procardia Xl] 60 mg PO Q12HR #60 tablet 05/07/21 Unknown Rx allopurinoL [Zyloprim] 100 mg PO QDAY #30 05/07/21 Unknown Rx hydrALAZINE [Apresoline TAB] 50 mg PO Q8HR #90 tablet 05/07/21 Unknown Rx Active Medications: Generic Name Dose Route Start Last Admin Trade Name Freq PRN Reason Stop Dose Admin Acetaminophen 650 mg 04/29/21 19:12 05/06/21 18:13 Acetaminophen 325 Mg Tab PO 650 mg Q4H PRN Administration Pain MILD(1-3)/Fever >100.5/KLEIN Albuterol 2.5 mg 05/06/21 08:00 05/07/21 14:02 Albuterol 2.5 Mg/3 Ml Nebu IH 2.5 mg TIDRT LYLA Administration Calcitriol 0.25 mcg 04/30/21 10:00 05/07/21 09:33 Calcitriol 0.25 Mcg Cap PO 0.25 mcg DAILY LYLA Administration Famotidine 20 mg 05/04/21 10:00 05/07/21 09:33 Famotidine 20 Mg Tab PO 20 mg DAILY LYLA Administration Furosemide 80 mg 05/05/21 18:00 05/07/21 06:11 Furosemide 40 Mg Tab PO 80 mg 0600,1800 LYLA Administration Heparin Sodium (Porcine) 5,000 unit 04/30/21 10:00 05/07/21 09:33 Heparin 5,000 Unit/1 Ml Vial SUB-Q 5,000 unit Q12HR LYLA Administration Heparin Sodium (Porcine) 5,000 unit 05/03/21 10:00 Heparin 10,000 Unit/1 Ml Vial IV CARLTON PRN hemodialysis Hydralazine HCl 50 mg 05/04/21 14:00 05/07/21 13:57 Hydralazine 25 Mg Tab PO Not Given Q8HR [facility] Hydralazine HCl 20 mg 05/04/21 14:56 Hydralazine 20 Mg/1 Ml Inj IV Q6HR PRN Hypertension Hydrophilic Ointment 1 applic 04/30/21 00:53 Lip Therapy Vaseline TP Q2HR PRN Dry Lips Sodium Chloride 100 mls @ 999 mls/hr 05/03/21 09:30 Nacl 0.9% IV CARLTON PRN Hypotension Naloxone HCl 0.1 mg 04/29/21 23:55 Naloxone 0.4 Mg/1 Ml Inj IV Q2MIN PRN Res Rate </= 8 or 02 SAT < 92% Nifedipine 60 mg 05/04/21 15:15 05/07/21 09:33 Nifedipine Xl 60 Mg Tab PO 60 mg Q12HR LYLA Administration Ondansetron HCl 4 mg 04/29/21 19:12 05/06/21 23:04 Ondansetron 4 Mg/2 Ml Inj IV 4 mg Q8H PRN Administration Nausea And Vomiting Oxycodone/Acetaminophen 1 tab 04/29/21 19:12 05/07/21 10:06 Oxycodone /Acetaminophen 5-325mg Tab PO 1 tab Q6H PRN Administration Pain, Moderate (4-6) Senna/Docusate Sodium 1 tab 04/30/21 10:00 05/07/21 09:34 Sennosides/Docusate Sodium 8.6/50 Mg Tab FEEDTUBE 1 tab BID LYLA Administration Sodium Chloride 10 ml 04/29/21 22:00 05/07/21 09:35 Sodium Chloride 0.9% 10 Ml Flush Syringe IV 10 ml BID LYLA Administration Sodium Chloride 10 ml 04/29/21 19:12 04/30/21 19:40 Sodium Chloride 0.9% 10 Ml Flush Syringe IV 10 ml PRN PRN Administration LINE FLUSH
[2021-05-07] MEDS ORDERED: traZODone 50 MG TAB PO SCH (22:00)
[2021-05-08] MEDS: oxyCODONE /ACETAMINOPHEN 5-325MG TAB PO PRN ×2 (00:45→15:09)
[2021-05-08] MEDS: hydrALAZINE 25 MG TAB PO SCH ×2 (06:37→13:22)
[2021-05-08] MEDS: FUROSEMIDE 40 MG TAB PO SCH (06:38)
[2021-05-08] MEDS: ALBUTEROL 2.5 MG/3 ML NEBU IH SCH ×2 (08:06→16:18)
[2021-05-08] MEDS: NIFEdipine XL 60 MG TAB PO SCH (09:28)
[2021-05-08] MEDS: FAMOTIDINE 20 MG TAB PO SCH (09:29)
[2021-05-08] MEDS: CALCITRIOL 0.25 MCG CAP PO SCH (09:29)
[2021-05-08] MEDS: SENNOSIDES/DOCUSATE SODIUM 8.6/50 MG TAB FEEDTUBE SCH (09:29)
[2021-05-08] MEDS: HEPARIN 5,000 UNIT/1 ML VIAL SUB-Q SCH (09:29)
--- NOTE | 2021-05-08 09:42 | Progress Note ---
Assessment and Plan Assessment and plan: ESRD Chronic hypotension. History of hypertension/accelerated hypertension Acute hypoxic respiratory failure Urinary retention. Anemia. Anxiety disorder 04/30: Overnight patient was noted to be bradycardic, hypotensive and have altered mental status and the patient was emergently intubated. Patient had a bladder scan with 500 cc of urine received after straight cath. Patient was started on dopamine however this is being actively weaned off. Patient is a CPAP trial. Patient extubated around 1300. Hypotension noted, restarted dopamine gtt at low dose then started on levophed gtt. 05/01: Overnight she remained on the levophed, per RN if weaned to 2mcg from 4 mcg then thrill/bruit was lost from AVF. This morning we started the pt on midodrine and weaned levo off. Ramos remains. CXR shows pulm edema 05/02: Overnight the patient was given Haldol with transient resultant hypotension which has resolved. BP has remained stable. Stable for transfer to the floor. 05/03/2021: Patient seen this morning, signs somewhat fluid overloaded in her lungs without cough. She continues on diuresis, does not want to get a permacath but I spoke to her that it is probably the best thing for her at this time. Urine output is intermittently low. Patient has high risk for being readmitted to the hospital for fluid overload without starting dialysis. 05/04. Patient is s/p right IJ PermCath insertion today. Patient still requiring high flow nasal cannula of 5 L/min and satting 97%. Continue to wean FiO2 as tolerated. Patient will need walk test prior to discharge. With regards to kidney function, nephrology suspects baseline chronic kidney disease, stage V presumably secondary to diabetic kidney disease versus hypertensive nephrosclerosis. We will arrange outpatient dialysis at [facility]. Case management consultation for outpatient hemodialysis. Patient appears to be actually hypertensive this morning after undergoing procedure of Vas-Cath placement. Patient noted to be hypertensive in hemodialysis. We will resume her home medication of hydralazine 50 mg every 8 hours. Also, add Procardia 60 mg twice daily. Discontinue midodrine 05/05. Patient is status post PermCath insertion and received hemodialysis yesterday without complications. Accelerated hypertension improved with initiation of antihypertensive of Procardia and hydralazine. Discontinued midodrine. Await arrangements by case management for outpatient hemodialysis. 05/06. Patient is to continue with daily hemodialysis per nephrology recommendations. Chest x-ray this a.m. reveals mild CHF/volume overload. Blood pressure has stabilized. Await for outpatient hemodialysis arrangements at [facility]. 05/07. Patient was set for discharge but noted to have hypoxia requiring oxygen. Pulmonary reported no lung disease attributable for the hypoxia. Hypoxia was related to pulmonary edema. I discussed home oxygen with case management. Case management reports that patient needs qualifying diagnosis for home oxygen such as chronic CHF or COPD. History Interval history: No new issues overnight. Hospitalist Physical - Constitutional Vitals: Temp Pulse Resp BP Pulse Ox 98.2 F 70 18 146/67 90 05/08/21 09:28 05/08/21 09:28 05/08/21 09:28 05/08/21 09:28 05/08/21 09:28 General appearance: Present: no acute distress, well-nourished - EENT Eyes: Present: PERRL, EOM intact ENT: hearing intact, clear oral mucosa, dentition normal - Neck Neck: Present: supple, normal ROM - Respiratory Respiratory effort: normal Respiratory: bilateral: CTA - Cardiovascular Rhythm: regular Heart Sounds: Present: S1 & S2. Absent: gallop, rub - Extremities Extremities: no ischemia, No edema, Full ROM - Abdominal General gastrointestinal: soft, non-tender, non-distended, normal bowel sounds - Integumentary Integumentary: Present: clear, warm, dry - Neurologic Neurologic: CNII-XII intact, moves all extremities Results - Labs CBC & Chem 7: 05/07/21 10:39 05/06/21 04:58 Labs: Laboratory Last Values WBC 6.5 K/mm3 (4.5-11.0) 05/06/21 04:58 RBC 2.34 M/mm3 (3.65-5.03) L 05/06/21 04:58 Hgb 7.7 gm/dl (10.1-14.3) L 05/07/21 10:39 Hct 23.1 % (30.3-42.9) L 05/07/21 10:39 MCV 88 fl (79-97) 05/06/21 04:58 MCH 29 pg (28-32) 05/06/21 04:58 MCHC 33 % (30-34) 05/06/21 04:58 RDW 18.7 % (13.2-15.2) H 05/06/21 04:58 Plt Count 134 K/mm3 (140-440) L 05/06/21 04:58 Add Manual Diff Complete 04/30/21 04:23 Total Counted 100 04/30/21 04:23 Seg Neutrophils % Rack Pusher 04/30/21 04:23 Seg Neuts % (Manual) 96.0 % (40.0-70.0) H 04/30/21 04:23 Lymphocytes % (Manual) 3.0 % (13.4-35.0) L 04/30/21 04:23 Monocytes % (Manual) 1.0 % (0.0-7.3) 04/30/21 04:23 Nucleated RBC % Not Reportable 04/30/21 04:23 Seg Neutrophils # Man 14.4 K/mm3 (1.8-7.7) H 04/30/21 04:23 Band Neutrophils # 0.0 K/mm3 04/30/21 04:23 Lymphocytes # (Manual) 0.5 K/mm3 (1.2-5.4) L 04/30/21 04:23 Abs React Lymphs (Man) 0.0 K/mm3 04/30/21 04:23 Monocytes # (Manual) 0.2 K/mm3 (0.0-0.8) 04/30/21 04:23 Eosinophils # (Manual) 0.0 K/mm3 (0.0-0.4) 04/30/21 04:23 Basophils # (Manual) 0.0 K/mm3 (0.0-0.1) 04/30/21 04:23 Metamyelocytes # 0.0 K/mm3 04/30/21 04:23 Myelocytes # 0.0 K/mm3 04/30/21 04:23 Promyelocytes # 0.0 K/mm3 04/30/21 04:23 Blast Cells # 0.0 K/mm3 04/30/21 04:23 WBC Morphology Not Reportable 04/30/21 04:23 Hypersegmented Neuts Not Reportable 04/30/21 04:23 Hyposegmented Neuts Not Reportable 04/30/21 04:23 Hypogranular Neuts Not Reportable 04/30/21 04:23 Smudge Cells Not Reportable 04/30/21 04:23 Toxic Granulation Not Reportable 04/30/21 04:23 Toxic Vacuolation Not Reportable 04/30/21 04:23 Dohle Bodies Not Reportable 04/30/21 04:23 Pelger-Huet Anomaly Not Reportable 04/30/21 04:23 Vik Rods Not Reportable 04/30/21 04:23 Platelet Estimate Consistent w auto 04/30/21 04:23 Clumped Platelets Not Reportable 04/30/21 04:23 Plt Clumps, EDTA Not Reportable 04/30/21 04:23 Large Platelets Not Reportable 04/30/21 04:23 Giant Platelets Not Reportable 04/30/21 04:23 Platelet Satelliting Not Reportable 04/30/21 04:23 Plt Morphology Comment Not Reportable 04/30/21 04:23 RBC Morphology Not Reportable 04/30/21 04:23 Dimorphic RBCs Not Reportable 04/30/21 04:23 Polychromasia Not Reportable 04/30/21 04:23 Hypochromasia 1+ 04/30/21 04:23 Poikilocytosis Not Reportable 04/30/21 04:23 Anisocytosis 1+ 04/30/21 04:23 Microcytosis Not Reportable 04/30/21 04:23 Macrocytosis Not Reportable 04/30/21 04:23 Spherocytes Not Reportable 04/30/21 04:23 Pappenheimer Bodies Not Reportable 04/30/21 04:23 Sickle Cells Not Reportable 04/30/21 04:23 Target Cells Not Reportable 04/30/21 04:23 Tear Drop Cells Not Reportable 04/30/21 04:23 Ovalocytes Not Reportable 04/30/21 04:23 Helmet Cells Not Reportable 04/30/21 04:23 Castrejon-Riviera Bodies Not Reportable 04/30/21 04:23 [place] Rings Not Reportable 04/30/21 04:23 Rosendo Cells Not Reportable 04/30/21 04:23 Bite Cells Not Reportable 04/30/21 04:23 Crenated Cell Not Reportable 04/30/21 04:23 Elliptocytes Not Reportable 04/30/21 04:23 Acanthocytes (Spur) Not Reportable 04/30/21 04:23 Rouleaux Not Reportable 04/30/21 04:23 Hemoglobin C Crystals Not Reportable 04/30/21 04:23 Schistocytes Not Reportable 04/30/21 04:23 Malaria parasites Not Reportable 04/30/21 04:23 Desmond Bodies Not Reportable 04/30/21 04:23 Hem Pathologist Commnt No 04/30/21 04:23 ABG pH 7.254 (7.320-7.450) L 05/01/21 10:11 POC ABG pCO2 47.1 mmHg (32.0-48.0) 05/01/21 10:11 POC ABG pO2 54.7 mmHg (83-108) L 05/01/21 10:11 POC ABG HCO3 20.4 05/01/21 10:11 ABG O2 Saturation 84.6 (0-100) 05/01/21 10:11 POC ABG Base Excess -6.4 05/01/21 10:11 ABG Hemoglobin 7.5 (12.0-17.5) L 05/01/21 10:11 ABG Oxyhemoglobin 82.9 (94-98) L 05/01/21 10:11 ABG Methemoglobin 0.3 (0.0-1.5) 05/01/21 10:11 ABG Sodium 138.2 mmol/L (136.0-145.0) 05/01/21 10:11 ABG Potassium 3.9 mmol/L (3.40-4.50) 05/01/21 10:11 ABG Chloride 108.0 mmol/L (98-107) H 05/01/21 10:11 ABG Glucose 122 mg/dL (65-95) H 05/01/21 10:11 Carboxyhemoglobin 1.7 (0.5-1.5) H 05/01/21 10:11 FiO2 % 32.0 05/01/21 10:11 Sodium 140 mmol/L (137-145) 05/06/21 04:58 Potassium 3.6 mmol/L (3.6-5.0) 05/06/21 04:58 Chloride 100.3 mmol/L (98-107) 05/06/21 04:58 Carbon Dioxide 24 mmol/L (22-30) D 05/06/21 04:58 Anion Gap 19 mmol/L 05/06/21 04:58 BUN 39 mg/dL (7-17) H 05/06/21 04:58 Creatinine 6.1 mg/dL (0.6-1.2) H D 05/06/21 04:58 Estimated GFR 9 ml/min 05/06/21 04:58 BUN/Creatinine Ratio 6 % 05/06/21 04:58 Glucose 81 mg/dL (65-100) 05/06/21 04:58 POC Glucose 105 mg/dL (70-105) 05/04/21 07:42 Hemoglobin A1c < 4.0 % (4-6) L 04/30/21 04:23 Calcium 8.4 mg/dL (8.4-10.2) 05/06/21 04:58 Total Bilirubin 0.30 mg/dL (0.1-1.2) 04/30/21 04:23 AST 30 units/L (5-40) 04/30/21 04:23 ALT 26 units/L (7-56) 04/30/21 04:23 Alkaline Phosphatase 122 units/L (35-129) 04/30/21 04:23 Total Protein 6.7 g/dL (6.3-8.2) 04/30/21 04:23 Albumin 3.6 g/dL (3.9-5) L 04/30/21 04:23 Albumin/Globulin Ratio 1.2 % 04/30/21 04:23 Arterial Blood Glucose 122 mg/dL (65-95) H 05/01/21 10:11 Arterial Blood Ionized Calcium 4.1 mg/dL (4.6-5.3) L 05/01/21 10:11 Coronavirus (PCR) Negative (Negative) 05/03/21 10:59 Hepatitis A IgM Ab Non-reactive (NonReactive) 05/03/21 13:41 Hep Bs Antigen Non-reactive (Negative) 05/03/21 13:41 Hep B Core IgM Ab Non-reactive (NonReactive) 05/03/21 13:41 Hepatitis C Antibody Non-reactive (NonReactive) 05/03/21 13:41 Blood Type O POSITIVE 05/06/21 14:33 Antibody Screen Negative 05/06/21 14:33 Crossmatch See Detail 05/06/21 14:33 Ramos/IV: Voiding Method Toilet Active Medications - Current Medications Current Medications: Generic Name Dose Route Start Last Admin Trade Name Freq PRN Reason Stop Dose Admin Acetaminophen 650 mg 04/29/21 19:12 05/06/21 18:13 Acetaminophen 325 Mg Tab PO 650 mg Q4H PRN Administration Pain MILD(1-3)/Fever >100.5/KLEIN Albuterol 2.5 mg 05/06/21 08:00 05/08/21 08:06 Albuterol 2.5 Mg/3 Ml Nebu IH 2.5 mg TIDRT LYLA Administration Calcitriol 0.25 mcg 04/30/21 10:00 05/08/21 09:29 Calcitriol 0.25 Mcg Cap PO 0.25 mcg DAILY LYLA Administration Famotidine 20 mg 05/04/21 10:00 05/08/21 09:29 Famotidine 20 Mg Tab PO 20 mg DAILY LYLA Administration Furosemide 80 mg 05/05/21 18:00 05/08/21 06:38 Furosemide 40 Mg Tab PO Not Given 0600,1800 LYLA Heparin Sodium (Porcine) 5,000 unit 04/30/21 10:00 05/08/21 09:29 Heparin 5,000 Unit/1 Ml Vial SUB-Q 5,000 unit Q12HR LYLA Administration Heparin Sodium (Porcine) 5,000 unit 05/03/21 10:00 Heparin 10,000 Unit/1 Ml Vial IV CARLTON PRN hemodialysis Hydralazine HCl 50 mg 05/04/21 14:00 05/08/21 06:37 Hydralazine 25 Mg Tab PO Not Given Q8HR LYLA Hydralazine HCl 20 mg 05/04/21 14:56 Hydralazine 20 Mg/1 Ml Inj IV Q6HR PRN Hypertension Hydrophilic Ointment 1 applic 04/30/21 00:53 Lip Therapy Vaseline TP Q2HR PRN Dry Lips Sodium Chloride 100 mls @ 999 mls/hr 05/03/21 09:30 Nacl 0.9% IV CARLTON PRN Hypotension Naloxone HCl 0.1 mg 04/29/21 23:55 Naloxone 0.4 Mg/1 Ml Inj IV Q2MIN PRN Res Rate </= 8 or 02 SAT < 92% Nifedipine 60 mg 05/04/21 15:15 05/08/21 09:28 Nifedipine Xl 60 Mg Tab PO 60 mg Q12HR LYLA Administration Ondansetron HCl 4 mg 04/29/21 19:12 05/06/21 23:04 Ondansetron 4 Mg/2 Ml Inj IV 4 mg Q8H PRN Administration Nausea And Vomiting Oxycodone/Acetaminophen 1 tab 04/29/21 19:12 05/08/21 00:45 Oxycodone /Acetaminophen 5-325mg Tab PO 1 tab Q6H PRN Administration Pain, Moderate (4-6) Senna/Docusate Sodium 1 tab 04/30/21 10:00 05/08/21 09:29 Sennosides/Docusate Sodium 8.6/50 Mg Tab FEEDTUBE 1 tab BID LYLA Administration Sodium Chloride 10 ml 04/29/21 22:00 05/08/21 09:30 Sodium Chloride 0.9% 10 Ml Flush Syringe IV 10 ml BID LYLA Administration Sodium Chloride 10 ml 04/29/21 19:12 04/30/21 19:40 Sodium Chloride 0.9% 10 Ml Flush Syringe IV 10 ml PRN PRN Administration LINE FLUSH Trazodone HCl 50 mg 05/07/21 22:00 05/07/21 23:43 Trazodone 50 Mg Tab PO 50 mg QHS LYLA Administration Nutrition/Malnutrition Assess - Dietary Evaluation Nutrition/Malnutrition Findings: Nutrition Notes Start: 04/30/21 07:58 Freq: Status: Active Protocol: Document 05/07/21 12:07 (Rec: 05/07/21 12:10 [email or web address]) Nutrition Notes Initial or Follow up Reassessment Current Diagnosis CKD (stage V CKD),Hypertension Current Diet low sodium Labs/Tests 05/06: BUN 39 Cr 6.1 Pertinent Medications Lasix Height 5 ft 6.5 in Weight 99 kg [place] Body Weight (kg) 60.22 BMI 34.7 Weight Status Obese Subjective/Other Information F/u for intakes. Pt ate <25% of breakfast. She is eating 50 % of lunch and dinners. Food prefrences noted. Percent of energy/protein needs met: 88%/37% Burn Absent Trauma Absent Current % PO Poor (25-49%) Minimum of two criteria No physical signs of malnutrition #2 Nutrition Diagnosis Inadequate oral intake Diagnosis Progress(for reassessment Continues documentation) Is patient on ventilator? No Is Patient Ambulatory and/or Out of Bed No REE-([facility]-confined to bed) 191.104 Kcal/Kg value to use for calculation 14 Approximate Energy Requirements Using 1386 kcal/Kg Calculation Used for Recommendations Kcal/kg Additional Notes Pro needs >1.2g/kg adjBW: >91g /day Fluid needs 1-1.5L/day Nutrition Intervention Change Diet Order: Continue Goal #1 PO intake to meet at least 75% energy and pro needs Anticipated Discharge Needs: Low sodium diet Follow-Up By: 05/11/21 Additional Comments F/U: intakes
--- NOTE | 2021-05-08 10:18 | Progress Note ---
Assessment and Plan - Patient Problems (1) End-stage renal disease needing dialysis Current Visit: Yes Status: Chronic Plan to address problem: Suspect baseline chronic kidney disease presumably secondary to diabetic kidney disease versus hypertensive nephrosclerosis. Unfortunately, patient's renal indices significantly worse with >BUN 100 with volume overload with mild dyspnea at rest and so Hemodialysis was initiated for solute clearance of fluid removal on 05/04. We have arranged outpatient dialysis at [facility] Johnathan Lawler to begin on Monday at 11 AM. She will start exercising her arm once pain and swelling resolves from the AV fistula placement. Okay to discharge from renal standpoint. (2) Type 2 diabetes mellitus with diabetic nephropathy Current Visit: Yes Status: Acute Plan to address problem: Blood sugar management by primary attending (3) Volume overload Current Visit: Yes Status: Acute Plan to address problem: Tolerating hemodialysis treatments so far. Another 1.5 L ultrafiltration performed yesterday (4) S/P arteriovenous (AV) fistula creation Current Visit: Yes Status: Acute Plan to address problem: Good thrill and bruit over AV fistula. Continue monitoring (5) Benign hypertension with chronic kidney disease, stage V Current Visit: Yes Status: Acute Plan to address problem: Follow-up blood pressure on current medications. Subjective Date of service: 05/08/21 Principal diagnosis: End-stage renal disease Interval history: Patient awake, alert, in no acute distress Objective - Vital Signs Vital signs: Vital Signs - 12hr 05/07/21 05/08/21 05/08/21 23:51 04:08 06:37 Temperature 98.4 F 98.0 F Pulse Rate 86 Respiratory 18 18 Rate Blood Pressure 170/86 139/56 139/56 Blood Pressure [Left] O2 Sat by Pulse 84 Oximetry 05/08/21 09:28 Temperature 98.2 F Pulse Rate 70 Respiratory 18 Rate Blood Pressure Blood Pressure 146/67 [Left] O2 Sat by Pulse 90 Oximetry - General Appearance General appearance: well-developed, well-nourished, appears stated age EENT: ATNC, PERRL, mucous membranes moist Neck: no JVD Respiratory: Present: Clear to Ascultation Cardiology: regular, S1S2 Gastrointestinal: normoactive bowel sounds Integumentary: no rash Neurologic: no focal deficit, alert and oriented x3, strength 5/5, CN 3-12 intact Psychiatric: mood/affect appropriate, cooperative - Lab 05/07/21 10:39 05/06/21 04:58 Most recent lab results ABG pH 7.254 (7.320-7.450) L 05/01/21 10:11 ABG O2 Saturation 84.6 (0-100) 05/01/21 10:11 Calcium 8.4 mg/dL (8.4-10.2) 05/06/21 04:58 Medications & Allergies - Medications Allergies/Adverse Reactions: Allergies No Known Allergies Allergy (Verified 04/26/21 11:49) Home Medications: Home Medications Medication Instructions Recorded Confirmed Last Taken Type Hydralazine HCl 50 mg PO TID 04/26/21 04/29/21 04/29/21 09:00 History Nebivolol HCl [Bystolic] 20 mg PO DAILY 04/26/21 04/29/21 04/29/21 09:00 History Torsemide [Demadex] 100 mg PO QDAY 04/26/21 04/29/21 04/28/21 09:00 History Zolpidem (Nf) [Ambien (Nf)] 10 mg PO QHS 04/26/21 04/29/21 04/27/21 20:00 History calcitrioL [Rocaltrol] 0.25 mcg PO DAILY 04/26/21 04/29/21 04/26/21 09:00 History oxyCODONE /ACETAMINOPHEN [Percocet 1 tab PO Q6HR PRN #20 tablet 04/29/21 Unknown Rx 5/325 mg] ALPRAZolam [Xanax TAB] 1 mg PO PRN PRN #10 05/07/21 Unknown Rx Epoetin Osmani-Epbx 20,000 [Retacrit] 20,000 unit IV CARLTON PRN vial 05/07/21 Unknown Rx Famotidine [Pepcid] 20 mg PO DAILY tablet 05/07/21 Unknown Rx Furosemide [Lasix TAB] 80 mg PO 0600,1800 #60 tablet 05/07/21 Unknown Rx NIFEdipine XL [Procardia Xl] 60 mg PO Q12HR #60 tablet 05/07/21 Unknown Rx allopurinoL [Zyloprim] 100 mg PO QDAY #30 05/07/21 Unknown Rx hydrALAZINE [Apresoline TAB] 50 mg PO Q8HR #90 tablet 05/07/21 Unknown Rx Active Medications: Generic Name Dose Route Start Last Admin Trade Name Freq PRN Reason Stop Dose Admin Acetaminophen 650 mg 04/29/21 19:12 05/06/21 18:13 Acetaminophen 325 Mg Tab PO 650 mg Q4H PRN Administration Pain MILD(1-3)/Fever >100.5/KLEIN Albuterol 2.5 mg 05/06/21 08:00 05/08/21 08:06 Albuterol 2.5 Mg/3 Ml Nebu IH 2.5 mg TIDRT LYLA Administration Calcitriol 0.25 mcg 04/30/21 10:00 05/08/21 09:29 Calcitriol 0.25 Mcg Cap PO 0.25 mcg DAILY LYLA Administration Famotidine 20 mg 05/04/21 10:00 05/08/21 09:29 Famotidine 20 Mg Tab PO 20 mg DAILY LYLA Administration Furosemide 80 mg 05/05/21 18:00 05/08/21 06:38 Furosemide 40 Mg Tab PO Not Given 0600,1800 LYLA Heparin Sodium (Porcine) 5,000 unit 04/30/21 10:00 05/08/21 09:29 Heparin 5,000 Unit/1 Ml Vial SUB-Q 5,000 unit Q12HR LYLA Administration Heparin Sodium (Porcine) 5,000 unit 05/03/21 10:00 Heparin 10,000 Unit/1 Ml Vial IV CARLTON PRN hemodialysis Hydralazine HCl 50 mg 05/04/21 14:00 05/08/21 06:37 Hydralazine 25 Mg Tab PO Not Given Q8HR LYLA Hydralazine HCl 20 mg 05/04/21 14:56 Hydralazine 20 Mg/1 Ml Inj IV Q6HR PRN Hypertension Hydrophilic Ointment 1 applic 04/30/21 00:53 Lip Therapy Vaseline TP Q2HR PRN Dry Lips Sodium Chloride 100 mls @ 999 mls/hr 05/03/21 09:30 Nacl 0.9% IV CARLTON PRN Hypotension Naloxone HCl 0.1 mg 04/29/21 23:55 Naloxone 0.4 Mg/1 Ml Inj IV Q2MIN PRN Res Rate </= 8 or 02 SAT < 92% Nifedipine 60 mg 05/04/21 15:15 05/08/21 09:28 Nifedipine Xl 60 Mg Tab PO 60 mg Q12HR LYLA Administration Ondansetron HCl 4 mg 04/29/21 19:12 05/06/21 23:04 Ondansetron 4 Mg/2 Ml Inj IV 4 mg Q8H PRN Administration Nausea And Vomiting Oxycodone/Acetaminophen 1 tab 04/29/21 19:12 05/08/21 00:45 Oxycodone /Acetaminophen 5-325mg Tab PO 1 tab Q6H PRN Administration Pain, Moderate (4-6) Senna/Docusate Sodium 1 tab 04/30/21 10:00 05/08/21 09:29 Sennosides/Docusate Sodium 8.6/50 Mg Tab FEEDTUBE 1 tab BID LYLA Administration Sodium Chloride 10 ml 04/29/21 22:00 05/08/21 09:30 Sodium Chloride 0.9% 10 Ml Flush Syringe IV 10 ml BID LYLA Administration Sodium Chloride 10 ml 04/29/21 19:12 04/30/21 19:40 Sodium Chloride 0.9% 10 Ml Flush Syringe IV 10 ml PRN PRN Administration LINE FLUSH Trazodone HCl 50 mg 05/07/21 22:00 05/07/21 23:43 Trazodone 50 Mg Tab PO 50 mg QHS LYLA Administration
[2021-05-08 15:11] VITALS: BP 166/70
== END 2021-05-08 16:28 | disposition home health service (06) | DRG 628 ==
LOC: OR 19:48 → OBSVTOIN 19:50 → 4A 19:50 → CC1 04-30 00:10 → 4A 05-02 17:47
PROVIDERS: ADMIT Internal Medicine; ATTEND Hospitalist
PROC: 03170ZD Bypass Right Brachial Artery to Upper Arm Vein, Open Approach (ICD-10-PCS; principal; 2021-04-29)
PROC: 0BH17EZ Insertion of Endotracheal Airway into Trachea, Via Natural or Artificial Opening (ICD-10-PCS; 2021-04-30)
PROC: 4A033R1 Measurement of Arterial Saturation, Peripheral, Percutaneous Approach (ICD-10-PCS; 2021-04-30)
PROC: 02HV33Z Insertion of Infusion Device into Superior Vena Cava, Percutaneous Approach (ICD-10-PCS; 2021-05-04)
PROC: B548ZZA Ultrasonography of Superior Vena Cava, Guidance (ICD-10-PCS; 2021-05-04)
PROC: 5A1935Z Respiratory Ventilation, Less than 24 Consecutive Hours (ICD-10-PCS; 2021-05-04)
PROC: 5A1D70Z Performance of Urinary Filtration, Intermittent, Less than 6 Hours Per Day (ICD-10-PCS; 2021-05-04)
PROC: 5A1D70Z Performance of Urinary Filtration, Intermittent, Less than 6 Hours Per Day (ICD-10-PCS; 2021-05-05)
PROC: 5A1D70Z Performance of Urinary Filtration, Intermittent, Less than 6 Hours Per Day (ICD-10-PCS; 2021-05-06)
PROC: 5A1D70Z Performance of Urinary Filtration, Intermittent, Less than 6 Hours Per Day (ICD-10-PCS; 2021-05-07)
DX: E87.70 Fluid overload, unspecified (principal); N18.6 End stage renal disease; J96.01 Acute respiratory failure with hypoxia; R65.11 Systemic inflammatory response syndrome (SIRS) of non-infectious origin with acute organ dysfunction; I12.0 Hypertensive chronic kidney disease with stage 5 chronic kidney disease or end stage renal disease; Z20.822 Contact with and (suspected) exposure to COVID-19; E87.2 Acidosis; E11.22 Type 2 diabetes mellitus with diabetic chronic kidney disease; R33.9 Retention of urine, unspecified; F41.9 Anxiety disorder, unspecified; D64.9 Anemia, unspecified; E11.21 Type 2 diabetes mellitus with diabetic nephropathy; Z82.49 Family history of ischemic heart disease and other diseases of the circulatory system; Z79.899 Other long term (current) drug therapy; Z79.891 Long term (current) use of opiate analgesic; Z79.01 Long term (current) use of anticoagulants
CPT/HCPCS: 36415; 36558; 36600; 71045; 77001; 80048; 80053; 80074; 82805; 82962; 83036; 85007; 85014; 85018; 85025; 85027; 86850; 86900; 86901; 86920; 87070; 87205; 93306; 94002; 94003; 94640; 99406; G0378; A4649; C1750; J0690; J0885; J1265; J1630; J1644; J1940; J2250; J2270; J2370; J2405; J2543; J2704; J2720; J3010; J7030; J7040; J7050; P9016; U0003